=== PATIENT | male | born 1945 | race Caucasian/White ===

== ENCOUNTER → 2020-07-06 13:00 | Outpatient (CLI) | payer OTHER, SELFPAY ==
[2020-07-06 13:43] LABS: Add Manual Diff / Slide Review NO; Basophils Absolute Auto 100 /uL (0-100); Basophils Percent Auto 0.9 % (0-2); Eosinophils Absolute Auto 200 /uL (0-450); Eosinophils Percent Auto 2.4 % (2-4); Hematocrit 41.6 % (41-53); Hemoglobin 14.1 g/dL (13.5-17.5); Lymphocytes Absolute Auto 2000 /uL (1100-4500); Lymphocytes Percent Auto 21.5 % (25-40); Mean Corpuscular HGB Conc 33.9 % (30-36); Mean Corpuscular Hemoglobin 30.6 PG (26-34); Mean Corpuscular Volume 90.3 fL (80-100); Monocytes Absolute Auto 700 /uL (0-900); Monocytes Percent Auto 7.4 % (3-14); Neutrophils Absolute Auto 6300 /uL (1500-7000); Neutrophils Percent Auto 67.8 % (50-75); Platelet Count 344 X10^3/uL (150-400); White Blood Cell Count 9.3 X10^3/uL (4.5-11.0)
[2020-07-06 14:01] LABS: Alanine Aminotransferase 29 IU/L (<50); Albumin 4.9 g/dL (3.5-5.0); Albumin Globulin Ratio 1.5 (1.0-2.8); Alkaline Phosphatase 371 U/L (38-126); Aspartate Aminotransferase 43 IU/L (17-59); BUN Creatinine Ratio 19.8 (6-22); Bilirubin Total 0.5 mg/dL (0.2-1.3); Blood Urea Nitrogen 20 mg/dL (9-20); Calcium 10.4 mg/dL (8.4-10.2); Carbon Dioxide 29 mmol/L (22-32); Chloride 104 mmol/L (98-107); Cholesterol 212 mg/dL (140-199); Estimated Glomerular Filt Rate > 60.0 mL/min (>60); Globulin 3.3 g/dL (1.7-4.1); Glucose 112 mg/dL (80-110); HDL Cholesterol 51 mg/dL (40-60); HEMOLYSIS < 15 (0-50); LDL Cholesterol Calculated 130 mg/dL (<100); Potassium 4.3 mmol/L (3.4-5.1); Sodium 141 mmol/L (137-145); Total Protein 8.2 g/dL (6.3-8.2); Triglycerides 156 mg/dL (35-150)
[2020-07-06 14:17] LABS: Free T3, Triiodothyronine Free 4.03 pg/mL (2.77-5.27); Free T4, Direct Thyroxine 1.24 ng/dL (0.78-2.19)
[2020-07-06 14:30] LABS: Prostate Specific Antigen 59.2 ng/mL (0.10-4.00)
[2020-07-06 14:31] LABS: Thyroid Stimulating Hormone 2.14 uIU/mL (0.47-4.68)
--- NOTE | 2020-07-09 14:23 | ONC.MSW ---
Description: New Referral Navigation Reason for Referral: Hx Prostate Cancer, Rising PSA. Activity: Reviewed pt's referral for acuity,and immediate needs. Pt is being referred by Dr. Smith after it was discovered that pt's PSA has risen to 59. Pt had a prostatectomy in 2017, followed by Vern fenton. It's been one year since pt has had [place], or seen a Urologist. No immediate needs identified at this time. Forwarded to scheduling for next available new consult time.
== END ==
PROVIDERS: PCP Family Medicine; Referring Provider Family Medicine; Visit Provider Family Medicine
DX: C61 Malignant neoplasm of prostate (principal); E66.9 Obesity, unspecified; I10 Essential (primary) hypertension
CPT/HCPCS: 36415; 80053; 80061; 84153; 84439; 84443; 84481; 85025

== ENCOUNTER → 2020-07-23 17:04 | Outpatient (CLI) | payer OTHER, SELFPAY ==
[2020-07-23 17:58] LABS: Gamma Glutamyl Transpeptidase 27 U/L (15-73)
== END ==
PROVIDERS: PCP Family Medicine; Referring Provider Family Medicine; Visit Provider Family Medicine
DX: R74.8 Abnormal levels of other serum enzymes (principal)
CPT/HCPCS: 36415; 82977

== ENCOUNTER → 2020-08-18 08:54 | Outpatient (CLI) | payer OTHER, SELFPAY ==
--- NOTE | 2020-08-18 08:55 | DI.NM.S_ITS ---
PROCEDURE: NM BONE SCAN WHOLE BODY RADIOPHARMACEUTICAL: 19.8 mCi Tc-99m MDP IV. INDICATIONS: prostate cancder TECHNIQUE: Delayed whole-body scintigrams were obtained approximately 3-4 hours after intravenous injection of radiotracer. Anterior and posterior views were acquired from vertex to feet. COMPARISON: [facility], CT, CT CHEST ABD PEL W CON, 08/18/2020, 10:11. FINDINGS: The delayed planar imaging shows several calvarial lesions of focal dense isotope deposition, best seen in the left occipital area, and more superiorly at the posterior right and left paramedian parietal calvarium. More inferiorly degenerative changes are seen at the low thigh cervical spine and asymmetric prominent isotope deposition is seen at the humeral head/neck area and glenoid fossa on the left. Note is made of scattered foci of abnormal elevated isotope uptake at rib seen posteriorly bilaterally, including a linear band of uptake at the lower posterolateral left rib. As the lumbosacral level is approached increased isotope deposition can be seen and in this area on CT scanning from same day vague but generalized elevated radiodensity within the L1 vertebral body can be seen. This corresponds to an area of prominent elevated isotope deposition without height reduction in that same area on bone scanning. More inferiorly involving the right sacrum and right iliac bone on the bone scan of there is abnormal prominent elevated isotope deposition, and this same area shows a generalized increased bone radiodensity consistent with metastatic disease when the 2 findings are taken into account. If a small amount of focal abnormal isotope uptake can be seen at the femoral inter trochanteric region on the right and possibly also on the left. 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 Two small foci of isotope abnormality are noted at the inter trochanteric hips bilaterally. On corresponding imaging from CT scanning same day the bone abnormalities present are associated with a generalized marrow space increase in radiodensity but not the frequently anticipated high-level of osteoblastic change seen with most prostate carcinomas. This pattern is seen both at the L1 vertebral body and within the right iliac bone and the right sacrum laterally. Dictated by: Kade Rodriguez M.D. on 08/18/2020 at 16:46 Approved by: Kade Rodriguez M.D. on 08/18/2020 at 17:00
[2020-08-18 09:48] LABS: Add Manual Diff / Slide Review NO; Basophils Absolute Auto 100 /uL (0-100); Basophils Percent Auto 1.3 % (0-2); Eosinophils Absolute Auto 300 /uL (0-450); Eosinophils Percent Auto 3.2 % (2-4); Hematocrit 39.7 % (41-53); Hemoglobin 13.3 g/dL (13.5-17.5); Lymphocytes Absolute Auto 2100 /uL (1100-4500); Lymphocytes Percent Auto 24.7 % (25-40); Mean Corpuscular HGB Conc 33.5 % (30-36); Mean Corpuscular Hemoglobin 30.1 PG (26-34); Mean Corpuscular Volume 89.8 fL (80-100); Monocytes Absolute Auto 700 /uL (0-900); Monocytes Percent Auto 8.3 % (3-14); Neutrophils Absolute Auto 5400 /uL (1500-7000); Neutrophils Percent Auto 62.5 % (50-75); Platelet Count 325 X10^3/uL (150-400); Red Blood Cell Count 4.42 X10^6/uL (4.5-5.9); White Blood Cell Count 8.7 X10^3/uL (4.5-11.0)
[2020-08-18 10:03] LABS: Alanine Aminotransferase 29 IU/L (<50); Albumin 4.5 g/dL (3.5-5.0); Albumin Globulin Ratio 1.5 (1.0-2.8); Alkaline Phosphatase 570 U/L (38-126); Aspartate Aminotransferase 44 IU/L (17-59); BUN Creatinine Ratio 20.7 (6-22); Bilirubin Total 0.4 mg/dL (0.2-1.3); Blood Urea Nitrogen 23 mg/dL (9-20); Calcium 9.9 mg/dL (8.4-10.2); Carbon Dioxide 28 mmol/L (22-32); Chloride 103 mmol/L (98-107); Estimated Glomerular Filt Rate > 60.0 mL/min (>60); Glucose 103 mg/dL (80-110); HEMOLYSIS < 15 (0-50); Potassium 4.2 mmol/L (3.4-5.1); Sodium 140 mmol/L (137-145); Total Protein 7.5 g/dL (6.3-8.2)
--- NOTE | 2020-08-18 10:28 | DI.CT.S_ITS ---
PROCEDURE: CT CHEST ABD PEL W CON INDICATIONS: prostate cancder TECHNIQUE: After the administration of oral and intravenous contrast, 5 mm thick sections acquired from the lung apices to the symphysis. 5 mm coronal and sagittal reformats were performed, with additional 7 mm coronal MIP reformats through the lungs. For radiation dose reduction, the following was used: automated exposure control, adjustment of mA and/or kV according to patient size. COMPARISON: None. FINDINGS: Image quality: Excellent. CHEST: Lungs and pleura: No acute airspace opacities. No pleural effusions or pneumothorax. Central and peripheral airways appear patent and normal in caliber. Right upper lobe: 4 mm nodule seen on image 70, series 2. Right middle lobe: 4 mm nodule seen on image 191, series 2. Right lower lobe: 5 mm nodule seen on image 198, series 2. 3 mm nodule seen on image 160, series 2. Left upper lobe: No nodules noted. Left lower lobe: 3 mm nodule seen on image 219, series 2. Mediastinum: Heart size is normal. Scattered atherosclerotic calcifications of the coronary arteries are noted. No pericardial effusion. No mediastinal or hilar adenopathy by size criteria. Thoracic aorta and central pulmonary arteries are normal in size. Esophagus is normal in caliber. Small hiatal hernia. Chest wall: No axillary or supraclavicular adenopathy by size criteria. Thyroid gland is unremarkable. Bilateral gynecomastia. ABDOMEN: Solid organs: Liver is normal in size and enhancement. Numerous scattered variably sized hepatic hypodensities many of which are too small to accurately characterize. The largest appears more hypodense within the left hepatic lobe measuring approximately 7.0 x 7.0 cm in transverse dimension and measuring fluid attenuation. This is compatible with hepatic cyst. Other hypodensities may represent cysts versus hemangiomas versus possible metastatic disease. Gallbladder is unremarkable. Biliary system is non dilated. Pancreas enhances normally. Spleen is normal in size and enhancement. No adrenal nodules. Kidneys demonstrate normal size and enhancement, without hydronephrosis. Peritoneum and bowel: Bowel loops demonstrate normal wall thickness and caliber. No free fluid or air. Scattered colonic diverticula without acute inflammation. Nodes and vessels: No retroperitoneal or mesenteric adenopathy by size criteria. However, numerous prominent retroperitoneal lymph nodes are visualized at the level of the kidneys. Aorta and inferior vena cava are normal in size. Scattered atherosclerotic calcifications of the abdominal aorta and iliac vessels without aneurysmal dilatation. Miscellaneous: There is a fat-containing umbilical hernia without acute inflammation. PELVIS: Genitourinary: Bladder wall thickness is normal. There is a small right-sided urinary bladder wall diverticulum. There is also a fluid attenuation collection adjacent to the distal margin of the right external iliac artery measuring 2.6 x 3.8 cm. There are adjacent surgical clips adjacent to it and likely represents a postsurgical fluid collection. Miscellaneous: No inguinal hernias. A few prominent left pelvic sidewall lymph nodes are visualized. Status post prostatectomy. Bones: Status post ORIF of the right femoral neck. There are numerous scattered suspicious sclerotic foci throughout the visualized skeleton. These are noted in the superior aspect of the sternum, lateral left 2nd rib, lateral left 6th rib, posterior left 8th rib, left lamina of T2, posterior element of T4, vertebral body involving T6, T10, T11, T12 with associated anterior compression fracture (favored to be chronic), diffusely in L1, L2, and L4. Diffuse lytic and sclerotic foci noted in the pelvis and sacrum. IMPRESSION: 1. CT chest, abdomen, and pelvis without acute abnormalities. 2. Multiple scattered sclerotic foci noted throughout the imaged skeleton suspicious for osseous metastatic disease. There is possible pathologic compression fracture of T12 which appears chronic. Please see above for further details. 3. Multiple small hepatic hypodensities are too small to accurately characterize and may represent hepatic cysts versus hemangiomas as the largest lesion measures fluid attenuation. However, metastatic disease not excluded. 4. Although not meeting size criteria for pathology, there are numerous prominent retroperitoneal lymph nodes identified near the level of the kidneys as well as a few near the left pelvic sidewall, suspicious for possible metastatic disease. 5. Multiple sub 6 mm bilateral pulmonary nodules . Etiology includes inflammatory or infectious process with metastatic disease not excluded. Follow-up CT recommended in approximately 12 months. 6. Colonic diverticulosis without acute diverticulitis. 7. Status post prostatectomy. 8. Other findings as above. Dictated by: Cornell Lou M.D. on 08/18/2020 at 14:56 Approved by: Cornell Lou M.D. on 08/18/2020 at 15:35
[2020-08-18 11:51] LABS: Prostate Specific Antigen 123 ng/mL (0.10-4.00)
== END ==
PROVIDERS: PCP Family Medicine; Referring Provider Internal Medicine Hematology & Oncology; Visit Provider Internal Medicine Hematology & Oncology
DX: C61 Malignant neoplasm of prostate (principal); C79.51 Secondary malignant neoplasm of bone; R91.8 Other nonspecific abnormal finding of lung field; R59.0 Localized enlarged lymph nodes; K57.90 Diverticulosis of intestine, part unspecified, without perforation or abscess without bleeding; I25.10 Atherosclerotic heart disease of native coronary artery without angina pectoris
CPT/HCPCS: 36415; 71260; 74177; 78306; 80053; 84153; 85025; A9503; Q9967

== ENCOUNTER → 2021-01-02 12:57 | Outpatient (CLI) | payer OTHER, SELFPAY ==
[2021-01-02 13:19] LABS: Add Manual Diff / Slide Review NO; Basophils Absolute Auto 100 /uL (0-100); Basophils Percent Auto 1.2 % (0-2); Eosinophils Absolute Auto 200 /uL (0-450); Eosinophils Percent Auto 2.7 % (2-4); Hemoglobin 12.8 g/dL (13.5-17.5); Lymphocytes Absolute Auto 2000 /uL (1100-4500); Lymphocytes Percent Auto 22.8 % (25-40); Mean Corpuscular HGB Conc 33.7 % (30-36); Mean Corpuscular Hemoglobin 31.3 PG (26-34); Monocytes Absolute Auto 1000 /uL (0-900); Monocytes Percent Auto 11.9 % (3-14); Neutrophils Absolute Auto 5300 /uL (1500-7000); Neutrophils Percent Auto 61.4 % (50-75); Platelet Count 310 X10^3/uL (150-400); Red Blood Cell Count 4.09 X10^6/uL (4.5-5.9); Red Cell Distribution Width 13.6 % (11.6-14.8); White Blood Cell Count 8.6 X10^3/uL (4.5-11.0)
[2021-01-02 13:23] LABS: Alanine Aminotransferase 31 IU/L (<50); Albumin 4.3 g/dL (3.5-5.0); Albumin Globulin Ratio 1.5 (1.0-2.8); Alkaline Phosphatase 271 U/L (38-126); Aspartate Aminotransferase 37 IU/L (17-59); BUN Creatinine Ratio 24.3 (6-22); Bilirubin Total 0.3 mg/dL (0.2-1.3); Blood Urea Nitrogen 26 mg/dL (9-20); Calcium 9.5 mg/dL (8.4-10.2); Carbon Dioxide 36 mmol/L (22-32); Chloride 104 mmol/L (98-107); Estimated Glomerular Filt Rate > 60.0 mL/min (>60); Globulin 2.9 g/dL (1.7-4.1); Glucose 106 mg/dL (80-110); HEMOLYSIS < 15 (0-50); Potassium 3.5 mmol/L (3.4-5.1); Sodium 142 mmol/L (137-145); Total Protein 7.2 g/dL (6.3-8.2)
[2021-01-02 13:54] LABS: Prostate Specific Antigen 3.37 ng/mL (0.10-4.00)
== END ==
PROVIDERS: PCP Family Medicine; Referring Provider Internal Medicine Hematology & Oncology; Visit Provider Internal Medicine Hematology & Oncology
DX: C61 Malignant neoplasm of prostate (principal)
CPT/HCPCS: 36415; 80053; 84153; 85025

== ENCOUNTER → 2021-06-08 09:39 | Outpatient (CLI) | payer OTHER, SELFPAY | PROVIDERS: Family Provider Family Medicine; PCP Family Medicine; Referring Provider Internal Medicine Hematology & Oncology; Visit Provider Internal Medicine Hematology & Oncology | DX: C61 Malignant neoplasm of prostate (principal) ==

== ENCOUNTER 2021-07-01 14:30 | Outpatient (RCR) | payer OTHER, SELFPAY ==
--- NOTE | 2021-03-17 14:48 | PT.OIE ---
Current Diagnoses Malignant neoplasm of prostate (03/17/21) Low back pain (03/17/21) Other malaise (03/17/21) Past Medical History (Last Updated 02/26/21 @ 15:00 by Art Smith DO) Elevated alkaline phosphatase level Elevated PSA History of prostate cancer Hypertension Low back pain Obesity Physical deconditioning Vision disorder Past Surgical History (Last Reviewed 07/27/20 @ 11:00 by Parvin Baum MD) Anesthesia H/O right wrist surgery (~1996) H/O umbilical hernia repair History of hip surgery (~1985) History of prostatectomy Visit Care Team Role Provider Type Art Smith DO Attending Provider Physician Family Provider Primary Care Provider Referring Provider Specialty: [facility] Practice Address: [address] [place] [address] Email: Physical Therapy Initial Evaluation PT-OP-A Visit Information Start: 03/17/21 14:08 Freq: Status: Active Protocol: Document 03/17/21 14:11 (Rec: 03/17/21 14:47 [email or web address]) Out-Patient Physical Therapy Visit Information Visit Information Visit Type Initial Evaluation Visit Start Time 13:00 Visit Stop Time 13:50 Total Visit Minutes 50 Visit Number 11/27 Number of NUT TIGHTENER Visits 0 Evaluation Information Evaluation Date 03/17/21 Precautions Precautions prostate cancer osteoporosis PT-OP-B Current Condition Start: 03/17/21 14:08 Freq: Status: Active Protocol: Document 03/17/21 14:11 (Rec: 03/17/21 14:47 [email or web address]) Current Condition History of Current Condition Onset Date many years ago Current Complaints chronic LBP, deconditioning and difficulty in walking History of Current Condition Jassi is a 75yo male with hx of osteoporosis, bakc pain, prostate caner, s/p prostatectomy in 2017 and HTN here for her chronic LBP and deconditioning. He states his back pain has been there > 10 years located at the sacral region and it's tender to touch. He tends to feel compressed if he stands / walk for a long time but bending over tends to relieve his pain. He states he is very sedentary since 10 years ago and has been using hiking sticks to walk/ furniture cruise d/t weakness and poor balance. He also needs to use UE to lift LEs into his car/ bed. He stated he has been being lazy for years and want to get stronger again. Pt mentioned he had a R hip ORIF surgery 20 years after a fall from rollerblading. Current Functional Impairments (Reported) Functional Limitations- ADL's unable to stand > 30 mins for house work Functional Limitations- Mobility/Gait unable to tolerate >100ft of walking d/t fatigue and pain. pt uses hiking stickcs to walk / furniture cruise at home use UEs to lift LEs to get into his car/ bed. Personal Factors Other Personal Factors That May Effect pt is on Lupron (hormonal Therapy/Recovery therapy) for prostate cancer osteoporosis PT-OP-C Subjective Start: 03/17/21 14:08 Freq: Status: Active Protocol: Document 03/17/21 14:11 (Rec: 03/17/21 14:47 [email or web address]) Patient Questionnaires Oswestry Low Back Index Oswestry Score 26 Oswestry Impairment 20 to 39% Impaired (Score 20- 39) OP-PT Pain Assessment Location LBP Pain Location Details lumbar region Intensity 1 Scale Used Numeric (0 - 10) Description Aching Frequency Frequent Pain Aggravating Factors ADL's,Activity,Exercise, Standing,Walking Pain Alleviating Factors Inactivity,Lying Supine, Sitting PT-OP-D Balance Start: 03/17/21 14:08 Freq: Status: Active Protocol: Document 03/17/21 14:11 (Rec: 03/17/21 14:47 [email or web address]) Balance Tests Single Limb Standing Single Limb- Right unable d/t instability Single Limb- Left unable d/t instability PT-OP-G Mobility & Gait Start: 03/17/21 14:08 Freq: Status: Active Protocol: Document 03/17/21 14:11 (Rec: 03/17/21 14:47 [email or web address]) OP Mobility Evaluation Bed Mobility Supine to and from Sit use UEs to lift each LE individually over to table/ off the table Transfers Sit to Stand B UE push off from armrest OP Gait Assessment Comments Gait Comments pt walks with hiking sticks at all time and with a slight lateral gait. (R toe in and amb in a diagonal direction.) PT-OP-H Neuro Start: 03/17/21 14:08 Freq: Status: Active Protocol: Document 03/17/21 14:11 (Rec: 03/17/21 14:47 [email or web address]) Sensation Evaluation Gross Sensation Gross Sensation WNL Deep Tendon Reflex & Clonus Assessment Deep Tendon Reflex Bilateral Achilles Deep Tendon Reflex 2+ Normal Bilateral Patellar Deep Tendon Reflex 2+ Normal PT-OP-K Range of Motion Start: 03/17/21 14:08 Freq: Status: Active Protocol: Document 03/17/21 14:11 (Rec: 03/17/21 14:47 [email or web address]) Lumbar Spine Range of Motion Lumbar Spine Active Degrees Testing Position Sitting Comments unable to toe touch in standing d/t poor balance able to toe touch in seated position, slight discomfort with extension but not radiating pain noted. Hip Goniometric Range of Motion Hip Right Active Comments supine figure 4 position (R knee 4 inches off table; L knee 3 inches off table) PSLR =45 degrees , tightness HS Left Active Comments supine figure 4 position (R knee 4 inches off table; L knee 3 inches off table) PSLR =60 degrees , tightness HS Hip ROM Limitations Hip ROM Limitations Soft Tissue Tightness PT-OP-L Special Tests Start: 03/17/21 14:08 Freq: Status: Active Protocol: Document 03/17/21 14:11 (Rec: 03/17/21 14:47 [email or web address]) Special Tests Lumbar Spine Special Tests Straight Leg Raise Test Results -ve Comments significant HS tightness noted . no LBP A-P Shearing Test Results pain at L3-L5 with PA mob Hip Special Tests Scour Test Test Results -ve B Straight Leg Raise Test Results +ve B Comments significant HS tightness noted . no LBP Piriformis Test Results -ve B EDUARDO Test Results -ve B PT-OP-M Strength Start: 03/17/21 14:08 Freq: Status: Active Protocol: Document 03/17/21 14:11 (Rec: 03/17/21 14:47 [email or web address]) Hip Strength Hip Manual Muscle Testing Right Flexion (L2) 3- Fair- Extension (S1) 3 Fair Abduction 3 Fair Adduction 3 Fair External Rotation 3 Fair Internal Rotation 3 Fair Left Flexion (L2) 3+ Fair+ Extension (S1) 3+ Fair+ Abduction 3 Fair Adduction 3+ Fair+ External Rotation 3+ Fair+ Internal Rotation 3+ Fair+ Knee Strength Knee Manual Muscle Testing Right Flexion (S2) 4 Good Extension (L3) 4 Good Left Flexion (S2) 4 Good Extension (L3) 4 Good PT-OP-T Assessment and Plan Start: 03/17/21 14:08 Freq: Status: Active Protocol: Document 03/17/21 14:11 (Rec: 03/17/21 14:47 HH [email or web address]) Physical Therapy Assessment Rehab Potential Rehabilitation Potential Good Evaluation Complexity Number of Personal Factors/Comorbidities 3 or More Number of Body Systems Impaired 3 Clinical Presentation at Evaluation Stable Impairments Impairments Activity Tolerance,Balance, Edema,Functional Activities, Functional Mobility,Gait,Pain, Posture,ROM,Soft Tissue Mobility,Strength,Transfers Goals activity tolerance Impairment pt is very deconditioned. 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 STG Duration 6 weeks Penitentiary Goal (LTG) pt will be able to tolerate walking 300 ft without AD to improve his overall endurance and mobility in community LTG Duration 12 weeks. strength Impairment pt needs to use armrests to stand up Short Term Goal (STG) pt will improve his B LE strength to be able to complete STS for 5 times without using armrests to push off. STG Duration 6 weeks Penitentiary Goal (LTG) pt will improve his B LE strength to be able to complete STS for 10 times without using armrests to push off. LTG Duration 12 weeks gait Impairment pt is using hiking sticks for all mobility Short Term Goal (STG) pt will be able to use SPC/ 1 hiking stick to amb in community and at home safely and indepednently STG Duration 6 weeks Penitentiary Goal (LTG) pt will be able amb without any AD in community and at home safely and indepednently LTG Duration 12 weeks oswestry Impairment pt scores 26 Short Term Goal (STG) pt will score <20 on owestry to improve his quality of life . STG Duration 6 weeks Penitentiary Goal (LTG) pt will score <15 on owestry to improve his quality of life and activity tolerance LTG Duration 12weeks Assessment Summary Assessment Jassi is a 75yo fragile and obese male here for his chronic LBP and deconditioning . Pt has hx of osteoporosis, prostate caner, s/p prostatectomy in 2017 and HTN. (pt is on Lupron hormonal therapy). Upon assessment, pt shows signs of R hip OA and lumbar stenosis. He has slightly limited R hip mobility especially Hamstrings and pain with lumbar extension. He is extremely deconditioned with significant LE weakness possibly d/t lack of motivation, prolonged sedentary lifestyle and fear of falling. This is possibly going to be a long rehab d/t his other comorbidities and lifestyle issues but he will benefit from a course of skilled therapy to achieve better functional mobility and strength. Physical Therapy Plan Frequency and Duration Frequency of Treatment 2x/Week Duration of Treatment 12 weeks Plan of Care Start Date 03/17/21 Plan of Care End Date 06/15/21 Therapeutic Interventions Therapeutic Interventions Aquatic Therapy,Balance Training,Gait Training,Home Exercise Program,Joint Mobilizations,Manual Therapy, Neuromuscular Re-education, Orthotic/Prosthetic Management ,Patient/Caregiver Education, Self-Care/Home Management,Soft Tissue Mobilization,Taping, Therapeutic Activities, Therapeutic Exercises Modalities Cold Pack/Ice Massage,Hot Packs,Infrared Therapy, Traction- Mechanical Next Visit Focus/Plan Next Note Type Treatment Note Next Visit Plan hip stretches (figrue 4 , piriformis) HS stretch sLR leg press bike to start with( pt recnetly purchase a bike) gait training
--- NOTE | 2021-03-24 16:26 | PT.OTN ---
Current Diagnoses Malignant neoplasm of prostate (03/24/21) Low back pain (03/24/21) Other malaise (03/24/21) Physical Therapy Treatment Note PT-OP-A Visit Information Start: 03/17/21 14:08 Freq: Status: Active Protocol: Document 03/24/21 13:48 HH (Rec: 03/24/21 16:26 [id number]) Out-Patient Physical Therapy Visit Information Visit Information Visit Type Treatment Note Visit Start Time 13:48 Visit Stop Time 14:30 Total Visit Minutes 42 Visit Number 2/15 Number of SCHOOL LIBRARY MEDIA PROGRAM DIRECTOR Visits 0 PT-OP-B Current Condition Start: 03/17/21 14:08 Freq: Status: Active Protocol: Document 03/17/21 14:11 HH (Rec: 03/17/21 14:47 [email or web address]) Current Condition History of Current Condition Onset Date many years ago Current Complaints chronic LBP, deconditioning and difficulty in walking History of Current Condition Jassi is a 75yo male with hx of osteoporosis, bakc pain, prostate caner, s/p prostatectomy in 2017 and HTN here for her chronic LBP and deconditioning. He states his back pain has been there > 10 years located at the sacral region and it's tender to touch. He tends to feel compressed if he stands / walk for a long time but bending over tends to relieve his pain. He states he is very sedentary since 10 years ago and has been using hiking sticks to walk/ furniture cruise d/t weakness and poor balance. He also needs to use UE to lift LEs into his car/ bed. He stated he has been being lazy for years and want to get stronger again. Pt mentioned he had a R hip ORIF surgery 20 years after a fall from rollerblading. Current Functional Impairments (Reported) Functional Limitations- ADL's unable to stand > 30 mins for house work Functional Limitations- Mobility/Gait unable to tolerate >100ft of walking d/t fatigue and pain. pt uses hiking stickcs to walk / furniture cruise at home use UEs to lift LEs to get into his car/ bed. Personal Factors Other Personal Factors That May Effect pt is on Lupron (hormonal Therapy/Recovery therapy) for prostate cancer osteoporosis PT-OP-C Subjective Start: 03/17/21 14:08 Freq: Status: Active Protocol: Document 03/24/21 13:48 (Rec: 03/24/21 16:26 [id number]) OP-PT Subjective Patient Comments Patient Comments My back was killing me after i went to [place]. I just have very weak legs PT-OP-D Balance Start: 03/17/21 14:08 Freq: Status: Active Protocol: Document 03/17/21 14:11 (Rec: 03/17/21 14:47 [email or web address]) Balance Tests Single Limb Standing Single Limb- Right unable d/t instability Single Limb- Left unable d/t instability PT-OP-G Mobility & Gait Start: 03/17/21 14:08 Freq: Status: Active Protocol: Document 03/17/21 14:11 (Rec: 03/17/21 14:47 [email or web address]) OP Mobility Evaluation Bed Mobility Supine to and from Sit use UEs to lift each LE individually over to table/ off the table Transfers Sit to Stand B UE push off from armrest OP Gait Assessment Comments Gait Comments pt walks with hiking sticks at all time and with a slight lateral gait. (R toe in and amb in a diagonal direction.) PT-OP-H Neuro Start: 03/17/21 14:08 Freq: Status: Active Protocol: Document 03/17/21 14:11 (Rec: 03/17/21 14:47 [email or web address]) Sensation Evaluation Gross Sensation Gross Sensation WNL Deep Tendon Reflex & Clonus Assessment Deep Tendon Reflex Bilateral Achilles Deep Tendon Reflex 2+ Normal Bilateral Patellar Deep Tendon Reflex 2+ Normal PT-OP-K Range of Motion Start: 03/17/21 14:08 Freq: Status: Active Protocol: Document 03/17/21 14:11 (Rec: 03/17/21 14:47 [email or web address]) Lumbar Spine Range of Motion Lumbar Spine Active Degrees Testing Position Sitting Comments unable to toe touch in standing d/t poor balance able to toe touch in seated position, slight discomfort with extension but not radiating pain noted. Hip Goniometric Range of Motion Hip Right Active Comments supine figure 4 position (R knee 4 inches off table; L knee 3 inches off table) PSLR =45 degrees , tightness HS Left Active Comments supine figure 4 position (R knee 4 inches off table; L knee 3 inches off table) PSLR =60 degrees , tightness HS Hip ROM Limitations Hip ROM Limitations Soft Tissue Tightness PT-OP-L Special Tests Start: 03/17/21 14:08 Freq: Status: Active Protocol: Document 03/17/21 14:11 (Rec: 03/17/21 14:47 [email or web address]) Special Tests Lumbar Spine Special Tests Straight Leg Raise Test Results -ve Comments significant HS tightness noted . no LBP A-P Shearing Test Results pain at L3-L5 with PA mob Hip Special Tests Scour Test Test Results -ve B Straight Leg Raise Test Results +ve B Comments significant HS tightness noted . no LBP Piriformis Test Results -ve B EDUARDO Test Results -ve B PT-OP-M Strength Start: 03/17/21 14:08 Freq: Status: Active Protocol: Document 03/17/21 14:11 (Rec: 03/17/21 14:47 [email or web address]) Hip Strength Hip Manual Muscle Testing Right Flexion (L2) 3- Fair- Extension (S1) 3 Fair Abduction 3 Fair Adduction 3 Fair External Rotation 3 Fair Internal Rotation 3 Fair Left Flexion (L2) 3+ Fair+ Extension (S1) 3+ Fair+ Abduction 3 Fair Adduction 3+ Fair+ External Rotation 3+ Fair+ Internal Rotation 3+ Fair+ Knee Strength Knee Manual Muscle Testing Right Flexion (S2) 4 Good Extension (L3) 4 Good Left Flexion (S2) 4 Good Extension (L3) 4 Good PT-OP-Q Treatments Start: 03/17/21 14:08 Freq: Status: Active Protocol: Document 03/24/21 13:48 (Rec: 03/24/21 16:26 [id number]) Cardio Equipment Recumbent Bicycle Duration (Minutes) 6 Resistance 5 Seat Position 5 Other need to use UE to lift LE individually. Therapeutic Exercises Supine Exercises supine clamshell Side bilateral Equipment Used yellow band Reps/Minutes 8 x2 bridging Side bilateral Reps/Minutes 6 x2 Comments pt has excessive lateral sway d/t poor stability Manual Therapy Treatment Soft Tissue Mobilization hips Body Location hip abductors and extensors Mobilization Type Myofascial Release,Sustained Pressure,Trigger Point Release Intensity/Depth Moderate Body Position Supine paraspinals Mobilization Type Myofascial Release,Sustained Pressure,Trigger Point Release Intensity/Depth Moderate Body Position Sitting Comments significnat tenderness L>R PT-OP-T Assessment and Plan Start: 03/17/21 14:08 Freq: Status: Active Protocol: Document 03/24/21 13:48 HH (Rec: 03/24/21 16:26 HH [id number]) Physical Therapy Assessment Goals activity tolerance Impairment pt is very deconditioned. 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 STG Duration 6 weeks Live Ammunition Inspector Goal (LTG) pt will be able to tolerate walking 300 ft without AD to improve his overall endurance and mobility in community LTG Duration 12 weeks. strength Impairment pt needs to use armrests to stand up Short Term Goal (STG) pt will improve his B LE strength to be able to complete STS for 5 times without using armrests to push off. STG Duration 6 weeks Custodial Goal (LTG) pt will improve his B LE strength to be able to complete STS for 10 times without using armrests to push off. LTG Duration 12 weeks gait Impairment pt is using hiking sticks for all mobility Short Term Goal (STG) pt will be able to use SPC/ 1 hiking stick to amb in community and at home safely and indepednently STG Duration 6 weeks Live Ammunition Inspector Goal (LTG) pt will be able amb without any AD in community and at home safely and indepednently LTG Duration 12 weeks oswestry Impairment pt scores 26 Short Term Goal (STG) pt will score <20 on owestry to improve his quality of life . STG Duration 6 weeks Custodial Goal (LTG) pt will score <15 on owestry to improve his quality of life and activity tolerance LTG Duration 12weeks Assessment Summary Assessment Noticed pt has significant hypertonicity at lumbar paraspinals L>R, along with poor core and hip stability. Pt reports he has abdominal hernia surgery few years ago which possibly affect his trunk stability as well. Spent time cueing pt on trunk and hip control on bridging and supine clamshell this session. Physical Therapy Plan Frequency and Duration Frequency of Treatment 2x/Week Duration of Treatment 12 weeks Plan of Care Start Date 03/17/21 Plan of Care End Date 06/15/21 Next Visit Focus/Plan Next Note Type Treatment Note Next Visit Plan hip stretches (figrue 4 , piriformis) HS stretch sLR leg press bike to start with( pt recnetly purchase a bike) gait training
--- NOTE | 2021-03-26 15:33 | PT.OTN ---
Current Diagnoses Malignant neoplasm of prostate (03/26/21) Low back pain (03/26/21) Other malaise (03/26/21) Physical Therapy Treatment Note PT-OP-A Visit Information Start: 03/17/21 14:08 Freq: Status: Active Protocol: Document 03/26/21 14:33 SP (Rec: 03/26/21 16:09 SP [id number]) Out-Patient Physical Therapy Visit Information Visit Information Visit Type Treatment Note Visit Start Time 14:33 Visit Stop Time 15:33 Total Visit Minutes 60 Visit Number 3/15 Number of THERAPIST'S ASSISTANT Visits 1 Evaluation Information Evaluation Date 03/17/21 Precautions Precautions prostate cancer osteoporosis PT-OP-B Current Condition Start: 03/17/21 14:08 Freq: Status: Active Protocol: Document 03/17/21 14:11 HH (Rec: 03/17/21 14:47 HH [email or web address]) Current Condition History of Current Condition Onset Date many years ago Current Complaints chronic LBP, deconditioning and difficulty in walking History of Current Condition Jassi is a 75yo male with hx of osteoporosis, bakc pain, prostate caner, s/p prostatectomy in 2017 and HTN here for her chronic LBP and deconditioning. He states his back pain has been there > 10 years located at the sacral region and it's tender to touch. He tends to feel compressed if he stands / walk for a long time but bending over tends to relieve his pain. He states he is very sedentary since 10 years ago and has been using hiking sticks to walk/ furniture cruise d/t weakness and poor balance. He also needs to use UE to lift LEs into his car/ bed. He stated he has been being lazy for years and want to get stronger again. Pt mentioned he had a R hip ORIF surgery 20 years after a fall from rollerblading. Current Functional Impairments (Reported) Functional Limitations- ADL's unable to stand > 30 mins for house work Functional Limitations- Mobility/Gait unable to tolerate >100ft of walking d/t fatigue and pain. pt uses hiking stickcs to walk / furniture cruise at home use UEs to lift LEs to get into his car/ bed. Personal Factors Other Personal Factors That May Effect pt is on Lupron (hormonal Therapy/Recovery therapy) for prostate cancer osteoporosis PT-OP-C Subjective Start: 03/17/21 14:08 Freq: Status: Active Protocol: Document 03/26/21 14:33 SP (Rec: 03/26/21 16:09 SP [id number]) OP-PT Subjective Patient Comments Patient Comments Pt arrives using B walking sticks 4pt gait for locomotion . My back is feeling better now that took hydrocodone, was hurting alot earlier. I my back was hurting later in the day after last tx, the PT was reallly working on my back bone last time. PT-OP-D Balance Start: 03/17/21 14:08 Freq: Status: Active Protocol: Document 03/17/21 14:11 HH (Rec: 03/17/21 14:47 [email or web address]) Balance Tests Single Limb Standing Single Limb- Right unable d/t instability Single Limb- Left unable d/t instability PT-OP-G Mobility & Gait Start: 03/17/21 14:08 Freq: Status: Active Protocol: Document 03/17/21 14:11 HH (Rec: 03/17/21 14:47 [email or web address]) OP Mobility Evaluation Bed Mobility Supine to and from Sit use UEs to lift each LE individually over to table/ off the table Transfers Sit to Stand B UE push off from armrest OP Gait Assessment Comments Gait Comments pt walks with hiking sticks at all time and with a slight lateral gait. (R toe in and amb in a diagonal direction.) PT-OP-H Neuro Start: 03/17/21 14:08 Freq: Status: Active Protocol: Document 03/17/21 14:11 HH (Rec: 03/17/21 14:47 [email or web address]) Sensation Evaluation Gross Sensation Gross Sensation WNL Deep Tendon Reflex & Clonus Assessment Deep Tendon Reflex Bilateral Achilles Deep Tendon Reflex 2+ Normal Bilateral Patellar Deep Tendon Reflex 2+ Normal PT-OP-K Range of Motion Start: 03/17/21 14:08 Freq: Status: Active Protocol: Document 03/17/21 14:11 HH (Rec: 03/17/21 14:47 [email or web address]) Lumbar Spine Range of Motion Lumbar Spine Active Degrees Testing Position Sitting Comments unable to toe touch in standing d/t poor balance able to toe touch in seated position, slight discomfort with extension but not radiating pain noted. Hip Goniometric Range of Motion Hip Right Active Comments supine figure 4 position (R knee 4 inches off table; L knee 3 inches off table) PSLR =45 degrees , tightness HS Left Active Comments supine figure 4 position (R knee 4 inches off table; L knee 3 inches off table) PSLR =60 degrees , tightness HS Hip ROM Limitations Hip ROM Limitations Soft Tissue Tightness PT-OP-L Special Tests Start: 03/17/21 14:08 Freq: Status: Active Protocol: Document 03/17/21 14:11 HH (Rec: 03/17/21 14:47 HH [email or web address]) Special Tests Lumbar Spine Special Tests Straight Leg Raise Test Results -ve Comments significant HS tightness noted . no LBP A-P Shearing Test Results pain at L3-L5 with PA mob Hip Special Tests Scour Test Test Results -ve B Straight Leg Raise Test Results +ve B Comments significant HS tightness noted . no LBP Piriformis Test Results -ve B EDUARDO Test Results -ve B PT-OP-M Strength Start: 03/17/21 14:08 Freq: Status: Active Protocol: Document 03/17/21 14:11 HH (Rec: 03/17/21 14:47 [email or web address]) Hip Strength Hip Manual Muscle Testing Right Flexion (L2) 3- Fair- Extension (S1) 3 Fair Abduction 3 Fair Adduction 3 Fair External Rotation 3 Fair Internal Rotation 3 Fair Left Flexion (L2) 3+ Fair+ Extension (S1) 3+ Fair+ Abduction 3 Fair Adduction 3+ Fair+ External Rotation 3+ Fair+ Internal Rotation 3+ Fair+ Knee Strength Knee Manual Muscle Testing Right Flexion (S2) 4 Good Extension (L3) 4 Good Left Flexion (S2) 4 Good Extension (L3) 4 Good PT-OP-Q Treatments Start: 03/17/21 14:08 Freq: Status: Active Protocol: Document 03/26/21 14:33 SP (Rec: 03/26/21 16:09 SP [id number]) Cardio Equipment Recumbent Bicycle Duration (Minutes) 6 Resistance 13 (just right resistance) Seat Position 5 Other need to use UE to lift LE individually. (1.07 miles) Gym Equipment Shuttle Recovery Unilateral Squats Details adductor, quad facilitation Resistance 37# Shuttle Recovery Platform Stable Reps/Time x10 each LE- cued adduction L> R LE Bilateral Squats Details quad, adductor facilitation Resistance 75# Shuttle Recovery Platform Stable Reps/Time x20 Therapeutic Exercises Supine Exercises adduction isometric Supine Exercise Name hooklying- added to HEP Side bilateral Equipment Used small blue ball, pillow home Reps/Minutes 5 sec hold x5 Comments cued even lower body alignment LTR Side bilateral Reps/Minutes 5 sec hold x5 Comments Cued B knees //, core & adductor facilitation supine clamshell Side bilateral Equipment Used yellow band (added HEP AROM home) Reps/Minutes 8 x2 bridging Side bilateral Equipment Used pillow between BLE Reps/Minutes 6 x2 Comments pt has excessive lateral sway d/t poor stability Standing Exercises sit<> stands Standing Exercise Name hands on lap- added to HEP Equipment Used near counter for contact balance PRN Reps/Minutes x5 Comments cued feet underneath LE, hip hinge up/ down, quad & glut facil full stand Self-Care/Home Management Treatment Education Patient Education Body Mechanics,Home Exercise Program,Posture Other Education Extra time spent on trunk alignment and self application set up/ performance during ther ex for HEP. PT-OP-T Assessment and Plan Start: 03/17/21 14:08 Freq: Status: Active Protocol: Document 03/26/21 14:33 SP (Rec: 03/26/21 16:09 SP [id number]) Physical Therapy Assessment Goals activity tolerance Impairment pt is very deconditioned. 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 STG Duration 6 weeks Intermediate Goal (LTG) pt will be able to tolerate walking 300 ft without AD to improve his overall endurance and mobility in community LTG Duration 12 weeks. strength Impairment pt needs to use armrests to stand up Short Term Goal (STG) pt will improve his B LE strength to be able to complete STS for 5 times without using armrests to push off. STG Duration 6 weeks Intermediate Goal (LTG) pt will improve his B LE strength to be able to complete STS for 10 times without using armrests to push off. LTG Duration 12 weeks gait Impairment pt is using hiking sticks for all mobility Short Term Goal (STG) pt will be able to use SPC/ 1 hiking stick to amb in community and at home safely and indepednently STG Duration 6 weeks Door To Door Selling Agent Goal (LTG) pt will be able amb without any AD in community and at home safely and indepednently LTG Duration 12 weeks oswestry Impairment pt scores 26 Short Term Goal (STG) pt will score <20 on owestry to improve his quality of life . STG Duration 6 weeks Door To Door Selling Agent Goal (LTG) pt will score <15 on owestry to improve his quality of life and activity tolerance LTG Duration 12weeks Assessment Summary Assessment Pt worked hard throughout tx. Tolerated bike, initiated shuttle press DL/ SL, sit<> stands for self functional strengthening carryover at home and extra time on education on self awareness of lower body alignment during ther ex to allow increased stability between BLE and core support, decreased L rotational drift. Pt improved in forward trunk alignment and quad facilitation knee extension when leaving. Physical Therapy Plan Frequency and Duration Frequency of Treatment 2x/Week Duration of Treatment 12 weeks Plan of Care Start Date 03/17/21 Plan of Care End Date 06/15/21 Therapeutic Interventions Therapeutic Interventions Aquatic Therapy,Balance Training,Gait Training,Home Exercise Program,Joint Mobilizations,Manual Therapy, Neuromuscular Re-education, Orthotic/Prosthetic Management ,Patient/Caregiver Education, Self-Care/Home Management,Soft Tissue Mobilization,Taping, Therapeutic Activities, Therapeutic Exercises Modalities Cold Pack/Ice Massage,Hot Packs,Infrared Therapy, Traction- Mechanical Next Visit Focus/Plan Next Note Type Treatment Note Next Visit Plan Assess reponse to strengthening activities: recumb bike, shuttle press, sit<> stands, hooklying clamshell, bridge, initiated LTR and hip adduction isometric. Next tx: review adduction activities, instruct flexibility in POC POC PT recommendations: hip stretches (figrue 4 , piriformis) HS stretch sLR bike to start with (pt recnetly purchase a bike) gait training
--- NOTE | 2021-03-31 15:14 | PT.OTN ---
Current Diagnoses Malignant neoplasm of prostate (03/31/21) Low back pain (03/31/21) Other malaise (03/31/21) Physical Therapy Treatment Note PT-OP-A Visit Information Start: 03/17/21 14:08 Freq: Status: Active Protocol: Document 03/31/21 13:44 HH (Rec: 03/31/21 15:13 [id number]) Out-Patient Physical Therapy Visit Information Visit Information Visit Type Treatment Note Visit Start Time 13:45 Visit Stop Time 14:40 Total Visit Minutes 55 Visit Number 4/15 Number of SHADE CLOTH FINISHER Visits 0 PT-OP-B Current Condition Start: 03/17/21 14:08 Freq: Status: Active Protocol: Document 03/17/21 14:11 HH (Rec: 03/17/21 14:47 [email or web address]) Current Condition History of Current Condition Onset Date many years ago Current Complaints chronic LBP, deconditioning and difficulty in walking History of Current Condition Jassi is a 75yo male with hx of osteoporosis, bakc pain, prostate caner, s/p prostatectomy in 2017 and HTN here for her chronic LBP and deconditioning. He states his back pain has been there > 10 years located at the sacral region and it's tender to touch. He tends to feel compressed if he stands / walk for a long time but bending over tends to relieve his pain. He states he is very sedentary since 10 years ago and has been using hiking sticks to walk/ furniture cruise d/t weakness and poor balance. He also needs to use UE to lift LEs into his car/ bed. He stated he has been being lazy for years and want to get stronger again. Pt mentioned he had a R hip ORIF surgery 20 years after a fall from rollerblading. Current Functional Impairments (Reported) Functional Limitations- ADL's unable to stand > 30 mins for house work Functional Limitations- Mobility/Gait unable to tolerate >100ft of walking d/t fatigue and pain. pt uses hiking stickcs to walk / furniture cruise at home use UEs to lift LEs to get into his car/ bed. Personal Factors Other Personal Factors That May Effect pt is on Lupron (hormonal Therapy/Recovery therapy) for prostate cancer osteoporosis PT-OP-C Subjective Start: 03/17/21 14:08 Freq: Status: Active Protocol: Document 03/31/21 13:44 (Rec: 03/31/21 15:13 [id number]) OP-PT Subjective Patient Comments Patient Comments I felt slight improvements on confidence and walking ability. Patient Reported Progress Improving PT-OP-D Balance Start: 03/17/21 14:08 Freq: Status: Active Protocol: Document 03/17/21 14:11 HH (Rec: 03/17/21 14:47 [email or web address]) Balance Tests Single Limb Standing Single Limb- Right unable d/t instability Single Limb- Left unable d/t instability PT-OP-G Mobility & Gait Start: 03/17/21 14:08 Freq: Status: Active Protocol: Document 03/17/21 14:11 (Rec: 03/17/21 14:47 [email or web address]) OP Mobility Evaluation Bed Mobility Supine to and from Sit use UEs to lift each LE individually over to table/ off the table Transfers Sit to Stand B UE push off from armrest OP Gait Assessment Comments Gait Comments pt walks with hiking sticks at all time and with a slight lateral gait. (R toe in and amb in a diagonal direction.) PT-OP-H Neuro Start: 03/17/21 14:08 Freq: Status: Active Protocol: Document 03/17/21 14:11 HH (Rec: 03/17/21 14:47 [email or web address]) Sensation Evaluation Gross Sensation Gross Sensation WNL Deep Tendon Reflex & Clonus Assessment Deep Tendon Reflex Bilateral Achilles Deep Tendon Reflex 2+ Normal Bilateral Patellar Deep Tendon Reflex 2+ Normal PT-OP-K Range of Motion Start: 03/17/21 14:08 Freq: Status: Active Protocol: Document 03/17/21 14:11 (Rec: 03/17/21 14:47 [email or web address]) Lumbar Spine Range of Motion Lumbar Spine Active Degrees Testing Position Sitting Comments unable to toe touch in standing d/t poor balance able to toe touch in seated position, slight discomfort with extension but not radiating pain noted. Hip Goniometric Range of Motion Hip Right Active Comments supine figure 4 position (R knee 4 inches off table; L knee 3 inches off table) PSLR =45 degrees , tightness HS Left Active Comments supine figure 4 position (R knee 4 inches off table; L knee 3 inches off table) PSLR =60 degrees , tightness HS Hip ROM Limitations Hip ROM Limitations Soft Tissue Tightness PT-OP-L Special Tests Start: 03/17/21 14:08 Freq: Status: Active Protocol: Document 03/17/21 14:11 (Rec: 03/17/21 14:47 [email or web address]) Special Tests Lumbar Spine Special Tests Straight Leg Raise Test Results -ve Comments significant HS tightness noted . no LBP A-P Shearing Test Results pain at L3-L5 with PA mob Hip Special Tests Scour Test Test Results -ve B Straight Leg Raise Test Results +ve B Comments significant HS tightness noted . no LBP Piriformis Test Results -ve B EDUARDO Test Results -ve B PT-OP-M Strength Start: 03/17/21 14:08 Freq: Status: Active Protocol: Document 03/17/21 14:11 (Rec: 03/17/21 14:47 [email or web address]) Hip Strength Hip Manual Muscle Testing Right Flexion (L2) 3- Fair- Extension (S1) 3 Fair Abduction 3 Fair Adduction 3 Fair External Rotation 3 Fair Internal Rotation 3 Fair Left Flexion (L2) 3+ Fair+ Extension (S1) 3+ Fair+ Abduction 3 Fair Adduction 3+ Fair+ External Rotation 3+ Fair+ Internal Rotation 3+ Fair+ Knee Strength Knee Manual Muscle Testing Right Flexion (S2) 4 Good Extension (L3) 4 Good Left Flexion (S2) 4 Good Extension (L3) 4 Good PT-OP-Q Treatments Start: 03/17/21 14:08 Freq: Status: Active Protocol: Document 03/31/21 13:44 (Rec: 03/31/21 15:13 [id number]) Cardio Equipment Recumbent Bicycle Duration (Minutes) 6 Resistance 13 (just right resistance) Seat Position 5 Other need to use UE to lift LE individually. (1.07 miles) Therapeutic Exercises Supine Exercises adduction isometric Supine Exercise Name hooklying- added to HEP Side bilateral Equipment Used small blue ball, pillow home Reps/Minutes 5 sec hold x5 Comments cued even lower body alignment LTR Supine Exercise Name with ball between legs (iso add contraction) Side bilateral Reps/Minutes 5 sec hold x5 Comments Cued B knees //, core & adductor facilitation supine clamshell Side bilateral Equipment Used yellow band (added HEP AROM home) Reps/Minutes 8 x2 bridging Side bilateral Equipment Used yellow band at knees then pillow between BLE Reps/Minutes 6 x2 Comments pt has excessive lateral sway d/t poor stability Standing Exercises sit<> stands Standing Exercise Name hands on lap- added to HEP Equipment Used near counter for contact balance PRN Reps/Minutes x5 Comments cued feet underneath LE, hip hinge up/ down, quad & glut facil full stand Manual Therapy Treatment Soft Tissue Mobilization hips Body Location hip abductors and extensors Mobilization Type Myofascial Release,Sustained Pressure,Trigger Point Release Intensity/Depth Moderate Body Position Supine paraspinals Mobilization Type Myofascial Release,Sustained Pressure,Trigger Point Release Intensity/Depth Moderate Body Position Sitting Comments significnat tenderness L>R PT-OP-R Modalities Start: 03/17/21 14:08 Freq: Status: Active Protocol: Document 03/31/21 13:44 HH (Rec: 03/31/21 15:13 [id number]) Hot Pack/Cold Pack Treatment L/S Location L/S Patient Position Sitting Treatment Duration (minutes) 10 Patient Tolerance Good PT-OP-T Assessment and Plan Start: 03/17/21 14:08 Freq: Status: Active Protocol: Document 03/31/21 13:44 HH (Rec: 03/31/21 15:13 [id number]) Physical Therapy Assessment Goals activity tolerance Impairment pt is very deconditioned. 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 STG Duration 6 weeks Retirement Goal (LTG) pt will be able to tolerate walking 300 ft without AD to improve his overall endurance and mobility in community LTG Duration 12 weeks. strength Impairment pt needs to use armrests to stand up Short Term Goal (STG) pt will improve his B LE strength to be able to complete STS for 5 times without using armrests to push off. STG Duration 6 weeks Infrastructure Analyst Goal (LTG) pt will improve his B LE strength to be able to complete STS for 10 times without using armrests to push off. LTG Duration 12 weeks gait Impairment pt is using hiking sticks for all mobility Short Term Goal (STG) pt will be able to use SPC/ 1 hiking stick to amb in community and at home safely and indepednently STG Duration 6 weeks Retirement Goal (LTG) pt will be able amb without any AD in community and at home safely and indepednently LTG Duration 12 weeks oswestry Impairment pt scores 26 Short Term Goal (STG) pt will score <20 on owestry to improve his quality of life . STG Duration 6 weeks Infrastructure Analyst Goal (LTG) pt will score <15 on owestry to improve his quality of life and activity tolerance LTG Duration 12weeks Assessment Summary Assessment Pt Shows improved hip and trunk stability today. Educated pt to place pillow in between legs to facilitate core engagement with his HEP. Pt shows good understanding and he is pleased with his progress. Physical Therapy Plan Frequency and Duration Frequency of Treatment 2x/Week Duration of Treatment 12 weeks Plan of Care Start Date 03/17/21 Plan of Care End Date 06/15/21 Therapeutic Interventions Therapeutic Interventions Aquatic Therapy,Balance Training,Gait Training,Home Exercise Program,Joint Mobilizations,Manual Therapy, Neuromuscular Re-education, Orthotic/Prosthetic Management ,Patient/Caregiver Education, Self-Care/Home Management,Soft Tissue Mobilization,Taping, Therapeutic Activities, Therapeutic Exercises Modalities Cold Pack/Ice Massage,Hot Packs,Infrared Therapy, Traction- Mechanical Next Visit Focus/Plan Next Note Type Treatment Note Next Visit Plan Assess reponse to strengthening activities: recumb bike, shuttle press, sit<> stands, hooklying clamshell, bridge, initiated LTR and hip adduction isometric. Next tx: review adduction activities, instruct flexibility in POC POC PT recommendations: hip stretches (figrue 4 , piriformis) HS stretch sLR bike to start with (pt recnetly purchase a bike) gait training
--- NOTE | 2021-04-14 16:18 | PT.OTN ---
Current Diagnoses Malignant neoplasm of prostate (04/14/21) Low back pain (04/14/21) Other malaise (04/14/21) Physical Therapy Treatment Note PT-OP-A Visit Information Start: 03/17/21 14:08 Freq: Status: Active Protocol: Document 04/14/21 14:31 (Rec: 04/14/21 16:18 [id number]) Out-Patient Physical Therapy Visit Information Visit Information Visit Type Treatment Note Visit Note Pt came in with 2 hiking sticks but did walk from front desk person to clinic with 1 stick. Visit Start Time 14:31 Visit Stop Time 15:24 Total Visit Minutes 53 Visit Number / Number of COMMUNICATIONS SYSTEMS ENGINEER Visits 0 PT-OP-B Current Condition Start: 03/17/21 14:08 Freq: Status: Active Protocol: Document 03/17/21 14:11 (Rec: 03/17/21 14:47 [email or web address]) Current Condition History of Current Condition Onset Date many years ago Current Complaints chronic LBP, deconditioning and difficulty in walking History of Current Condition Jassi is a 75yo male with hx of osteoporosis, bakc pain, prostate caner, s/p prostatectomy in 2017 and HTN here for her chronic LBP and deconditioning. He states his back pain has been there > 10 years located at the sacral region and it's tender to touch. He tends to feel compressed if he stands / walk for a long time but bending over tends to relieve his pain. He states he is very sedentary since 10 years ago and has been using hiking sticks to walk/ furniture cruise d/t weakness and poor balance. He also needs to use UE to lift LEs into his car/ bed. He stated he has been being lazy for years and want to get stronger again. Pt mentioned he had a R hip ORIF surgery 20 years after a fall from rollerblading. Current Functional Impairments (Reported) Functional Limitations- ADL's unable to stand > 30 mins for house work Functional Limitations- Mobility/Gait unable to tolerate >100ft of walking d/t fatigue and pain. pt uses hiking stickcs to walk / furniture cruise at home use UEs to lift LEs to get into his car/ bed. Personal Factors Other Personal Factors That May Effect pt is on Lupron (hormonal Therapy/Recovery therapy) for prostate cancer osteoporosis PT-OP-C Subjective Start: 03/17/21 14:08 Freq: Status: Active Protocol: Document 04/14/21 14:31 HH (Rec: 04/14/21 16:18 [id number]) OP-PT Subjective Patient Comments Patient Comments Im doing a little better especially walking. I did take a hydrocodone earlier today since my back is painful and ready for therapy. Patient Reported Progress Improving PT-OP-D Balance Start: 03/17/21 14:08 Freq: Status: Active Protocol: Document 03/17/21 14:11 HH (Rec: 03/17/21 14:47 [email or web address]) Balance Tests Single Limb Standing Single Limb- Right unable d/t instability Single Limb- Left unable d/t instability PT-OP-G Mobility & Gait Start: 03/17/21 14:08 Freq: Status: Active Protocol: Document 03/17/21 14:11 HH (Rec: 03/17/21 14:47 [email or web address]) OP Mobility Evaluation Bed Mobility Supine to and from Sit use UEs to lift each LE individually over to table/ off the table Transfers Sit to Stand B UE push off from armrest OP Gait Assessment Comments Gait Comments pt walks with hiking sticks at all time and with a slight lateral gait. (R toe in and amb in a diagonal direction.) PT-OP-H Neuro Start: 03/17/21 14:08 Freq: Status: Active Protocol: Document 03/17/21 14:11 HH (Rec: 03/17/21 14:47 [email or web address]) Sensation Evaluation Gross Sensation Gross Sensation WNL Deep Tendon Reflex & Clonus Assessment Deep Tendon Reflex Bilateral Achilles Deep Tendon Reflex 2+ Normal Bilateral Patellar Deep Tendon Reflex 2+ Normal PT-OP-K Range of Motion Start: 03/17/21 14:08 Freq: Status: Active Protocol: Document 03/17/21 14:11 HH (Rec: 03/17/21 14:47 [email or web address]) Lumbar Spine Range of Motion Lumbar Spine Active Degrees Testing Position Sitting Comments unable to toe touch in standing d/t poor balance able to toe touch in seated position, slight discomfort with extension but not radiating pain noted. Hip Goniometric Range of Motion Hip Right Active Comments supine figure 4 position (R knee 4 inches off table; L knee 3 inches off table) PSLR =45 degrees , tightness HS Left Active Comments supine figure 4 position (R knee 4 inches off table; L knee 3 inches off table) PSLR =60 degrees , tightness HS Hip ROM Limitations Hip ROM Limitations Soft Tissue Tightness PT-OP-L Special Tests Start: 03/17/21 14:08 Freq: Status: Active Protocol: Document 03/17/21 14:11 (Rec: 03/17/21 14:47 [email or web address]) Special Tests Lumbar Spine Special Tests Straight Leg Raise Test Results -ve Comments significant HS tightness noted . no LBP A-P Shearing Test Results pain at L3-L5 with PA mob Hip Special Tests Scour Test Test Results -ve B Straight Leg Raise Test Results +ve B Comments significant HS tightness noted . no LBP Piriformis Test Results -ve B EDUARDO Test Results -ve B PT-OP-M Strength Start: 03/17/21 14:08 Freq: Status: Active Protocol: Document 03/17/21 14:11 (Rec: 03/17/21 14:47 [email or web address]) Hip Strength Hip Manual Muscle Testing Right Flexion (L2) 3- Fair- Extension (S1) 3 Fair Abduction 3 Fair Adduction 3 Fair External Rotation 3 Fair Internal Rotation 3 Fair Left Flexion (L2) 3+ Fair+ Extension (S1) 3+ Fair+ Abduction 3 Fair Adduction 3+ Fair+ External Rotation 3+ Fair+ Internal Rotation 3+ Fair+ Knee Strength Knee Manual Muscle Testing Right Flexion (S2) 4 Good Extension (L3) 4 Good Left Flexion (S2) 4 Good Extension (L3) 4 Good PT-OP-Q Treatments Start: 03/17/21 14:08 Freq: Status: Active Protocol: Document 04/14/21 14:31 (Rec: 04/14/21 16:18 [id number]) Cardio Equipment Recumbent Stepper (Sci-Fit) Duration (Minutes) 6 Resistance 3 Seat Position 13 Other pt was able to lift his LEs to pedals Gym Equipment Shuttle Recovery Unilateral Squats Details adductor, quad facilitation Resistance 37# Shuttle Recovery Platform Stable Reps/Time x10 each LE- cued adduction L> R LE Therapeutic Exercises Supine Exercises supine marches Side bilateral Reps/Minutes 5x2 Comments started from hooklying position to hip 90 degree flexion adduction isometric Supine Exercise Name hooklying- added to HEP Side bilateral Equipment Used small blue ball, pillow home Reps/Minutes 5 sec hold x5 Comments cued even lower body alignment LTR Supine Exercise Name with ball between legs (iso add contraction) Side bilateral Reps/Minutes 5 sec hold x5 Comments Cued B knees //, core & adductor facilitation supine clamshell Side bilateral Equipment Used yellow band (added HEP AROM home) Reps/Minutes 8 x2 bridging Side bilateral Equipment Used blue softball between knees Reps/Minutes 6 x2 Comments improved lateral stability Sitting Exercises seated trunk flexoin Sitting Exercise Name ankle reach Side bilateral Manual Therapy Treatment Soft Tissue Mobilization paraspinals Mobilization Type Myofascial Release,Sustained Pressure,Trigger Point Release Intensity/Depth Moderate Body Position Sitting Comments significnat tenderness L>R PT-OP-R Modalities Start: 03/17/21 14:08 Freq: Status: Active Protocol: Document 04/14/21 14:31 HH (Rec: 04/14/21 16:18 HH [id number]) Hot Pack/Cold Pack Treatment L/S Location L/S Patient Position Sitting Treatment Duration (minutes) 10 Patient Tolerance Good PT-OP-T Assessment and Plan Start: 03/17/21 14:08 Freq: Status: Active Protocol: Document 04/14/21 14:31 HH (Rec: 04/14/21 16:18 HH [id number]) Physical Therapy Assessment Goals activity tolerance Impairment pt is very deconditioned. 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 STG Duration 6 weeks Residential Goal (LTG) pt will be able to tolerate walking 300 ft without AD to improve his overall endurance and mobility in community LTG Duration 12 weeks. strength Impairment pt needs to use armrests to stand up Short Term Goal (STG) pt will improve his B LE strength to be able to complete STS for 5 times without using armrests to push off. STG Duration 6 weeks Epic Manager Goal (LTG) pt will improve his B LE strength to be able to complete STS for 10 times without using armrests to push off. LTG Duration 12 weeks gait Impairment pt is using hiking sticks for all mobility Short Term Goal (STG) pt will be able to use SPC/ 1 hiking stick to amb in community and at home safely and indepednently STG Duration 6 weeks Residential Goal (LTG) pt will be able amb without any AD in community and at home safely and indepednently LTG Duration 12 weeks oswestry Impairment pt scores 26 Short Term Goal (STG) pt will score <20 on owestry to improve his quality of life . STG Duration 6 weeks Residential Goal (LTG) pt will score <15 on owestry to improve his quality of life and activity tolerance LTG Duration 12weeks Assessment Summary Assessment Jassi walked in to clinic with faster speed and better gait stability. He was able to get in and out of chair easier than before as well. Continue to progress trunk and hip stabilization ex as alden. Physical Therapy Plan Frequency and Duration Frequency of Treatment 2x/Week Duration of Treatment 12 weeks Plan of Care Start Date 03/17/21 Plan of Care End Date 06/15/21 Therapeutic Interventions Therapeutic Interventions Aquatic Therapy,Balance Training,Gait Training,Home Exercise Program,Joint Mobilizations,Manual Therapy, Neuromuscular Re-education, Orthotic/Prosthetic Management ,Patient/Caregiver Education, Self-Care/Home Management,Soft Tissue Mobilization,Taping, Therapeutic Activities, Therapeutic Exercises Modalities Cold Pack/Ice Massage,Hot Packs,Infrared Therapy, Traction- Mechanical Next Visit Focus/Plan Next Note Type Treatment Note Next Visit Plan Assess reponse to strengthening activities: recumb bike, shuttle press, sit<> stands, hooklying clamshell, bridge, initiated LTR and hip adduction isometric. Next tx: review adduction activities, instruct flexibility in POC POC PT recommendations: hip stretches (figrue 4 , piriformis) HS stretch sLR bike to start with (pt recnetly purchase a bike) gait training
--- NOTE | 2021-04-16 16:11 | PT.OTN ---
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 Visit Start Time 14:31 Visit Stop Time 15:24 Total Visit Minutes 53 Visit Number / Number of BREAD JOCKEY Visits 0 PT-OP-B Current Condition Start: 03/17/21 14:08 Freq: Status: Active Protocol: Document 03/17/21 14:11 (Rec: 03/17/21 14:47 [email or web address]) Current Condition History of Current Condition Onset Date many years ago Current Complaints chronic LBP, deconditioning and difficulty in walking History of Current Condition Jassi is a 75yo male with hx of osteoporosis, bakc pain, prostate caner, s/p prostatectomy in 2017 and HTN here for her chronic LBP and deconditioning. He states his back pain has been there > 10 years located at the sacral region and it's tender to touch. He tends to feel compressed if he stands / walk for a long time but bending over tends to relieve his pain. He states he is very sedentary since 10 years ago and has been using hiking sticks to walk/ furniture cruise d/t weakness and poor balance. He also needs to use UE to lift LEs into his car/ bed. He stated he has been being lazy for years and want to get stronger again. Pt mentioned he had a R hip ORIF surgery 20 years after a fall from rollerblading. Current Functional Impairments (Reported) Functional Limitations- ADL's unable to stand > 30 mins for house work Functional Limitations- Mobility/Gait unable to tolerate >100ft of walking d/t fatigue and pain. pt uses hiking stickcs to walk / furniture cruise at home use UEs to lift LEs to get into his car/ bed. Personal Factors Other Personal Factors That May Effect pt is on Lupron (hormonal Therapy/Recovery therapy) for prostate cancer osteoporosis PT-OP-C Subjective Start: 03/17/21 14:08 Freq: Status: Active Protocol: Document 04/16/21 14:32 HH (Rec: 04/16/21 16:11 [id number]) OP-PT Subjective Patient Comments Patient Comments I was exhausted yesterday but i feel pretty good. I noticed my gait is better and able to berry picker my leg easier as well Patient Reported Progress Improving PT-OP-D Balance Start: 03/17/21 14:08 Freq: Status: Active Protocol: Document 03/17/21 14:11 HH (Rec: 03/17/21 14:47 [email or web address]) Balance Tests Single Limb Standing Single Limb- Right unable d/t instability Single Limb- Left unable d/t instability PT-OP-G Mobility & Gait Start: 03/17/21 14:08 Freq: Status: Active Protocol: Document 03/17/21 14:11 HH (Rec: 03/17/21 14:47 [email or web address]) OP Mobility Evaluation Bed Mobility Supine to and from Sit use UEs to lift each LE individually over to table/ off the table Transfers Sit to Stand B UE push off from armrest OP Gait Assessment Comments Gait Comments pt walks with hiking sticks at all time and with a slight lateral gait. (R toe in and amb in a diagonal direction.) PT-OP-H Neuro Start: 03/17/21 14:08 Freq: Status: Active Protocol: Document 03/17/21 14:11 HH (Rec: 03/17/21 14:47 [email or web address]) Sensation Evaluation Gross Sensation Gross Sensation WNL Deep Tendon Reflex & Clonus Assessment Deep Tendon Reflex Bilateral Achilles Deep Tendon Reflex 2+ Normal Bilateral Patellar Deep Tendon Reflex 2+ Normal PT-OP-K Range of Motion Start: 03/17/21 14:08 Freq: Status: Active Protocol: Document 03/17/21 14:11 HH (Rec: 03/17/21 14:47 [email or web address]) Lumbar Spine Range of Motion Lumbar Spine Active Degrees Testing Position Sitting Comments unable to toe touch in standing d/t poor balance able to toe touch in seated position, slight discomfort with extension but not radiating pain noted. Hip Goniometric Range of Motion Hip Right Active Comments supine figure 4 position (R knee 4 inches off table; L knee 3 inches off table) PSLR =45 degrees , tightness HS Left Active Comments supine figure 4 position (R knee 4 inches off table; L knee 3 inches off table) PSLR =60 degrees , tightness HS Hip ROM Limitations Hip ROM Limitations Soft Tissue Tightness PT-OP-L Special Tests Start: 03/17/21 14:08 Freq: Status: Active Protocol: Document 03/17/21 14:11 (Rec: 03/17/21 14:47 [email or web address]) Special Tests Lumbar Spine Special Tests Straight Leg Raise Test Results -ve Comments significant HS tightness noted . no LBP A-P Shearing Test Results pain at L3-L5 with PA mob Hip Special Tests Scour Test Test Results -ve B Straight Leg Raise Test Results +ve B Comments significant HS tightness noted . no LBP Piriformis Test Results -ve B EDUARDO Test Results -ve B PT-OP-M Strength Start: 03/17/21 14:08 Freq: Status: Active Protocol: Document 03/17/21 14:11 (Rec: 03/17/21 14:47 [email or web address]) Hip Strength Hip Manual Muscle Testing Right Flexion (L2) 3- Fair- Extension (S1) 3 Fair Abduction 3 Fair Adduction 3 Fair External Rotation 3 Fair Internal Rotation 3 Fair Left Flexion (L2) 3+ Fair+ Extension (S1) 3+ Fair+ Abduction 3 Fair Adduction 3+ Fair+ External Rotation 3+ Fair+ Internal Rotation 3+ Fair+ Knee Strength Knee Manual Muscle Testing Right Flexion (S2) 4 Good Extension (L3) 4 Good Left Flexion (S2) 4 Good Extension (L3) 4 Good PT-OP-Q Treatments Start: 03/17/21 14:08 Freq: Status: Active Protocol: Document 04/16/21 14:32 (Rec: 04/16/21 16:11 [id number]) Cardio Equipment Recumbent Stepper (Sci-Fit) Duration (Minutes) 6 Resistance 3 Seat Position 13 Other pt was able to lift his LEs to pedals Therapeutic Exercises Supine Exercises supine marches Side bilateral Reps/Minutes 5x2 Comments started from hooklying position to hip 90 degree flexion adduction isometric Supine Exercise Name hooklying- added to HEP Side bilateral Equipment Used small blue ball, pillow home Reps/Minutes 5 sec hold x5 Comments cued even lower body alignment LTR Supine Exercise Name with ball between legs (iso add contraction) Side bilateral Reps/Minutes 5 sec hold x5 Comments Cued B knees //, core & adductor facilitation supine clamshell Side bilateral Equipment Used yellow band (added HEP AROM home) Reps/Minutes 8 x2 bridging Side bilateral Equipment Used blue softball between knees Reps/Minutes 6 x2 Comments improved lateral stability Manual Therapy Treatment Soft Tissue Mobilization paraspinals Mobilization Type Myofascial Release,Sustained Pressure,Trigger Point Release Intensity/Depth Moderate Body Position Sitting Comments soreness noted L>R PT-OP-R Modalities Start: 03/17/21 14:08 Freq: Status: Active Protocol: Document 04/14/21 14:31 HH (Rec: 04/14/21 16:18 HH [id number]) Hot Pack/Cold Pack Treatment L/S Location L/S Patient Position Sitting Treatment Duration (minutes) 10 Patient Tolerance Good PT-OP-T Assessment and Plan Start: 03/17/21 14:08 Freq: Status: Active Protocol: Document 04/16/21 14:32 HH (Rec: 04/16/21 16:11 [id number]) Physical Therapy Assessment Goals activity tolerance Impairment pt is very deconditioned. 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 STG Duration 6 weeks Assisted Goal (LTG) pt will be able to tolerate walking 300 ft without AD to improve his overall endurance and mobility in community LTG Duration 12 weeks. strength Impairment pt needs to use armrests to stand up Short Term Goal (STG) pt will improve his B LE strength to be able to complete STS for 5 times without using armrests to push off. STG Duration 6 weeks Nursery Technician Goal (LTG) pt will improve his B LE strength to be able to complete STS for 10 times without using armrests to push off. LTG Duration 12 weeks gait Impairment pt is using hiking sticks for all mobility Short Term Goal (STG) pt will be able to use SPC/ 1 hiking stick to amb in community and at home safely and indepednently STG Duration 6 weeks Nursery Technician Goal (LTG) pt will be able amb without any AD in community and at home safely and indepednently LTG Duration 12 weeks oswestry Impairment pt scores 26 Short Term Goal (STG) pt will score <20 on owestry to improve his quality of life . STG Duration 6 weeks Nursery Technician Goal (LTG) pt will score <15 on owestry to improve his quality of life and activity tolerance LTG Duration 12weeks Assessment Summary Assessment Pt's gait consistently faster and more stable than IE. However, pt's hip flexor, abductor strength are significant weak who has difficulty doing hip flexion and abduction (even in gravity eliminated position). Continue to progress as alden Physical Therapy Plan Frequency and Duration Frequency of Treatment 2x/Week Duration of Treatment 12 weeks Plan of Care Start Date 03/17/21 Plan of Care End Date 06/15/21 Therapeutic Interventions Therapeutic Interventions Aquatic Therapy,Balance Training,Gait Training,Home Exercise Program,Joint Mobilizations,Manual Therapy, Neuromuscular Re-education, Orthotic/Prosthetic Management ,Patient/Caregiver Education, Self-Care/Home Management,Soft Tissue Mobilization,Taping, Therapeutic Activities, Therapeutic Exercises Modalities Cold Pack/Ice Massage,Hot Packs,Infrared Therapy, Traction- Mechanical Next Visit Focus/Plan Next Note Type Treatment Note Next Visit Plan Assess reponse to strengthening activities: recumb bike, shuttle press, sit<> stands, hooklying clamshell, bridge, initiated LTR and hip adduction isometric. Next tx: review adduction activities, instruct flexibility in POC POC PT recommendations: hip stretches (figrue 4 , piriformis) HS stretch sLR bike to start with (pt recnetly purchase a bike) gait training
--- NOTE | 2021-04-21 15:34 | PT.OTN ---
Current Diagnoses Malignant neoplasm of prostate (04/21/21) Low back pain (04/21/21) Other malaise (04/21/21) Physical Therapy Treatment Note PT-OP-A Visit Information Start: 03/17/21 14:08 Freq: Status: Active Protocol: Document 04/21/21 14:35 (Rec: 04/21/21 15:34 [id number]) Out-Patient Physical Therapy Visit Information Visit Information Visit Type Treatment Note Visit Note pt is 10 mins late Pt came in with 2 hiking sticks but did walk from front worker to clinic with 1 stick. Visit Start Time 14:40 Visit Stop Time 15:30 Total Visit Minutes 50 Visit Number / Number of MOLDED FRAMES ASSEMBLER Visits 0 PT-OP-B Current Condition Start: 03/17/21 14:08 Freq: Status: Active Protocol: Document 03/17/21 14:11 (Rec: 03/17/21 14:47 [email or web address]) Current Condition History of Current Condition Onset Date many years ago Current Complaints chronic LBP, deconditioning and difficulty in walking History of Current Condition Jassi is a 75yo male with hx of osteoporosis, bakc pain, prostate caner, s/p prostatectomy in 2017 and HTN here for her chronic LBP and deconditioning. He states his back pain has been there > 10 years located at the sacral region and it's tender to touch. He tends to feel compressed if he stands / walk for a long time but bending over tends to relieve his pain. He states he is very sedentary since 10 years ago and has been using hiking sticks to walk/ furniture cruise d/t weakness and poor balance. He also needs to use UE to lift LEs into his car/ bed. He stated he has been being lazy for years and want to get stronger again. Pt mentioned he had a R hip ORIF surgery 20 years after a fall from rollerblading. Current Functional Impairments (Reported) Functional Limitations- ADL's unable to stand > 30 mins for house work Functional Limitations- Mobility/Gait unable to tolerate >100ft of walking d/t fatigue and pain. pt uses hiking stickcs to walk / furniture cruise at home use UEs to lift LEs to get into his car/ bed. Personal Factors Other Personal Factors That May Effect pt is on Lupron (hormonal Therapy/Recovery therapy) for prostate cancer osteoporosis PT-OP-C Subjective Start: 03/17/21 14:08 Freq: Status: Active Protocol: Document 04/21/21 14:35 (Rec: 04/21/21 15:34 [id number]) OP-PT Subjective Patient Comments Patient Comments Im doing pretty good. My back doesnt feel as tight now Patient Reported Progress Improving PT-OP-D Balance Start: 03/17/21 14:08 Freq: Status: Active Protocol: Document 03/17/21 14:11 HH (Rec: 03/17/21 14:47 [email or web address]) Balance Tests Single Limb Standing Single Limb- Right unable d/t instability Single Limb- Left unable d/t instability PT-OP-G Mobility & Gait Start: 03/17/21 14:08 Freq: Status: Active Protocol: Document 03/17/21 14:11 HH (Rec: 03/17/21 14:47 [email or web address]) OP Mobility Evaluation Bed Mobility Supine to and from Sit use UEs to lift each LE individually over to table/ off the table Transfers Sit to Stand B UE push off from armrest OP Gait Assessment Comments Gait Comments pt walks with hiking sticks at all time and with a slight lateral gait. (R toe in and amb in a diagonal direction.) PT-OP-H Neuro Start: 03/17/21 14:08 Freq: Status: Active Protocol: Document 03/17/21 14:11 (Rec: 03/17/21 14:47 [email or web address]) Sensation Evaluation Gross Sensation Gross Sensation WNL Deep Tendon Reflex & Clonus Assessment Deep Tendon Reflex Bilateral Achilles Deep Tendon Reflex 2+ Normal Bilateral Patellar Deep Tendon Reflex 2+ Normal PT-OP-K Range of Motion Start: 03/17/21 14:08 Freq: Status: Active Protocol: Document 03/17/21 14:11 (Rec: 03/17/21 14:47 [email or web address]) Lumbar Spine Range of Motion Lumbar Spine Active Degrees Testing Position Sitting Comments unable to toe touch in standing d/t poor balance able to toe touch in seated position, slight discomfort with extension but not radiating pain noted. Hip Goniometric Range of Motion Hip Right Active Comments supine figure 4 position (R knee 4 inches off table; L knee 3 inches off table) PSLR =45 degrees , tightness HS Left Active Comments supine figure 4 position (R knee 4 inches off table; L knee 3 inches off table) PSLR =60 degrees , tightness HS Hip ROM Limitations Hip ROM Limitations Soft Tissue Tightness PT-OP-L Special Tests Start: 03/17/21 14:08 Freq: Status: Active Protocol: Document 03/17/21 14:11 (Rec: 03/17/21 14:47 [email or web address]) Special Tests Lumbar Spine Special Tests Straight Leg Raise Test Results -ve Comments significant HS tightness noted . no LBP A-P Shearing Test Results pain at L3-L5 with PA mob Hip Special Tests Scour Test Test Results -ve B Straight Leg Raise Test Results +ve B Comments significant HS tightness noted . no LBP Piriformis Test Results -ve B EDUARDO Test Results -ve B PT-OP-M Strength Start: 03/17/21 14:08 Freq: Status: Active Protocol: Document 03/17/21 14:11 (Rec: 03/17/21 14:47 [email or web address]) Hip Strength Hip Manual Muscle Testing Right Flexion (L2) 3- Fair- Extension (S1) 3 Fair Abduction 3 Fair Adduction 3 Fair External Rotation 3 Fair Internal Rotation 3 Fair Left Flexion (L2) 3+ Fair+ Extension (S1) 3+ Fair+ Abduction 3 Fair Adduction 3+ Fair+ External Rotation 3+ Fair+ Internal Rotation 3+ Fair+ Knee Strength Knee Manual Muscle Testing Right Flexion (S2) 4 Good Extension (L3) 4 Good Left Flexion (S2) 4 Good Extension (L3) 4 Good PT-OP-Q Treatments Start: 03/17/21 14:08 Freq: Status: Active Protocol: Document 04/21/21 14:35 (Rec: 04/21/21 15:34 [id number]) Therapeutic Exercises Supine Exercises AGUSTO Side bilateral Reps/Minutes 6 mins Comments extensive cues to engage deep abdominal muscles heel slides Side bilateral Reps/Minutes 7 x2 Comments pillow sheet to reduce fiction supine marches Side bilateral Reps/Minutes 5x2 Comments started from hooklying position to hip 90 degree flexion adduction isometric Supine Exercise Name hooklying- added to HEP Side bilateral Equipment Used small blue ball, pillow home Reps/Minutes 5 sec hold x5 Comments cued even lower body alignment LTR Supine Exercise Name with ball between legs (iso add contraction) Side bilateral Reps/Minutes 5 sec hold x5 Comments Cued B knees //, core & adductor facilitation bridging Side bilateral Equipment Used blue softball between knees Reps/Minutes 6 x2 Comments improved lateral stability Manual Therapy Treatment Soft Tissue Mobilization paraspinals Mobilization Type Myofascial Release,Sustained Pressure,Trigger Point Release Intensity/Depth Moderate Body Position Sitting Comments soreness noted L>R PT-OP-R Modalities Start: 03/17/21 14:08 Freq: Status: Active Protocol: Document 04/14/21 14:31 HH (Rec: 04/14/21 16:18 HH [id number]) Hot Pack/Cold Pack Treatment L/S Location L/S Patient Position Sitting Treatment Duration (minutes) 10 Patient Tolerance Good PT-OP-T Assessment and Plan Start: 03/17/21 14:08 Freq: Status: Active Protocol: Document 04/21/21 14:35 HH (Rec: 04/21/21 15:34 [id number]) Physical Therapy Assessment Goals activity tolerance Impairment pt is very deconditioned. 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 STG Duration 6 weeks Client Development Consultant Goal (LTG) pt will be able to tolerate walking 300 ft without AD to improve his overall endurance and mobility in community LTG Duration 12 weeks. strength Impairment pt needs to use armrests to stand up Short Term Goal (STG) pt will improve his B LE strength to be able to complete STS for 5 times without using armrests to push off. STG Duration 6 weeks Longterm Goal (LTG) pt will improve his B LE strength to be able to complete STS for 10 times without using armrests to push off. LTG Duration 12 weeks gait Impairment pt is using hiking sticks for all mobility Short Term Goal (STG) pt will be able to use SPC/ 1 hiking stick to amb in community and at home safely and indepednently STG Duration 6 weeks Client Development Consultant Goal (LTG) pt will be able amb without any AD in community and at home safely and indepednently LTG Duration 12 weeks oswestry Impairment pt scores 26 Short Term Goal (STG) pt will score <20 on owestry to improve his quality of life . STG Duration 6 weeks Client Development Consultant Goal (LTG) pt will score <15 on owestry to improve his quality of life and activity tolerance LTG Duration 12weeks Assessment Summary Assessment Focused on trunk stabilization and AGUSTO today and pt shows improved core activation but needed extensive cues. Physical Therapy Plan Frequency and Duration Frequency of Treatment 2x/Week Duration of Treatment 12 weeks Plan of Care Start Date 03/17/21 Plan of Care End Date 06/15/21 Therapeutic Interventions Therapeutic Interventions Aquatic Therapy,Balance Training,Gait Training,Home Exercise Program,Joint Mobilizations,Manual Therapy, Neuromuscular Re-education, Orthotic/Prosthetic Management ,Patient/Caregiver Education, Self-Care/Home Management,Soft Tissue Mobilization,Taping, Therapeutic Activities, Therapeutic Exercises Modalities Cold Pack/Ice Massage,Hot Packs,Infrared Therapy, Traction- Mechanical Next Visit Focus/Plan Next Note Type Treatment Note Next Visit Plan Assess reponse to strengthening activities: recumb bike, shuttle press, sit<> stands, hooklying clamshell, bridge, initiated LTR and hip adduction isometric. Next tx: review adduction activities, instruct flexibility in POC POC PT recommendations: hip stretches (figrue 4 , piriformis) HS stretch sLR bike to start with (pt recnetly purchase a bike) gait training
--- NOTE | 2021-04-23 15:19 | PT.OTN ---
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 Visit Start Time 14:35 Visit Stop Time 15:30 Total Visit Minutes 40 Visit Number 7/ Number of FOREST FIRE PREVENTION SPECIALIST Visits 0 PT-OP-B Current Condition Start: 03/17/21 14:08 Freq: Status: Active Protocol: Document 03/17/21 14:11 (Rec: 03/17/21 14:47 [email or web address]) Current Condition History of Current Condition Onset Date many years ago Current Complaints chronic LBP, deconditioning and difficulty in walking History of Current Condition Jassi is a 75yo male with hx of osteoporosis, bakc pain, prostate caner, s/p prostatectomy in 2017 and HTN here for her chronic LBP and deconditioning. He states his back pain has been there > 10 years located at the sacral region and it's tender to touch. He tends to feel compressed if he stands / walk for a long time but bending over tends to relieve his pain. He states he is very sedentary since 10 years ago and has been using hiking sticks to walk/ furniture cruise d/t weakness and poor balance. He also needs to use UE to lift LEs into his car/ bed. He stated he has been being lazy for years and want to get stronger again. Pt mentioned he had a R hip ORIF surgery 20 years after a fall from rollerblading. Current Functional Impairments (Reported) Functional Limitations- ADL's unable to stand > 30 mins for house work Functional Limitations- Mobility/Gait unable to tolerate >100ft of walking d/t fatigue and pain. pt uses hiking stickcs to walk / furniture cruise at home use UEs to lift LEs to get into his car/ bed. Personal Factors Other Personal Factors That May Effect pt is on Lupron (hormonal Therapy/Recovery therapy) for prostate cancer osteoporosis PT-OP-C Subjective Start: 03/17/21 14:08 Freq: Status: Active Protocol: Document 04/23/21 14:28 HH (Rec: 04/23/21 15:19 [id number]) OP-PT Subjective Patient Comments Patient Comments Im doing pretty good and didnt get too tired. Patient Reported Progress Same PT-OP-D Balance Start: 03/17/21 14:08 Freq: Status: Active Protocol: Document 03/17/21 14:11 HH (Rec: 03/17/21 14:47 [email or web address]) Balance Tests Single Limb Standing Single Limb- Right unable d/t instability Single Limb- Left unable d/t instability PT-OP-G Mobility & Gait Start: 03/17/21 14:08 Freq: Status: Active Protocol: Document 03/17/21 14:11 HH (Rec: 03/17/21 14:47 [email or web address]) OP Mobility Evaluation Bed Mobility Supine to and from Sit use UEs to lift each LE individually over to table/ off the table Transfers Sit to Stand B UE push off from armrest OP Gait Assessment Comments Gait Comments pt walks with hiking sticks at all time and with a slight lateral gait. (R toe in and amb in a diagonal direction.) PT-OP-H Neuro Start: 03/17/21 14:08 Freq: Status: Active Protocol: Document 03/17/21 14:11 HH (Rec: 03/17/21 14:47 [email or web address]) Sensation Evaluation Gross Sensation Gross Sensation WNL Deep Tendon Reflex & Clonus Assessment Deep Tendon Reflex Bilateral Achilles Deep Tendon Reflex 2+ Normal Bilateral Patellar Deep Tendon Reflex 2+ Normal PT-OP-K Range of Motion Start: 03/17/21 14:08 Freq: Status: Active Protocol: Document 03/17/21 14:11 HH (Rec: 03/17/21 14:47 [email or web address]) Lumbar Spine Range of Motion Lumbar Spine Active Degrees Testing Position Sitting Comments unable to toe touch in standing d/t poor balance able to toe touch in seated position, slight discomfort with extension but not radiating pain noted. Hip Goniometric Range of Motion Hip Right Active Comments supine figure 4 position (R knee 4 inches off table; L knee 3 inches off table) PSLR =45 degrees , tightness HS Left Active Comments supine figure 4 position (R knee 4 inches off table; L knee 3 inches off table) PSLR =60 degrees , tightness HS Hip ROM Limitations Hip ROM Limitations Soft Tissue Tightness PT-OP-L Special Tests Start: 03/17/21 14:08 Freq: Status: Active Protocol: Document 03/17/21 14:11 (Rec: 03/17/21 14:47 [email or web address]) Special Tests Lumbar Spine Special Tests Straight Leg Raise Test Results -ve Comments significant HS tightness noted . no LBP A-P Shearing Test Results pain at L3-L5 with PA mob Hip Special Tests Scour Test Test Results -ve B Straight Leg Raise Test Results +ve B Comments significant HS tightness noted . no LBP Piriformis Test Results -ve B EDUARDO Test Results -ve B PT-OP-M Strength Start: 03/17/21 14:08 Freq: Status: Active Protocol: Document 03/17/21 14:11 (Rec: 03/17/21 14:47 [email or web address]) Hip Strength Hip Manual Muscle Testing Right Flexion (L2) 3- Fair- Extension (S1) 3 Fair Abduction 3 Fair Adduction 3 Fair External Rotation 3 Fair Internal Rotation 3 Fair Left Flexion (L2) 3+ Fair+ Extension (S1) 3+ Fair+ Abduction 3 Fair Adduction 3+ Fair+ External Rotation 3+ Fair+ Internal Rotation 3+ Fair+ Knee Strength Knee Manual Muscle Testing Right Flexion (S2) 4 Good Extension (L3) 4 Good Left Flexion (S2) 4 Good Extension (L3) 4 Good PT-OP-Q Treatments Start: 03/17/21 14:08 Freq: Status: Active Protocol: Document 04/23/21 14:28 (Rec: 04/23/21 15:19 [id number]) Cardio Equipment Recumbent Stepper (Sci-Fit) Duration (Minutes) 6 Resistance 3 Seat Position 13 Other pt was able to lift his LEs to pedals Gym Equipment Shuttle Recovery Unilateral Squats Details adductor, quad facilitation Resistance 37# Shuttle Recovery Platform Stable Reps/Time x15 each LE- cued adduction L> R LE Therapeutic Exercises Supine Exercises pelvic tilt Reps/Minutes 10 x2 Comments improved pelviccontrol AGUSTO Side bilateral Reps/Minutes 6 mins Comments min cues on deep abdominal muscles heel slides Side bilateral Reps/Minutes 7 x2 Comments pillow sheet to reduce fiction supine marches Side bilateral Reps/Minutes 5x2 Comments started from hooklying position to hip 90 degree flexion adduction isometric Supine Exercise Name hooklying- added to HEP Side bilateral Equipment Used small blue ball, pillow home Reps/Minutes 5 sec hold x5 Comments cued even lower body alignment LTR Supine Exercise Name with ball between legs (iso add contraction) Side bilateral Reps/Minutes 5 sec hold x5 Comments Cued B knees //, core & adductor facilitation bridging Side bilateral Equipment Used blue softball between knees Reps/Minutes 6 x2 Comments improved lateral stability PT-OP-R Modalities Start: 03/17/21 14:08 Freq: Status: Active Protocol: Document 04/14/21 14:31 HH (Rec: 04/14/21 16:18 HH [id number]) Hot Pack/Cold Pack Treatment L/S Location L/S Patient Position Sitting Treatment Duration (minutes) 10 Patient Tolerance Good PT-OP-T Assessment and Plan Start: 03/17/21 14:08 Freq: Status: Active Protocol: Document 04/23/21 14:28 HH (Rec: 04/23/21 15:19 [id number]) Physical Therapy Assessment Goals activity tolerance Impairment pt is very deconditioned. 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 STG Duration 6 weeks Halfway Goal (LTG) pt will be able to tolerate walking 300 ft without AD to improve his overall endurance and mobility in community LTG Duration 12 weeks. strength Impairment pt needs to use armrests to stand up Short Term Goal (STG) pt will improve his B LE strength to be able to complete STS for 5 times without using armrests to push off. STG Duration 6 weeks Halfway Goal (LTG) pt will improve his B LE strength to be able to complete STS for 10 times without using armrests to push off. LTG Duration 12 weeks gait Impairment pt is using hiking sticks for all mobility Short Term Goal (STG) pt will be able to use SPC/ 1 hiking stick to amb in community and at home safely and indepednently STG Duration 6 weeks Automatic Edger Goal (LTG) pt will be able amb without any AD in community and at home safely and indepednently LTG Duration 12 weeks oswestry Impairment pt scores 26 Short Term Goal (STG) pt will score <20 on owestry to improve his quality of life . STG Duration 6 weeks Halfway Goal (LTG) pt will score <15 on owestry to improve his quality of life and activity tolerance LTG Duration 12weeks Assessment Summary Assessment pt shows improved trunk stability today with supine ex . Pt is pleased with his progress so far. Physical Therapy Plan Frequency and Duration Frequency of Treatment 2x/Week Duration of Treatment 12 weeks Plan of Care Start Date 03/17/21 Plan of Care End Date 06/15/21 Therapeutic Interventions Therapeutic Interventions Aquatic Therapy,Balance Training,Gait Training,Home Exercise Program,Joint Mobilizations,Manual Therapy, Neuromuscular Re-education, Orthotic/Prosthetic Management ,Patient/Caregiver Education, Self-Care/Home Management,Soft Tissue Mobilization,Taping, Therapeutic Activities, Therapeutic Exercises Modalities Cold Pack/Ice Massage,Hot Packs,Infrared Therapy, Traction- Mechanical Next Visit Focus/Plan Next Note Type Treatment Note Next Visit Plan Assess reponse to strengthening activities: recumb bike, shuttle press, sit<> stands, hooklying clamshell, bridge, initiated LTR and hip adduction isometric. Next tx: review adduction activities, instruct flexibility in POC POC PT recommendations: hip stretches (figrue 4 , piriformis) HS stretch sLR bike to start with (pt recnetly purchase a bike) gait training
--- NOTE | 2021-04-28 16:39 | PT.OPPN ---
Current Diagnoses Malignant neoplasm of prostate (04/28/21) Low back pain (04/28/21) Other malaise (04/28/21) Physical Therapy Progress Note PT-OP-A Visit Information Start: 03/17/21 14:08 Freq: Status: Active Protocol: Document 04/28/21 16:27 HH (Rec: 04/28/21 16:39 [email or web address]) Out-Patient Physical Therapy Visit Information Visit Information Visit Type Treatment Note Visit Note Pt came in with 2 hiking sticks Visit Start Time 14:30 Visit Stop Time 15:23 Total Visit Minutes 53 Visit Number 8/ Number of STARTING SHEET TANK OPERATOR Visits 0 PT-OP-B Current Condition Start: 03/17/21 14:08 Freq: Status: Active Protocol: Document 03/17/21 14:11 HH (Rec: 03/17/21 14:47 [email or web address]) Current Condition History of Current Condition Onset Date many years ago Current Complaints chronic LBP, deconditioning and difficulty in walking History of Current Condition Jassi is a 75yo male with hx of osteoporosis, bakc pain, prostate caner, s/p prostatectomy in 2017 and HTN here for her chronic LBP and deconditioning. He states his back pain has been there > 10 years located at the sacral region and it's tender to touch. He tends to feel compressed if he stands / walk for a long time but bending over tends to relieve his pain. He states he is very sedentary since 10 years ago and has been using hiking sticks to walk/ furniture cruise d/t weakness and poor balance. He also needs to use UE to lift LEs into his car/ bed. He stated he has been being lazy for years and want to get stronger again. Pt mentioned he had a R hip ORIF surgery 20 years after a fall from rollerblading. Current Functional Impairments (Reported) Functional Limitations- ADL's unable to stand > 30 mins for house work Functional Limitations- Mobility/Gait unable to tolerate >100ft of walking d/t fatigue and pain. pt uses hiking stickcs to walk / furniture cruise at home use UEs to lift LEs to get into his car/ bed. Personal Factors Other Personal Factors That May Effect pt is on Lupron (hormonal Therapy/Recovery therapy) for prostate cancer osteoporosis PT-OP-C Subjective Start: 03/17/21 14:08 Freq: Status: Active Protocol: Document 04/28/21 16:27 HH (Rec: 04/28/21 16:39 [email or web address]) OP-PT Subjective Patient Comments Patient Comments Im feeling very weak today that slows me down a lot. I get this quite often but it has been less since we started PT. Patient Reported Progress Worse PT-OP-D Balance Start: 03/17/21 14:08 Freq: Status: Active Protocol: Document 03/17/21 14:11 (Rec: 03/17/21 14:47 [email or web address]) Balance Tests Single Limb Standing Single Limb- Right unable d/t instability Single Limb- Left unable d/t instability PT-OP-G Mobility & Gait Start: 03/17/21 14:08 Freq: Status: Active Protocol: Document 03/17/21 14:11 (Rec: 03/17/21 14:47 [email or web address]) OP Mobility Evaluation Bed Mobility Supine to and from Sit use UEs to lift each LE individually over to table/ off the table Transfers Sit to Stand B UE push off from armrest OP Gait Assessment Comments Gait Comments pt walks with hiking sticks at all time and with a slight lateral gait. (R toe in and amb in a diagonal direction.) PT-OP-H Neuro Start: 03/17/21 14:08 Freq: Status: Active Protocol: Document 03/17/21 14:11 (Rec: 03/17/21 14:47 [email or web address]) Sensation Evaluation Gross Sensation Gross Sensation WNL Deep Tendon Reflex & Clonus Assessment Deep Tendon Reflex Bilateral Achilles Deep Tendon Reflex 2+ Normal Bilateral Patellar Deep Tendon Reflex 2+ Normal PT-OP-K Range of Motion Start: 03/17/21 14:08 Freq: Status: Active Protocol: Document 03/17/21 14:11 (Rec: 03/17/21 14:47 [email or web address]) Lumbar Spine Range of Motion Lumbar Spine Active Degrees Testing Position Sitting Comments unable to toe touch in standing d/t poor balance able to toe touch in seated position, slight discomfort with extension but not radiating pain noted. Hip Goniometric Range of Motion Hip Measured in Degrees Right Active Comments supine figure 4 position (R knee 4 inches off table; L knee 3 inches off table) PSLR =45 degrees , tightness HS Left Active Comments supine figure 4 position (R knee 4 inches off table; L knee 3 inches off table) PSLR =60 degrees , tightness HS Hip ROM Limitations Hip ROM Limitations Soft Tissue Tightness PT-OP-L Special Tests Start: 03/17/21 14:08 Freq: Status: Active Protocol: Document 03/17/21 14:11 (Rec: 03/17/21 14:47 [email or web address]) Special Tests Lumbar Spine Special Tests Straight Leg Raise Test Results -ve Comments significant HS tightness noted . no LBP A-P Shearing Test Results pain at L3-L5 with PA mob Hip Special Tests Scour Test Test Results -ve B Straight Leg Raise Test Results +ve B Comments significant HS tightness noted . no LBP Piriformis Test Results -ve B EDUARDO Test Results -ve B PT-OP-M Strength Start: 03/17/21 14:08 Freq: Status: Active Protocol: Document 03/17/21 14:11 (Rec: 03/17/21 14:47 [email or web address]) Hip Strength Hip Manual Muscle Testing Right Flexion (L2) 3- Fair- Extension (S1) 3 Fair Abduction 3 Fair Adduction 3 Fair External Rotation 3 Fair Internal Rotation 3 Fair Left Flexion (L2) 3+ Fair+ Extension (S1) 3+ Fair+ Abduction 3 Fair Adduction 3+ Fair+ External Rotation 3+ Fair+ Internal Rotation 3+ Fair+ Knee Strength Knee Manual Muscle Testing Right Flexion (S2) 4 Good Extension (L3) 4 Good Left Flexion (S2) 4 Good Extension (L3) 4 Good PT-OP-T Assessment and Plan Start: 03/17/21 14:08 Freq: Status: Active Protocol: Document 04/28/21 16:27 (Rec: 04/28/21 16:39 [email or web address]) Physical Therapy Assessment Goals activity tolerance Impairment pt is very deconditioned. 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 STG Duration 6 weeks Artists' Booking Representative Goal (LTG) pt will be able to tolerate walking 300 ft without AD to improve his overall endurance and mobility in community LTG Duration 12 weeks. strength Impairment pt needs to use armrests to stand up Short Term Goal (STG) pt will improve his B LE strength to be able to complete STS for 5 times without using armrests to push off. STG Duration 6 weeks Usp Goal (LTG) pt will improve his B LE strength to be able to complete STS for 10 times without using armrests to push off. LTG Duration 12 weeks gait Impairment pt is using hiking sticks for all mobility Short Term Goal (STG) pt will be able to use SPC/ 1 hiking stick to amb in community and at home safely and indepednently STG Duration 6 weeks Usp Goal (LTG) pt will be able amb without any AD in community and at home safely and indepednently LTG Duration 12 weeks oswestry Impairment pt scores 26 Short Term Goal (STG) pt will score <20 on owestry to improve his quality of life . STG Duration 6 weeks Artists' Booking Representative Goal (LTG) pt will score <15 on owestry to improve his quality of life and activity tolerance LTG Duration 12weeks Assessment Summary Assessment Pt came in with slower gait and significant weakness on LEs. Denies injury but he stated that it happens quite often before he started PT. He has difficulty stabilize and move his LEs with no discomfort except tenderness at paraspinals/ QL. Educated pt to address his ongoing LE weakness with his PCP Dr. Smith to rule out pathologies such as Cauda Equina Syndrome. Physical Therapy Plan Frequency and Duration Frequency of Treatment 2x/Week Duration of Treatment 12 weeks Plan of Care Start Date 03/17/21 Plan of Care End Date 06/15/21 Therapeutic Interventions Therapeutic Interventions Aquatic Therapy,Balance Training,Gait Training,Home Exercise Program,Joint Mobilizations,Manual Therapy, Neuromuscular Re-education, Orthotic/Prosthetic Management ,Patient/Caregiver Education, Self-Care/Home Management,Soft Tissue Mobilization,Taping, Therapeutic Activities, Therapeutic Exercises Modalities Cold Pack/Ice Massage,Hot Packs,Infrared Therapy, Traction- Mechanical Next Visit Focus/Plan Next Note Type Treatment Note Next Visit Plan Assess reponse to strengthening activities: recumb bike, shuttle press, sit<> stands, hooklying clamshell, bridge, initiated LTR and hip adduction isometric. Next tx: review adduction activities, instruct flexibility in POC POC PT recommendations: hip stretches (figrue 4 , piriformis) HS stretch sLR bike to start with (pt recnetly purchase a bike) gait training
--- NOTE | 2021-04-30 16:06 | PT.OTN ---
Current Diagnoses Malignant neoplasm of prostate (04/30/21) Low back pain (04/30/21) Other malaise (04/30/21) Physical Therapy Treatment Note PT-OP-A Visit Information Start: 03/17/21 14:08 Freq: Status: Active Protocol: Document 04/28/21 16:27 HH (Rec: 04/28/21 16:39 [email or web address]) Out-Patient Physical Therapy Visit Information Visit Information Visit Type Treatment Note Visit Note Pt came in with 2 hiking sticks Visit Start Time 14:30 Visit Stop Time 15:23 Total Visit Minutes 53 Visit Number 8/ Number of SPANISHER Visits 0 PT-OP-B Current Condition Start: 03/17/21 14:08 Freq: Status: Active Protocol: Document 03/17/21 14:11 HH (Rec: 03/17/21 14:47 [email or web address]) Current Condition History of Current Condition Onset Date many years ago Current Complaints chronic LBP, deconditioning and difficulty in walking History of Current Condition Jassi is a 75yo male with hx of osteoporosis, bakc pain, prostate caner, s/p prostatectomy in 2017 and HTN here for her chronic LBP and deconditioning. He states his back pain has been there > 10 years located at the sacral region and it's tender to touch. He tends to feel compressed if he stands / walk for a long time but bending over tends to relieve his pain. He states he is very sedentary since 10 years ago and has been using hiking sticks to walk/ furniture cruise d/t weakness and poor balance. He also needs to use UE to lift LEs into his car/ bed. He stated he has been being lazy for years and want to get stronger again. Pt mentioned he had a R hip ORIF surgery 20 years after a fall from rollerblading. Current Functional Impairments (Reported) Functional Limitations- ADL's unable to stand > 30 mins for house work Functional Limitations- Mobility/Gait unable to tolerate >100ft of walking d/t fatigue and pain. pt uses hiking stickcs to walk / furniture cruise at home use UEs to lift LEs to get into his car/ bed. Personal Factors Other Personal Factors That May Effect pt is on Lupron (hormonal Therapy/Recovery therapy) for prostate cancer osteoporosis PT-OP-C Subjective Start: 03/17/21 14:08 Freq: Status: Active Protocol: Document 04/28/21 16:27 HH (Rec: 04/28/21 16:39 [email or web address]) OP-PT Subjective Patient Comments Patient Comments Im feeling very weak today that slows me down a lot. I get this quite often but it has been less since we started PT. Patient Reported Progress Worse PT-OP-D Balance Start: 03/17/21 14:08 Freq: Status: Active Protocol: Document 03/17/21 14:11 HH (Rec: 03/17/21 14:47 [email or web address]) Balance Tests Single Limb Standing Single Limb- Right unable d/t instability Single Limb- Left unable d/t instability PT-OP-G Mobility & Gait Start: 03/17/21 14:08 Freq: Status: Active Protocol: Document 03/17/21 14:11 (Rec: 03/17/21 14:47 [email or web address]) OP Mobility Evaluation Bed Mobility Supine to and from Sit use UEs to lift each LE individually over to table/ off the table Transfers Sit to Stand B UE push off from armrest OP Gait Assessment Comments Gait Comments pt walks with hiking sticks at all time and with a slight lateral gait. (R toe in and amb in a diagonal direction.) PT-OP-H Neuro Start: 03/17/21 14:08 Freq: Status: Active Protocol: Document 03/17/21 14:11 (Rec: 03/17/21 14:47 [email or web address]) Sensation Evaluation Gross Sensation Gross Sensation WNL Deep Tendon Reflex & Clonus Assessment Deep Tendon Reflex Bilateral Achilles Deep Tendon Reflex 2+ Normal Bilateral Patellar Deep Tendon Reflex 2+ Normal PT-OP-K Range of Motion Start: 03/17/21 14:08 Freq: Status: Active Protocol: Document 03/17/21 14:11 (Rec: 03/17/21 14:47 [email or web address]) Lumbar Spine Range of Motion Lumbar Spine Active Degrees Testing Position Sitting Comments unable to toe touch in standing d/t poor balance able to toe touch in seated position, slight discomfort with extension but not radiating pain noted. Hip Goniometric Range of Motion Hip Right Active Comments supine figure 4 position (R knee 4 inches off table; L knee 3 inches off table) PSLR =45 degrees , tightness HS Left Active Comments supine figure 4 position (R knee 4 inches off table; L knee 3 inches off table) PSLR =60 degrees , tightness HS Hip ROM Limitations Hip ROM Limitations Soft Tissue Tightness PT-OP-L Special Tests Start: 03/17/21 14:08 Freq: Status: Active Protocol: Document 03/17/21 14:11 (Rec: 03/17/21 14:47 [email or web address]) Special Tests Lumbar Spine Special Tests Straight Leg Raise Test Results -ve Comments significant HS tightness noted . no LBP A-P Shearing Test Results pain at L3-L5 with PA mob Hip Special Tests Scour Test Test Results -ve B Straight Leg Raise Test Results +ve B Comments significant HS tightness noted . no LBP Piriformis Test Results -ve B EDUARDO Test Results -ve B PT-OP-M Strength Start: 03/17/21 14:08 Freq: Status: Active Protocol: Document 03/17/21 14:11 HH (Rec: 03/17/21 14:47 [email or web address]) Hip Strength Hip Manual Muscle Testing Right Flexion (L2) 3- Fair- Extension (S1) 3 Fair Abduction 3 Fair Adduction 3 Fair External Rotation 3 Fair Internal Rotation 3 Fair Left Flexion (L2) 3+ Fair+ Extension (S1) 3+ Fair+ Abduction 3 Fair Adduction 3+ Fair+ External Rotation 3+ Fair+ Internal Rotation 3+ Fair+ Knee Strength Knee Manual Muscle Testing Right Flexion (S2) 4 Good Extension (L3) 4 Good Left Flexion (S2) 4 Good Extension (L3) 4 Good PT-OP-Q Treatments Start: 03/17/21 14:08 Freq: Status: Active Protocol: Document 04/28/21 16:27 (Rec: 04/28/21 16:39 [email or web address]) Therapeutic Exercises Supine Exercises pelvic tilt Reps/Minutes 10 x2 Comments required extensive cues today. adduction isometric Supine Exercise Name hooklying- added to HEP Side bilateral Equipment Used small blue ball, pillow home Reps/Minutes 5 sec hold x5 Comments cued even lower body alignment supine clamshell Side bilateral Equipment Used yellow band (added HEP AROM home) Reps/Minutes 8 x2 bridging Side bilateral Equipment Used blue softball between knees Reps/Minutes 6 x2 Comments minimal clear off today. Manual Therapy Treatment Soft Tissue Mobilization paraspinals Mobilization Type Myofascial Release,Sustained Pressure,Trigger Point Release Intensity/Depth Moderate Body Position Sitting Comments significant pain noted at B QLs and paraspinals. Self-Care/Home Management Treatment Education Patient Education Body Mechanics,Home Exercise Program,Joint Protection, Posture,Safety Other Education Educated pt to consult with his PCP regarding his significant LE weakness PT-OP-R Modalities Start: 03/17/21 14:08 Freq: Status: Active Protocol: Document 04/28/21 16:27 HH (Rec: 04/28/21 16:39 HH [email or web address]) Hot Pack/Cold Pack Treatment L/S Location L/S Patient Position Hooklying Treatment Duration (minutes) 10 Patient Tolerance Good PT-OP-T Assessment and Plan Start: 03/17/21 14:08 Freq: Status: Active Protocol: Document 04/28/21 16:27 HH (Rec: 04/28/21 16:39 HH [email or web address]) Physical Therapy Assessment Goals activity tolerance Impairment pt is very deconditioned. 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 STG Duration 6 weeks Lens Mold Setter Goal (LTG) pt will be able to tolerate walking 300 ft without AD to improve his overall endurance and mobility in community LTG Duration 12 weeks. strength Impairment pt needs to use armrests to stand up Short Term Goal (STG) pt will improve his B LE strength to be able to complete STS for 5 times without using armrests to push off. STG Duration 6 weeks Intermediate Goal (LTG) pt will improve his B LE strength to be able to complete STS for 10 times without using armrests to push off. LTG Duration 12 weeks gait Impairment pt is using hiking sticks for all mobility Short Term Goal (STG) pt will be able to use SPC/ 1 hiking stick to amb in community and at home safely and indepednently STG Duration 6 weeks Intermediate Goal (LTG) pt will be able amb without any AD in community and at home safely and indepednently LTG Duration 12 weeks oswestry Impairment pt scores 26 Short Term Goal (STG) pt will score <20 on owestry to improve his quality of life . STG Duration 6 weeks Intermediate Goal (LTG) pt will score <15 on owestry to improve his quality of life and activity tolerance LTG Duration 12weeks Assessment Summary Assessment Pt came in with slower gait and significant weakness on LEs. Jonhies injury but he stated that it happens quite often before he started PT. He has difficulty stabilize and move his LEs with no discomfort except tenderness at paraspinals/ QL. Educated pt to address his ongoing LE weakness with his PCP Dr. Smith to rule out pathologies such as Cauda Equina Syndrome. Physical Therapy Plan Frequency and Duration Frequency of Treatment 2x/Week Duration of Treatment 12 weeks Plan of Care Start Date 03/17/21 Plan of Care End Date 06/15/21 Therapeutic Interventions Therapeutic Interventions Aquatic Therapy,Balance Training,Gait Training,Home Exercise Program,Joint Mobilizations,Manual Therapy, Neuromuscular Re-education, Orthotic/Prosthetic Management ,Patient/Caregiver Education, Self-Care/Home Management,Soft Tissue Mobilization,Taping, Therapeutic Activities, Therapeutic Exercises Modalities Cold Pack/Ice Massage,Hot Packs,Infrared Therapy, Traction- Mechanical Next Visit Focus/Plan Next Note Type Treatment Note Next Visit Plan Assess reponse to strengthening activities: recumb bike, shuttle press, sit<> stands, hooklying clamshell, bridge, initiated LTR and hip adduction isometric. Next tx: review adduction activities, instruct flexibility in POC POC PT recommendations: hip stretches (figrue 4 , piriformis) HS stretch sLR bike to start with (pt recnetly purchase a bike) gait training
--- NOTE | 2021-04-30 16:16 | PT.OTN ---
Current Diagnoses Malignant neoplasm of prostate (04/30/21) Low back pain (04/30/21) Other malaise (04/30/21) Physical Therapy Treatment Note PT-OP-A Visit Information Start: 03/17/21 14:08 Freq: Status: Active Protocol: Document 04/30/21 14:29 (Rec: 04/30/21 16:16 [id number]) Out-Patient Physical Therapy Visit Information Visit Information Visit Type Treatment Note Visit Note Pt came in with 2 hiking sticks Visit Start Time 14:30 Visit Stop Time 15:15 Total Visit Minutes 45 Visit Number 07/28 Number of CORPORATE TREASURY ANALYST Visits 0 PT-OP-B Current Condition Start: 03/17/21 14:08 Freq: Status: Active Protocol: Document 03/17/21 14:11 (Rec: 03/17/21 14:47 [email or web address]) Current Condition History of Current Condition Onset Date many years ago Current Complaints chronic LBP, deconditioning and difficulty in walking History of Current Condition Jassi is a 75yo male with hx of osteoporosis, bakc pain, prostate caner, s/p prostatectomy in 2017 and HTN here for her chronic LBP and deconditioning. He states his back pain has been there > 10 years located at the sacral region and it's tender to touch. He tends to feel compressed if he stands / walk for a long time but bending over tends to relieve his pain. He states he is very sedentary since 10 years ago and has been using hiking sticks to walk/ furniture cruise d/t weakness and poor balance. He also needs to use UE to lift LEs into his car/ bed. He stated he has been being lazy for years and want to get stronger again. Pt mentioned he had a R hip ORIF surgery 20 years after a fall from rollerblading. Current Functional Impairments (Reported) Functional Limitations- ADL's unable to stand > 30 mins for house work Functional Limitations- Mobility/Gait unable to tolerate >100ft of walking d/t fatigue and pain. pt uses hiking stickcs to walk / furniture cruise at home use UEs to lift LEs to get into his car/ bed. Personal Factors Other Personal Factors That May Effect pt is on Lupron (hormonal Therapy/Recovery therapy) for prostate cancer osteoporosis PT-OP-C Subjective Start: 03/17/21 14:08 Freq: Status: Active Protocol: Document 04/30/21 14:29 (Rec: 04/30/21 16:16 [id number]) OP-PT Subjective Patient Comments Patient Comments Im better today and i realized i took too much potassium on monday which made me so weak. I stop taking them but i feel better now. Patient Reported Progress Improving PT-OP-D Balance Start: 03/17/21 14:08 Freq: Status: Active Protocol: Document 03/17/21 14:11 (Rec: 03/17/21 14:47 [email or web address]) Balance Tests Single Limb Standing Single Limb- Right unable d/t instability Single Limb- Left unable d/t instability PT-OP-G Mobility & Gait Start: 03/17/21 14:08 Freq: Status: Active Protocol: Document 03/17/21 14:11 (Rec: 03/17/21 14:47 [email or web address]) OP Mobility Evaluation Bed Mobility Supine to and from Sit use UEs to lift each LE individually over to table/ off the table Transfers Sit to Stand B UE push off from armrest OP Gait Assessment Comments Gait Comments pt walks with hiking sticks at all time and with a slight lateral gait. (R toe in and amb in a diagonal direction.) PT-OP-H Neuro Start: 03/17/21 14:08 Freq: Status: Active Protocol: Document 03/17/21 14:11 (Rec: 03/17/21 14:47 [email or web address]) Sensation Evaluation Gross Sensation Gross Sensation WNL Deep Tendon Reflex & Clonus Assessment Deep Tendon Reflex Bilateral Achilles Deep Tendon Reflex 2+ Normal Bilateral Patellar Deep Tendon Reflex 2+ Normal PT-OP-K Range of Motion Start: 03/17/21 14:08 Freq: Status: Active Protocol: Document 03/17/21 14:11 (Rec: 03/17/21 14:47 [email or web address]) Lumbar Spine Range of Motion Lumbar Spine Active Degrees Testing Position Sitting Comments unable to toe touch in standing d/t poor balance able to toe touch in seated position, slight discomfort with extension but not radiating pain noted. Hip Goniometric Range of Motion Hip Right Active Comments supine figure 4 position (R knee 4 inches off table; L knee 3 inches off table) PSLR =45 degrees , tightness HS Left Active Comments supine figure 4 position (R knee 4 inches off table; L knee 3 inches off table) PSLR =60 degrees , tightness HS Hip ROM Limitations Hip ROM Limitations Soft Tissue Tightness PT-OP-L Special Tests Start: 03/17/21 14:08 Freq: Status: Active Protocol: Document 03/17/21 14:11 (Rec: 03/17/21 14:47 [email or web address]) Special Tests Lumbar Spine Special Tests Straight Leg Raise Test Results -ve Comments significant HS tightness noted . no LBP A-P Shearing Test Results pain at L3-L5 with PA mob Hip Special Tests Scour Test Test Results -ve B Straight Leg Raise Test Results +ve B Comments significant HS tightness noted . no LBP Piriformis Test Results -ve B EDUARDO Test Results -ve B PT-OP-M Strength Start: 03/17/21 14:08 Freq: Status: Active Protocol: Document 03/17/21 14:11 (Rec: 03/17/21 14:47 [email or web address]) Hip Strength Hip Manual Muscle Testing Right Flexion (L2) 3- Fair- Extension (S1) 3 Fair Abduction 3 Fair Adduction 3 Fair External Rotation 3 Fair Internal Rotation 3 Fair Left Flexion (L2) 3+ Fair+ Extension (S1) 3+ Fair+ Abduction 3 Fair Adduction 3+ Fair+ External Rotation 3+ Fair+ Internal Rotation 3+ Fair+ Knee Strength Knee Manual Muscle Testing Right Flexion (S2) 4 Good Extension (L3) 4 Good Left Flexion (S2) 4 Good Extension (L3) 4 Good PT-OP-Q Treatments Start: 03/17/21 14:08 Freq: Status: Active Protocol: Document 04/30/21 14:29 (Rec: 04/30/21 16:16 [id number]) Cardio Equipment Recumbent Stepper (Sci-Fit) Duration (Minutes) 6 Resistance 3 Seat Position 13 Other pt was able to lift his LEs to pedals Therapeutic Exercises Supine Exercises reverse crunch hold Supine Exercise Name single leg, assisted eccentric lowering Reps/Minutes 5 x 5 Comments cues on lower abdominal engaement. crunch hold Reps/Minutes 15 sec x 5 Comments cues on abdominal engagement pelvic tilt Reps/Minutes 10 x2 Comments mod cues today. AGUSTO Side bilateral Reps/Minutes 6 mins Comments min cues on deep abdominal muscles supine marches Side bilateral Reps/Minutes 5x2 Comments started from hooklying position to hip 90 degree flexion adduction isometric Supine Exercise Name hooklying- added to HEP Side bilateral Equipment Used small blue ball, pillow home Reps/Minutes 5 sec hold x5 Comments cued even lower body alignment PT-OP-R Modalities Start: 03/17/21 14:08 Freq: Status: Active Protocol: Document 04/28/21 16:27 HH (Rec: 04/28/21 16:39 HH [email or web address]) Hot Pack/Cold Pack Treatment L/S Location L/S Patient Position Hooklying Treatment Duration (minutes) 10 Patient Tolerance Good PT-OP-T Assessment and Plan Start: 03/17/21 14:08 Freq: Status: Active Protocol: Document 04/30/21 14:29 HH (Rec: 04/30/21 16:16 HH [id number]) Physical Therapy Assessment Goals activity tolerance Impairment pt is very deconditioned. 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 STG Duration 6 weeks Vp Platforms Goal (LTG) pt will be able to tolerate walking 300 ft without AD to improve his overall endurance and mobility in community LTG Duration 12 weeks. strength Impairment pt needs to use armrests to stand up Short Term Goal (STG) pt will improve his B LE strength to be able to complete STS for 5 times without using armrests to push off. STG Duration 6 weeks Vp Platforms Goal (LTG) pt will improve his B LE strength to be able to complete STS for 10 times without using armrests to push off. LTG Duration 12 weeks gait Impairment pt is using hiking sticks for all mobility Short Term Goal (STG) pt will be able to use SPC/ 1 hiking stick to amb in community and at home safely and indepednently STG Duration 6 weeks Intermediate Goal (LTG) pt will be able amb without any AD in community and at home safely and indepednently LTG Duration 12 weeks oswestry Impairment pt scores 26 Short Term Goal (STG) pt will score <20 on owestry to improve his quality of life . STG Duration 6 weeks Vp Platforms Goal (LTG) pt will score <15 on owestry to improve his quality of life and activity tolerance LTG Duration 12weeks Assessment Summary Assessment Reassessment today. Pt does not have neurological signs, WFL for knee and ankle strength and ROM except significant weakness at lower abdominals and hip flexion. Pt recalled his significant abdominal surgery approx 5-7 years ago which possibly contributed to his weak trunk and hip. Recommended pt to consult with Dr. Smith to have general assessment to rule out out possible red flags. Physical Therapy Plan Frequency and Duration Frequency of Treatment 2x/Week Duration of Treatment 12 weeks Plan of Care Start Date 03/17/21 Plan of Care End Date 06/15/21 Therapeutic Interventions Therapeutic Interventions Aquatic Therapy,Balance Training,Gait Training,Home Exercise Program,Joint Mobilizations,Manual Therapy, Neuromuscular Re-education, Orthotic/Prosthetic Management ,Patient/Caregiver Education, Self-Care/Home Management,Soft Tissue Mobilization,Taping, Therapeutic Activities, Therapeutic Exercises Modalities Cold Pack/Ice Massage,Hot Packs,Infrared Therapy, Traction- Mechanical Next Visit Focus/Plan Next Note Type Treatment Note Next Visit Plan Assess reponse to strengthening activities: recumb bike, shuttle press, sit<> stands, hooklying clamshell, bridge, initiated LTR and hip adduction isometric. Next tx: review adduction activities, instruct flexibility in POC POC PT recommendations: hip stretches (figrue 4 , piriformis) HS stretch sLR bike to start with (pt recnetly purchase a bike) gait training
--- NOTE | 2021-05-03 15:19 | PT.OTN ---
Current Diagnoses Malignant neoplasm of prostate (05/03/21) Low back pain (05/03/21) Other malaise (05/03/21) Physical Therapy Treatment Note PT-OP-A Visit Information Start: 03/17/21 14:08 Freq: Status: Active Protocol: Document 05/03/21 14:29 (Rec: 05/03/21 15:19 [id number]) Out-Patient Physical Therapy Visit Information Visit Information Visit Type Treatment Note Visit Note Pt came in with 2 hiking sticks Visit Start Time 14:31 Visit Stop Time 15:15 Total Visit Minutes 44 Visit Number 08/27 Number of CALL CENTER DISPATCHER Visits 0 PT-OP-B Current Condition Start: 03/17/21 14:08 Freq: Status: Active Protocol: Document 03/17/21 14:11 (Rec: 03/17/21 14:47 [email or web address]) Current Condition History of Current Condition Onset Date many years ago Current Complaints chronic LBP, deconditioning and difficulty in walking History of Current Condition Jassi is a 75yo male with hx of osteoporosis, bakc pain, prostate caner, s/p prostatectomy in 2017 and HTN here for her chronic LBP and deconditioning. He states his back pain has been there > 10 years located at the sacral region and it's tender to touch. He tends to feel compressed if he stands / walk for a long time but bending over tends to relieve his pain. He states he is very sedentary since 10 years ago and has been using hiking sticks to walk/ furniture cruise d/t weakness and poor balance. He also needs to use UE to lift LEs into his car/ bed. He stated he has been being lazy for years and want to get stronger again. Pt mentioned he had a R hip ORIF surgery 20 years after a fall from rollerblading. Current Functional Impairments (Reported) Functional Limitations- ADL's unable to stand > 30 mins for house work Functional Limitations- Mobility/Gait unable to tolerate >100ft of walking d/t fatigue and pain. pt uses hiking stickcs to walk / furniture cruise at home use UEs to lift LEs to get into his car/ bed. Personal Factors Other Personal Factors That May Effect pt is on Lupron (hormonal Therapy/Recovery therapy) for prostate cancer osteoporosis PT-OP-C Subjective Start: 03/17/21 14:08 Freq: Status: Active Protocol: Document 05/03/21 14:29 (Rec: 05/03/21 15:19 [id number]) OP-PT Subjective Patient Comments Patient Comments I didnt do much this weekend. I was walking luis slow when i hung out with my son yesterday. We went to the bar. PT-OP-D Balance Start: 03/17/21 14:08 Freq: Status: Active Protocol: Document 03/17/21 14:11 HH (Rec: 03/17/21 14:47 [email or web address]) Balance Tests Single Limb Standing Single Limb- Right unable d/t instability Single Limb- Left unable d/t instability PT-OP-G Mobility & Gait Start: 03/17/21 14:08 Freq: Status: Active Protocol: Document 03/17/21 14:11 HH (Rec: 03/17/21 14:47 [email or web address]) OP Mobility Evaluation Bed Mobility Supine to and from Sit use UEs to lift each LE individually over to table/ off the table Transfers Sit to Stand B UE push off from armrest OP Gait Assessment Comments Gait Comments pt walks with hiking sticks at all time and with a slight lateral gait. (R toe in and amb in a diagonal direction.) PT-OP-H Neuro Start: 03/17/21 14:08 Freq: Status: Active Protocol: Document 03/17/21 14:11 (Rec: 03/17/21 14:47 [email or web address]) Sensation Evaluation Gross Sensation Gross Sensation WNL Deep Tendon Reflex & Clonus Assessment Deep Tendon Reflex Bilateral Achilles Deep Tendon Reflex 2+ Normal Bilateral Patellar Deep Tendon Reflex 2+ Normal PT-OP-K Range of Motion Start: 03/17/21 14:08 Freq: Status: Active Protocol: Document 03/17/21 14:11 (Rec: 03/17/21 14:47 [email or web address]) Lumbar Spine Range of Motion Lumbar Spine Active Degrees Testing Position Sitting Comments unable to toe touch in standing d/t poor balance able to toe touch in seated position, slight discomfort with extension but not radiating pain noted. Hip Goniometric Range of Motion Hip Right Active Comments supine figure 4 position (R knee 4 inches off table; L knee 3 inches off table) PSLR =45 degrees , tightness HS Left Active Comments supine figure 4 position (R knee 4 inches off table; L knee 3 inches off table) PSLR =60 degrees , tightness HS Hip ROM Limitations Hip ROM Limitations Soft Tissue Tightness PT-OP-L Special Tests Start: 03/17/21 14:08 Freq: Status: Active Protocol: Document 03/17/21 14:11 (Rec: 03/17/21 14:47 [email or web address]) Special Tests Lumbar Spine Special Tests Straight Leg Raise Test Results -ve Comments significant HS tightness noted . no LBP A-P Shearing Test Results pain at L3-L5 with PA mob Hip Special Tests Scour Test Test Results -ve B Straight Leg Raise Test Results +ve B Comments significant HS tightness noted . no LBP Piriformis Test Results -ve B EDUARDO Test Results -ve B PT-OP-M Strength Start: 03/17/21 14:08 Freq: Status: Active Protocol: Document 03/17/21 14:11 HH (Rec: 03/17/21 14:47 [email or web address]) Hip Strength Hip Manual Muscle Testing Right Flexion (L2) 3- Fair- Extension (S1) 3 Fair Abduction 3 Fair Adduction 3 Fair External Rotation 3 Fair Internal Rotation 3 Fair Left Flexion (L2) 3+ Fair+ Extension (S1) 3+ Fair+ Abduction 3 Fair Adduction 3+ Fair+ External Rotation 3+ Fair+ Internal Rotation 3+ Fair+ Knee Strength Knee Manual Muscle Testing Right Flexion (S2) 4 Good Extension (L3) 4 Good Left Flexion (S2) 4 Good Extension (L3) 4 Good PT-OP-Q Treatments Start: 03/17/21 14:08 Freq: Status: Active Protocol: Document 05/03/21 14:29 (Rec: 05/03/21 15:19 [id number]) Cardio Equipment Recumbent Stepper (Sci-Fit) Duration (Minutes) 6 Resistance 3 Seat Position 13 Other pt was able to lift his LEs to pedals Therapeutic Exercises Supine Exercises ball curl Side bilateral Equipment Used red therapy ball Reps/Minutes 7 x 2 Comments PT assisted. reverse crunch hold Supine Exercise Name single leg, assisted eccentric lowering Reps/Minutes 5 x 5 Comments cues on lower abdominal engaement. crunch hold Reps/Minutes 15 sec x 5 Comments cues on abdominal engagement pelvic tilt Reps/Minutes 10 x2 Comments mod cues today. bridging Side bilateral Equipment Used blue softball between knees Reps/Minutes 6 x2 Comments minimal clear off Standing Exercises sit<> stands Standing Exercise Name min support on chair, STS from table Reps/Minutes 6 x2, 2 nd set without UE push off PT-OP-R Modalities Start: 03/17/21 14:08 Freq: Status: Active Protocol: Document 04/28/21 16:27 HH (Rec: 04/28/21 16:39 HH [email or web address]) Hot Pack/Cold Pack Treatment L/S Location L/S Patient Position Hooklying Treatment Duration (minutes) 10 Patient Tolerance Good PT-OP-T Assessment and Plan Start: 03/17/21 14:08 Freq: Status: Active Protocol: Document 05/03/21 14:29 HH (Rec: 05/03/21 15:19 HH [id number]) Physical Therapy Assessment Goals activity tolerance Impairment pt is very deconditioned. 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 STG Duration 6 weeks Jail Goal (LTG) pt will be able to tolerate walking 300 ft without AD to improve his overall endurance and mobility in community LTG Duration 12 weeks. strength Impairment pt needs to use armrests to stand up Short Term Goal (STG) pt will improve his B LE strength to be able to complete STS for 5 times without using armrests to push off. STG Duration 6 weeks Jail Goal (LTG) pt will improve his B LE strength to be able to complete STS for 10 times without using armrests to push off. LTG Duration 12 weeks gait Impairment pt is using hiking sticks for all mobility Short Term Goal (STG) pt will be able to use SPC/ 1 hiking stick to amb in community and at home safely and indepednently STG Duration 6 weeks Jail Goal (LTG) pt will be able amb without any AD in community and at home safely and indepednently LTG Duration 12 weeks oswestry Impairment pt scores 26 Short Term Goal (STG) pt will score <20 on owestry to improve his quality of life . STG Duration 6 weeks Radiation Officer Goal (LTG) pt will score <15 on owestry to improve his quality of life and activity tolerance LTG Duration 12weeks Assessment Summary Assessment Pt alden session well with focus on abdominal strengthening and STS. Pt has slight improvement on core activation with less cues needed. Physical Therapy Plan Frequency and Duration Frequency of Treatment 2x/Week Duration of Treatment 12 weeks Plan of Care Start Date 03/17/21 Plan of Care End Date 06/15/21 Therapeutic Interventions Therapeutic Interventions Aquatic Therapy,Balance Training,Gait Training,Home Exercise Program,Joint Mobilizations,Manual Therapy, Neuromuscular Re-education, Orthotic/Prosthetic Management ,Patient/Caregiver Education, Self-Care/Home Management,Soft Tissue Mobilization,Taping, Therapeutic Activities, Therapeutic Exercises Modalities Cold Pack/Ice Massage,Hot Packs,Infrared Therapy, Traction- Mechanical Next Visit Focus/Plan Next Note Type Treatment Note Next Visit Plan Assess reponse to strengthening activities: recumb bike, shuttle press, sit<> stands, hooklying clamshell, bridge, initiated LTR and hip adduction isometric. Next tx: review adduction activities, instruct flexibility in POC POC PT recommendations: hip stretches (figrue 4 , piriformis) HS stretch sLR bike to start with (pt recnetly purchase a bike) gait training
--- NOTE | 2021-05-05 15:13 | PT-OP ANOTE ---
pt arrived 20 mins late d/t traffic. Decided not to be seen d/t 45$ copay. Reminded him his next appt next week
--- NOTE | 2021-05-14 15:22 | PT.OTN ---
Current Diagnoses Malignant neoplasm of prostate (05/14/21) Low back pain (05/14/21) Other malaise (05/14/21) Physical Therapy Treatment Note PT-OP-A Visit Information Start: 03/17/21 14:08 Freq: Status: Active Protocol: Document 05/14/21 13:47 (Rec: 05/14/21 15:22 [id number]) Out-Patient Physical Therapy Visit Information Visit Information Visit Type Treatment Note Visit Note Pt came in 20 mins late Visit Start Time 14:50 Visit Stop Time 15:15 Total Visit Minutes 25 Visit Number 09/27 Number of EXCHANGE UNDERWRITING CONSULTANT Visits 0 PT-OP-B Current Condition Start: 03/17/21 14:08 Freq: Status: Active Protocol: Document 03/17/21 14:11 HH (Rec: 03/17/21 14:47 [email or web address]) Current Condition History of Current Condition Onset Date many years ago Current Complaints chronic LBP, deconditioning and difficulty in walking History of Current Condition Jassi is a 75yo male with hx of osteoporosis, bakc pain, prostate caner, s/p prostatectomy in 2017 and HTN here for her chronic LBP and deconditioning. He states his back pain has been there > 10 years located at the sacral region and it's tender to touch. He tends to feel compressed if he stands / walk for a long time but bending over tends to relieve his pain. He states he is very sedentary since 10 years ago and has been using hiking sticks to walk/ furniture cruise d/t weakness and poor balance. He also needs to use UE to lift LEs into his car/ bed. He stated he has been being lazy for years and want to get stronger again. Pt mentioned he had a R hip ORIF surgery 20 years after a fall from rollerblading. Current Functional Impairments (Reported) Functional Limitations- ADL's unable to stand > 30 mins for house work Functional Limitations- Mobility/Gait unable to tolerate >100ft of walking d/t fatigue and pain. pt uses hiking stickcs to walk / furniture cruise at home use UEs to lift LEs to get into his car/ bed. Personal Factors Other Personal Factors That May Effect pt is on Lupron (hormonal Therapy/Recovery therapy) for prostate cancer osteoporosis PT-OP-C Subjective Start: 03/17/21 14:08 Freq: Status: Active Protocol: Document 05/14/21 13:47 (Rec: 05/14/21 15:22 [id number]) OP-PT Subjective Patient Comments Patient Comments Monica been doing some core ex at home. Its very hard to engage them PT-OP-D Balance Start: 03/17/21 14:08 Freq: Status: Active Protocol: Document 03/17/21 14:11 (Rec: 03/17/21 14:47 [email or web address]) Balance Tests Single Limb Standing Single Limb- Right unable d/t instability Single Limb- Left unable d/t instability PT-OP-G Mobility & Gait Start: 03/17/21 14:08 Freq: Status: Active Protocol: Document 03/17/21 14:11 (Rec: 03/17/21 14:47 [email or web address]) OP Mobility Evaluation Bed Mobility Supine to and from Sit use UEs to lift each LE individually over to table/ off the table Transfers Sit to Stand B UE push off from armrest OP Gait Assessment Comments Gait Comments pt walks with hiking sticks at all time and with a slight lateral gait. (R toe in and amb in a diagonal direction.) PT-OP-H Neuro Start: 03/17/21 14:08 Freq: Status: Active Protocol: Document 03/17/21 14:11 (Rec: 03/17/21 14:47 [email or web address]) Sensation Evaluation Gross Sensation Gross Sensation WNL Deep Tendon Reflex & Clonus Assessment Deep Tendon Reflex Bilateral Achilles Deep Tendon Reflex 2+ Normal Bilateral Patellar Deep Tendon Reflex 2+ Normal PT-OP-K Range of Motion Start: 03/17/21 14:08 Freq: Status: Active Protocol: Document 03/17/21 14:11 (Rec: 03/17/21 14:47 [email or web address]) Lumbar Spine Range of Motion Lumbar Spine Active Degrees Testing Position Sitting Comments unable to toe touch in standing d/t poor balance able to toe touch in seated position, slight discomfort with extension but not radiating pain noted. Hip Goniometric Range of Motion Hip Right Active Comments supine figure 4 position (R knee 4 inches off table; L knee 3 inches off table) PSLR =45 degrees , tightness HS Left Active Comments supine figure 4 position (R knee 4 inches off table; L knee 3 inches off table) PSLR =60 degrees , tightness HS Hip ROM Limitations Hip ROM Limitations Soft Tissue Tightness PT-OP-L Special Tests Start: 03/17/21 14:08 Freq: Status: Active Protocol: Document 03/17/21 14:11 (Rec: 03/17/21 14:47 [email or web address]) Special Tests Lumbar Spine Special Tests Straight Leg Raise Test Results -ve Comments significant HS tightness noted . no LBP A-P Shearing Test Results pain at L3-L5 with PA mob Hip Special Tests Scour Test Test Results -ve B Straight Leg Raise Test Results +ve B Comments significant HS tightness noted . no LBP Piriformis Test Results -ve B EDUARDO Test Results -ve B PT-OP-M Strength Start: 03/17/21 14:08 Freq: Status: Active Protocol: Document 03/17/21 14:11 HH (Rec: 03/17/21 14:47 [email or web address]) Hip Strength Hip Manual Muscle Testing Right Flexion (L2) 3- Fair- Extension (S1) 3 Fair Abduction 3 Fair Adduction 3 Fair External Rotation 3 Fair Internal Rotation 3 Fair Left Flexion (L2) 3+ Fair+ Extension (S1) 3+ Fair+ Abduction 3 Fair Adduction 3+ Fair+ External Rotation 3+ Fair+ Internal Rotation 3+ Fair+ Knee Strength Knee Manual Muscle Testing Right Flexion (S2) 4 Good Extension (L3) 4 Good Left Flexion (S2) 4 Good Extension (L3) 4 Good PT-OP-Q Treatments Start: 03/17/21 14:08 Freq: Status: Active Protocol: Document 05/14/21 13:47 (Rec: 05/14/21 15:22 [id number]) Gym Equipment Shuttle Recovery Bilateral Squats Resistance #75 Shuttle Recovery Platform Stable Reps/Time 15 x2 Therapeutic Exercises Supine Exercises crunch hold Reps/Minutes 15 sec x 5 Comments cues on abdominal engagement AGUSTO Side bilateral Reps/Minutes 6 mins Comments min cues on deep abdominal muscles supine marches Side bilateral Reps/Minutes 5x2 Comments started from hooklying position to hip 90 degree flexion bridging Side bilateral Equipment Used blue softball between knees Reps/Minutes 6 x2 PT-OP-R Modalities Start: 03/17/21 14:08 Freq: Status: Active Protocol: Document 04/28/21 16:27 (Rec: 04/28/21 16:39 HH [email or web address]) Hot Pack/Cold Pack Treatment L/S Location L/S Patient Position Hooklying Treatment Duration (minutes) 10 Patient Tolerance Good PT-OP-T Assessment and Plan Start: 03/17/21 14:08 Freq: Status: Active Protocol: Document 05/14/21 13:47 HH (Rec: 05/14/21 15:22 HH [id number]) Physical Therapy Assessment Goals activity tolerance Impairment pt is very deconditioned. 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 STG Duration 6 weeks Life Insurance Agent Goal (LTG) pt will be able to tolerate walking 300 ft without AD to improve his overall endurance and mobility in community LTG Duration 12 weeks. strength Impairment pt needs to use armrests to stand up Short Term Goal (STG) pt will improve his B LE strength to be able to complete STS for 5 times without using armrests to push off. STG Duration 6 weeks Group Home Goal (LTG) pt will improve his B LE strength to be able to complete STS for 10 times without using armrests to push off. LTG Duration 12 weeks gait Impairment pt is using hiking sticks for all mobility Short Term Goal (STG) pt will be able to use SPC/ 1 hiking stick to amb in community and at home safely and indepednently STG Duration 6 weeks Life Insurance Agent Goal (LTG) pt will be able amb without any AD in community and at home safely and indepednently LTG Duration 12 weeks oswestry Impairment pt scores 26 Short Term Goal (STG) pt will score <20 on owestry to improve his quality of life . STG Duration 6 weeks Life Insurance Agent Goal (LTG) pt will score <15 on owestry to improve his quality of life and activity tolerance LTG Duration 12weeks Assessment Summary Assessment Pt came in 20 mins late. Pt has been the same with difficulty engaging core. Spent time educating to consult with his PCP Dr. Smith to address his difficulty activating trunk musculature. Physical Therapy Plan Frequency and Duration Frequency of Treatment 2x/Week Duration of Treatment 12 weeks Plan of Care Start Date 03/17/21 Plan of Care End Date 06/15/21 Therapeutic Interventions Therapeutic Interventions Aquatic Therapy,Balance Training,Gait Training,Home Exercise Program,Joint Mobilizations,Manual Therapy, Neuromuscular Re-education, Orthotic/Prosthetic Management ,Patient/Caregiver Education, Self-Care/Home Management,Soft Tissue Mobilization,Taping, Therapeutic Activities, Therapeutic Exercises Modalities Cold Pack/Ice Massage,Hot Packs,Infrared Therapy, Traction- Mechanical Next Visit Focus/Plan Next Note Type Treatment Note Next Visit Plan Assess reponse to strengthening activities: recumb bike, shuttle press, sit<> stands, hooklying clamshell, bridge, initiated LTR and hip adduction isometric. Next tx: review adduction activities, instruct flexibility in POC POC PT recommendations: hip stretches (figrue 4 , piriformis) HS stretch sLR bike to start with (pt recnetly purchase a bike) gait training
--- NOTE | 2021-05-20 11:17 | PT.OTN ---
Current Diagnoses Malignant neoplasm of prostate (05/20/21) Low back pain (05/20/21) Other malaise (05/20/21) Physical Therapy Treatment Note PT-OP-A Visit Information Start: 03/17/21 14:08 Freq: Status: Active Protocol: Document 05/20/21 09:50 HH (Rec: 05/20/21 11:16 [id number]) Out-Patient Physical Therapy Visit Information Visit Information Visit Type Treatment Note Visit Start Time 10:32 Visit Stop Time 11:15 Total Visit Minutes 42 Visit Number 10/27 Number of SCRAP HANDLER Visits 0 PT-OP-B Current Condition Start: 03/17/21 14:08 Freq: Status: Active Protocol: Document 03/17/21 14:11 HH (Rec: 03/17/21 14:47 [email or web address]) Current Condition History of Current Condition Onset Date many years ago Current Complaints chronic LBP, deconditioning and difficulty in walking History of Current Condition Jassi is a 75yo male with hx of osteoporosis, bakc pain, prostate caner, s/p prostatectomy in 2017 and HTN here for her chronic LBP and deconditioning. He states his back pain has been there > 10 years located at the sacral region and it's tender to touch. He tends to feel compressed if he stands / walk for a long time but bending over tends to relieve his pain. He states he is very sedentary since 10 years ago and has been using hiking sticks to walk/ furniture cruise d/t weakness and poor balance. He also needs to use UE to lift LEs into his car/ bed. He stated he has been being lazy for years and want to get stronger again. Pt mentioned he had a R hip ORIF surgery 20 years after a fall from rollerblading. Current Functional Impairments (Reported) Functional Limitations- ADL's unable to stand > 30 mins for house work Functional Limitations- Mobility/Gait unable to tolerate >100ft of walking d/t fatigue and pain. pt uses hiking stickcs to walk / furniture cruise at home use UEs to lift LEs to get into his car/ bed. Personal Factors Other Personal Factors That May Effect pt is on Lupron (hormonal Therapy/Recovery therapy) for prostate cancer osteoporosis PT-OP-C Subjective Start: 03/17/21 14:08 Freq: Status: Active Protocol: Document 05/20/21 09:50 HH (Rec: 05/20/21 11:16 [id number]) OP-PT Subjective Patient Comments Patient Comments Im doing pretty good.I think im having a good day today. PT-OP-D Balance Start: 03/17/21 14:08 Freq: Status: Active Protocol: Document 03/17/21 14:11 HH (Rec: 03/17/21 14:47 [email or web address]) Balance Tests Single Limb Standing Single Limb- Right unable d/t instability Single Limb- Left unable d/t instability PT-OP-G Mobility & Gait Start: 03/17/21 14:08 Freq: Status: Active Protocol: Document 03/17/21 14:11 HH (Rec: 03/17/21 14:47 [email or web address]) OP Mobility Evaluation Bed Mobility Supine to and from Sit use UEs to lift each LE individually over to table/ off the table Transfers Sit to Stand B UE push off from armrest OP Gait Assessment Comments Gait Comments pt walks with hiking sticks at all time and with a slight lateral gait. (R toe in and amb in a diagonal direction.) PT-OP-H Neuro Start: 03/17/21 14:08 Freq: Status: Active Protocol: Document 03/17/21 14:11 HH (Rec: 03/17/21 14:47 [email or web address]) Sensation Evaluation Gross Sensation Gross Sensation WNL Deep Tendon Reflex & Clonus Assessment Deep Tendon Reflex Bilateral Achilles Deep Tendon Reflex 2+ Normal Bilateral Patellar Deep Tendon Reflex 2+ Normal PT-OP-K Range of Motion Start: 03/17/21 14:08 Freq: Status: Active Protocol: Document 03/17/21 14:11 HH (Rec: 03/17/21 14:47 [email or web address]) Lumbar Spine Range of Motion Lumbar Spine Active Degrees Testing Position Sitting Comments unable to toe touch in standing d/t poor balance able to toe touch in seated position, slight discomfort with extension but not radiating pain noted. Hip Goniometric Range of Motion Hip Right Active Comments supine figure 4 position (R knee 4 inches off table; L knee 3 inches off table) PSLR =45 degrees , tightness HS Left Active Comments supine figure 4 position (R knee 4 inches off table; L knee 3 inches off table) PSLR =60 degrees , tightness HS Hip ROM Limitations Hip ROM Limitations Soft Tissue Tightness PT-OP-L Special Tests Start: 03/17/21 14:08 Freq: Status: Active Protocol: Document 03/17/21 14:11 (Rec: 03/17/21 14:47 [email or web address]) Special Tests Lumbar Spine Special Tests Straight Leg Raise Test Results -ve Comments significant HS tightness noted . no LBP A-P Shearing Test Results pain at L3-L5 with PA mob Hip Special Tests Scour Test Test Results -ve B Straight Leg Raise Test Results +ve B Comments significant HS tightness noted . no LBP Piriformis Test Results -ve B EDUARDO Test Results -ve B PT-OP-M Strength Start: 03/17/21 14:08 Freq: Status: Active Protocol: Document 03/17/21 14:11 (Rec: 03/17/21 14:47 [email or web address]) Hip Strength Hip Manual Muscle Testing Right Flexion (L2) 3- Fair- Extension (S1) 3 Fair Abduction 3 Fair Adduction 3 Fair External Rotation 3 Fair Internal Rotation 3 Fair Left Flexion (L2) 3+ Fair+ Extension (S1) 3+ Fair+ Abduction 3 Fair Adduction 3+ Fair+ External Rotation 3+ Fair+ Internal Rotation 3+ Fair+ Knee Strength Knee Manual Muscle Testing Right Flexion (S2) 4 Good Extension (L3) 4 Good Left Flexion (S2) 4 Good Extension (L3) 4 Good PT-OP-Q Treatments Start: 03/17/21 14:08 Freq: Status: Active Protocol: Document 05/20/21 09:50 HH (Rec: 05/20/21 11:16 [id number]) Therapeutic Exercises Supine Exercises ball curl Side bilateral Equipment Used red therapy ball Reps/Minutes 7 x 2 Comments PT assisted. pelvic tilt Reps/Minutes 10 x2 Comments mod cues today. bridging Side bilateral Equipment Used blue softball between knees Reps/Minutes 10 x2 Comments higher clearance today. Standing Exercises step tap Side bilateral Reps/Minutes 20 x 2 Comments pt often drag his R foot more than L sit<> stands Standing Exercise Name min support on chair, STS from table Equipment Used 23 table Reps/Minutes 8 x3, 2 nd set without UE push off PT-OP-R Modalities Start: 03/17/21 14:08 Freq: Status: Active Protocol: Document 04/28/21 16:27 HH (Rec: 04/28/21 16:39 [email or web address]) Hot Pack/Cold Pack Treatment L/S Location L/S Patient Position Hooklying Treatment Duration (minutes) 10 Patient Tolerance Good PT-OP-T Assessment and Plan Start: 03/17/21 14:08 Freq: Status: Active Protocol: Document 05/20/21 09:50 HH (Rec: 05/20/21 11:16 HH [id number]) Physical Therapy Assessment Goals activity tolerance Impairment pt is very deconditioned. 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 STG Duration 6 weeks Alf Goal (LTG) pt will be able to tolerate walking 300 ft without AD to improve his overall endurance and mobility in community LTG Duration 12 weeks. strength Impairment pt needs to use armrests to stand up Short Term Goal (STG) pt will improve his B LE strength to be able to complete STS for 5 times without using armrests to push off. STG Duration 6 weeks Alf Goal (LTG) pt will improve his B LE strength to be able to complete STS for 10 times without using armrests to push off. LTG Duration 12 weeks gait Impairment pt is using hiking sticks for all mobility Short Term Goal (STG) pt will be able to use SPC/ 1 hiking stick to amb in community and at home safely and indepednently STG Duration 6 weeks Ski Lift Operator Goal (LTG) pt will be able amb without any AD in community and at home safely and indepednently LTG Duration 12 weeks oswestry Impairment pt scores 26 Short Term Goal (STG) pt will score <20 on owestry to improve his quality of life . STG Duration 6 weeks Ski Lift Operator Goal (LTG) pt will score <15 on owestry to improve his quality of life and activity tolerance LTG Duration 12weeks Assessment Summary Assessment pt has a good day today and able to alden all trunk stabilization and LE strengthening therex. Pt does have difficulty with step tap d/t poor feet clearance Physical Therapy Plan Frequency and Duration Frequency of Treatment 2x/Week Duration of Treatment 12 weeks Plan of Care Start Date 03/17/21 Plan of Care End Date 06/15/21 Therapeutic Interventions Therapeutic Interventions Aquatic Therapy,Balance Training,Gait Training,Home Exercise Program,Joint Mobilizations,Manual Therapy, Neuromuscular Re-education, Orthotic/Prosthetic Management ,Patient/Caregiver Education, Self-Care/Home Management,Soft Tissue Mobilization,Taping, Therapeutic Activities, Therapeutic Exercises Modalities Cold Pack/Ice Massage,Hot Packs,Infrared Therapy, Traction- Mechanical Next Visit Focus/Plan Next Note Type Treatment Note Next Visit Plan Assess reponse to strengthening activities: recumb bike, shuttle press, sit<> stands, hooklying clamshell, bridge, initiated LTR and hip adduction isometric. Next tx: review adduction activities, instruct flexibility in POC POC PT recommendations: hip stretches (figrue 4 , piriformis) HS stretch sLR bike to start with (pt recnetly purchase a bike) gait training
--- NOTE | 2021-05-28 15:16 | PT.OTN ---
Current Diagnoses Malignant neoplasm of prostate (05/28/21) Low back pain (05/28/21) Other malaise (05/28/21) Physical Therapy Treatment Note PT-OP-A Visit Information Start: 03/17/21 14:08 Freq: Status: Active Protocol: Document 05/28/21 14:30 HH (Rec: 05/28/21 15:16 [email or web address]) Out-Patient Physical Therapy Visit Information Visit Information Visit Type Treatment Note Visit Start Time 14:32 Visit Stop Time 15:15 Total Visit Minutes 43 Visit Number 13/15 Number of SALESPERSON STEREO EQUIPMENT Visits 0 PT-OP-B Current Condition Start: 03/17/21 14:08 Freq: Status: Active Protocol: Document 03/17/21 14:11 HH (Rec: 03/17/21 14:47 [email or web address]) Current Condition History of Current Condition Onset Date many years ago Current Complaints chronic LBP, deconditioning and difficulty in walking History of Current Condition Jassi is a 75yo male with hx of osteoporosis, bakc pain, prostate caner, s/p prostatectomy in 2017 and HTN here for her chronic LBP and deconditioning. He states his back pain has been there > 10 years located at the sacral region and it's tender to touch. He tends to feel compressed if he stands / walk for a long time but bending over tends to relieve his pain. He states he is very sedentary since 10 years ago and has been using hiking sticks to walk/ furniture cruise d/t weakness and poor balance. He also needs to use UE to lift LEs into his car/ bed. He stated he has been being lazy for years and want to get stronger again. Pt mentioned he had a R hip ORIF surgery 20 years after a fall from rollerblading. Current Functional Impairments (Reported) Functional Limitations- ADL's unable to stand > 30 mins for house work Functional Limitations- Mobility/Gait unable to tolerate >100ft of walking d/t fatigue and pain. pt uses hiking stickcs to walk / furniture cruise at home use UEs to lift LEs to get into his car/ bed. Personal Factors Other Personal Factors That May Effect pt is on Lupron (hormonal Therapy/Recovery therapy) for prostate cancer osteoporosis PT-OP-C Subjective Start: 03/17/21 14:08 Freq: Status: Active Protocol: Document 05/28/21 14:30 (Rec: 05/28/21 15:16 [id number]) OP-PT Subjective Patient Comments Patient Comments IM doing really well. Monica been doing exercises to engage my core and leg Patient Reported Progress Improving PT-OP-D Balance Start: 03/17/21 14:08 Freq: Status: Active Protocol: Document 03/17/21 14:11 (Rec: 03/17/21 14:47 [email or web address]) Balance Tests Single Limb Standing Single Limb- Right unable d/t instability Single Limb- Left unable d/t instability PT-OP-G Mobility & Gait Start: 03/17/21 14:08 Freq: Status: Active Protocol: Document 03/17/21 14:11 (Rec: 03/17/21 14:47 [email or web address]) OP Mobility Evaluation Bed Mobility Supine to and from Sit use UEs to lift each LE individually over to table/ off the table Transfers Sit to Stand B UE push off from armrest OP Gait Assessment Comments Gait Comments pt walks with hiking sticks at all time and with a slight lateral gait. (R toe in and amb in a diagonal direction.) PT-OP-H Neuro Start: 03/17/21 14:08 Freq: Status: Active Protocol: Document 03/17/21 14:11 (Rec: 03/17/21 14:47 [email or web address]) Sensation Evaluation Gross Sensation Gross Sensation WNL Deep Tendon Reflex & Clonus Assessment Deep Tendon Reflex Bilateral Achilles Deep Tendon Reflex 2+ Normal Bilateral Patellar Deep Tendon Reflex 2+ Normal PT-OP-K Range of Motion Start: 03/17/21 14:08 Freq: Status: Active Protocol: Document 03/17/21 14:11 (Rec: 03/17/21 14:47 [email or web address]) Lumbar Spine Range of Motion Lumbar Spine Active Degrees Testing Position Sitting Comments unable to toe touch in standing d/t poor balance able to toe touch in seated position, slight discomfort with extension but not radiating pain noted. Hip Goniometric Range of Motion Hip Right Active Comments supine figure 4 position (R knee 4 inches off table; L knee 3 inches off table) PSLR =45 degrees , tightness HS Left Active Comments supine figure 4 position (R knee 4 inches off table; L knee 3 inches off table) PSLR =60 degrees , tightness HS Hip ROM Limitations Hip ROM Limitations Soft Tissue Tightness PT-OP-L Special Tests Start: 03/17/21 14:08 Freq: Status: Active Protocol: Document 03/17/21 14:11 (Rec: 03/17/21 14:47 [email or web address]) Special Tests Lumbar Spine Special Tests Straight Leg Raise Test Results -ve Comments significant HS tightness noted . no LBP A-P Shearing Test Results pain at L3-L5 with PA mob Hip Special Tests Scour Test Test Results -ve B Straight Leg Raise Test Results +ve B Comments significant HS tightness noted . no LBP Piriformis Test Results -ve B EDUARDO Test Results -ve B PT-OP-M Strength Start: 03/17/21 14:08 Freq: Status: Active Protocol: Document 03/17/21 14:11 (Rec: 03/17/21 14:47 [email or web address]) Hip Strength Hip Manual Muscle Testing Right Flexion (L2) 3- Fair- Extension (S1) 3 Fair Abduction 3 Fair Adduction 3 Fair External Rotation 3 Fair Internal Rotation 3 Fair Left Flexion (L2) 3+ Fair+ Extension (S1) 3+ Fair+ Abduction 3 Fair Adduction 3+ Fair+ External Rotation 3+ Fair+ Internal Rotation 3+ Fair+ Knee Strength Knee Manual Muscle Testing Right Flexion (S2) 4 Good Extension (L3) 4 Good Left Flexion (S2) 4 Good Extension (L3) 4 Good PT-OP-Q Treatments Start: 03/17/21 14:08 Freq: Status: Active Protocol: Document 05/28/21 14:30 (Rec: 05/28/21 15:16 [id number]) Cardio Equipment Recumbent Stepper (Sci-Fit) Duration (Minutes) 6 Resistance 3 Seat Position 13 Gym Equipment Shuttle Recovery Bilateral Squats Details ball between knees Resistance 50# Shuttle Recovery Platform Stable Reps/Time 12 x2 Therapeutic Exercises Supine Exercises ball curl Side bilateral Equipment Used red therapy ball Reps/Minutes 7 x 2 Comments PT assisted. supine marches Side bilateral Reps/Minutes 5x2 Comments started from hooklying position to hip 90 degree flexion bridging Side bilateral Equipment Used blue softball between knees Reps/Minutes 10 x2 Comments higher clearance today. Standing Exercises step tap Side bilateral Reps/Minutes 20 x 2 Comments pt often drag his R foot more than L PT-OP-R Modalities Start: 03/17/21 14:08 Freq: Status: Active Protocol: Document 04/28/21 16:27 HH (Rec: 04/28/21 16:39 HH [email or web address]) Hot Pack/Cold Pack Treatment L/S Location L/S Patient Position Hooklying Treatment Duration (minutes) 10 Patient Tolerance Good PT-OP-T Assessment and Plan Start: 03/17/21 14:08 Freq: Status: Active Protocol: Document 05/28/21 14:30 HH (Rec: 05/28/21 15:16 HH [id number]) Physical Therapy Assessment Goals activity tolerance Impairment pt is very deconditioned. 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 STG Duration 6 weeks Chcf Goal (LTG) pt will be able to tolerate walking 300 ft without AD to improve his overall endurance and mobility in community LTG Duration 12 weeks. strength Impairment pt needs to use armrests to stand up Short Term Goal (STG) pt will improve his B LE strength to be able to complete STS for 5 times without using armrests to push off. STG Duration 6 weeks Wire Spring Relay Adjuster Goal (LTG) pt will improve his B LE strength to be able to complete STS for 10 times without using armrests to push off. LTG Duration 12 weeks gait Impairment pt is using hiking sticks for all mobility Short Term Goal (STG) pt will be able to use SPC/ 1 hiking stick to amb in community and at home safely and indepednently STG Duration 6 weeks [facility]cf Goal (LTG) pt will be able amb without any AD in community and at home safely and indepednently LTG Duration 12 weeks oswestry Impairment pt scores 26 Short Term Goal (STG) pt will score <20 on owestry to improve his quality of life . STG Duration 6 weeks Wire Spring Relay Adjuster Goal (LTG) pt will score <15 on owestry to improve his quality of life and activity tolerance LTG Duration 12weeks Assessment Summary Assessment Pt shows good progress with core stabilization and LE strength today. He shows improved hip clearance while bridging today. Physical Therapy Plan Frequency and Duration Frequency of Treatment 2x/Week Duration of Treatment 12 weeks Plan of Care Start Date 03/17/21 Plan of Care End Date 06/15/21 Therapeutic Interventions Therapeutic Interventions Aquatic Therapy,Balance Training,Gait Training,Home Exercise Program,Joint Mobilizations,Manual Therapy, Neuromuscular Re-education, Orthotic/Prosthetic Management ,Patient/Caregiver Education, Self-Care/Home Management,Soft Tissue Mobilization,Taping, Therapeutic Activities, Therapeutic Exercises Modalities Cold Pack/Ice Massage,Hot Packs,Infrared Therapy, Traction- Mechanical Next Visit Focus/Plan Next Note Type Treatment Note Next Visit Plan Assess reponse to strengthening activities: recumb bike, shuttle press, sit<> stands, hooklying clamshell, bridge, initiated LTR and hip adduction isometric. Next tx: review adduction activities, instruct flexibility in POC POC PT recommendations: hip stretches (figrue 4 , piriformis) HS stretch sLR bike to start with (pt recnetly purchase a bike) gait training
--- NOTE | 2021-07-01 16:40 | PT.OPPOC ---
Physical, Occupational & Speech Therapy At [facility] Current Diagnoses Malignant neoplasm of prostate (07/01/21) Low back pain (07/01/21) Other malaise (07/01/21) Visit Care Team Role Provider Type Art Smith DO Attending Provider Physician Family Provider Primary Care Provider Referring Provider Specialty: Family Practice Address: [address] [place] [address], [facility] Email: Plan Of Care PT-OP-T Assessment and Plan Start: 03/17/21 14:08 Freq: Status: Active Protocol: Document 07/01/21 14:35 HH (Rec: 07/01/21 16:36 HH [id number]) Physical Therapy Assessment Goals activity tolerance Impairment pt is very deconditioned. 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 STG Duration 6 weeks Nursing Home Goal (LTG) pt will be able to tolerate walking 300 ft without AD to improve his overall endurance and mobility in community LTG Duration 12 weeks. strength Impairment pt needs to use armrests to stand up Short Term Goal (STG) pt will improve his B LE strength to be able to complete STS for 5 times without using armrests to push off. STG Duration 6 weeks Search Engine Marketing Strategist Goal (LTG) pt will improve his B LE strength to be able to complete STS for 10 times without using armrests to push off. LTG Duration 12 weeks gait Impairment pt is using hiking sticks for all mobility Short Term Goal (STG) pt will be able to use SPC/ 1 hiking stick to amb in community and at home safely and indepednently STG Duration 6 weeks Nursing Home Goal (LTG) pt will be able amb without any AD in community and at home safely and indepednently LTG Duration 12 weeks oswestry Impairment pt scores 26 Short Term Goal (STG) pt will score <20 on owestry to improve his quality of life . STG Duration 6 weeks Nursing Home Goal (LTG) pt will score <15 on owestry to improve his quality of life and activity tolerance LTG Duration 12weeks Progress Towards Goals Progress Towards Goals Slow Progress due to Activity Tolerance,Slow Progress - Other Assessment Summary Assessment pt was last seen 05/28 and his recent PSA went from 11 to 27 who will further consult with his oncologist and PCP. Besides, pt has shown some progress on core activation, stabilization and LE since IE but he still has significant difficulty with any leg lift type of movements. I recommended him to discuss with PCP to rule out other serious pathologies. Provided HEP for him to focus on core and LE strengthening and he agreed to be DC from PT at this point d/t his high copay. Physical Therapy Plan Frequency and Duration Plan of Care Start Date 07/01/21 Plan of Care End Date 07/01/21 Therapeutic Interventions Therapeutic Interventions Aquatic Therapy,Balance Training,Gait Training,Home Exercise Program,Joint Mobilizations,Manual Therapy, Neuromuscular Re-education, Orthotic/Prosthetic Management ,Patient/Caregiver Education, Self-Care/Home Management,Soft Tissue Mobilization,Taping, Therapeutic Activities, Therapeutic Exercises Modalities Cold Pack/Ice Massage,Hot Packs,Infrared Therapy, Traction- Mechanical Discharge Physical Therapy Discharge Reasons Plateau in Progress Discharge Comments see A&P Plan of Care Dates Plan of Care Start Date 07/01/21 Plan of Care End Date 07/01/21 Electronically Signed by: Shaan Abdalla, PT 07/01/21 1640 Please Sign and Return: I have reviewed this Plan of Care and certify that the skilled therapy services above are required to meet the patient?s needs. Physician Signature Date Printed Name and Credentials Clinical Instructor Signature Printed Name and Credentials
--- NOTE | 2021-07-01 16:40 | PT.OPDS ---
Current Diagnoses Malignant neoplasm of prostate (07/01/21) Low back pain (07/01/21) Other malaise (07/01/21) Visit Care Team Role Provider Type Art Smith DO Attending Provider Physician Family Provider Primary Care Provider Referring Provider Specialty: Family Practice Address: [address] [place] [address], [facility] Email: Visit Number Visit Number Discharge Summary PT-OP-B Current Condition Start: 03/17/21 14:08 Freq: Status: Active Protocol: Document 03/17/21 14:11 HH (Rec: 03/17/21 14:47 HH [email or web address]) Current Condition History of Current Condition Onset Date many years ago Current Complaints chronic LBP, deconditioning and difficulty in walking History of Current Condition Jassi is a 75yo male with hx of osteoporosis, bakc pain, prostate caner, s/p prostatectomy in 2017 and HTN here for her chronic LBP and deconditioning. He states his back pain has been there > 10 years located at the sacral region and it's tender to touch. He tends to feel compressed if he stands / walk for a long time but bending over tends to relieve his pain. He states he is very sedentary since 10 years ago and has been using hiking sticks to walk/ furniture cruise d/t weakness and poor balance. He also needs to use UE to lift LEs into his car/ bed. He stated he has been being lazy for years and want to get stronger again. Pt mentioned he had a R hip ORIF surgery 20 years after a fall from rollerblading. Current Functional Impairments (Reported) Functional Limitations- ADL's unable to stand > 30 mins for house work Functional Limitations- Mobility/Gait unable to tolerate >100ft of walking d/t fatigue and pain. pt uses hiking stickcs to walk / furniture cruise at home use UEs to lift LEs to get into his car/ bed. Personal Factors Other Personal Factors That May Effect pt is on Lupron (hormonal Therapy/Recovery therapy) for prostate cancer osteoporosis PT-OP-C Subjective Start: 03/17/21 14:08 Freq: Status: Active Protocol: Document 07/01/21 14:35 HH (Rec: 07/01/21 16:36 HH [id number]) OP-PT Subjective Patient Comments Patient Comments I just got my lab test and my PSA has been up to 27 from 11 . The doctor might switch my medication and I am also going to see my PCP to discuss my current health. Patient Reported Progress Same PT-OP-D Balance Start: 03/17/21 14:08 Freq: Status: Active Protocol: Document 03/17/21 14:11 (Rec: 03/17/21 14:47 [email or web address]) Balance Tests Single Limb Standing Single Limb- Right unable d/t instability Single Limb- Left unable d/t instability PT-OP-G Mobility & Gait Start: 03/17/21 14:08 Freq: Status: Active Protocol: Document 03/17/21 14:11 (Rec: 03/17/21 14:47 [email or web address]) OP Mobility Evaluation Bed Mobility Supine to and from Sit use UEs to lift each LE individually over to table/ off the table Transfers Sit to Stand B UE push off from armrest OP Gait Assessment Comments Gait Comments pt walks with hiking sticks at all time and with a slight lateral gait. (R toe in and amb in a diagonal direction.) PT-OP-H Neuro Start: 03/17/21 14:08 Freq: Status: Active Protocol: Document 03/17/21 14:11 (Rec: 03/17/21 14:47 [email or web address]) Sensation Evaluation Gross Sensation Gross Sensation WNL Deep Tendon Reflex & Clonus Assessment Deep Tendon Reflex Bilateral Achilles Deep Tendon Reflex 2+ Normal Bilateral Patellar Deep Tendon Reflex 2+ Normal PT-OP-K Range of Motion Start: 03/17/21 14:08 Freq: Status: Active Protocol: Document 03/17/21 14:11 (Rec: 03/17/21 14:47 [email or web address]) Lumbar Spine Range of Motion Lumbar Spine Active Degrees Testing Position Sitting Comments unable to toe touch in standing d/t poor balance able to toe touch in seated position, slight discomfort with extension but not radiating pain noted. Hip Goniometric Range of Motion Hip Right Active Comments supine figure 4 position (R knee 4 inches off table; L knee 3 inches off table) PSLR =45 degrees , tightness HS Left Active Comments supine figure 4 position (R knee 4 inches off table; L knee 3 inches off table) PSLR =60 degrees , tightness HS Hip ROM Limitations Hip ROM Limitations Soft Tissue Tightness PT-OP-L Special Tests Start: 03/17/21 14:08 Freq: Status: Active Protocol: Document 03/17/21 14:11 (Rec: 03/17/21 14:47 [email or web address]) Special Tests Lumbar Spine Special Tests Straight Leg Raise Test Results -ve Comments significant HS tightness noted . no LBP A-P Shearing Test Results pain at L3-L5 with PA mob Hip Special Tests Scour Test Test Results -ve B Straight Leg Raise Test Results +ve B Comments significant HS tightness noted . no LBP Piriformis Test Results -ve B EDUARDO Test Results -ve B PT-OP-M Strength Start: 03/17/21 14:08 Freq: Status: Active Protocol: Document 03/17/21 14:11 (Rec: 03/17/21 14:47 [email or web address]) Hip Strength Hip Manual Muscle Testing Right Flexion (L2) 3- Fair- Extension (S1) 3 Fair Abduction 3 Fair Adduction 3 Fair External Rotation 3 Fair Internal Rotation 3 Fair Left Flexion (L2) 3+ Fair+ Extension (S1) 3+ Fair+ Abduction 3 Fair Adduction 3+ Fair+ External Rotation 3+ Fair+ Internal Rotation 3+ Fair+ Knee Strength Knee Manual Muscle Testing Right Flexion (S2) 4 Good Extension (L3) 4 Good Left Flexion (S2) 4 Good Extension (L3) 4 Good PT-OP-T Assessment and Plan Start: 03/17/21 14:08 Freq: Status: Active Protocol: Document 07/01/21 14:35 (Rec: 07/01/21 16:36 [id number]) Physical Therapy Assessment Goals activity tolerance Impairment pt is very deconditioned. 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 STG Duration 6 weeks Wool Sorter Goal (LTG) pt will be able to tolerate walking 300 ft without AD to improve his overall endurance and mobility in community LTG Duration 12 weeks. strength Impairment pt needs to use armrests to stand up Short Term Goal (STG) pt will improve his B LE strength to be able to complete STS for 5 times without using armrests to push off. STG Duration 6 weeks Usp Goal (LTG) pt will improve his B LE strength to be able to complete STS for 10 times without using armrests to push off. LTG Duration 12 weeks gait Impairment pt is using hiking sticks for all mobility Short Term Goal (STG) pt will be able to use SPC/ 1 hiking stick to amb in community and at home safely and indepednently STG Duration 6 weeks Usp Goal (LTG) pt will be able amb without any AD in community and at home safely and indepednently LTG Duration 12 weeks oswestry Impairment pt scores 26 Short Term Goal (STG) pt will score <20 on owestry to improve his quality of life . STG Duration 6 weeks Wool Sorter Goal (LTG) pt will score <15 on owestry to improve his quality of life and activity tolerance LTG Duration 12weeks Progress Towards Goals Progress Towards Goals Slow Progress due to Activity Tolerance,Slow Progress - Other Assessment Summary Assessment pt was last seen 05/28 and his recent PSA went from 11 to 27 who will further consult with his oncologist and PCP. Besides, pt has shown some progress on core activation, stabilization and LE since IE but he still has significant difficulty with any leg lift type of movements. I recommended him to discuss with PCP to rule out other serious pathologies. Provided HEP for him to focus on core and LE strengthening and he agreed to be DC from PT at this point d/t his high copay. Physical Therapy Plan Frequency and Duration Plan of Care Start Date 07/01/21 Plan of Care End Date 07/01/21 Therapeutic Interventions Therapeutic Interventions Aquatic Therapy,Balance Training,Gait Training,Home Exercise Program,Joint Mobilizations,Manual Therapy, Neuromuscular Re-education, Orthotic/Prosthetic Management ,Patient/Caregiver Education, Self-Care/Home Management,Soft Tissue Mobilization,Taping, Therapeutic Activities, Therapeutic Exercises Modalities Cold Pack/Ice Massage,Hot Packs,Infrared Therapy, Traction- Mechanical Discharge Physical Therapy Discharge Reasons Plateau in Progress Discharge Comments see A&P
== END 2021-07-02 07:37 | disposition home or self-care (01) ==
LOC: PHYS 14:30
PROVIDERS: Family Provider Family Medicine; PCP Family Medicine; Referring Provider Family Medicine; Visit Provider Family Medicine
DX: M54.5 Low back pain (principal); R53.81 Other malaise; C61 Malignant neoplasm of prostate
CPT/HCPCS: 97110; 97140; 97163; 97535

== ENCOUNTER → 2022-01-19 14:54 | Outpatient (CLI) | payer OTHER, SELFPAY ==
--- NOTE | 2022-01-19 14:56 | DI.RAD.S_ITS ---
PROCEDURE: XR LUMBAR SPINE 2-3V INDICATIONS: pain TECHNIQUE: 3 views of the lumbar spine were acquired. COMPARISON: [facility], CT, CT CHEST ABD PEL W CON, 06/08/2021, 10:51. FINDINGS: Bones: There are 5 [id number] lumbar vertebral bodies. There is likely a severe compression deformity at L1 and a moderate compression deformity at L3. Bones are diffusely osteopenic. There is diffuse intervertebral disc space narrowing endplate sclerosis, osteophytosis and facet sclerosis. L5-S1 pars interarticularis defects cannot be excluded. Anterior wedging is also likely present at T12. Soft tissues: Overlying bowel gas pattern is normal. No suspicious soft tissue calcifications. IMPRESSION: 1. Diffuse osteopenia and multilevel compression deformities at T12, L1, and L3. Findings are likely similar to the study dated June 08, 2021; however there may be increased wedging at T12 when compared with the prior CT. Dictated by: Maria A Cooper M.D. on 01/19/2022 at 16:48 Approved by: Maria A Cooper M.D. on 01/19/2022 at 16:50
--- NOTE | 2022-01-19 14:56 | DI.RAD.S_ITS ---
PROCEDURE: XR SHOULDER LT MIN 2V INDICATIONS: pain TECHNIQUE: 3 views of the shoulder were acquired. COMPARISON: None. FINDINGS: Bones: At least moderate degenerative change of the acromioclavicular and glenohumeral joints with joint space loss, osteophytosis, and subchondral sclerosis. No fractures or dislocations. Visualized ribs appear intact. Soft tissues: No suspicious soft tissue calcifications. IMPRESSION: No acute osseous abnormality. Dictated by: Osmel Goodwin M.D. on 01/19/2022 at 16:15 Approved by: Osmel Goodwin M.D. on 01/19/2022 at 16:18
== END ==
PROVIDERS: Family Provider Family Medicine; PCP Family Medicine; Referring Provider Family Medicine; Visit Provider Family Medicine
DX: M85.88 Other specified disorders of bone density and structure, other site (principal); M43.9 Deforming dorsopathy, unspecified; M25.512 Pain in left shoulder; M54.50 Low back pain, unspecified; G89.29 Other chronic pain
CPT/HCPCS: 72100; 73030

== ENCOUNTER → 2022-02-18 10:43 | Outpatient (CLI) | payer OTHER, SELFPAY ==
--- NOTE | 2022-02-18 10:46 | DI.NM.S_ITS ---
PROCEDURE: [place] BONE SCAN WHOLE BODY RADIOPHARMACEUTICAL: 19.9 mCi Tc-99m MDP IV. INDICATIONS: metastatic prostate cancer TECHNIQUE: Delayed whole-body scintigrams were obtained approximately 3-4 hours after intravenous injection of radiotracer. Anterior and posterior views were acquired from vertex to feet. COMPARISON: [place], [place], [place] BONE SCAN WHOLE BODY, 06/08/2021, 14:17. FINDINGS: Multiple areas of increased uptake are identified as on current exam although many are much less prominent when compared to prior exam. No definitively new areas of uptake are identified. There is persistent uptake at the level of L2 as well as multiple levels in predominantly the left sacrum. Most prominent areas of rib uptake are noted in the left 3rd and 7th ribs. Areas of uptake are also noted within the calvarium. Photopenia is noted within the left knee most consistent with arthroplasty. IMPRESSION: Persistent extensive osseous metastatic disease although less intense compared to prior exam. No new lesions are identified. Dictated by: Jana Daniels M.D. on 02/18/2022 at 15:36 Approved by: Jana Daniels M.D. on 02/18/2022 at 15:39
--- NOTE | 2022-02-18 12:13 | DI.CT.S_ITS ---
PROCEDURE: CT CHEST ABD PEL W CON INDICATIONS: metastatic prostate cancer TECHNIQUE: After the administration of oral and intravenous contrast, axial sections acquired from the supraclavicular neck to the pubic symphysis. Coronal and sagittal reformats were performed. For radiation dose reduction, the following was used: automated exposure control, adjustment of mA and/or kV according to patient size. COMPARISON: [facility], CT, CT CHEST ABD PEL W CON, 08/18/2020, 10:11. [facility], CT, CT CHEST ABD PEL W CON, 06/08/2021, 10:51. [place], [place], [place] BONE SCAN WHOLE BODY, 06/08/2021, 14:17. [place], [place] BONE SCAN WHOLE BODY, 02/18/2022, 13:55. FINDINGS: Image quality: Excellent. CHEST: Lower Neck: No enlarged lymph nodes. Thyroid: Within normal limits. Axillae: No enlarged lymph nodes. Chest Wall: Incidental note is made of bilateral gynecomastia. Lungs and Airways: No consolidation can be seen. The previously described tiny pulmonary nodules are each similar or slightly smaller than on the prior examination. Pleura: No pneumothorax or pleural effusions. Heart: Heart size is normal. No pericardial effusion. Thoracic Vessels: The aorta and pulmonary arteries demonstrate normal size. Mediastinum and Mallroy: No enlarged lymph nodes. Esophagus: No wall thickening. No significant hiatal hernia. ABDOMEN: Liver: Numerous simple appearing liver cysts are seen. The liver is normal in size and demonstrates no suspicious lesions. Gallbladder: Unremarkable. Biliary ducts: Unremarkable. Pancreas: Unremarkable. Spleen: Unremarkable. Adrenal Glands: A 1.1 cm left adrenal nodule is again seen. No right adrenal nodules are seen. Kidneys and Ureters: Unremarkable. Stomach and Bowel: Stomach, small bowel loops, and colon are unremarkable. Peritoneum: No abnormal intraperitoneal fluid. No free air. Ventral Wall: No hernia. Abdominal Nodes: No retroperitoneal or mesenteric adenopathy by size criteria. Vessels: Aorta and inferior vena cava are normal in size. Incidental note is made of a circumaortic left renal vein. PELVIS: Pelvic Organs: Prostatectomy change with lymph node dissection clips can be seen. Bladder: Unremarkable. Pelvic Nodes: No enlarged lymph nodes. Miscellaneous: No inguinal hernias are seen. Within the right pelvis, there is again seen a benign-appearing cystic lesion that measures 3.5 cm, as on series 2, image 100, which is stable compared to the prior. Bones: Focal mild sclerosis is seen within the left lateral 4th rib, which is improved compared to the prior. There is a stable T9 mild anterior wedge deformity. There is mild sclerosis seen within the thoracolumbar junction, including T12, L1, and L2. Chronic compression deformities are seen involving L1 and L3, which are similar to the prior. The degree of sclerosis is clearly improved compared to the prior. Several of the previously seen sclerotic lesions are either not seen or now only faintly seen. Right proximal femoral fixation hardware can be seen. IMPRESSION: Prostatectomy with lymph node dissection clips. Multiple areas of bony metastatic disease are seen, which are clearly improved compared to the prior examination and are compatible with treated metastatic disease. Tiny pulmonary nodules are seen, which are not progressed compared to the prior. Stable left adrenal nodule. Incidental note is made of: Bilateral gynecomastia Numerous simple appearing liver cysts Stable spinal compression deformities. Benign-appearing right pelvis cyst. Right proximal femur hardware. Dictated by: Alonso Page M.D. on 02/18/2022 at 14:01 Approved by: Alonso Page M.D. on 02/18/2022 at 14:08
== END ==
PROVIDERS: Family Provider Family Medicine; PCP Family Medicine; Referring Provider Internal Medicine Hematology & Oncology; Visit Provider Internal Medicine Hematology & Oncology
DX: C61 Malignant neoplasm of prostate (principal); C79.51 Secondary malignant neoplasm of bone; R91.8 Other nonspecific abnormal finding of lung field; E27.9 Disorder of adrenal gland, unspecified; K76.89 Other specified diseases of liver
CPT/HCPCS: 71260; 74177; 78306; A9503; Q9967

== ENCOUNTER 2022-05-24 13:41 | Emergency (ER) | payer OTHER, SELFPAY ==
[2022-05-24] VITALS (11 sets, daily range): BP systolic 133–156; BP diastolic 67–90; PULSE 60–70; RESP 16–20; TEMP 36.8; O2SAT 94–100; BMI 31.1
--- NOTE | 2022-05-24 14:20 | DI.RAD.S_ITS ---
PROCEDURE: XR SACRUM COCCYX MIN 2V INDICATIONS: hip pain, hx rt hip surg TECHNIQUE: 3 views of the sacrum and coccyx acquired. COMPARISON: [facility], CR, XR HIP W PEL IF DONE RT 2V, 05/24/2022, 14:14. FINDINGS: Bones: No fractures or dislocations. No suspicious bony lesions. Partially visualized right femoral fixation. Soft tissues: Visualized bowel gas pattern is normal. No suspicious soft tissue densities. IMPRESSION: No visualized acute fracture or dislocation. However, if clinical concern and/or pain persist, short interval imaging followup in 7-10 days is recommended, as occult injury cannot be definitively excluded. Dictated by: Jana Daniels M.D. on 05/24/2022 at 15:54 Approved by: Jana Daniels M.D. on 05/24/2022 at 15:54
--- NOTE | 2022-05-24 14:20 | DI.RAD.S_ITS ---
PROCEDURE: XR HIP W PEL IF DONE RT 2V INDICATIONS: hip pain, hx rt hip surg TECHNIQUE: AP pelvis with lateral view(s) of the right hip(s). COMPARISON: [facility], CT, CT CHEST ABD PEL W CON, 02/18/2022, 13:07. FINDINGS: Bones: No fractures or dislocations. Pelvic ring appears intact. Scattered areas of sclerosis are noted within the visualized pelvic bones relatively unchanged. Right femoral fixation is present. Hardware appears intact. Soft tissues: The visualized bowel gas pattern is normal. No suspicious soft tissue calcifications. IMPRESSION: Right hip fixation. No visualized acute fracture or dislocation. However, if clinical concern and/or pain persist, short interval imaging followup in 7-10 days is recommended, as occult injury cannot be definitively excluded. Sclerotic foci within the pelvic bones consistent with known metastatic disease. Dictated by: Jana Daniels M.D. on 05/24/2022 at 15:54 Approved by: Jana Daniels M.D. on 05/24/2022 at 15:57
--- NOTE | 2022-05-24 14:23 | ED_ITS ---
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 Patient states that he has a history of chronic low back pain, he also has a history of right-sided sciatica, states that he had right hip surgery approximately 20 years ago, he takes hydrocodone 10 mg tabs 3 times a day and the maximum dose of gabapentin for his chronic pain. He states that over the last 2-3 days his pain has been so bad he is not getting up in time to go to the bathroom due to the pain, and he has become less mobile. He denies any new incontinence, denies any new or significant weakness, states that he has had reduced mobility due to his pain, denies the sensation of muscle spasms. He states that it is worse in the morning, he denies any constipation, nausea, recent fever, incontinence of stool, denies any abdominal pain neuropathy. Denies any history of diabetes. Patient's son is room watching for patient and saying that he has progressively worse weakness over the last week. He denies it being unilateral, patient's son states that he is lifting his legs and moving them for him and he can not get in his three story condo very easily. Patient endorses having significant pain and worsening ability to move around. Patient is wearing a brief and states that he is not having incontinence due to lack of tone he is only having incontinence because he is in pain. Related Data Home Medications Medication Instructions Recorded Confirmed Cbd Gummies 1 gummy PO DAILY PRN pain 01/24/22 05/26/22 amlodipine 5 mg tablet (Norvasc) 5 mg PO DAILY 05/26/22 05/26/22 bupropion HCl 150 mg 24 hr tablet, 150 mg PO DAILY 05/26/22 05/26/22 extended release (Wellbutrin XL) bupropion HCl 150 mg 24 hr tablet, 150 mg PO DAILY 05/26/22 05/26/22 extended release (Wellbutrin XL) diclofenac sodium 1 % topical gel 4 g topical QID PRN pain 05/26/22 05/26/22 (Voltaren Arthritis Pain) hydrocodone 10 mg-acetaminophen 1 tab PO CONT PRN pain 05/26/22 05/26/22 325 mg tablet lidocaine 5 % topical patch 1 patch topical DAILY PRN Pain 05/26/22 05/26/22 (Lidoderm) (Scale Score 1-3) losartan 100 mg tablet 100 mg PO DAILY 05/26/22 05/26/22 metoprolol succinate 50 mg 50 mg PO DAILY 05/26/22 05/26/22 tablet,extended release 24 hr spironolactone 25 1 tab PO DAILY 05/26/22 05/26/22 mg-hydrochlorothiazide 25 mg tablet Previous Rx's Medication Instructions Recorded enzalutamide 40 mg capsule (Xtandi) 160 mg PO Q24H prostate cancer 07/22/21 #120 caps Rollator Walker #1 ea 09/22/21 gabapentin 300 mg capsule 900 mg PO TID #180 caps 02/09/22 methocarbamol 500 mg tablet 500 mg PO BEDTIME PRN muscle spasm 05/24/22 #14 tabs oxycodone-acetaminophen 7.5 mg-325 1 tab PO Q8H PRN pain #10 tabs 05/24/22 mg tablet (Percocet) Allergies Allergy/AdvReac Type Severity Reaction Status Date / Time Penicillins Allergy Severe Hives, Verified 05/26/22 18:03 breathing issues Review of Systems <BRISEIDA Blum - Last Filed: 05/24/22 18:53> Review of Systems Narrative: General: denies fever, chills Head/Neck: denies headache, neck pain Eyes: denies visual changes, eye pain Cardio: denies chest pain, palpitations Respiratory: denies shortness of breath, cough GI: denies abdominal pain, nausea, vomiting, or diarrhea : denies dysuria, hematuria or flank pain, denies incontinence MSK: Endorses right hip pain which has been worsening over the last few days, endorses worsening weakness, Skin: denies rash, itching or wound Neuro: denies numbness, tingling, dizziness Patient History <BRISEIDA Blum - Last Filed: 05/24/22 18:53> Medical History Chronic left shoulder pain Elevated alkaline phosphatase level Elevated PSA History of prostate cancer Hypertension Low back pain Obesity Pelvic somatic dysfunction Physical deconditioning Prostate cancer metastatic to bone Sacral region somatic dysfunction Shortness of breath Vision disorder Surgical History Anesthesia H/O right wrist surgery (~1996) H/O umbilical hernia repair History of hip surgery (~1985) History of prostatectomy Family History Mother Parkinson's disease Other No history of cancer Social History household members: family Smoking Status: Former smoker alcohol intake: current substance use type: does not use Smoking Status: Former smoker alcohol intake frequency: holidays/special occasions only Substance Use Type: does not use Exam <Renetta Gray [facility] - Last Filed: 05/24/22 18:53> Narrative Exam Narrative: Independently reviewed vitals signs and nursing notes. General: cooperative, comfortable, in no acute distress, lying in bed, does not take any initiative and moving self, pleasant, endorses shooting pain and neuropathic pain down his right leg and along his spine. Head: atraumatic, symmetrical facial expressions Neck: supple Eyes: equal round and reactive, EOMI, conjunctiva normal Nose: nares patent, no rhinorrhea Mouth/Throat: moist mucus membranes Cardiovascular: regular rate and rhythm, no peripheral edema, warm extremities Respiratory: normal effort, able to speak in complete sentences, no audible wheezing, stridor, or rales. No retractions or tachypnea. GI: abdomen soft, obese, nontender to palpation, nondistended, no masses, no exquisite tenderness with exam, without guarding or rebound. MSK: moves all extremities, neurovascularly intact, no weakness, normal tone Skin: brisk capillary refill, no rash, no erythema Neuro: normal speech and cognition, A&O x3 Psych: mental status is grossly normal, congruent mood, normal affect, pleasant and cooperative Initial Vital Signs Initial Vital Signs: Vital Signs Pulse Rate 68 05/24/22 13:48 Respiratory Rate 20 05/24/22 13:48 Blood Pressure 156/77 H 05/24/22 13:48 Pulse Oximetry 97 05/24/22 13:48 <Ruth Shelley DO - Last Filed: 05/30/22 08:55> Initial Vital Signs Initial Vital Signs: Vital Signs Pulse Rate 68 05/24/22 13:48 Respiratory Rate 20 05/24/22 13:48 Blood Pressure 156/77 H 05/24/22 13:48 Pulse Oximetry 97 05/24/22 13:48 Course <BRISEIDA Blum - Last Filed: 05/24/22 18:53> Orders Ordered: Discontinued Medications Hydrocodone Bitart/Acetaminophen (Hydrocodone/Acet 5/325 Tablet) 1 tab PO NOW ONE Stop: 05/24/22 15:57 Last Admin: 05/24/22 16:15 Dose: 1 tab Documented By: JACOB Gabapentin (Gabapentin 300 Mg Capsule) 900 mg PO NOW ONE Stop: 05/24/22 15:57 Last Admin: 05/24/22 16:14 Dose: 900 mg Documented By: JACOB Ketorolac Tromethamine (Ketorolac 30 Mg/Ml Vial) 15 mg IM NOW ONE Stop: 05/24/22 14:21 Last Admin: 05/24/22 14:37 Dose: 15 mg Documented By: JACOB Lidocaine (Lidocaine Patch 1 Each Adh..Patch) 1 each TOP DAILY ABDULAZIZ Last Admin: 05/24/22 14:38 Dose: 1 each Documented By: JACOB Methocarbamol (Methocarbamol 500 Mg Tablet) 500 mg PO NOW ONE Stop: 05/24/22 14:21 Last Admin: 05/24/22 14:38 Dose: 500 mg Documented By: JACOB Oxycodone/Acetaminophen (Oxycodone/Acetaminophen 5/325 Tablet) 1 tab PO NOW ONE Stop: 05/24/22 14:21 Last Admin: 05/24/22 14:38 Dose: 1 tab Documented By: JACOB Reevaluation(s) Reevaluation #1: 1300: Patient reports that his pain is not any different although he appears comfortable and is not wincing or showing signs of extreme pain. He reports that he now feels twinges neuropathic pain Reevaluation #2: 1400 patient reports that his pain might be slightly better, reports that he still feels his pain, a 2nd pain pill was given. Reevaluation #3: 1715 ambulation trial with walker, one standby assist, patient was able to ambulate towards the end of the bed before needing to sit to rest. He does not have unilateral weakness he has generalized weakness but exacerbation of pain is what caused him to want to sit down. I suspect that he has become more weak over the last few weeks of being less mobile. Vital Signs Vital signs: Vital Signs - 8 hr 05/24/22 13:48 05/24/22 13:48 05/24/22 13:58 Temperature 98.2 F Pulse Rate 68 70 Respiratory Rate 20 16 Blood Pressure 156/77 H 156/77 H Pulse Oximetry 97 99 Oxygen Delivery Method Room Air 05/24/22 14:00 05/24/22 14:01 05/24/22 14:01 Temperature Pulse Rate 70 70 Respiratory Rate Blood Pressure 146/74 H Pulse Oximetry 98 99 Oxygen Delivery Method 05/24/22 14:30 05/24/22 14:30 05/24/22 15:27 Temperature Pulse Rate 66 61 Respiratory Rate Blood Pressure 147/76 H Pulse Oximetry 99 100 Oxygen Delivery Method 05/24/22 15:48 05/24/22 15:49 05/24/22 15:49 Temperature Pulse Rate 60 63 Respiratory Rate Blood Pressure 154/74 H Pulse Oximetry 94 99 Oxygen Delivery Method 05/24/22 16:00 05/24/22 16:00 05/24/22 16:30 Temperature Pulse Rate 61 Respiratory Rate Blood Pressure 139/80 133/67 Pulse Oximetry 98 Oxygen Delivery Method 05/24/22 16:30 05/24/22 17:00 05/24/22 17:00 Temperature Pulse Rate 63 62 Respiratory Rate Blood Pressure 145/90 H Pulse Oximetry 97 98 Oxygen Delivery Method <Ruth Shelley, DO - Last Filed: 05/30/22 08:55> Orders Ordered: Discontinued Medications Hydrocodone Bitart/Acetaminophen (Hydrocodone/Acet 5/325 Tablet) 1 tab PO NOW ONE Stop: 05/24/22 15:57 Last Admin: 05/24/22 16:15 Dose: 1 tab Documented By: JACOB Gabapentin (Gabapentin 300 Mg Capsule) 900 mg PO NOW ONE Stop: 05/24/22 15:57 Last Admin: 05/24/22 16:14 Dose: 900 mg Documented By: JACOB Ketorolac Tromethamine (Ketorolac 30 Mg/Ml Vial) 15 mg IM NOW ONE Stop: 05/24/22 14:21 Last Admin: 05/24/22 14:37 Dose: 15 mg Documented By: JACOB Lidocaine (Lidocaine Patch 1 Each Adh..Patch) 1 each TOP DAILY ABDULAZIZ Last Admin: 05/24/22 14:38 Dose: 1 each Documented By: JACOB Methocarbamol (Methocarbamol 500 Mg Tablet) 500 mg PO NOW ONE Stop: 05/24/22 14:21 Last Admin: 05/24/22 14:38 Dose: 500 mg Documented By: JACOB Oxycodone/Acetaminophen (Oxycodone/Acetaminophen 5/325 Tablet) 1 tab PO NOW ONE Stop: 05/24/22 14:21 Last Admin: 05/24/22 14:38 Dose: 1 tab Documented By: JACOB Vital Signs Vital signs: Vital Signs - 8 hr 05/24/22 13:48 05/24/22 13:48 05/24/22 13:58 Temperature 98.2 F Pulse Rate 68 70 Respiratory Rate 20 16 Blood Pressure 156/77 H 156/77 H Pulse Oximetry 97 99 Oxygen Delivery Method Room Air 05/24/22 14:00 05/24/22 14:01 05/24/22 14:01 Temperature Pulse Rate 70 70 Respiratory Rate Blood Pressure 146/74 H Pulse Oximetry 98 99 Oxygen Delivery Method 05/24/22 14:30 05/24/22 14:30 05/24/22 15:27 Temperature Pulse Rate 66 61 Respiratory Rate Blood Pressure 147/76 H Pulse Oximetry 99 100 Oxygen Delivery Method 05/24/22 15:48 05/24/22 15:49 05/24/22 15:49 Temperature Pulse Rate 60 63 Respiratory Rate Blood Pressure 154/74 H Pulse Oximetry 94 99 Oxygen Delivery Method 05/24/22 16:00 05/24/22 16:00 05/24/22 16:30 Temperature Pulse Rate 61 Respiratory Rate Blood Pressure 139/80 133/67 Pulse Oximetry 98 Oxygen Delivery Method 05/24/22 16:30 05/24/22 17:00 05/24/22 17:00 Temperature Pulse Rate 63 62 Respiratory Rate Blood Pressure 145/90 H Pulse Oximetry 97 98 Oxygen Delivery Method MDM - Back Pain/Injury <BRISEIDA Blum - Last Filed: 05/24/22 18:53> Lab Data Labs: Lab Results 05/24/22 Range/Units 16:00 Urine Color Yellow Urine Appearance Cloudy Urine pH 7.0 (4.5-8.0) Ur Specific [place] 1.010 (1.000-1.035) Urine Protein Negative (Negative) Urine Glucose (UA) Negative (Negative) g/dL Urine Ketones Negative (NEGATIVE) Urine Occult Blood Negative (Negative) Urine Nitrate Negative (Negative) Urine Bilirubin Negative (NEGATIVE) Urine Urobilinogen 0.2 (0.2) E.U./dL Ur Leukocyte Esterase Negative (NEGATIVE) Urine RBC None seen (0-5/HPF) Urine WBC None seen (0-5/HPF) Other Crystals 2+ amorphous Urine Bacteria None seen (None) Ur Culture Indicated? Cult not indicated Imaging Data Extremity x-ray #1: Radiologist's Impression: PROCEDURE:? XR SACRUM COCCYX MIN 2V ? INDICATIONS:? hip pain, hx rt hip surg ? TECHNIQUE:? 3 views of the sacrum and coccyx acquired.? ? COMPARISON:? [facility], CR, XR HIP W PEL IF DONE RT 2V, 05/24/2022, 14:14. ? FINDINGS:? ? Bones:? No fractures or dislocations.? No suspicious bony lesions.? Partially visualized right femoral fixation. ? Soft tissues:? Visualized bowel gas pattern is normal.? No suspicious soft tissue densities.? ? IMPRESSION:? No visualized acute fracture or dislocation. However, if clinical concern and/or pain persist, short interval imaging followup in 7-10 days is recommended, as occult injury cannot be definitively excluded. ? ? Dictated by: Jana Daniels M.D. on 05/24/2022 at 15:54 ? ? Approved by: Jana Daniels M.D. on 05/24/2022 at 15:54 ? Extremity x-ray #2: Radiologist's Impression: PROCEDURE:? XR HIP W PEL IF DONE RT 2V ? INDICATIONS:? hip pain, hx rt hip surg ? TECHNIQUE:? AP pelvis with lateral view(s) of the right hip(s).? ? COMPARISON:? [facility], CT, CT CHEST ABD PEL W CON, 02/18/2022, 13:07. ? FINDINGS:? ? Bones:? No fractures or dislocations.? Pelvic ring appears intact.? Scattered ar eas of sclerosis are noted within the visualized pelvic bones relatively unchanged.? Right femoral fixation is present.? Hardware appears intact. ? Soft tissues:? The visualized bowel gas pattern is normal.? No suspicious soft tissue calcifications.? ? ? IMPRESSION: ? Right hip fixation. No visualized acute fracture or dislocation. However, if clinical concern and/or pain persist, short interval imaging followup in 7-10 days is recommended, as occult injury cannot be definitively excluded. ? Sclerotic foci within the pelvic bones consistent with known metastatic disease. ? ? Dictated by: Jana Daniels M.D. on 05/24/2022 at 15:54 ? ? Approved by: Jana Daniels M.D. on 05/24/2022 at 15:57 ? MDM Narrative Medical decision making narrative: This is a 76-year-old male who presents to the emergency department with his son via EMS for worsening low back pain and right hip pain and reporting worsening weakness on chronic pain and chronic weakness. Patient has a history of prostate cancer currently is on Xtandi and Lupron, he takes 2600 mg of gabapentin daily, and 30 mg of hydrocodone daily and states that his pain is worse than usual and his medications are not helping. Patient's son is at the bedside complaining that he has new weakness and mobility challenges and he can not help him with this at home. Patient was given two Patient endorses neuropathic pain along his spine, he also endorses pain in his low back radiating down his right leg. He has a history of right hip fixation, x-ray of his right hip today does not show any visualized acute fracture or dislocation, it shows a previously fixed right hip and it also shows sclerotic foci the pelvic bones consistent known metastatic disease. He endorses tailbone pain without any trauma, his sacrum and coccyx x-ray shows no visualized acute fracture or dislocation. Patient smelled urine and endorses that he has been voiding in his brief due to worsening pain and not wanting to ambulate or get to the bathroom. He was given Percocet, Robaxin, lidocaine patch, and Toradol and reports no improvement in his pain. He was then given hydrocodone and his normally scheduled gabapentin for his complaint of neuropathic pain. Patient presents with 3-5 days of worsening lower back pain, he is atraumatic, and afebrile. Given history and exam, suspect likely musculoskeletal etiology, he is nontoxic appearing with no overt risk factors for epidural hematoma or abscess. No overt evidence or acute critical cord compression with nonfocal neuro exam. Neurovascularly intact distally, no evidence infection, no peritoneal signs or abdominal pain on exam low suspicion for AAA. He does not have any weakness, incontinence, neurovascular or sensation changes or concerning findings for cauda equina syndrome, lumbar fracture, neuropathic pain, epidural abscess, or meningitis, this could also be a herniated disk, paraspinal/other muscle strain, osteoarthritis, nephrolithiasis, pyelonephritis, chronic neuropathic pain, and other considered. Patient's urine was malodorous, his brief was changed, patient is continent and states he has been choosing to avoid in his brief due to his pain. UA shows Patient does not show any signs of systemic illness, he is afebrile, without tachycardia, tachypnea, he is alert and oriented, mobile can move all of his extremities, flex his hip, bend his knees, and did an ambulatory trial with a walker and he did okay without unsteady gait or falling however he can not walk very long distances and had to take a break after about 10 steps. Patient has a walker at home where all the wheels move, he was given a walker with rubber on the rear pegs and tolerated this okay. Patient is appropriate and amenable to discharge home. Vital signs are stable on repeat examination is unremarkable. Patient has been informed of results. Patient has been given strict return to ER precautions for any new or worsening symptoms. Patient understands to follow up closely with outpatient providers as instructed. Patient understands plan and agrees to discharge home. All questions and concerns answered at this time. <Ruth Shelley, DO - Last Filed: 05/30/22 08:55> Lab Data Labs: Lab Results 05/24/22 Range/Units 16:00 Urine Color Yellow Urine Appearance Cloudy Urine pH 7.0 (4.5-8.0) Ur Specific [place] 1.010 (1.000-1.035) Urine Protein Negative (Negative) Urine Glucose (UA) Negative (Negative) g/dL Urine Ketones Negative (NEGATIVE) Urine Occult Blood Negative (Negative) Urine Nitrate Negative (Negative) Urine Bilirubin Negative (NEGATIVE) Urine Urobilinogen 0.2 (0.2) E.U./dL Ur Leukocyte Esterase Negative (NEGATIVE) Urine RBC None seen (0-5/HPF) Urine WBC None seen (0-5/HPF) Other Crystals 2+ amorphous Urine Bacteria None seen (None) Ur Culture Indicated? Cult not indicated Discharge Plan Departure Patient Disposition: Home Clinical Impression: Acute exacerbation of chronic low back pain, Neuropathic pain Acute hip pain Qualifiers: Laterality: right Qualified Code(s): M25.551 - Pain in right hip Instructions: DI for Low Back Pain, DI for Muscle Strain, DI for Peripheral Neuropathy Activity Restrictions/Additional Instructions: *You have been diagnosed with worsening neuropathic pain, acute on chronic low back pain and associated weakness. Your hip x-ray and sacrum and coccyx x-ray do not show any acute abnormalities, fracture, dislocation, or bony erosion concerning for infection or malignancy. Please follow-up with Dr. Smith about your chronic pain and if you need a change in your pain regimen for your mobility. Please continue using your pain medication as it is prescribed, you can try heat, ice and rest but I encourage you to stay active as much as possible to prevent muscle atrophy and worsening weakness. For any areas with osteoarthritis, those will be more painful if you are still, I encourage mobility of your joints, your back, and your body, and you may benefit from physical therapy. Please follow-up with Dr. Smith for a referral to physical therapy, a recheck about your pain regimen, and for any advanced outpatient imaging if he thinks you need it. Your urine does not show any infection although it was cloudy and it does have quite an odor. Please make sure you are changing your brief frequently if you are voiding in it. Please use the muscle relaxers as needed for pain and spasms, they will make you tired so I encourage this before bed. I have given you some Percocet to use for pain which is not controlled with her hydrocodone, continue taking your gabapentin because this is important for your neuropathic pain. I have sent your chart to Dr. Smith, please schedule a follow-up appointment this week. *What to do: *Please continue to take your regular medications as directed. [ x] New medication prescriptions sent to your pharmacy: [[facility] ] [ ] New medication written as a paper prescription [ ] No new medications given *Please follow up with your primary care provider in 2-3 days, call for an appointment. Let them know you were seen in the Emergency Department and that we asked that you be seen for follow-up. We will electronically transmit a record of today's note if your PCP is in our system *If you do not have a primary care provider please contact [phone] to establish care with one of the [facility] primary care providers. *Return to Emergency Department if you should have any new, worsening or concerning symptoms, such as [fever greater than 101F, chills, worsening pain, persistent vomiting or other bothersome symptoms] Prescriptions: New methocarbamol 500 mg tablet 500 mg PO BEDTIME PRN (Reason: muscle spasm) Qty: 14 0RF oxycodone-acetaminophen [Percocet] 7.5-325 mg tablet 1 tab PO Q8H PRN (Reason: pain) Qty: 10 0RF No Action (DME) Rollator Walker See Rx Instructions .Route .MEDSUPPLY Qty: 1 0RF Rx Instructions: As directed gabapentin 300 mg capsule 900 mg PO TID Qty: 180 11RF Xtandi 40 mg Capsule 160 mg PO Q24H Qty: 120 11RF Cbd Gummies 1 gummy PO DAILY PRN (Reason: pain) amlodipine [Norvasc] 5 mg tablet 5 mg PO DAILY Rx Instructions: TAKE ONE TABLET BY MOUTH ONE TIME DAILY bupropion HCl [Wellbutrin XL] 150 mg tablet extended release 24 hr 150 mg PO DAILY Rx Instructions: TAKE ONE TABLET BY MOUTH EVERY MORNING diclofenac sodium [Voltaren Arthritis Pain] 1 % gel 4 g topical QID PRN (Reason: pain) Rx Instructions: apply to single knee, ankle, foot; for foot includes sole/toes/top of foot hydrocodone-acetaminophen 10-325 mg tablet 1 tab PO CONT PRN (Reason: pain) Rx Instructions: Take 1 tablet by mouth every 8 hours as needed for pain lidocaine [Lidoderm] 5 % adhesive patch,medicated 1 patch topical DAILY PRN (Reason: Pain (Scale Score 1-3)) Rx Instructions: leave on most painful area for up to 12 hrs losartan 100 mg tablet 100 mg PO DAILY Rx Instructions: TAKE ONE TABLET BY MOUTH ONE TIME DAILY metoprolol succinate 50 mg tablet extended release 24 hr 50 mg PO DAILY Rx Instructions: TAKE ONE TABLET BY MOUTH ONE TIME DAILY spironolacton-hydrochlorothiaz 25-25 mg tablet 1 tab PO DAILY Rx Instructions: TAKE ONE TABLET BY MOUTH ONE TIME DAILY bupropion HCl [Wellbutrin XL] 150 mg tablet extended release 24 hr 150 mg PO DAILY Label Comments: TAKE ONE TABLET BY MOUTH EVERY MORNING Referrals: Art Smith DO [Primary Care Provider] - Visit Report Forms: Patient Portal/API <Ruth Shelley DO - Last Filed: 05/30/22 08:55> Cosign ED Attending Cosjustinature Attestation: I was immediately available in the department for consultation. Documentation has been reviewed. I agree with assessment and plan.
[2022-05-24] MEDS: KETOROLAC 30 MG/ML VIAL 15 MG IM (14:37)
[2022-05-24] MEDS: methocarbamoL 500 MG TABLET PO (14:38)
[2022-05-24] MEDS: LIDOCAINE PATCH 1 EACH ADH..PATCH TOP (14:38)
[2022-05-24] MEDS: OXYCODONE/ACETAMINOPHEN 5/325 TABLET 1 TAB PO (14:38)
[2022-05-24] MEDS: GABAPENTIN 300 MG CAPSULE 900 MG PO (16:14)
[2022-05-24] MEDS: HYDROCODONE/ACET 5/325 TABLET 1 TAB PO (16:15)
[2022-05-24 16:24] LABS: Appearance Urine UA CLOUDY; Bilirubin Urine UA NEGATIVE (NEGATIVE); Color Urine UA YELLOW; Glucose Urine UA NEGATIVE (Negative); Ketones Urine UA NEGATIVE (NEGATIVE); Leukocyte Esterase Urine UA NEGATIVE (NEGATIVE); Nitrite Urine UA NEGATIVE (Negative); Occult Blood Urine UA NEGATIVE (Negative); Protein Urine UA NEGATIVE (Negative); Urobilinogen Urine UA 0.2 E.U./dL (0.2)
[2022-05-24 16:41] LABS: RBC Urine None Seen (0-5/HPF); WBC Urine None Seen (0-5/HPF)
[2022-05-24 16:42] LABS: Bacteria Urine None Seen; Culture Indicated Urine Cult Not Indicated
== END 2022-05-24 19:15 | disposition home or self-care (01) ==
PROVIDERS: Emergency Provider Nurse Practitioner Critical Care Medicine; Family Provider Family Medicine; PCP Family Medicine
DX: M54.50 Low back pain, unspecified (principal); M25.551 Pain in right hip; Z85.46 Personal history of malignant neoplasm of prostate
CPT/HCPCS: 72220; 73502; 81001; 96372; 99283; 99284; J1885

== ENCOUNTER 2022-05-26 17:55 | Inpatient (IN) | payer OTHER, SELFPAY ==
[2022-05-26] VITALS (9 sets, daily range): BP systolic 140–153; BP diastolic 64–81; PULSE 81–93; RESP 16–20; TEMP 36.6–37.6; O2SAT 97–99; BMI 30.5
--- NOTE | 2022-05-26 18:04 | ED_ITS ---
HPI - Back Pain/Injury General Chief Complaint: Weakness Stated Complaint: chronic back pain Time Seen by Provider: 05/26/22 18:04 Source: patient, EMS and old records reviewed Mode of arrival: EMS Limitations: no limitations History of Present Illness HPI Narrative: This is a 76-year-old male metastatic prostate adenocarcinoma GS 9 T2a, hypertension, chronic pain with acute on chronic back. Patient has had incr easing weakness and chronic back and coccygeal pain for the past month he states around the April was last time he drove his vehicle. He is had increasing weakness and debility and unable to really ambulated he denies fevers or chills. No chest pain or shortness of breath. No nausea or vomiting. He is able to ambulate or get places he needs to so he is often wearing a brief or unable to get to the bathroom for bowel movements but denies incontinence that is urinary or fecal. He describes a burning pain in his right leg and particularly but sometimes both legs this is not new but has become more intense, he has bilateral lower extremity weakness that sounds has been slowly progressive. Patient denies any skin breakdown or ulcers. His son states he was here on Monday they got him back home he ended up on the floor and they were unable to get him back up off the floor for the past 2 days and ultimately called 911 to transport the patient. Patient had his pain medications increased on Monday from hydrocodone to oxycodone but they have not filled these or started them. He follows with Dr. Baum from oncology and has PET scans and imaging scheduled for this coming Monday, Dr. Smith is his primary care physician. Based on his increasing pain, debility and weakness they feel he is unsafe at home his son has been the primary and sole caregiver and is feeling very overwhelmed. They are interested at home health, hospice or rehab. Patient is a former smoker, occasional alcohol, uses THC intermittently. Related Data Home Medications Medication Instructions Recorded Confirmed Cbd Gummies 1 gummy PO DAILY PRN pain 01/24/22 05/26/22 amlodipine 5 mg tablet (Norvasc) 5 mg PO DAILY 05/26/22 05/26/22 bupropion HCl 150 mg 24 hr tablet, 150 mg PO DAILY 05/26/22 05/26/22 extended release (Wellbutrin XL) bupropion HCl 150 mg 24 hr tablet, 150 mg PO DAILY 05/26/22 05/26/22 extended release (Wellbutrin XL) diclofenac sodium 1 % topical gel 4 g topical QID PRN pain 05/26/22 05/26/22 (Voltaren Arthritis Pain) hydrocodone 10 mg-acetaminophen 1 tab PO CONT PRN pain 05/26/22 05/26/22 325 mg tablet lidocaine 5 % topical patch 1 patch topical DAILY PRN Pain 05/26/22 05/26/22 (Lidoderm) (Scale Score 1-3) losartan 100 mg tablet 100 mg PO DAILY 05/26/22 05/26/22 metoprolol succinate 50 mg 50 mg PO DAILY 05/26/22 05/26/22 tablet,extended release 24 hr spironolactone 25 1 tab PO DAILY 05/26/22 05/26/22 mg-hydrochlorothiazide 25 mg tablet Previous Rx's Medication Instructions Recorded enzalutamide 40 mg capsule (Xtandi) 160 mg PO Q24H prostate cancer 07/22/21 #120 caps Rollator Walker #1 ea 09/22/21 gabapentin 300 mg capsule 900 mg PO TID #180 caps 02/09/22 methocarbamol 500 mg tablet 500 mg PO BEDTIME PRN muscle spasm 05/24/22 #14 tabs oxycodone-acetaminophen 7.5 mg-325 1 tab PO Q8H PRN pain #10 tabs 05/24/22 mg tablet (Percocet) Allergies Allergy/AdvReac Type Severity Reaction Status Date / Time Penicillins Allergy Severe Hives, Verified 05/26/22 18:03 breathing issues Review of Systems Review of Systems ROS Unobtainable: All systems reviewed & are unremarkable except as noted in HPI and below Patient History Medical History Chronic left shoulder pain Elevated alkaline phosphatase level Elevated PSA History of prostate cancer Hypertension Low back pain Obesity Pelvic somatic dysfunction Physical deconditioning Prostate cancer metastatic to bone Sacral region somatic dysfunction Shortness of breath Vision disorder Surgical History Anesthesia H/O right wrist surgery (~1996) H/O umbilical hernia repair History of hip surgery (~1985) History of prostatectomy Family History Mother Parkinson's disease Other No history of cancer Social History household members: family Smoking Status: Former smoker alcohol intake: current substance use type: does not use Smoking Status: Former smoker alcohol intake frequency: holidays/special occasions only Substance Use Type: marijuana Exam Narrative Exam Narrative: GENERAL: Alert and oriented x three, elderly male in mild distress. HEENT: Head normocephalic, atraumatic, EOMI, pupils reactive, face symmetric, moist mucous membranes NECK: Supple, full range of motion CARDIOVASCULAR: Regular rate and rhythm without murmurs, rubs or gallops. RESPIRATORY: Breath sounds equal bilaterally, no wheezes rales or rhonchi. ABDOMEN: Soft, nontender. Normoactive bowel sounds all 4 quadrants. No guarding or rebound, rigidity, no mass : No CVA tenderness BACK: No cervical, thoracic or lumbar vertebral point tenderness. Patient has decreased range of motion bilateral lower extremities. Patient's gait is untested. Muscle strength is 2/5 in lower extremities patient can lift legs about inch off the bed but with difficulty bilaterally, appears to be more weak than in pain when doing this, DTRs are 2/4 and lower extremities. + pulses bilateral lower extremities. Sensation is intact in the lower extremities. EXTREMITIES: Normal range of motion, no clubbing or edema. Neurovascularly intact NEUROLOGICAL: Cranial nerves II through XII grossly intact. Moving all extr emities SKIN: Warm, dry, no petechiae, no rashes or lesions. Initial Vital Signs Initial Vital Signs: Vital Signs Temperature 97.9 F 05/26/22 18:00 Pulse Rate 87 05/26/22 18:00 Respiratory Rate 18 05/26/22 18:00 Blood Pressure 150/72 H 05/26/22 18:00 Pulse Oximetry 98 05/26/22 18:00 Oxygen Delivery Method 05/26/22 18:00 Course Orders Ordered: Acetaminophen (Acetaminophen 325 Mg Tablet) 650 mg PO Q6HR PRN PRN Reason: Pain, Mild (1-3) Last Admin: 06/01/22 14:39 Dose: 650 mg Documented By: HCW Hydrocodone Bitart/Acetaminophen (Hydrocodone/Acet 10/325 Tablet) 1 tab PO CONT PRN PRN Reason: pain Last Admin: 05/31/22 06:37 Dose: 1 tab Documented By: Admin: 05/30/22 22:03 Dose: 1 tab Documented By: ETHAN Al Hydrox/Mg Hydrox/Simethicone (Mag Hydrox/Alum/Simeth 30 Ml Udc) 30 ml PO QID PRN PRN Reason: Dyspepsia Last Admin: 06/02/22 04:48 Dose: 30 ml Documented By: VANESA Amlodipine Besylate (Amlodipine 5 Mg Tablet) 5 mg PO DAILY [facility] Last Admin: 06/01/22 08:50 Dose: 5 mg Documented By: Admin: 05/31/22 09:43 Dose: 5 mg Documented By: DON Bisacodyl (Bisacodyl 10 Mg Supp) 10 mg PA PRN PRN PRN Reason: Constipation Bupropion HCl (Bupropion Xl 150 Mg Tab) 150 mg PO DAILY [facility] Last Admin: 06/01/22 08:50 Dose: 150 mg Documented By: Admin: 05/31/22 09:46 Dose: 150 mg Documented By: DON Dexamethasone (Dexamethasone 4 Mg Tablet) 2 mg PO BIDWM [facility] Last Admin: 06/01/22 17:39 Dose: 2 mg Documented By: TIFFANIE Diclofenac Sodium (Diclofenac 1% Gel 100 Gm) 1 applic TOP QID PRN PRN Reason: pain Docusate Sodium (Docusate 100 Mg Capsule) 100 mg PO BID [facility] Last Admin: 06/01/22 21:17 Dose: 100 mg Documented By: Admin: 06/01/22 08:50 Dose: 100 mg Documented By: Admin: 05/31/22 20:39 Dose: 100 mg Documented By: MARY ANN Admin: 05/31/22 09:42 Dose: 100 mg Documented By: Admin: 05/30/22 20:23 Dose: 100 mg Documented By: ETHAN Enoxaparin Sodium (Enoxaparin 40 Mg/0.4 Ml Syringe) 40 mg SUBCUT DAILY [facility] Last Admin: 06/01/22 08:49 Dose: 40 mg Documented By: TIFFANIE Hydrochlorothiazide (Hydrochlorothiazide 25 Mg Tablet) 25 mg PO DAILY [facility] Last Admin: 06/01/22 08:50 Dose: 25 mg Documented By: Admin: 05/31/22 09:42 Dose: 25 mg Documented By: DON Hydromorphone HCl (Hydromorphone 0.5 Mg Inj) 0.5 mg IV Q2H PRN PRN Reason: Pain, Severe (7-10) Last Admin: 06/02/22 06:59 Dose: 0.5 mg Documented By: Admin: 06/01/22 16:41 Dose: 0.5 mg Documented By: Admin: 06/01/22 09:10 Dose: 0.5 mg Documented By: HCJohny Admin: 06/01/22 06:59 Dose: 0.5 mg Documented By: MARY ANN Admin: 06/01/22 00:42 Dose: 0.5 mg Documented By: MARY ANN Admin: 05/31/22 20:39 Dose: 0.5 mg Documented By: MARY ANN Admin: 05/31/22 17:17 Dose: 0.5 mg Documented By: Admin: 05/31/22 13:40 Dose: 0.5 mg Documented By: Admin: 05/31/22 09:49 Dose: 0.5 mg Documented By: Admin: 05/30/22 19:42 Dose: 0.5 mg Documented By: ETHAN Hydroxyzine Pamoate (Hydroxyzine Pamoate 25 Mg Capsule) 25 mg PO Q4HR PRN PRN Reason: Nausea And Vomiting Losartan Potassium (Losartan 50 Mg Tablet) 100 mg PO DAILY [facility] Last Admin: 06/01/22 08:50 Dose: 100 mg Documented By: Admin: 05/31/22 09:43 Dose: 100 mg Documented By: DON Magnesium Hydroxide (Magnesium Hydroxide 30 Ml Udc) 30 ml PO DAILY PRN PRN Reason: Constipation Methadone HCl (Methadone 5 Mg Tablet) 2.5 mg PO TID [facility] Last Admin: 06/01/22 21:16 Dose: 2.5 mg Documented By: Admin: 06/01/22 15:44 Dose: 2.5 mg Documented By: Admin: 06/01/22 08:54 Dose: 2.5 mg Documented By: Admin: 05/31/22 20:40 Dose: 2.5 mg Documented By: MARY ANN Admin: 05/31/22 17:18 Dose: 2.5 mg Documented By: Admin: 05/31/22 11:31 Dose: 2.5 mg Documented By: KOKO Methocarbamol (Methocarbamol 500 Mg Tablet) 750 mg PO QID PRN PRN Reason: Muscle Spasm Last Admin: 06/01/22 18:38 Dose: 750 mg Documented By: Admin: 05/31/22 11:32 Dose: 750 mg Documented By: KOKO Metoprolol Succinate (Metoprolol Er 50 Mg Tablet) 50 mg PO DAILY [facility] Last Admin: 06/01/22 08:50 Dose: 50 mg Documented By: Admin: 05/31/22 09:46 Dose: 50 mg Documented By: DON Naloxone HCl (Naloxone 0.4 Mg/Ml Vial) 0.2 mg IV Q2MIN PRN PRN Reason: Opiate Reversal Nf - Xtandi 160 Mg 160 mg PO DAILY [facility] Last Admin: 06/01/22 08:51 Dose: 160 mg Documented By: Admin: 05/31/22 10:46 Dose: 160 mg Documented By: DON Ondansetron HCl (Ondansetron 4 Mg/2 Ml Inj) 4 mg IV Q6HR PRN PRN Reason: Nausea And Vomiting Last Admin: 06/02/22 04:48 Dose: 4 mg Documented By: Admin: 06/01/22 15:46 Dose: 4 mg Documented By: Admin: 06/01/22 07:07 Dose: 4 mg Documented By: MARY ANN Oxycodone HCl (Oxycodone Ir 5 Mg Tablet) 10 mg PO Q4HR PRN PRN Reason: Pain, Severe (7-10) Last Admin: 06/02/22 04:02 Dose: 10 mg Documented By: Admin: 06/01/22 14:37 Dose: 10 mg Documented By: Admin: 05/31/22 11:30 Dose: 10 mg Documented By: KOKO Polyethylene Glycol (Polyethylene Glycol 3350 17 Gm Powd.Pack) 17 gm PO DAILY [facility] Last Admin: 06/01/22 08:49 Dose: 17 gm Documented By: Admin: 05/31/22 11:31 Dose: 17 gm Documented By: KOKO Sennosides (Sennosides 8.6 Mg Tablet) 17.2 mg PO BID [facility] Last Admin: 06/01/22 21:17 Dose: 17.2 mg Documented By: Admin: 06/01/22 08:50 Dose: 17.2 mg Documented By: Admin: 05/31/22 20:40 Dose: 17.2 mg Documented By: MARY ANN Sodium Biphosphate/Sodium Phosphate (Fleets Enema) 1 each PA PRN PRN PRN Reason: Constipation Spironolactone (Spironolactone 25 Mg Tablet) 25 mg PO DAILY [facility] Last Admin: 06/01/22 08:50 Dose: 25 mg Documented By: Admin: 05/31/22 09:42 Dose: 25 mg Documented By: DON Trazodone HCl (Trazodone 50 Mg Tablet) 50 mg PO BEDTIME [facility] Last Admin: 06/01/22 22:21 Dose: 50 mg Documented By: CN Discontinued Medications Acetaminophen (Acetaminophen 325 Mg Tablet) 975 mg PO Q8H PRN PRN Reason: Pain, Mild (1-3) Acetaminophen (Acetaminophen 325 Mg Tablet) 325 mg PO PACUNOW PRN PRN Reason: Pain, Mild (1-3) Amlodipine Besylate (Amlodipine 5 Mg Tablet) 5 mg PO DAILY [facility] Last Admin: 05/30/22 11:28 Dose: 5 mg Documented By: Admin: 05/29/22 08:36 Dose: 5 mg Documented By: Admin: 05/28/22 08:31 Dose: 5 mg Documented By: Admin: 05/27/22 08:06 Dose: 5 mg Documented By: ALANA Bisacodyl (Bisacodyl 5 Mg Tablet) 10 mg PO BID PRN PRN Reason: Constipation Last Admin: 05/27/22 12:52 Dose: 10 mg Documented By: ALANA Bupropion HCl (Bupropion Xl 150 Mg Tab) 150 mg PO DAILY [facility] Last Admin: 05/30/22 11:28 Dose: Not Given Documented By: Admin: 05/29/22 08:37 Dose: 150 mg Documented By: Admin: 05/28/22 08:30 Dose: 150 mg Documented By: Admin: 05/27/22 08:06 Dose: 150 mg Documented By: ALANA Bupropion HCl (Bupropion Xl 150 Mg Tab) 150 mg PO DAILY [facility] Cefazolin Sodium/Dextrose (Cefazolin 2 Gm/20 Ml Syringe) 2 gm IV NOW ONE Stop: 05/30/22 16:52 Last Admin: 05/30/22 16:51 Dose: 2 gm Documented By: JOSE Bupivacaine HCl 30 ml/ (Epinephrine HCl 0.15 mg) 0 ml INJ NOW ONE Stop: 05/30/22 16:51 Last Admin: 05/30/22 16:50 Dose: 30 ml Documented By: DL Dexamethasone (Dexamethasone 4 Mg Tablet) 4 mg PO BIDWM [facility] Last Admin: 05/30/22 16:10 Dose: Not Given Documented By: Admin: 05/30/22 11:28 Dose: Not Given Documented By: Admin: 05/29/22 18:46 Dose: 4 mg Documented By: Admin: 05/29/22 08:36 Dose: 4 mg Documented By: Admin: 05/28/22 16:48 Dose: 4 mg Documented By: Admin: 05/28/22 12:01 Dose: 4 mg Documented By: BV Dexamethasone (Dexamethasone 4 Mg Tablet) 4 mg PO BIDWM [facility] Last Admin: 06/01/22 08:50 Dose: 4 mg Documented By: Admin: 05/31/22 17:18 Dose: 4 mg Documented By: DON Fentanyl (Fentanyl 100 Mcg/2 Ml Inj) 0 mcg IV Q5M PRN PRN Reason: Pain, Moderate (4-6) Last Admin: 05/30/22 17:52 Dose: 50 mcg Documented By: CG Gabapentin (Gabapentin 300 Mg Capsule) 900 mg PO TID [facility] Last Admin: 05/30/22 14:58 Dose: Not Given Documented By: Admin: 05/30/22 09:22 Dose: 900 mg Documented By: Admin: 05/29/22 20:43 Dose: 900 mg Documented By: Admin: 05/29/22 15:55 Dose: 900 mg Documented By: Admin: 05/29/22 08:36 Dose: 900 mg Documented By: Admin: 05/28/22 21:31 Dose: 900 mg Documented By: Admin: 05/28/22 15:04 Dose: 900 mg Documented By: Admin: 05/28/22 08:30 Dose: 900 mg Documented By: Admin: 05/27/22 21:22 Dose: 900 mg Documented By: Admin: 05/27/22 14:04 Dose: 900 mg Documented By: Admin: 05/27/22 08:06 Dose: 900 mg Documented By: Admin: 05/27/22 00:17 Dose: 900 mg Documented By: MP Hydromorphone HCl (Hydromorphone 0.5 Mg Inj) 0.5 mg IV NOW ONE Stop: 05/26/22 18:35 Last Admin: 05/26/22 19:16 Dose: 0.5 mg Documented By: AT Hydromorphone HCl (Hydromorphone 0.5 Mg Inj) 0.5 mg IV Q4H PRN PRN Reason: Breakthrough pain only (8-10) Last Admin: 05/30/22 04:21 Dose: 0.5 mg Documented By: Admin: 05/29/22 19:54 Dose: 0.5 mg Documented By: Admin: 05/29/22 13:32 Dose: 0.5 mg Documented By: Admin: 05/29/22 03:16 Dose: 0.5 mg Documented By: Admin: 05/28/22 21:48 Dose: 0.5 mg Documented By: Admin: 05/28/22 16:48 Dose: 0.5 mg Documented By: Admin: 05/28/22 08:28 Dose: 0.5 mg Documented By: Admin: 05/27/22 15:42 Dose: 0.5 mg Documented By: ALANA Hydromorphone HCl (Hydromorphone 2 Mg Inj) 0 mg IV Q5M PRN PRN Reason: Pain, Moderate (4-6) Last Admin: 05/30/22 17:52 Dose: 0.5 mg Documented By: WILL Sodium Chloride (Normal Saline 0.9%) 1,000 mls @ 1,000 mls/hr IV BOLUS ONE Stop: 05/26/22 19:33 Last Infusion: 05/26/22 20:46 Dose: 0 mls/hr Documented By: Admin: 05/26/22 19:16 Dose: 1,000 mls/hr Documented By: AT Ciprofloxacin (Cipro) 400 mg in 200 mls @ 200 mls/hr IV NOW ONE Stop: 05/26/22 22:24 Last Infusion: 05/26/22 23:20 Dose: 0 mls/hr Documented By: Infusion: 05/26/22 22:40 Dose: 200 mls/hr Documented By: Admin: 05/26/22 21:50 Dose: 200 mls/hr Documented By: AT Ceftriaxone Sodium 2,000 mg/ (Sodium Chloride) 100 mls @ 200 mls/hr IV NOW ONE Stop: 05/26/22 22:18 Last Infusion: 05/27/22 00:12 Dose: 0 mls/hr Documented By: Admin: 05/26/22 23:27 Dose: 200 mls/hr Documented By: MP Ceftriaxone Sodium 1,000 mg/ (Sodium Chloride) 100 mls @ 200 mls/hr IV Q24H ABDULAZIZ Sodium Chloride (Normal Saline 0.9%) 250 mls @ 21 mls/hr IV Q24H PRN PRN Reason: Flush Lactated Ringer's (Lactated Ringers) 1,000 mls @ 60 mls/hr IV CONT ABDULAZIZ Last Admin: 05/27/22 01:46 Dose: 60 mls/hr Documented By: LB Ceftriaxone Sodium 1,000 mg/ (Sodium Chloride) 100 mls @ 200 mls/hr IV Q24H ABDULAZIZ Last Infusion: 05/29/22 21:25 Dose: 0 mls/hr Documented By: Admin: 05/29/22 20:42 Dose: 200 mls/hr Documented By: Infusion: 05/28/22 22:03 Dose: 0 mls/hr Documented By: Admin: 05/28/22 21:33 Dose: 200 mls/hr Documented By: Infusion: 05/27/22 21:51 Dose: 200 mls/hr Documented By: Admin: 05/27/22 21:21 Dose: 200 mls/hr Documented By: GEORGINA Lactated Ringer's (Lactated Ringers) 1,000 mls @ 42 mls/hr IV CONT ABDULAZIZ Last Infusion: 05/30/22 18:33 Dose: 42 mls/hr Documented By: Admin: 05/30/22 18:10 Dose: 42 mls/hr Documented By: Infusion: 05/30/22 18:10 Dose: 42 mls/hr Documented By: Admin: 05/30/22 14:19 Dose: 42 mls/hr Documented By: IF Lactated Ringer's (Lactated Ringers) 1,000 mls @ 120 mls/hr IV CONT ABDULAZIZ Last Admin: 05/30/22 19:27 Dose: Not Given Documented By: AMH Sodium Chloride (Normal Saline 0.9%) 1,000 mls @ 100 mls/hr IV CONT ABDULAZIZ Last Infusion: 05/31/22 12:00 Dose: 0 mls/hr Documented By: Admin: 05/31/22 05:08 Dose: 100 mls/hr Documented By: Infusion: 05/31/22 05:08 Dose: 100 mls/hr Documented By: Admin: 05/30/22 19:22 Dose: 100 mls/hr Documented By: ETHAN Ketorolac Tromethamine (Ketorolac 30 Mg/Ml Vial) 30 mg IV NOW PRN PRN Reason: Pain, Mild (1-3) Lidocaine (Lidocaine Patch 1 Each Adh..Patch) 1 each TOP DAILY PRN PRN Reason: Pain, Mild (1-3) Lidocaine (Remove Lidocaine Patch) 1 each TOP BEDTIME PRN PRN Reason: IF PRN PATCH PLACED Lidocaine HCl (Lidocaine 2% (Glydo) 6 Ml Gel) 6 ml TOP NOW ONE Stop: 05/26/22 20:25 Last Admin: 05/26/22 20:46 Dose: 6 ml Documented By: AT Losartan Potassium (Losartan 50 Mg Tablet) 100 mg PO DAILY [facility] Last Admin: 05/30/22 11:29 Dose: Not Given Documented By: Admin: 05/29/22 08:37 Dose: 100 mg Documented By: Admin: 05/28/22 08:31 Dose: 100 mg Documented By: Admin: 05/27/22 08:06 Dose: 100 mg Documented By: ALANA Magnesium Hydroxide (Magnesium Hydroxide 30 Ml Udc) 30 ml PO DAILY PRN PRN Reason: Constipation Melatonin (Melatonin 3 Mg Tablet) 6 mg PO BEDTIME [facility] Last Admin: 05/29/22 20:43 Dose: 6 mg Documented By: Admin: 05/28/22 21:31 Dose: 6 mg Documented By: Admin: 05/27/22 21:57 Dose: 6 mg Documented By: GEORGINA Methadone HCl (Methadone 5 Mg Tablet) 2.5 mg PO TID [facility] Last Admin: 05/30/22 14:58 Dose: Not Given Documented By: Admin: 05/30/22 09:21 Dose: 2.5 mg Documented By: Admin: 05/29/22 20:44 Dose: 2.5 mg Documented By: Admin: 05/29/22 15:55 Dose: 2.5 mg Documented By: Admin: 05/29/22 08:36 Dose: 2.5 mg Documented By: Admin: 05/28/22 21:32 Dose: 2.5 mg Documented By: Admin: 05/28/22 15:05 Dose: 2.5 mg Documented By: Admin: 05/28/22 12:08 Dose: 2.5 mg Documented By: BV Methocarbamol (Methocarbamol 500 Mg Tablet) 500 mg PO BEDTIME PRN PRN Reason: muscle spasm Last Admin: 05/28/22 21:48 Dose: 500 mg Documented By: Admin: 05/27/22 08:06 Dose: 500 mg Documented By: ALANA Methocarbamol (Methocarbamol 500 Mg Tablet) 750 mg PO QID PRN PRN Reason: Muscle Spasm Last Admin: 05/30/22 02:07 Dose: 750 mg Documented By: Admin: 05/28/22 12:02 Dose: 750 mg Documented By: BV Metoprolol Succinate (Metoprolol Er 50 Mg Tablet) 50 mg PO DAILY [facility] Last Admin: 05/30/22 09:23 Dose: 50 mg Documented By: Admin: 05/29/22 08:40 Dose: 50 mg Documented By: Admin: 05/28/22 08:30 Dose: 50 mg Documented By: Admin: 05/27/22 08:06 Dose: 50 mg Documented By: ALANA Naloxone HCl (Naloxone 0.4 Mg/Ml Vial) 0.1 mg IV Q2MIN PRN PRN Reason: Opiate Reversal Enzalutamide [Xtandi (] 40 Mg Capsule) 160 mg PO DAILY [facility] Last Admin: 05/30/22 11:29 Dose: Not Given Documented By: Admin: 05/29/22 08:38 Dose: 160 mg Documented By: Admin: 05/28/22 08:27 Dose: 160 mg Documented By: GERMAIN Non-Formulary Medication (Nirmatrelvir-Ritonavir [Paxlovid (Eua)]) 300 tab PO DAILY [facility] Non-Formulary Medication (Cbd Gummies) 1 gummy PO DAILY PRN PRN Reason: pain Ondansetron HCl (Ondansetron 4 Mg/2 Ml Inj) 4 mg IV NOW PRN PRN Reason: Nausea And Vomiting Last Admin: 05/30/22 17:52 Dose: 4 mg Documented By: WILL Oxycodone HCl (Oxycodone Ir 10 Mg Tablet) 10 mg PO Q4HR PRN PRN Reason: Pain, Severe (7-10) Last Admin: 05/30/22 10:28 Dose: 10 mg Documented By: Admin: 05/30/22 02:03 Dose: 10 mg Documented By: Admin: 05/29/22 18:45 Dose: 10 mg Documented By: Admin: 05/29/22 12:34 Dose: 10 mg Documented By: Admin: 05/29/22 08:39 Dose: 10 mg Documented By: Admin: 05/28/22 12:02 Dose: 10 mg Documented By: Admin: 05/28/22 06:33 Dose: 10 mg Documented By: Admin: 05/28/22 02:11 Dose: 10 mg Documented By: Admin: 05/27/22 21:22 Dose: 10 mg Documented By: Admin: 05/27/22 16:43 Dose: 10 mg Documented By: Admin: 05/27/22 11:51 Dose: 10 mg Documented By: Admin: 05/27/22 08:07 Dose: 10 mg Documented By: ALANA Oxycodone/Acetaminophen (Oxycodone/Acetaminophen 5/325 Tablet) 2 tab PO NOW ONE Stop: 05/26/22 22:12 Last Admin: 05/26/22 22:20 Dose: 2 tab Documented By: AT Oxycodone/Acetaminophen (Oxycodone/Acetaminophen 5/325 Tablet) 1 tab PO PACUNOW PRN PRN Reason: Mild or Moderate Pain Last Admin: 05/30/22 17:53 Dose: 1 tab Documented By: WILL Oxycodone/Acetaminophen (Oxycodone/Acetaminophen 7.5/325 Tablet) 1 tab PO Q8H PRN PRN Reason: pain Last Admin: 05/31/22 02:57 Dose: 1 tab Documented By: ETHAN Polyethylene Glycol (Polyethylene Glycol 3350 17 Gm Powd.Pack) 17 gm PO BID ABDULAZIZ Last Admin: 05/30/22 11:29 Dose: Not Given Documented By: Admin: 05/29/22 20:43 Dose: 17 gm Documented By: Admin: 05/29/22 08:36 Dose: 17 gm Documented By: Admin: 05/28/22 21:32 Dose: 17 gm Documented By: Admin: 05/28/22 08:32 Dose: 17 gm Documented By: Admin: 05/27/22 21:23 Dose: Not Given Documented By: GEORGINA Potassium Chloride (Potassium Chloride 20 Meq Tab) 40 meq PO NOW ONE Stop: 05/26/22 21:25 Last Admin: 05/26/22 21:49 Dose: 40 meq Documented By: AT Potassium Chloride (Potassium Chloride 20 Meq Tab) 40 meq PO Q6H ABDULAZIZ Stop: 05/27/22 17:31 Last Admin: 05/27/22 17:16 Dose: 40 meq Documented By: Admin: 05/27/22 11:49 Dose: 40 meq Documented By: ALANA Potassium Chloride (Potassium Chloride 20 Meq Tab) 40 meq PO NOW ONE Stop: 05/30/22 09:00 Last Admin: 05/30/22 11:28 Dose: Not Given Documented By: GERMAIN Potassium Chloride (Potassium Chloride 20 Meq Tab) 40 meq PO NOW ONE Stop: 05/31/22 08:59 Last Admin: 05/31/22 09:42 Dose: 40 meq Documented By: DON Potassium Chloride (Potassium Chloride 20 Meq Tab) 40 meq PO NOW ONE Stop: 06/01/22 10:42 Last Admin: 06/01/22 11:01 Dose: 40 meq Documented By: TIFFANIE Sennosides (Sennosides 8.6 Mg Tablet) 17.2 mg PO BID [facility] Last Admin: 05/30/22 11:36 Dose: Not Given Documented By: Admin: 05/29/22 20:43 Dose: 17.2 mg Documented By: Admin: 05/29/22 08:36 Dose: 17.2 mg Documented By: Admin: 05/28/22 21:31 Dose: 17.2 mg Documented By: Admin: 05/28/22 08:31 Dose: 17.2 mg Documented By: Admin: 05/27/22 21:22 Dose: 17.2 mg Documented By: GEORGINA Sennosides (Sennosides 8.6 Mg Tablet) 17.2 mg PO BEDTIME [facility] Last Admin: 05/30/22 20:23 Dose: 17.2 mg Documented By: ETHAN Sodium Chloride (Sodium Chloride 0.9% Flush) 10 ml IV BID [facility] Last Admin: 05/30/22 11:36 Dose: 10 ml Documented By: Admin: 05/29/22 20:43 Dose: 10 ml Documented By: Admin: 05/29/22 08:43 Dose: 10 ml Documented By: Admin: 05/28/22 23:37 Dose: 10 ml Documented By: Admin: 05/28/22 08:32 Dose: 10 ml Documented By: Admin: 05/27/22 21:23 Dose: 10 ml Documented By: Admin: 05/27/22 09:46 Dose: Not Given Documented By: ALANA Sodium Chloride (Sodium Chloride 0.9% Flush) 10 ml IV PRN PRN PRN Reason: Flush Last Admin: 05/30/22 04:22 Dose: 10 ml Documented By: Admin: 05/29/22 19:56 Dose: 10 ml Documented By: Admin: 05/27/22 01:48 Dose: 10 ml Documented By: Admin: 05/27/22 00:17 Dose: 10 ml Documented By: MP Consultations Consultation #1: Dr Gómez, orthopedic surgery. Reviewed patient's images. Asked for MRI in the a.m. of the L-spine for further evaluation and will follow along with patient. Consultation #2: Hospitalist service, Jose GOINS accepts for admission for weakness, UTI, hypokalemia. Vital Signs Vital signs: Vital Signs - 8 hr 05/26/22 18:00 05/26/22 20:03 Temperature 97.9 F Pulse Rate 87 81 Respiratory Rate 18 20 Blood Pressure 150/72 H 150/81 H Pulse Oximetry 98 99 Oxygen Delivery Method Room Air Room Air MDM - Back Pain/Injury Lab Data Result diagrams: 05/31/22 05:50 06/01/22 05:45 Labs: Lab Results 05/26/22 05/26/22 05/26/22 Range/Units 19:20 19:20 19:20 WBC 11.0 (4.5-11.0) X10^3/uL RBC 3.87 L (4.5-5.9) X10^6/uL Hgb 12.2 L (13.5-17.5) g/dL Hct 34.8 L (41-53) % MCV 90.0 (80-100) fL MCH 31.4 (26-34) PG MCHC 34.9 (30-36) % RDW 13.1 (11.6-14.8) % Plt Count 318 (150-400) X10^3/uL Neut % (Auto) 73.6 (50-75) % Lymph % (Auto) 14.7 L (25-40) % [place] % (Auto) 8.7 (3-14) % Eos % (Auto) 2.2 (2-4) % Baso % (Auto) 0.8 (0-2) % Neut # (Auto) 8100 H (2993-5801) /uL Lymph # (Auto) 1600 (6465-2467) /uL [place] # (Auto) 1000 H (0-900) /uL Eos # (Auto) 200 (0-450) /uL Baso # (Auto) 100 (0-100) /uL Sodium 139 (137-145) mmol/L Potassium 2.8 L (3.4-5.1) mmol/L Chloride 103 (98-107) mmol/L Carbon Dioxide 29 (22-32) mmol/L BUN 21 H (9-20) mg/dL Creatinine 0.70 (0.66-1.25) mg/dL Estimated GFR > 60 (>60) mL/min BUN/Creatinine Ratio 30.0 H (6-22) Glucose 98 (80-110) mg/dL Lactate 1.2 (0.7-2.1) mmol/L Calcium 9.2 (8.4-10.2) mg/dL Magnesium 2.1 (1.6-2.3) mg/dL Total Bilirubin 0.4 (0.2-1.3) mg/dL AST 39 (17-59) IU/L ALT 11 (<50) IU/L Alkaline Phosphatase 824 H (38-126) U/L Total Creatine Kinase (55-170) U/L Total Protein 7.1 (6.3-8.2) g/dL Albumin 4.1 (3.5-5.0) g/dL Globulin 3.0 (1.7-4.1) g/dL Albumin/Globulin Ratio 1.4 (1.0-2.8) Lipase 56 (23-300) U/L Urine Color Urine Appearance Urine pH (4.5-8.0) Ur Specific [place] (1.000-1.035) Urine Protein (Negative) Urine Glucose (UA) (Negative) g/dL Urine Ketones (NEGATIVE) Urine Occult Blood (Negative) Urine Nitrate (Negative) Urine Bilirubin (NEGATIVE) Urine Urobilinogen (0.2) E.U./dL Ur Leukocyte Esterase (NEGATIVE) Urine RBC (0-5/HPF) Urine WBC (0-5/HPF) Amorphous Sediment Urine Bacteria (None) Ur Culture Indicated? A. baumannii (PCR) (Not Detect) Janet albicans (PCR) (Not Detect) C. glabrata (PCR) (Not Detect) C. krusei (PCR) (Not Detect) C. parapsilosis (PCR) (Not Detect) C. tropicalis (PCR) (Not Detect) SARS-CoV-2 (PCR) (Negative) Enterobacteriac sp PCR (Not Detect) E. cloacae complex PCR (Not Detect) Enterococcus sp PCR (Not Detect) E. coli (PCR) (Not Detect) H. influenzae (PCR) (Not Detect) Klebsiella oxytoca PCR (Not Detect) Klebsiella pneumoniae (Not Detect) List. monocytogenes PCR (Not Detect) N. meningitidis (PCR) (Not Detect) Proteus species (PCR) (Not Detect) Serratia marcescens PCR (Not Detect) Staphylococcus sp PCR (Not Detect) Staph aureus (PCR) (Not Detect) mecA-Methicil Res Gene Streptococcus sp PCR (Not Detect) Group A Strep (PCR) (Not Detect) Strep agalactiae (PCR) (Not Detect) Strep pneumoniae (PCR) (Not Detect) P. aeruginosa (PCR) (Not Detect) Akil/B-Vanco Res Genes KPC-Carbap Res Gene PCR 05/26/22 05/26/22 05/26/22 Range/Units 19:20 19:20 19:36 WBC (4.5-11.0) X10^3/uL RBC (4.5-5.9) X10^6/uL Hgb (13.5-17.5) g/dL Hct (41-53) % MCV (80-100) fL MCH (26-34) PG MCHC (30-36) % RDW (11.6-14.8) % Plt Count (150-400) X10^3/uL Neut % (Auto) (50-75) % Lymph % (Auto) (25-40) % [place] % (Auto) (3-14) % Eos % (Auto) (2-4) % Baso % (Auto) (0-2) % Neut # (Auto) (2080-9769) /uL Lymph # (Auto) (8412-7256) /uL [place] # (Auto) (0-900) /uL Eos # (Auto) (0-450) /uL Baso # (Auto) (0-100) /uL Sodium (137-145) mmol/L Potassium (3.4-5.1) mmol/L Chloride (98-107) mmol/L Carbon Dioxide (22-32) mmol/L BUN (9-20) mg/dL Creatinine (0.66-1.25) mg/dL Estimated GFR (>60) mL/min BUN/Creatinine Ratio (6-22) Glucose (80-110) mg/dL Lactate (0.7-2.1) mmol/L Calcium (8.4-10.2) mg/dL Magnesium (1.6-2.3) mg/dL Total Bilirubin (0.2-1.3) mg/dL AST (17-59) IU/L ALT (<50) IU/L Alkaline Phosphatase (38-126) U/L Total Creatine Kinase 513 H (55-170) U/L Total Protein (6.3-8.2) g/dL Albumin (3.5-5.0) g/dL Globulin (1.7-4.1) g/dL Albumin/Globulin Ratio (1.0-2.8) Lipase (23-300) U/L Urine Color Urine Appearance Urine pH (4.5-8.0) Ur Specific [place] (1.000-1.035) Urine Protein (Negative) Urine Glucose (UA) (Negative) g/dL Urine Ketones (NEGATIVE) Urine Occult Blood (Negative) Urine Nitrate (Negative) Urine Bilirubin (NEGATIVE) Urine Urobilinogen (0.2) E.U./dL Ur Leukocyte Esterase (NEGATIVE) Urine RBC (0-5/HPF) Urine WBC (0-5/HPF) Amorphous Sediment Urine Bacteria (None) Ur Culture Indicated? A. baumannii (PCR) Not detected (Not Detect) Janet albicans (PCR) Not detected (Not Detect) C. glabrata (PCR) Not detected (Not Detect) C. krusei (PCR) Not detected (Not Detect) C. parapsilosis (PCR) Not detected (Not Detect) C. tropicalis (PCR) Not detected (Not Detect) SARS-CoV-2 (PCR) Negative (Negative) Enterobacteriac sp PCR Not detected (Not Detect) E. cloacae complex PCR Not detected (Not Detect) Enterococcus sp PCR Not detected (Not Detect) E. coli (PCR) Not detected (Not Detect) H. influenzae (PCR) Not detected (Not Detect) Klebsiella oxytoca PCR Not detected (Not Detect) Klebsiella pneumoniae Not detected (Not Detect) List. monocytogenes PCR Not detected (Not Detect) N. meningitidis (PCR) Not detected (Not Detect) Proteus species (PCR) Not detected (Not Detect) Serratia marcescens PCR Not detected (Not Detect) Staphylococcus sp PCR Not detected (Not Detect) Staph aureus (PCR) Not detected (Not Detect) mecA-Methicil Res Gene Not Reportable Streptococcus sp PCR Not detected (Not Detect) Group A Strep (PCR) Not detected (Not Detect) Strep agalactiae (PCR) Not detected (Not Detect) Strep pneumoniae (PCR) Not detected (Not Detect) P. aeruginosa (PCR) Not detected (Not Detect) Akil/B-Vanco Res Genes Not Reportable KPC-Carbap Res Gene PCR Not Reportable 05/26/22 Range/Units 20:41 WBC (4.5-11.0) X10^3/uL RBC (4.5-5.9) X10^6/uL Hgb (13.5-17.5) g/dL Hct (41-53) % MCV (80-100) fL MCH (26-34) PG MCHC (30-36) % RDW (11.6-14.8) % Plt Count (150-400) X10^3/uL Neut % (Auto) (50-75) % Lymph % (Auto) (25-40) % [place] % (Auto) (3-14) % Eos % (Auto) (2-4) % Baso % (Auto) (0-2) % Neut # (Auto) (3554-0754) /uL Lymph # (Auto) (3624-3821) /uL [place] # (Auto) (0-900) /uL Eos # (Auto) (0-450) /uL Baso # (Auto) (0-100) /uL Sodium (137-145) mmol/L Potassium (3.4-5.1) mmol/L Chloride (98-107) mmol/L Carbon Dioxide (22-32) mmol/L BUN (9-20) mg/dL Creatinine (0.66-1.25) mg/dL Estimated GFR (>60) mL/min BUN/Creatinine Ratio (6-22) Glucose (80-110) mg/dL Lactate (0.7-2.1) mmol/L Calcium (8.4-10.2) mg/dL Magnesium (1.6-2.3) mg/dL Total Bilirubin (0.2-1.3) mg/dL AST (17-59) IU/L ALT (<50) IU/L Alkaline Phosphatase (38-126) U/L Total Creatine Kinase (55-170) U/L Total Protein (6.3-8.2) g/dL Albumin (3.5-5.0) g/dL Globulin (1.7-4.1) g/dL Albumin/Globulin Ratio (1.0-2.8) Lipase (23-300) U/L Urine Color Yellow Urine Appearance Cloudy Urine pH 6.0 (4.5-8.0) Ur Specific [place] 1.015 (1.000-1.035) Urine Protein 1+ H (Negative) Urine Glucose (UA) Negative (Negative) g/dL Urine Ketones Negative (NEGATIVE) Urine Occult Blood 2+ H (Negative) Urine Nitrate Positive H (Negative) Urine Bilirubin Negative (NEGATIVE) Urine Urobilinogen 0.2 (0.2) E.U./dL Ur Leukocyte Esterase Negative (NEGATIVE) Urine RBC 5-10/hpf H (0-5/HPF) Urine WBC 5-10/hpf H (0-5/HPF) Amorphous Sediment 2+ Urine Bacteria Occasional (0-1) (None) Ur Culture Indicated? Specimen cultured A. baumannii (PCR) (Not Detect) Janet albicans (PCR) (Not Detect) C. glabrata (PCR) (Not Detect) C. krusei (PCR) (Not Detect) C. parapsilosis (PCR) (Not Detect) C. tropicalis (PCR) (Not Detect) SARS-CoV-2 (PCR) (Negative) Enterobacteriac sp PCR (Not Detect) E. cloacae complex PCR (Not Detect) Enterococcus sp PCR (Not Detect) E. coli (PCR) (Not Detect) H. influenzae (PCR) (Not Detect) Klebsiella oxytoca PCR (Not Detect) Klebsiella pneumoniae (Not Detect) List. monocytogenes PCR (Not Detect) N. meningitidis (PCR) (Not Detect) Proteus species (PCR) (Not Detect) Serratia marcescens PCR (Not Detect) Staphylococcus sp PCR (Not Detect) Staph aureus (PCR) (Not Detect) mecA-Methicil Res Gene Streptococcus sp PCR (Not Detect) Group A Strep (PCR) (Not Detect) Strep agalactiae (PCR) (Not Detect) Strep pneumoniae (PCR) (Not Detect) P. aeruginosa (PCR) (Not Detect) Akil/B-Vanco Res Genes KPC-Carbap Res Gene PCR Imaging Data Lumbar CT: Radiologist's Impression: Close Pelvis CT (Signed) Bebeto Butler - 05/26/[address] (Signed) Bebeto Butler - 05/26/22 Sacrum and Coccyx X-Ray (Signed) Jana Daniels - 05/24/22 Hip X-Ray (Signed) Jana Daniels - 05/24/22 Chest/Abdomen/Pelvis CT (Signed) Alonso Page - 02/18/22 Bone Scan Nuclear Medicine (Signed) Jana Daniels - 02/18/22 Shoulder X-Ray (Signed) Osmel Goodwin - 01/19/22 Lumbar Spine X-Ray (Signed) Maria A Cooper - 01/19/22 Chest/Abdomen/Pelvis CT (Signed) Arely Willis - 06/08/21 Bone Scan Nuclear Medicine (Signed) Arely Willis - 06/08/21 Chest/Abdomen/Pelvis CT (Signed) Cornell Lou - 08/18/20 Bone Scan Nuclear Medicine (Signed) Kade Rodriguez - 08/18/20 Outside DI 11/19/18 Launch?[place] [address] CT Scan Report Signed Patient: Jassi Toribio MR#: [id number] : 1945 Acct:[id number] Age/Sex: 76 / M Date of Service: 05/26/22 Loc: ED Accession Number: [id number] ?? Procedure: CT lumbar spine wo con Ordering Provider: Niharika Kaplan D.O. PROCEDURE:? CT LUMBAR SPINE WO CON ? INDICATIONS:? pelvic/back pain, metastatic disease ? TECHNIQUE:? Noncontrast 3 mm thick sections acquired from the T12 level to the sacrum.? Sagittal and coronal reformats were constructed.? For radiation dose reduction, the following was used:? automated exposure control.? ? COMPARISON:? None. ? FINDINGS:? Image quality:? Excellent.? ? Bones:? The bones are normally aligned.? There is 50% anterior height loss of L1 and 20% anterior height loss of L3.? Lytic lesions are seen in each vertebral body as well as in the sacrum and visualized pelvis.? Within the L2 vertebral body there is an expa nsile lesion which projects posteriorly into the canal approximately 7 mm causing moderate central canal stenosis.? Multilevel disc disease is seen with diffuse disc bulges and multilevel foraminal and central canal stenosis which is worst at L2-3 where there is severe foraminal stenosis and moderate central canal stenosis but is not well evaluated with CT. ? Soft tissues:? No retroperitoneal masses or hematomas.? Visualized aorta is normal in caliber.? ? IMPRESSION:? 1. 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 2. Compression fracture of L1 with 50% anterior height loss of indeterminate age. 3. Expansile metastatic lesion to L2 which causes at least moderate central canal stenosis. 4. Multilevel disc disease, worst at L2-3 causing foraminal and central canal stenosis.? ? ? Dictated by: Bebeto Butler M.D. on 05/26/2022 at 19:20 ? ? Approved by: Bebeto Butler M.D. on 05/26/2022 at 19:25? pelvic CT: Radiologist's Impression: Close Pelvis CT (Signed) Bebeto Butler - 05/26/[address] (Signed) Bebeto Butler - 05/26/22 Sacrum and Coccyx X-Ray (Signed) Jana Daniels - 05/24/22 Hip X-Ray (Signed) Jana Daniels - 05/24/22 Chest/Abdomen/Pelvis CT (Signed) Alonso Page - 02/18/22 Bone Scan Nuclear Medicine (Signed) Jana Daniels - 02/18/22 Shoulder X-Ray (Signed) Osmel Goodwin - 01/19/22 Lumbar Spine X-Ray (Signed) Maria A Cooper - 01/19/22 Chest/Abdomen/Pelvis CT (Signed) Arely Willis - 06/08/21 Bone Scan Nuclear Medicine (Signed) Arely Willis - 06/08/21 Chest/Abdomen/Pelvis CT (Signed) Cornell Lou - 08/18/20 Bone Scan Nuclear Medicine (Signed) Kade Rodriguez - 08/18/20 Outside DI 11/19/18 Launch?[address] [address] [address] Scan Report Signed Patient: Jassi Toribio MR#: [id number] : 1945 Acct:[id number] Age/Sex: 76 / M Date of Service: 05/26/22 Loc: ED Accession Number: [id number] ?? Procedure: CT lumbar spine wo con Ordering Provider: Niharika Kaplan D.O. PROCEDURE:? CT LUMBAR SPINE WO CON ? INDICATIONS:? pelvic/back pain, metastatic disease ? TECHNIQUE:? Noncontrast 3 mm thick sections acquired from the T12 level to the sacrum.? Sagittal and coronal reformats were constructed.? For radiation dose reduction, the following was used:? automated exposure control.? ? COMPARISON:? None. ? FINDINGS:? Image quality:? Excellent.? ? Bones:? The bones are normally aligned.? There is 50% anterior height loss of L1 and 20% anterior height loss of L3.? Lytic lesions are seen in each vertebral body as well as in the sacrum and visualized pelvis.? Within the L2 vertebral body there is an expansile lesion which projects posteriorly into the canal approximately 7 mm causing moderate central canal stenosis.? Multilevel disc disease is seen with diffuse disc bulges and multilevel foraminal and central canal stenosis which is worst at L2-3 where there is severe foraminal stenosis and moderate central canal stenosis but is not well evaluated with CT. ? Soft tissues:? No retroperitoneal masses or hematomas.? Visualized aorta is normal in caliber.? ? IMPRESSION:? 1. 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 2. Compression fracture of L1 with 50% anterior height loss of indeterminate age. 3. Expansile metastatic lesion to L2 which causes at least moderate central canal stenosis. 4. Multilevel disc disease, worst at L2-3 causing foraminal and central canal stenosis.? ? ? Dictated by: Bebeto Butler M.D. on 05/26/2022 at 19:20 ? ? Approved by: Bebeto Butler M.D. on 05/26/2022 at 19:25? ECG Data Attestation: I personally reviewed and interpreted this ECG as follows: Interpretation: Sinus rhythm rate 81 PA 160 QRS of 90 QTC of 480. No acute ST changes noted Q- wave in 3 and AVF. No priors available for comparison. MDM Narrative Medical decision making narrative: This is 76-year-old male with known metastatic prostate cancer who is had increasing progressive pain and weakness and incontinence with urinary retention. Patient had imaging of CT which shows spinal stenosis unable to obtain MRI based on the time of day patient has movement of his legs but weakness allowing ambulation safely. Spoke with Orthopedic surgery who asked for MRI of his L-spine tomorrow and they will follow with the patient. Plan for admission to medicine. Had several long discussions with patient and family they did ask about hospice care although patient is currently full code. Patient has been having some hypokalemia. He is also noted to have a UTI likely related to his urinary retention and started on IV antibiotic. Patient admitted to hospitalist service. Discharge Plan Departure Patient Disposition: Admitted as Observation Clinical Impression: Weakness, Prostate cancer metastatic to bone, Hypokalemia, Acute UTI, Urinary retention Admit Date/Time: 05/26/22 21:47 Admit Provider: Paige Garcia
--- NOTE | 2022-05-26 18:34 | DI.CT.S_ITS ---
PROCEDURE: CT LUMBAR SPINE WO CON INDICATIONS: pelvic/back pain, metastatic disease TECHNIQUE: Noncontrast 3 mm thick sections acquired from the T12 level to the sacrum. Sagittal and coronal reformats were constructed. For radiation dose reduction, the following was used: automated exposure control. COMPARISON: None. FINDINGS: Image quality: Excellent. Bones: The bones are normally aligned. There is 50% anterior height loss of L1 and 20% anterior height loss of L3. Lytic lesions are seen in each vertebral body as well as in the sacrum and visualized pelvis. Within the L2 vertebral body there is an expansile lesion which projects posteriorly into the canal approximately 7 mm causing moderate central canal stenosis. Multilevel disc disease is seen with diffuse disc bulges and multilevel foraminal and central canal stenosis which is worst at L2-3 where there is severe foraminal stenosis and moderate central canal stenosis but is not well evaluated with CT. Soft tissues: No retroperitoneal masses or hematomas. Visualized aorta is normal in caliber. IMPRESSION: 1. 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 2. Compression fracture of L1 with 50% anterior height loss of indeterminate age. 3. Expansile metastatic lesion to L2 which causes at least moderate central canal stenosis. 4. Multilevel disc disease, worst at L2-3 causing foraminal and central canal stenosis. Dictated by: Bebeto Butler M.D. on 05/26/2022 at 19:20 Approved by: Bebeto Butler M.D. on 05/26/2022 at 19:25
--- NOTE | 2022-05-26 18:34 | DI.CT.S_ITS ---
PROCEDURE: CT PEL WO CON INDICATIONS: pelvic/back pain, metastatic disease TECHNIQUE: Noncontrast 3 mm axial sections acquired through the bony pelvis, with coronal and sagittal reformatting. COMPARISON: None. FINDINGS: Image quality: Excellent. Bones: Lytic osseous metastatic disease is seen in the sacrum and pelvis. The right hip is status post fixation without complication. No fracture of the pelvis is identified. In the right iliac wing medially adjacent to the sacroiliac joint there is an expansile lesion with cortical destruction measuring approximately 3 cm an area of sclerosis in the right sacrum is seen also consistent with expansile soft tissue mass with cortical destruction. Soft tissues: No soft tissue mass or adenopathy identified. IMPRESSION: Osseous metastatic disease as above. No acute abnormality. Dictated by: Bebeto Butler M.D. on 05/26/2022 at 19:26 Approved by: Bebeto Butler M.D. on 05/26/2022 at 19:29
[2022-05-26] MEDS: SODIUM CHLORIDE 0.9% 1,000 ML 1000 ML IV (19:16)
[2022-05-26] MEDS: HYDROMORPHONE 0.5 MG INJ IV (19:16)
[2022-05-26 20:01] LABS: Add Manual Diff / Slide Review NO; Basophils Absolute Auto 100 /uL (0-100); Basophils Percent Auto 0.8 % (0-2); Eosinophils Absolute Auto 200 /uL (0-450); Eosinophils Percent Auto 2.2 % (2-4); Hematocrit 34.8 % (41-53); Hemoglobin 12.2 g/dL (13.5-17.5); Lymphocytes Absolute Auto 1600 /uL (1100-4500); Lymphocytes Percent Auto 14.7 % (25-40); Mean Corpuscular HGB Conc 34.9 % (30-36); Mean Corpuscular Hemoglobin 31.4 PG (26-34); Monocytes Absolute Auto 1000 /uL (0-900); Monocytes Percent Auto 8.7 % (3-14); Neutrophils Absolute Auto 8100 /uL (1500-7000); Neutrophils Percent Auto 73.6 % (50-75); Platelet Count 318 X10^3/uL (150-400); Red Blood Cell Count 3.87 X10^6/uL (4.5-5.9); Red Cell Distribution Width 13.1 % (11.6-14.8)
[2022-05-26 20:25] LABS: COVID19 -Nasal RAPID Negative (Negative)
[2022-05-26 20:26] LABS: Creatine Kinase 513 U/L (55-170)
[2022-05-26 20:28] LABS: Alanine Aminotransferase 11 IU/L (<50); Albumin 4.1 g/dL (3.5-5.0); Albumin Globulin Ratio 1.4 (1.0-2.8); Alkaline Phosphatase 824 U/L (38-126); Aspartate Aminotransferase 39 IU/L (17-59); Bilirubin Total 0.4 mg/dL (0.2-1.3); Blood Urea Nitrogen 21 mg/dL (9-20); Calcium 9.2 mg/dL (8.4-10.2); Carbon Dioxide 29 mmol/L (22-32); Chloride 103 mmol/L (98-107); Estimated Glomerular Filt Rate > 60 mL/min (>60); Glucose 98 mg/dL (80-110); HEMOLYSIS < 15 (0-50); Lipase 56 U/L (23-300); Magnesium 2.1 mg/dL (1.6-2.3); Potassium 2.8 mmol/L (3.4-5.1); Sodium 139 mmol/L (137-145); Total Protein 7.1 g/dL (6.3-8.2)
--- NOTE | 2022-05-26 20:31 | CM.IDA ---
Initial Discharge Assessment Patient is 76 y/o male who presents to ED today via EMS due to concern for increased pain, weakness, and concern for safety at home. Patient presents with son. Patient has hx of Metastatic Prostate Adenocarcinoma, hypertension, chronic pain and back pain. Patient's PCP is Dr. Smith, patient has [facility]. HAM MARKER is not able to enter room to meet with patient due to attending to other patient in the ED, HAM MARKER was present for patient's previous ED encounter on 05/24/22. Patient and son endorse concern for patient's safety at home in his 3 level condo and son endorses concern for caring for patient. It is reported that patient and son were encouraged to seek ED medical care by PCP Dr. Smith and clinic RN. It is the preference of patient and son that patient seek SNF rehab placement. Per EMS, patient was laying on floor for a few days unable to get up, and there is reported concern for patient's ability to complete ADLs. Patient and son were provided senior resource guide on 05/24/22 and encouraged f/u with PCP. Per ED provider Dr. Kaplan, patient is likely to be admitted due to concern for weakness, and possible need for surgery related to metastatic disease. ED provider is currently awaiting labs for further medical decision making. Plan: ED provider to further assess patient, possible admit to acute care for further medical evaluation and treatment, DCP to f/u with POC. Patient seeking SNF rehab ANDREINA Brady Discharge Planning/Care Management CM Discharge Assessment Start: 05/26/22 20:27 Freq: Status: Active Protocol: Document 05/26/22 20:27 LN (Rec: 05/26/22 20:31 LN [id number]) Discharge Planning Assessment Assigned Manager Medical Affairs ANDREINA Muñoz Advance Directives? No History Provided By Family Member,Medical Record Has Patient been admitted in last 30 No days? Comment Patient presented to ED on 11/03 for similar concerns Prior Living Arrangements Apartment/Condo Household Members family Comment Patient resides with son, son endorses concern for not being able to care for patient Type of transporation used prior to Relies on Others admit Comment Patient reports he stopped driving his vehicle a few weeks ago. Independent with ADL's No Is patient alert and oriented? Yes Needs Assistance With Bathing,Toileting,Home Chores / Shopping Caregiver for Another No Patient/Family Preference Senior Living Facility Review Status In Process Please Provide Date Initial DC 05/26/22 Assessment Was Performed
[2022-05-26] MEDS: LIDOCAINE 2% (GLYDO) 6 ML GEL TOP (20:46)
[2022-05-26 20:55] LABS: Appearance Urine UA CLOUDY; Bilirubin Urine UA NEGATIVE (NEGATIVE); Color Urine UA YELLOW; Glucose Urine UA NEGATIVE (Negative); Ketones Urine UA NEGATIVE (NEGATIVE); Leukocyte Esterase Urine UA NEGATIVE (NEGATIVE); Nitrite Urine UA POSITIVE (Negative); Occult Blood Urine UA 2+ (Negative); Protein Urine UA 1+ (Negative); Specific Gravity Urine UA 1.015 (1.000-1.035); Urobilinogen Urine UA 0.2 E.U./dL (0.2)
[2022-05-26 21:10] LABS: RBC Urine 5-10/HPF (0-5/HPF); WBC Urine 5-10/HPF (0-5/HPF)
[2022-05-26 21:11] LABS: Amorphous Sediment Urine 2+; Bacteria Urine Occasional (0-1); Culture Indicated Urine Specimen Cultured
[2022-05-26 21:38] LABS: Lactate (Lactic Acid) 1.2 mmol/L (0.7-2.1)
[2022-05-26] MEDS: POTASSIUM CHLORIDE 20 MEQ TAB 40 MEQ PO (21:49)
[2022-05-26] MEDS: CIPROFLOXACIN 400 MG/200 ML PIGGYBACK 200 MG IV (21:50)
[2022-05-26] MEDS: OXYCODONE/ACETAMINOPHEN 5/325 TABLET 2 TAB PO (22:20)
--- NOTE | 2022-05-26 22:31 | DI.MRI.S_ITS ---
PROCEDURE: MR LUMBAR SPINE WO/W CON INDICATIONS: L2/L3 stenosis, L1 compression fx, Metastasis TECHNIQUE: Noncontrast sagittal T1 spin echo and T2 fast spin echo, sagittal STIR, axial T1 and T2 fast spin echo through the lumbar spine. In cases with scoliosis, additional coronal T2 fast spin echo may be performed. After the administration of contrast, sagittal and axial T1 spin echo with fat saturation through the lumbar spine. COMPARISON: [facility], CT, CT LUMBAR SPINE WO CON, 05/26/2022, 18:42. FINDINGS: Image quality: Excellent. Alignment and curvature: There is normal bony alignment. Marrow: Diffuse mottled metastatic marrow replacement noted particularly at T12, L1 and L2 with retropulsed fracture fragment and probable epidural involvement at L1 and L2 resulting in severe central stenosis centered at L2. Vertebral body height loss noted at L1 and L3. There is expansion of the right L2 pedicle, transverse process with extension into the adjacent soft tissue. Metastatic marrow involvement is noted involving the right sacrum. There is transcortical involvement of the right iliac bone with extending into the adjacent soft tissues. Incidental note is made of a transitional element resulting in partial lumbarization of the S1 vertebral body Spinal cord: Conus terminates at the L1-2 level Paraspinous soft tissues: As above T12-L1: Retropulsed fracture fragments and or epidural metastatic involvement result in mild to moderate central stenosis and mild bilateral foraminal stenosis L1-L2: Moderate central stenosis results from epidural soft tissue and retropulsed fracture fragment. Severe bilateral foraminal stenosis present L2-L3: Posterior disc bulge and epidural neoplastic involvement results in in moderate to severe central stenosis. Severe bilateral foraminal stenosis present. L3-L4: Disc height is maintained. Hypertrophic facet joints result in mild central and moderate bilateral foraminal stenosis L4-L5: Disc height is maintained. Mild central stenosis present. Moderate bilateral foraminal stenosis L5-S1: Disc space narrowing and disc bulge results in mild central and moderate left foraminal stenosis. IMPRESSION: 1. Diffuse mottled metastatic marrow replacement noted particularly involving T12, L1 and L2 as well as the right sacrum and iliac bone with paraspinal soft tissue and epidural involvement as above. 2. Retropulsed fracture fragments and epidural neoplastic involvement results in severe central stenosis centered at L2 3. L1 and L3 compression fractures 4. Transitional anatomy Approved by: Gerardo Kitchen M.D. on 05/27/2022 at 16:14
--- NOTE | 2022-05-26 22:37 | P.HP_ITS ---
History of Present Illness History of Present Illness Date Patient Seen: 05/26/22 Time Patient Seen: 22:37 Chief complaint: chronic back pain Narrative: Jassi Toribio is a 76-year-old male with a history of hypertension, obesity & prostate adenocarcinoma, GS 9, and underwent radical prostatectomy, in May of this year a nuclear scan demonstrated extensive osseous metastasis to bone.? Patient presented to the ED this evening complaining of increasing lower back p ain, increasing lower extremity weakness. Patient reports that he is unable to ambulate or get to the restroom when he needs too,and so he is often wearing a brief for bowel movements but denies incontinence of urine or fecal.? He describes a burning pain in his right leg, sometimes both legs this is not new but has become more intense, he has bilateral lower extremity weakness that sounds has been slowly progressive.? Patient denies any skin breakdown or ulcers.? The patient reports that his pain has become so debilitating that he has been sleeping on the floor down stairs for the last 2 nights, unable to get up, or go up stairs to his bedroom. Patient reports that even with the slightest movement of his extremities he is in excruciating pain. This incapacitation on the kitchen floor after 48 hours led to calling the EMS for transport. Patient had his pain medications increased on Monday from hydrocodone to oxycodone, has yet to fill.? He is followed by Dr. Baum oncology and has PET scans and imaging scheduled for this coming Monday, Dr. Smith is his primary care physician.? Based on his escalating pain, disabling incapacity and weakness he is unsafe to return home. Upon admit patient is requesting that he remain hospitalized until his Monday imaging can be completed. In the ED he and his son requested home health, hospice or rehab consult.? Patient is a former smoker, occasional alcohol, uses THC intermittently.? Patient was found to be hypokalemic with a UTI in the ED with acute urinary retention. Dr. rOtega orthopedics was consulted regarding L1 compression fracture and mild central canal stenosis L2-L3. Dr. Ortega requested that the patient have an MRI of the lumbar with and without contrast tomorrow, he will consult regarding possibility of surgery. Upon admit patient denies chest pain, shortness of breath, abdominal pain, nausea, vomiting, diarrhea, chills, fever, headache, changes in vision, dizziness, recent illness or trauma outside of prostate cancer. In the emergency department the patient's son and POA and the patient discussed with Dr. Kaplan requesting a hospice consult. Upon admit to the floor patient is alert and orientated, and after an in-depth discussion the patient verbalized that he did not want cardiac resuscitation or intubation. But he does want facilitation of all other medical interventions up and too that point. The patient revealed to me that he has had hospice discussions with both his primary and Oncology prior to his admit this evening. And that it is his son who was requesting that the patient be a full code. As the patient is fully alert and orientated, I have changed his code status to DNR per his request. The patient further verbalized that pain control is his primary goal of his care. Patient to have palliative care/hospice consult tomorrow and requests that his son be involved in the discussion. Upon admit patient's vitals are stable temp 97.9?, BP 150/81 RR 20 O2 saturation 99% on room air. Patient's WBCs are normal but does have a left shift neutrophils 8100 mono 1000. HGB 12.2, HCT 34.8, patient has a potassium of 2.8, T CK 513, alk-phos 824. Patient's urinalysis was positive for nitrates blood, protein, bacteria, WBC, RBC culture is pending. Blood cultures x2 were also drawn in the ED patient's pelvic CT demonstrated of the bones lytic osseous metastatic disease is seen in the sacrum and pelvis.? The right hip is status post fixation without complication.? No fracture of the pelvis is identified.? In the right iliac wing medially adjacent to the sacroiliac joint there is an expansile lesion with cortical destruction measuring approximately 3 cm an area of sclerosis in the right sacrum is seen also consistent with expansile soft tissue mass with cortical destruction. Patient's lumbar CT demonstrated osseous metastatic disease to the lumbar spine, with compression fracture of L1 with 50% anterior height loss of indeterminate age, expansile metastatic lesion to L2 which causes at least moderate central canal stenosis, and multilevel disc disease, worst at L2-3 causing foraminal and central canal stenosis.? Patient is admitted for Observation for hypokalemia, UTI, low back pain exacerbation with increasing weakness likely secondary to metastatic disease. Dr. Ortega orthopedics requesting imaging and consult. Per Dr. Baum Oncology 05/09/22: The bone scan on 08/18/2020 showed multifocal osseous metastatic disease involving the calvarium, the left shoulder, multiple ribs, the thoracic and lumbosacral spine, the right sacrum, and the right iliac bone.? Two small foci of isotope abnormality are noted the intertrochanteric hips bilaterally.? The same day CT chest abdomen pelvis showed no acute abnormalities, but multiple scattered sclerotic foci throughout the imaged skeleton suspicious for osseous metastatic disease.? It also showed multiple small hepatic hypodensities too small to accurately characterize.? Although not meeting size criteria for pathology, there were numerous prominent retroperitoneal lymph nodes suspicious for possible metastatic disease.? Finally multiple sub 6 mm bilateral pulmonary nodules were noted. Patient started Lupron 22.5 mg every 3 months on 08/24/2020. On 09/16/2020, patient started Yonsa 500 mg once a day together with prednisone 5 mg bid On 06/08/2021, patient underwent CT of the chest abdomen and pelvis.? The scan showed stable lung nodules bilaterally, it showed worsening of osseous metastasis, multiple chronic compression fractures noted in thoracic and lumbar spine; it showed stable cystic mass in the right pelvis probably a postoperative seroma or lymphocele.? Same day bone scan showed extensive osseous metastasis.? There was mild worsening of disease since the last visit. Due to disease progression as described above, we stopped his Yonsa about in mid Jul 2021, and started him on Xtandi 160 mg once a day. Nuclear medicine bone scan, 06/08/2021: FINDINGS:? There are multiple foci of abnormal uptake involving the skull, sternum, scapulae, multiple ribs bilaterally, cervical, thoracic and lumbar spine, sa chad, bony pelvis bilaterally, consistent with osseous metastases.? Compared with the last exam, some lesions are less intense.? There are however, several new lesions identified involving the skull, cervical spine and lumbar spine, as well as ribs bilaterally, consistent with worsening of osseous metastatic disease. IMPRESSION:? Extensive osseous metastasis.? There is mild worsening of disease since the last exam. Patient History Medical History Chronic left shoulder pain Elevated alkaline phosphatase level Elevated PSA History of prostate cancer Hypertension Low back pain Obesity Pelvic somatic dysfunction Physical deconditioning Prostate cancer metastatic to bone Sacral region somatic dysfunction Shortness of breath Vision disorder Surgical History Anesthesia H/O right wrist surgery (~1996) H/O umbilical hernia repair History of hip surgery (~1985) History of prostatectomy Family & Social History Family History Mother Parkinson's disease Other No history of cancer Social History: household members family Prior Living Arrangements Apartment/Condo Safety & Behavioral: Feels Safe in Current No Environment Been Physically Hurt or No Threatened By a Person Tobacco & Substance use: Smoking Status Former smoker alcohol intake never alcohol intake frequency holiday/special occasion Substance Use Type marijuana Meds Home Medications and Allergies Home Medications Medication Instructions Recorded Confirmed Type enzalutamide 40 mg capsule (Xtandi) 160 mg PO Q24H prostate cancer 07/22/21 05/26/22 Rx #120 caps Rollator Walker #1 ea 09/22/21 05/26/22 Rx Cbd Gummies 1 gummy PO DAILY PRN pain 01/24/22 05/26/22 History gabapentin 300 mg capsule 900 mg PO TID #180 caps 02/09/22 05/26/22 Rx methocarbamol 500 mg tablet 500 mg PO BEDTIME PRN muscle spasm 05/24/22 05/26/22 Rx #14 tabs oxycodone-acetaminophen 7.5 mg-325 1 tab PO Q8H PRN pain #10 tabs 05/24/22 05/26/22 Rx mg tablet (Percocet) amlodipine 5 mg tablet (Norvasc) 5 mg PO DAILY 05/26/22 05/26/22 History bupropion HCl 150 mg 24 hr tablet, 150 mg PO DAILY 05/26/22 05/26/22 History extended release (Wellbutrin XL) bupropion HCl 150 mg 24 hr tablet, 150 mg PO DAILY 05/26/22 05/26/22 History extended release (Wellbutrin XL) diclofenac sodium 1 % topical gel 4 g topical QID PRN pain 05/26/22 05/26/22 History (Voltaren Arthritis Pain) hydrocodone 10 mg-acetaminophen 1 tab PO CONT PRN pain 05/26/22 05/26/22 History 325 mg tablet lidocaine 5 % topical patch 1 patch topical DAILY PRN Pain 05/26/22 05/26/22 History (Lidoderm) (Scale Score 1-3) losartan 100 mg tablet 100 mg PO DAILY 05/26/22 05/26/22 History metoprolol succinate 50 mg 50 mg PO DAILY 05/26/22 05/26/22 History tablet,extended release 24 hr spironolactone 25 1 tab PO DAILY 05/26/22 05/26/22 History mg-hydrochlorothiazide 25 mg tablet Allergies Allergy/AdvReac Type Severity Reaction Status Date / Time Penicillins Allergy Severe Hives, Verified 05/26/22 18:03 breathing issues Review of Systems Review of Systems Narrative: All 12 point systems reviewed with the patient and are negative except otherwise documented. Exam Vital Signs (past 8 hours): - 05/26/22 18:00 05/26/22 20:03 Temperature 97.9 F Pulse Rate 87 81 Respiratory Rate 18 20 Blood Pressure 150/72 H 150/81 H Pulse Oximetry 98 99 Oxygen Delivery Method Room Air Room Air Oxygen Delivery Method Room Air Narrative Exam Narrative: General: Patient is a pale frail looking elderly male, in no acute distress at this time. HEENT: Normocephalic, atraumatic, extraocular muscles intact, oral pharynx is clear and mucous membranes are dry. Neck is supple and symmetric, trachea is midline, no adenopathy, no thyroid enlargement, nontender, no masses palpated. Negative for JVD Chest: Normal AP diameter and contour without kyphoscoliosis, no nasal flaring, retractions, or tachypneic labored Lungs: Auscultation of all lung calle are clear without adventitious sounds, wheezes, rhonchi, or rales. Cardio: regular rate and rhythm without murmur, rubs, or gallops, no carotid bruit, no cardiac pulsations present. Abdomen: Soft nontender, negative for organomegaly, or masses. Bowel sounds are present in all 4 quadrants without guarding or rebound, no CVA tenderness. Musculoskeletal: BACK: No cervical, thoracic or lumbar vertebral point tenderness. Patient has decreased range of motion bilateral lower extremities. Patient's gait is untested. Muscle strength is 2/5 in lower extremities patient can lift legs about inch off the bed but with difficulty bilaterally, appears to be more weak than in pain when doing this, DTRs are 2/4 and lower extremities. + pulses bilateral lower extremities. Sensation is intact in the lower e xtremities. Skin: Warm dry and intact without rashes, ulcerations or petechiae. Neuro: Alert and orientated x3, no gross deficits of cranial nerves observed. Psych: Patient has a well-kept appearance, appropriate affect, mental status attitude thought context and judgment are appropriate for age. Objective Labs Result Diagrams: 05/26/22 19:20 05/26/22 19:20 Labs: Laboratory Results - last 24 hr 05/26/22 05/26/22 05/26/22 19:20 19:20 19:20 WBC 11.0 RBC 3.87 L Hgb 12.2 L Hct 34.8 L MCV 90.0 MCH 31.4 MCHC 34.9 RDW 13.1 Plt Count 318 Neut % (Auto) 73.6 Lymph % (Auto) 14.7 L [place] % (Auto) 8.7 Eos % (Auto) 2.2 Baso % (Auto) 0.8 Neut # (Auto) 8100 H Lymph # (Auto) 1600 [place] # (Auto) 1000 H Eos # (Auto) 200 Baso # (Auto) 100 Sodium 139 Potassium 2.8 L Chloride 103 Carbon Dioxide 29 BUN 21 H Creatinine 0.70 Estimated GFR > 60 BUN/Creatinine Ratio 30.0 H Glucose 98 Lactate 1.2 Calcium 9.2 Magnesium 2.1 Total Bilirubin 0.4 AST 39 ALT 11 Alkaline Phosphatase 824 H Total Creatine Kinase Total Protein 7.1 Albumin 4.1 Globulin 3.0 Albumin/Globulin Ratio 1.4 Lipase 56 Urine Color Urine Appearance Urine pH Ur Specific Raymond Urine Protein Urine Glucose (UA) Urine Ketones Urine Occult Blood Urine Nitrate Urine Bilirubin Urine Urobilinogen Ur Leukocyte Esterase Urine RBC Urine WBC Amorphous Sediment Urine Bacteria Ur Culture Indicated? SARS-CoV-2 (PCR) 05/26/22 05/26/22 05/26/22 19:20 19:20 20:41 WBC RBC Hgb Hct MCV MCH MCHC RDW Plt Count Neut % (Auto) Lymph % (Auto) [place] % (Auto) Eos % (Auto) Baso % (Auto) Neut # (Auto) Lymph # (Auto) [place] # (Auto) Eos # (Auto) Baso # (Auto) Sodium Potassium Chloride Carbon Dioxide BUN Creatinine Estimated GFR BUN/Creatinine Ratio Glucose Lactate Calcium Magnesium Total Bilirubin AST ALT Alkaline Phosphatase Total Creatine Kinase 513 H Total Protein Albumin Globulin Albumin/Globulin Ratio Lipase Urine Color Yellow Urine Appearance Cloudy Urine pH 6.0 Ur Specific Raymond 1.015 Urine Protein 1+ H Urine Glucose (UA) Negative Urine Ketones Negative Urine Occult Blood 2+ H Urine Nitrate Positive H Urine Bilirubin Negative Urine Urobilinogen 0.2 Ur Leukocyte Esterase Negative Urine RBC 5-10/hpf H Urine WBC 5-10/hpf H Amorphous Sediment 2+ Urine Bacteria Occasional (0-1) Ur Culture Indicated? Specimen cultured SARS-CoV-2 (PCR) Negative Assessment & Plan Assessment & Plan narrative: Jassi Toribio is a 76-year-old male with a history of hypertension, obesity & p rostate adenocarcinoma, GS 9, and underwent radical prostatectomy, in May of this year a nuclear scan demonstrated extensive osseous metastasis to bone.? Patient presented to the ED this evening complaining of increasing lower back pain, increasing lower extremity weakness, found to be hypokalemic, with urinary retention and resulting UTI on exam. Patient has failed outpatient care, and escalating incapacitating immobility likely the result of advancing metastatic disease. Will correct hypokalemia, treat UTI with IV antibiotics, gentle rehydration, manage pain control, and facilitate consult with palliative care/hospice. To consider goals of care versus End of life care, in-home hospice care versus placement in long-term care facility. It should be noted that when RN Ella took the POLST form in for the patient to sign, while he did not verbalize changing his DNR status, he wanted to wait until his son was present to sign the POLST form tomorrow. Patient will also complete lumbar CT with and without contrast and Dr. Ortega orthopedics will consult. 1. Acute UTI, secondary to urinary retention, acute, present on admission -gentle rehydration LR at 60 cc/HR -urine and blood cultures pending -urine positive for nitrates, blood, protein, bacteria, WBC, RBCs, WBC-WNL, but left shift noted neutrophils 8100, mono 1000. -patient received ciprofloxacin in ED, 2 g Rocephin ordered with 1 g Rocephin Q 24 hours to start tomorrow -Pruitt was placed in ED- due to urinary retention and immobility-likely secondary to central canal stenosis from advancing metastatic disease in the spine. 2. Low back pain exacerbation, acute on chronic with progressive weakness of the lower extremities, acute on chronic, secondary to prostate cancer metastasized to bone, present on admission -compression fracture of L1 -expansile metastatic lesion to L2 with moderate central canal stenosis -multilevel disc disease - L2-3 causing foraminal and central canal stenosis -I have reviewed medical records from Dr. Gray [facility], [facility] orthopedics Dr. Chandler, and Dr. Dover oncology to include all diagnostics and laboratory findings. -Today: Pelvic CT demonstrated of the bones lytic osseous metastatic disease is seen in the sacrum and pelvis.? The right hip is status post fixation without complication.? No fracture of the pelvis is identified.? In the right iliac wing medially adjacent to the sacroiliac joint there is an expansile lesion with cortical destruction measuring approximately 3 cm an area of sclerosis in the right sacrum is seen also consistent with expansile soft tissue mass with cortical destruction. -Lumbar CT demonstrated osseous metastatic disease to the lumbar spine, with compression fracture of L1 with 50% anterior height loss of indeterminate age, expansile metastatic lesion to L2 which causes at least moderate central canal stenosis, and multilevel disc disease, worst at L2-3 causing foraminal and central canal stenosis. -Bone scan on 08/18/2020 showed multifocal osseous metastatic disease involving the calvarium, the left shoulder, multiple ribs, the thoracic and lumbosacral sp ine, the right sacrum, and the right iliac bone.? Two small foci of isotope abnormality are noted the intertrochanteric hips bilaterally.? -08/18/2020 CT chest abdomen pelvis showed no acute abnormalities, but multiple scattered sclerotic foci throughout the imaged skeleton suspicious for osseous metastatic disease.? It also showed multiple small hepatic hypodensities too small to accurately characterize.? Although not meeting size criteria for pathology, there were numerous prominent retroperitoneal lymph nodes suspicious for possible metastatic disease.? Finally multiple sub 6 mm bilateral pulmonary nodules were noted. -06/08/2021 CT of the chest abdomen and pelvis: stable lung nodules bilaterally, it showed worsening of osseous metastasis, multiple chronic compression fractures noted in thoracic and lumbar spine; it showed stable cystic mass in the right pelvis probably a postoperative seroma or lymphocele.? -Nuclear medicine bone scan, 06/08/2021: There are multiple foci of abnormal uptake involving the skull, sternum, scapulae, multiple ribs bilaterally, cervical, thoracic and lumbar spine, sacrum, bony pelvis bilaterally, consistent with osseous metastases.? Compared with the last exam, some lesions are less intense.? There are however, several new lesions identified involving the skull, cervical spine and lumbar spine, as well as ribs bilaterally, consistent with worsening of osseous metastatic disease. -pain management: Oxycodone 10 mg p.o. q.4 hours, IV hydromorphone for breakthrough pain 0.5 mg q.4 hours. -MR of the lumbar with and without contrast per Dr. Ortega request -Dr. Ortega orthopedic consult-Lovenox being held for possible surgery. -I am concerned that the patient is not an appropriate candidate for surgical intervention in light of his metastatic disease and medical frailty. The patient also refused surgery due to his cancer and sciatica from Dr. Chandler orthopedics regarding shoulder injury in January 2022. -Indepth discussion with patient regarding Code status, goals of care, SNF placement, palliative care and hospice education. -MANAGEMENT TRAINER/Hospice consult -continue gabapentin, Robaxin, lidocaine patch, Xtandi 3. Hypokalemia, acute, present on admission -initial potassium 2.8 -patient received 40 mEq p.o. in ED-will monitor and recheck potassium levels. 4. Essential hypertension, acute on chronic, present on admission -BP on admit 150/81 -continue amlodipine, losartan, metoprolol, spirolactone/HCTZ 5. Depression, chronic, present on admission -continue Wellbutrin Code status: Per patient discussion on admit -DNR Surrogate decision maker: Aki SANTIAGO PCR:Negative DVT/VTE prophylaxis:SCD's medication held due to possible pending surgery Disposition: Patient admitted for observation expected length of stay to less than 2 midnights. I have utilized all available immediate resources to obtain, update, or review the patient's current medications. I confirmed that the patient's advanced care plan is present, Code status is documented and/or surrogate decision maker is listed in the patient's medical record. Time Spent With Patient Critical Care time: I spent a total of [] minutes of critical care time on this patient's care today; this time is exclusive of procedural time.
[2022-05-26] MEDS: cefTRIAXone 2,000 MG in SODIUM CHLORIDE 0.9% 100 ML 200 MG IV (23:27)
[2022-05-26 23:46] LABS: Acinetobacter baumannii Not Detected (Not Detect); Enterococcus species Not Detected (Not Detect); Listeria monocytogenes Not Detected (Not Detect); Staphylococcus species Not Detected (Not Detect); Streptococcus agalactiae (Gr B Not Detected (Not Detect); Streptococcus pneumonia Not Detected (Not Detect); Streptococcus pyogenes (Gr A) Not Detected (Not Detect); Streptococcus species Not Detected (Not Detect)
[2022-05-26 23:47] LABS: Candida albicans Not Detected (Not Detect); Candida glabrata Not Detected (Not Detect); Candida krusei Not Detected (Not Detect); Candida parapsilosis Not Detected (Not Detect); Candida tropicalis Not Detected (Not Detect); E. coli Not Detected (Not Detect); Enterobacter cloacae complex Not Detected (Not Detect); Enterobacteriaceae species Not Detected (Not Detect); Haemophilus influenzae Not Detected (Not Detect); Neisseria meningitidis Not Detected (Not Detect); Proteus species Not Detected (Not Detect); Pseudomonas aeruginosa Not Detected (Not Detect); Serratia marcescens Not Detected (Not Detect)
[2022-05-27] VITALS (13 sets, daily range): BP systolic 99–138; BP diastolic 53–76; PULSE 73–88; RESP 14–20; TEMP 36.1–36.7; O2SAT 95–99
[2022-05-27] MEDS: SODIUM CHLORIDE 0.9% FLUSH 10 ML IV ×3 (00:17→21:23)
[2022-05-27] MEDS: GABAPENTIN 300 MG CAPSULE 900 MG PO ×4 (00:17→21:22)
--- NOTE | 2022-05-27 00:21 | PC.NURSE ---
2230 Pt. admitted to room 219, accompanied by his son Lavell. Oriented to his room, showed his call light, bed & Tv controls. Reported increasing weakness, on high fall risks implemented. Also reported a fall @ home, bed alarm activated. Instructed to call nurses if he needed to get up OOB. Call light with in reached, Pruitt Catheter patent draining dark yellow urine, antibiotics infused. Severe pain when moving him in bed, rated pain level up to 20/10. But once he settled in bed he reported pain down to 2-3, will continue POC & monitor.
--- NOTE | 2022-05-27 01:38 | PC.NURSE ---
Pt. declined to sign POLST stated I'll wait in the morning, when my son is here. BRISEIDA Garcia aware, will cont. POC & monitor.
[2022-05-27] MEDS: LACTATED RINGERS 1,000 ML 60 ML IV (01:46)
[2022-05-27 06:18] LABS: Add Manual Diff / Slide Review NO; Basophils Absolute Auto 100 /uL (0-100); Basophils Percent Auto 0.8 % (0-2); Eosinophils Absolute Auto 200 /uL (0-450); Eosinophils Percent Auto 2.2 % (2-4); Hematocrit 30.4 % (41-53); Hemoglobin 10.4 g/dL (13.5-17.5); Lymphocytes Absolute Auto 1600 /uL (1100-4500); Lymphocytes Percent Auto 19.2 % (25-40); Mean Corpuscular HGB Conc 34.4 % (30-36); Mean Corpuscular Hemoglobin 30.9 PG (26-34); Mean Corpuscular Volume 89.8 fL (80-100); Monocytes Absolute Auto 900 /uL (0-900); Monocytes Percent Auto 10.2 % (3-14); Neutrophils Absolute Auto 5800 /uL (1500-7000); Neutrophils Percent Auto 67.6 % (50-75); Platelet Count 273 X10^3/uL (150-400); Red Blood Cell Count 3.38 X10^6/uL (4.5-5.9); Red Cell Distribution Width 12.8 % (11.6-14.8); White Blood Cell Count 8.5 X10^3/uL (4.5-11.0)
[2022-05-27 06:24] LABS: INR 1.1 (0.9-1.3)
[2022-05-27 06:55] LABS: Alanine Aminotransferase 10 IU/L (<50); Albumin 3.2 g/dL (3.5-5.0); Albumin Globulin Ratio 1.3 (1.0-2.8); Alkaline Phosphatase 575 U/L (38-126); Aspartate Aminotransferase 34 IU/L (17-59); BUN Creatinine Ratio 27.7 (6-22); Bilirubin Total 0.5 mg/dL (0.2-1.3); Blood Urea Nitrogen 18 mg/dL (9-20); Calcium 8.6 mg/dL (8.4-10.2); Carbon Dioxide 27 mmol/L (22-32); Chloride 105 mmol/L (98-107); Estimated Glomerular Filt Rate > 60 mL/min (>60); Globulin 2.5 g/dL (1.7-4.1); Glucose 96 mg/dL (80-110); HEMOLYSIS < 15 (0-50); Potassium 3.1 mmol/L (3.4-5.1); Sodium 139 mmol/L (137-145); Total Protein 5.7 g/dL (6.3-8.2)
--- NOTE | 2022-05-27 07:02 | PC.NURSE ---
Checked patient through the night, to reassessed his pain level. But he's been sound asleep since he settled in his bed to sleep. Will monitor.
[2022-05-27] MEDS: buPROPion XL 150 MG TAB PO (08:06)
[2022-05-27] MEDS: LOSARTAN 50 MG TABLET 100 MG PO (08:06)
[2022-05-27] MEDS: methocarbamoL 500 MG TABLET PO (08:06)
[2022-05-27] MEDS: AMLODIPINE 5 MG TABLET PO (08:06)
[2022-05-27] MEDS: METOPROLOL ER 50 MG TABLET PO (08:06)
[2022-05-27] MEDS: OXYCODONE IR 10 MG TABLET PO ×4 (08:07→21:22)
[2022-05-27] MEDS: POTASSIUM CHLORIDE 20 MEQ TAB 40 MEQ PO ×2 (11:49→17:16)
[2022-05-27] MEDS: BISACODYL 5 MG TABLET 10 MG PO (12:52)
[2022-05-27] MEDS: HYDROMORPHONE 0.5 MG INJ IV (15:42)
--- NOTE | 2022-05-27 15:43 | CM.DPC ---
DCP Cont: DCP met with son and pt this afternoon to discuss concerns. Dr. Ramirez was present to address the current situation and address any questions or concerns. Lavell, pt son, has expressed that he is not comfortable with taking his father home due to the inability to care for his due to his chronic pain. Per pt, following his discharge from the ED on monday, when he got home, he was unable to climb the stairs to his bedroom and has been sleeping on the floor until he came to the hospital on . Dr. Ramirez expressed that the MRI is ordered for today and that will tell Dr. Gómez if the pt is a surgical candidate. If surgery is not an option, hospitalist to reach out to Dr. Baum in oncology for recommendations on Monday and to see if palliative radiation would be an option for this pt. Hospice was also discussed with the pt and son and they have expressed that they would like to be able to cross off other options first before hospice is discussed. Pt son tearful at the end of the conversation and DCP provided support. Pt son stated that he is going to work on switching his bedroom downstairs to pt room if needed when coming home. DCP provided son with caregiver resources and hospice brochure with their contact information. Pt and son thankful for the discussion and DCP provided him with her direct phone line. Whiteboard was updated. P: Pt to have MRI today to determine if pt is surgical candidate. If that is not an option, oncology will be consulted with to determine if pt could be a radiation patient. If all options are a no, hospice/comfort care would be the last decision from the family as of today. [facility] to continue to follow. Charmaine Rodriguez RN/[facility]
--- NOTE | 2022-05-27 15:47 | PC.NURSE ---
Day shift: Pt off unit for MRI at approx 1545. Medicated per MAR for pain. Pain present 06/22 with movement onto MRI stretcher.
--- NOTE | 2022-05-27 17:46 | PM.PN.1 ---
Subjective Subjective Date Patient Seen: 05/27/22 Interval history: Patient admitted to the hospital with severe intractable back pain due to metastatic prostate cancer. He was also found to have a UTI. He continues to have back pain but it appears significantly improved. Exam Vital Signs (past 8 hours): - 05/27/22 09:47 05/27/22 14:00 05/27/22 13:00 Temperature 97.8 F Pulse Rate 77 Respiratory Rate 17 Blood Pressure 99/53 L Pulse Oximetry 95 95 99 Oxygen Delivery Method Room Air Room Air Oxygen Flow Rate 0 05/27/22 17:00 Temperature 97.0 F L Pulse Rate 74 Respiratory Rate 17 Blood Pressure 117/68 Pulse Oximetry 98 Oxygen Delivery Method Oxygen Flow Rate 0 Oxygen Delivery Method Room Air Oxygen Flow Rate 0 Narrative Exam Narrative: Ill appearing male lying in bed Resp Other: Lungs: clear to auscultation Cardio Other: CV: RRR nl Sl S2 GI Other: Abd: soft/ non tender/ non distended Extrem Other: 1+ edema Objective Labs Result Diagrams: 05/27/22 05:20 05/27/22 05:20 Labs: Laboratory Results - last 24 hr 05/26/22 05/26/22 05/26/22 19:20 19:20 19:20 WBC 11.0 RBC 3.87 L Hgb 12.2 L Hct 34.8 L MCV 90.0 MCH 31.4 MCHC 34.9 RDW 13.1 Plt Count 318 Neut % (Auto) 73.6 Lymph % (Auto) 14.7 L [place] % (Auto) 8.7 Eos % (Auto) 2.2 Baso % (Auto) 0.8 Neut # (Auto) 8100 H Lymph # (Auto) 1600 [place] # (Auto) 1000 H Eos # (Auto) 200 Baso # (Auto) 100 PT INR Sodium 139 Potassium 2.8 L Chloride 103 Carbon Dioxide 29 BUN 21 H Creatinine 0.70 Estimated GFR > 60 BUN/Creatinine Ratio 30.0 H Glucose 98 Lactate 1.2 Calcium 9.2 Magnesium 2.1 Total Bilirubin 0.4 AST 39 ALT 11 Alkaline Phosphatase 824 H Total Creatine Kinase Total Protein 7.1 Albumin 4.1 Globulin 3.0 Albumin/Globulin Ratio 1.4 Lipase 56 Urine Color Urine Appearance Urine pH Ur Specific [place] Urine Protein Urine Glucose (UA) Urine Ketones Urine Occult Blood Urine Nitrate Urine Bilirubin Urine Urobilinogen Ur Leukocyte Esterase Urine RBC Urine WBC Amorphous Sediment Urine Bacteria Ur Culture Indicated? A. baumannii (PCR) Janet albicans (PCR) C. glabrata (PCR) C. krusei (PCR) C. parapsilosis (PCR) C. tropicalis (PCR) SARS-CoV-2 (PCR) Enterobacteriac sp PCR E. cloacae complex PCR Enterococcus sp PCR E. coli (PCR) H. influenzae (PCR) Klebsiella oxytoca PCR Klebsiella pneumoniae List. monocytogenes PCR N. meningitidis (PCR) Proteus species (PCR) Serratia marcescens PCR Staphylococcus sp PCR Staph aureus (PCR) mecA-Methicil Res Gene Streptococcus sp PCR Group A Strep (PCR) Strep agalactiae (PCR) Strep pneumoniae (PCR) P. aeruginosa (PCR) Akil/B-Vanco Res Genes KPC-Carbap Res Gene PCR 05/26/22 05/26/22 05/26/22 19:20 19:20 19:36 WBC RBC Hgb Hct MCV MCH MCHC RDW Plt Count Neut % (Auto) Lymph % (Auto) [place] % (Auto) Eos % (Auto) Baso % (Auto) Neut # (Auto) Lymph # (Auto) [place] # (Auto) Eos # (Auto) Baso # (Auto) PT INR Sodium Potassium Chloride Carbon Dioxide BUN Creatinine Estimated GFR BUN/Creatinine Ratio Glucose Lactate Calcium Magnesium Total Bilirubin AST ALT Alkaline Phosphatase Total Creatine Kinase 513 H Total Protein Albumin Globulin Albumin/Globulin Ratio Lipase Urine Color Urine Appearance Urine pH Ur Specific [place] Urine Protein Urine Glucose (UA) Urine Ketones Urine Occult Blood Urine Nitrate Urine Bilirubin Urine Urobilinogen Ur Leukocyte Esterase Urine RBC Urine WBC Amorphous Sediment Urine Bacteria Ur Culture Indicated? A. baumannii (PCR) Not detected Janet albicans (PCR) Not detected C. glabrata (PCR) Not detected C. krusei (PCR) Not detected C. parapsilosis (PCR) Not detected C. tropicalis (PCR) Not detected SARS-CoV-2 (PCR) Negative Enterobacteriac sp PCR Not detected E. cloacae complex PCR Not detected Enterococcus sp PCR Not detected E. coli (PCR) Not detected H. influenzae (PCR) Not detected Klebsiella oxytoca PCR Not detected Klebsiella pneumoniae Not detected List. monocytogenes PCR Not detected N. meningitidis (PCR) Not detected Proteus species (PCR) Not detected Serratia marcescens PCR Not detected Staphylococcus sp PCR Not detected Staph aureus (PCR) Not detected mecA-Methicil Res Gene Not Reportable Streptococcus sp PCR Not detected Group A Strep (PCR) Not detected Strep agalactiae (PCR) Not detected Strep pneumoniae (PCR) Not detected P. aeruginosa (PCR) Not detected Akil/B-Vanco Res Genes Not Reportable KPC-Carbap Res Gene PCR Not Reportable 05/26/22 05/27/22 05/27/22 20:41 05:20 05:20 WBC 8.5 RBC 3.38 L Hgb 10.4 L Hct 30.4 L MCV 89.8 MCH 30.9 MCHC 34.4 RDW 12.8 Plt Count 273 Neut % (Auto) 67.6 Lymph % (Auto) 19.2 L [place] % (Auto) 10.2 Eos % (Auto) 2.2 Baso % (Auto) 0.8 Neut # (Auto) 5800 Lymph # (Auto) 1600 [place] # (Auto) 900 Eos # (Auto) 200 Baso # (Auto) 100 PT 12.0 INR 1.1 Sodium Potassium Chloride Carbon Dioxide BUN Creatinine Estimated GFR BUN/Creatinine Ratio Glucose Lactate Calcium Magnesium Total Bilirubin AST ALT Alkaline Phosphatase Total Creatine Kinase Total Protein Albumin Globulin Albumin/Globulin Ratio Lipase Urine Color Yellow Urine Appearance Cloudy Urine pH 6.0 Ur Specific [place] 1.015 Urine Protein 1+ H Urine Glucose (UA) Negative Urine Ketones Negative Urine Occult Blood 2+ H Urine Nitrate Positive H Urine Bilirubin Negative Urine Urobilinogen 0.2 Ur Leukocyte Esterase Negative Urine RBC 5-10/hpf H Urine WBC 5-10/hpf H Amorphous Sediment 2+ Urine Bacteria Occasional (0-1) Ur Culture Indicated? Specimen cultured A. baumannii (PCR) Janet albicans (PCR) C. glabrata (PCR) C. krusei (PCR) C. parapsilosis (PCR) C. tropicalis (PCR) SARS-CoV-2 (PCR) Enterobacteriac sp PCR E. cloacae complex PCR Enterococcus sp PCR E. coli (PCR) H. influenzae (PCR) Klebsiella oxytoca PCR Klebsiella pneumoniae List. monocytogenes PCR N. meningitidis (PCR) Proteus species (PCR) Serratia marcescens PCR Staphylococcus sp PCR Staph aureus (PCR) mecA-Methicil Res Gene Streptococcus sp PCR Group A Strep (PCR) Strep agalactiae (PCR) Strep pneumoniae (PCR) P. aeruginosa (PCR) Akil/B-Vanco Res Genes KPC-Carbap Res Gene PCR 05/27/22 05:20 WBC RBC Hgb Hct MCV MCH MCHC RDW Plt Count Neut % (Auto) Lymph % (Auto) [place] % (Auto) Eos % (Auto) Baso % (Auto) Neut # (Auto) Lymph # (Auto) [place] # (Auto) Eos # (Auto) Baso # (Auto) PT INR Sodium 139 Potassium 3.1 L Chloride 105 Carbon Dioxide 27 BUN 18 Creatinine 0.65 L Estimated GFR > 60 BUN/Creatinine Ratio 27.7 H Glucose 96 Lactate Calcium 8.6 Magnesium Total Bilirubin 0.5 AST 34 ALT 10 Alkaline Phosphatase 575 H Total Creatine Kinase Total Protein 5.7 L Albumin 3.2 L Globulin 2.5 Albumin/Globulin Ratio 1.3 Lipase Urine Color Urine Appearance Urine pH Ur Specific [place] Urine Protein Urine Glucose (UA) Urine Ketones Urine Occult Blood Urine Nitrate Urine Bilirubin Urine Urobilinogen Ur Leukocyte Esterase Urine RBC Urine WBC Amorphous Sediment Urine Bacteria Ur Culture Indicated? A. baumannii (PCR) Janet albicans (PCR) C. glabrata (PCR) C. krusei (PCR) C. parapsilosis (PCR) C. tropicalis (PCR) SARS-CoV-2 (PCR) Enterobacteriac sp PCR E. cloacae complex PCR Enterococcus sp PCR E. coli (PCR) H. influenzae (PCR) Klebsiella oxytoca PCR Klebsiella pneumoniae List. monocytogenes PCR N. meningitidis (PCR) Proteus species (PCR) Serratia marcescens PCR Staphylococcus sp PCR Staph aureus (PCR) mecA-Methicil Res Gene Streptococcus sp PCR Group A Strep (PCR) Strep agalactiae (PCR) Strep pneumoniae (PCR) P. aeruginosa (PCR) Akil/B-Vanco Res Genes KPC-Carbap Res Gene PCR [facility] Medical History Chronic left shoulder pain Elevated alkaline phosphatase level Elevated PSA History of prostate cancer Hypertension Low back pain Obesity Pelvic somatic dysfunction Physical deconditioning Prostate cancer metastatic to bone Sacral region somatic dysfunction Shortness of breath Vision disorder Surgical History Anesthesia H/O right wrist surgery (~1996) H/O umbilical hernia repair History of hip surgery (~1985) History of prostatectomy Family History Mother Parkinson's disease Other No history of cancer Social History household members: family Smoking Status: Former smoker alcohol intake: current substance use type: does not use Assessment & Plan Assessment & Plan narrative: 1. Back Pain- Acute on chronic Patient with known metastatic prostate cancer to the back/spine also with spinal stenosis MRI findings :diffuse mottled metastatic marrow replacement noted particularly involving T12, L1 and L2 as well as the right sacrum and iliac bone with paraspinal soft tissue and epidural involvement as above. 2. Retropulsed fracture fragments and epidural neoplastic involvement results in severe central stenosis centered at L2? 3. L1 and L3 compression fractures? 4. Transitional anatomy Dr. Ortega to consult to discuss surgical treatment option Will continue pain medications Will discuss with on Monday, next steps Patient open to treatment and possible hospice He is very debilitated, he will need SNF at discharge/ Hospice discussion started, but patient would like to get surgical opinion first. 2. Acute UTI -await cultures -continue Ceftriaxone 3. Hypokalemia -replace 4. Hypertension -contniue amlodipine, metroprolol, losartan 5. Depression -continue wellbutrin patient changed code status to full code. Time Spent With Patient Critical Care time: I spent a total of [] minutes of critical care time on this patient's care today; this time is exclusive of procedural time. Quality VTE Deep Vein Thrombosis/Pulmonary Embolism Present on Admission: No
--- NOTE | 2022-05-27 18:05 | P.CONS_ITS ---
History of Present Illness Consult details Date Patient Seen: 05/27/22 Time Patient Seen: 09:45 Chief complaint: chronic back pain Reason for consult: lumbar pain, L1 compression fracture with diffuse prostate mets Narrative: The patient is complaining of back pain off and on for years. In the last few days, his pain has become excruciating, and he has been unable to walk due to the pain. He also is having a flare of his sciatica pain. He is complaining of bilateral leg weakness. He describes urge incontinence with his bowel and bladde r, but this does not appear to be the inability to control his bowel/bladder, just difficulty making it to the restroom in time. He denies saddle anesthesia, but does note some nerve type pain near his anus off and on. He denies fevers, chills, night sweats. He has recent weight loss, which he attributes to his Covid infection in the past 3 months. He had a prostatectomy over 5 years ago for his aggressive prostate cancer, and is being followed by Dr. Reynsoo, oncology, on a regular basis. Meds Home Medications and Allergies Home Medications Medication Instructions Recorded Confirmed Type enzalutamide 40 mg capsule (Xtandi) 160 mg PO Q24H prostate cancer 07/22/21 05/26/22 Rx #120 caps Rollator Walker #1 ea 09/22/21 05/26/22 Rx Cbd Gummies 1 gummy PO DAILY PRN pain 01/24/22 05/26/22 History gabapentin 300 mg capsule 900 mg PO TID #180 caps 02/09/22 05/26/22 Rx methocarbamol 500 mg tablet 500 mg PO BEDTIME PRN muscle spasm 05/24/22 05/26/22 Rx #14 tabs oxycodone-acetaminophen 7.5 mg-325 1 tab PO Q8H PRN pain #10 tabs 05/24/22 05/26/22 Rx mg tablet (Percocet) amlodipine 5 mg tablet (Norvasc) 5 mg PO DAILY 05/26/22 05/26/22 History bupropion HCl 150 mg 24 hr tablet, 150 mg PO DAILY 05/26/22 05/26/22 History extended release (Wellbutrin XL) bupropion HCl 150 mg 24 hr tablet, 150 mg PO DAILY 05/26/22 05/26/22 History extended release (Wellbutrin XL) diclofenac sodium 1 % topical gel 4 g topical QID PRN pain 05/26/22 05/26/22 History (Voltaren Arthritis Pain) hydrocodone 10 mg-acetaminophen 1 tab PO CONT PRN pain 05/26/22 05/26/22 History 325 mg tablet lidocaine 5 % topical patch 1 patch topical DAILY PRN Pain 05/26/22 05/26/22 History (Lidoderm) (Scale Score 1-3) losartan 100 mg tablet 100 mg PO DAILY 05/26/22 05/26/22 History metoprolol succinate 50 mg 50 mg PO DAILY 05/26/22 05/26/22 History tablet,extended release 24 hr spironolactone 25 1 tab PO DAILY 05/26/22 05/26/22 History mg-hydrochlorothiazide 25 mg tablet Allergies Allergy/AdvReac Type Severity Reaction Status Date / Time Penicillins Allergy Severe Hives, Verified 05/26/22 18:03 breathing issues Exam Vital Signs (past 8 hours): - 05/27/22 14:00 05/27/22 13:00 05/27/22 17:00 Temperature 97.8 F 97.0 F L Pulse Rate 77 74 Respiratory Rate 17 17 Blood Pressure 99/53 L 117/68 Pulse Oximetry 95 99 98 Oxygen Delivery Method Room Air Oxygen Flow Rate 0 0 05/27/22 17:48 Temperature Pulse Rate Respiratory Rate Blood Pressure Pulse Oximetry 96 Oxygen Delivery Method Room Air Oxygen Flow Rate Oxygen Delivery Method Room Air Oxygen Flow Rate 0 Narrative Exam Narrative: Pleasant, frail appearing, 76 yo male, resting comfortably in bed, no acute distress. Bilateral lower extremity sensation is intact to light touch throughout. His hip flexion strength is 3/5 on the left, 4/5 on the right. Otherwise strength is 5/5 with DF, PF, EHL. Bilateral calves are soft and nonT TP. Objective Labs Result Diagrams: 05/27/22 05:20 05/27/22 05:20 Labs: Laboratory Results - last 24 hr 05/26/22 05/26/22 05/26/22 19:20 19:20 19:20 WBC 11.0 RBC 3.87 L Hgb 12.2 L Hct 34.8 L MCV 90.0 MCH 31.4 MCHC 34.9 RDW 13.1 Plt Count 318 Neut % (Auto) 73.6 Lymph % (Auto) 14.7 L [place] % (Auto) 8.7 Eos % (Auto) 2.2 Baso % (Auto) 0.8 Neut # (Auto) 8100 H Lymph # (Auto) 1600 [place] # (Auto) 1000 H Eos # (Auto) 200 Baso # (Auto) 100 PT INR Sodium 139 Potassium 2.8 L Chloride 103 Carbon Dioxide 29 BUN 21 H Creatinine 0.70 Estimated GFR > 60 BUN/Creatinine Ratio 30.0 H Glucose 98 Lactate 1.2 Calcium 9.2 Magnesium 2.1 Total Bilirubin 0.4 AST 39 ALT 11 Alkaline Phosphatase 824 H Total Creatine Kinase Total Protein 7.1 Albumin 4.1 Globulin 3.0 Albumin/Globulin Ratio 1.4 Lipase 56 Urine Color Urine Appearance Urine pH Ur Specific [place] Urine Protein Urine Glucose (UA) Urine Ketones Urine Occult Blood Urine Nitrate Urine Bilirubin Urine Urobilinogen Ur Leukocyte Esterase Urine RBC Urine WBC Amorphous Sediment Urine Bacteria Ur Culture Indicated? A. baumannii (PCR) Janet albicans (PCR) C. glabrata (PCR) C. krusei (PCR) C. parapsilosis (PCR) C. tropicalis (PCR) SARS-CoV-2 (PCR) Enterobacteriac sp PCR E. cloacae complex PCR Enterococcus sp PCR E. coli (PCR) H. influenzae (PCR) Klebsiella oxytoca PCR Klebsiella pneumoniae List. monocytogenes PCR N. meningitidis (PCR) Proteus species (PCR) Serratia marcescens PCR Staphylococcus sp PCR Staph aureus (PCR) mecA-Methicil Res Gene Streptococcus sp PCR Group A Strep (PCR) Strep agalactiae (PCR) Strep pneumoniae (PCR) P. aeruginosa (PCR) Akil/B-Vanco Res Genes KPC-Carbap Res Gene PCR 05/26/22 05/26/22 05/26/22 19:20 19:20 19:36 WBC RBC Hgb Hct MCV MCH MCHC RDW Plt Count Neut % (Auto) Lymph % (Auto) [place] % (Auto) Eos % (Auto) Baso % (Auto) Neut # (Auto) Lymph # (Auto) [place] # (Auto) Eos # (Auto) Baso # (Auto) PT INR Sodium Potassium Chloride Carbon Dioxide BUN Creatinine Estimated GFR BUN/Creatinine Ratio Glucose Lactate Calcium Magnesium Total Bilirubin AST ALT Alkaline Phosphatase Total Creatine Kinase 513 H Total Protein Albumin Globulin Albumin/Globulin Ratio Lipase Urine Color Urine Appearance Urine pH Ur Specific [place] Urine Protein Urine Glucose (UA) Urine Ketones Urine Occult Blood Urine Nitrate Urine Bilirubin Urine Urobilinogen Ur Leukocyte Esterase Urine RBC Urine WBC Amorphous Sediment Urine Bacteria Ur Culture Indicated? A. baumannii (PCR) Not detected Janet albicans (PCR) Not detected C. glabrata (PCR) Not detected C. krusei (PCR) Not detected C. parapsilosis (PCR) Not detected C. tropicalis (PCR) Not detected SARS-CoV-2 (PCR) Negative Enterobacteriac sp PCR Not detected E. cloacae complex PCR Not detected Enterococcus sp PCR Not detected E. coli (PCR) Not detected H. influenzae (PCR) Not detected Klebsiella oxytoca PCR Not detected Klebsiella pneumoniae Not detected List. monocytogenes PCR Not detected N. meningitidis (PCR) Not detected Proteus species (PCR) Not detected Serratia marcescens PCR Not detected Staphylococcus sp PCR Not detected Staph aureus (PCR) Not detected mecA-Methicil Res Gene Not Reportable Streptococcus sp PCR Not detected Group A Strep (PCR) Not detected Strep agalactiae (PCR) Not detected Strep pneumoniae (PCR) Not detected P. aeruginosa (PCR) Not detected Akil/B-Vanco Res Genes Not Reportable KPC-Carbap Res Gene PCR Not Reportable 05/26/22 05/27/22 05/27/22 20:41 05:20 05:20 WBC 8.5 RBC 3.38 L Hgb 10.4 L Hct 30.4 L MCV 89.8 MCH 30.9 MCHC 34.4 RDW 12.8 Plt Count 273 Neut % (Auto) 67.6 Lymph % (Auto) 19.2 L [place] % (Auto) 10.2 Eos % (Auto) 2.2 Baso % (Auto) 0.8 Neut # (Auto) 5800 Lymph # (Auto) 1600 [place] # (Auto) 900 Eos # (Auto) 200 Baso # (Auto) 100 PT 12.0 INR 1.1 Sodium Potassium Chloride Carbon Dioxide BUN Creatinine Estimated GFR BUN/Creatinine Ratio Glucose Lactate Calcium Magnesium Total Bilirubin AST ALT Alkaline Phosphatase Total Creatine Kinase Total Protein Albumin Globulin Albumin/Globulin Ratio Lipase Urine Color Yellow Urine Appearance Cloudy Urine pH 6.0 Ur Specific [place] 1.015 Urine Protein 1+ H Urine Glucose (UA) Negative Urine Ketones Negative Urine Occult Blood 2+ H Urine Nitrate Positive H Urine Bilirubin Negative Urine Urobilinogen 0.2 Ur Leukocyte Esterase Negative Urine RBC 5-10/hpf H Urine WBC 5-10/hpf H Amorphous Sediment 2+ Urine Bacteria Occasional (0-1) Ur Culture Indicated? Specimen cultured A. baumannii (PCR) Janet albicans (PCR) C. glabrata (PCR) C. krusei (PCR) C. parapsilosis (PCR) C. tropicalis (PCR) SARS-CoV-2 (PCR) Enterobacteriac sp PCR E. cloacae complex PCR Enterococcus sp PCR E. coli (PCR) H. influenzae (PCR) Klebsiella oxytoca PCR Klebsiella pneumoniae List. monocytogenes PCR N. meningitidis (PCR) Proteus species (PCR) Serratia marcescens PCR Staphylococcus sp PCR Staph aureus (PCR) mecA-Methicil Res Gene Streptococcus sp PCR Group A Strep (PCR) Strep agalactiae (PCR) Strep pneumoniae (PCR) P. aeruginosa (PCR) Akil/B-Vanco Res Genes KPC-Carbap Res Gene PCR 05/27/22 05:20 WBC RBC Hgb Hct MCV MCH MCHC RDW Plt Count Neut % (Auto) Lymph % (Auto) [place] % (Auto) Eos % (Auto) Baso % (Auto) Neut # (Auto) Lymph # (Auto) [place] # (Auto) Eos # (Auto) Baso # (Auto) PT INR Sodium 139 Potassium 3.1 L Chloride 105 Carbon Dioxide 27 BUN 18 Creatinine 0.65 L Estimated GFR > 60 BUN/Creatinine Ratio 27.7 H Glucose 96 Lactate Calcium 8.6 Magnesium Total Bilirubin 0.5 AST 34 ALT 10 Alkaline Phosphatase 575 H Total Creatine Kinase Total Protein 5.7 L Albumin 3.2 L Globulin 2.5 Albumin/Globulin Ratio 1.3 Lipase Urine Color Urine Appearance Urine pH Ur Specific [place] Urine Protein Urine Glucose (UA) Urine Ketones Urine Occult Blood Urine Nitrate Urine Bilirubin Urine Urobilinogen Ur Leukocyte Esterase Urine RBC Urine WBC Amorphous Sediment Urine Bacteria Ur Culture Indicated? A. baumannii (PCR) Janet albicans (PCR) C. glabrata (PCR) C. krusei (PCR) C. parapsilosis (PCR) C. tropicalis (PCR) SARS-CoV-2 (PCR) Enterobacteriac sp PCR E. cloacae complex PCR Enterococcus sp PCR E. coli (PCR) H. influenzae (PCR) Klebsiella oxytoca PCR Klebsiella pneumoniae List. monocytogenes PCR N. meningitidis (PCR) Proteus species (PCR) Serratia marcescens PCR Staphylococcus sp PCR Staph aureus (PCR) mecA-Methicil Res Gene Streptococcus sp PCR Group A Strep (PCR) Strep agalactiae (PCR) Strep pneumoniae (PCR) P. aeruginosa (PCR) Akil/B-Vanco Res Genes KPC-Carbap Res Gene PCR PFSH Medical History Chronic left shoulder pain Elevated alkaline phosphatase level Elevated PSA History of prostate cancer Hypertension Low back pain Obesity Pelvic somatic dysfunction Physical deconditioning Prostate cancer metastatic to bone Sacral region somatic dysfunction Shortness of breath Vision disorder Surgical History Anesthesia H/O right wrist surgery (~1996) H/O umbilical hernia repair History of hip surgery (~1985) History of prostatectomy Family History Mother Parkinson's disease Other No history of cancer Social History household members: family Tobacco & Substance Use Smoking Status: Former smoker alcohol intake: current substance use type: does not use Assessment & Plan Assessment & Plan narrative: Assessment & Plan narrative: Acute on chronic back pain with known metastatic prostate cancer with mets to spine. H/o spinal stenosis. L1 and L3 compression fractures. MRI findings: 1. diffuse mottled metastatic marrow replacement noted particularly involving T12, L1 and L2 as well as the right sacrum and iliac bone with paraspinal soft tissue and epidural involvement as above. 2. Retropulsed fracture fragments and epidural neoplastic involvement results in severe central stenosis centered at L2? 3. L1 and L3 compression fractures? 4. Transitional anatomy Dr. Gómez is requesting a MRI Lumbar spine with and without contrast for possible surgical planning vs cancer extent. There is concern about the extent of mets and if surgical intervention would be beneficial. The patient and I had a long discussion today. His pain is manageable with the current pain meds. He is potentially interested in surgical intervention if the benefits significantly outweigh the risks. He also understands the difficulties with his metastatic prostate cancer. -continue with current pain medications -Dr. Gómez to review MRI and discuss options with patient once exam is completed Time Spent With Patient Critical Care time: I spent a total of [] minutes of critical care time on this patient's care today; this time is exclusive of procedural time.
[2022-05-27] MEDS: cefTRIAXone 1,000 MG in SODIUM CHLORIDE 0.9% 100 ML 200 MG IV (21:21)
[2022-05-27] MEDS: SENNOSIDES 8.6 MG TABLET 17.2 MG PO (21:22)
[2022-05-27] MEDS: MELATONIN 3 MG TABLET 6 MG PO (21:57)
[2022-05-28] VITALS (11 sets, daily range): BP systolic 110–136; BP diastolic 60–76; PULSE 66–72; RESP 16–17; TEMP 36–36.3; O2SAT 95–97
[2022-05-28] MEDS: OXYCODONE IR 10 MG TABLET PO ×3 (02:11→12:02)
[2022-05-28 06:35] LABS: Add Manual Diff / Slide Review NO; Basophils Absolute Auto 100 /uL (0-100); Basophils Percent Auto 0.9 % (0-2); Eosinophils Absolute Auto 200 /uL (0-450); Eosinophils Percent Auto 2.5 % (2-4); Hemoglobin 11.1 g/dL (13.5-17.5); Lymphocytes Absolute Auto 1600 /uL (1100-4500); Lymphocytes Percent Auto 20.4 % (25-40); Mean Corpuscular HGB Conc 34.7 % (30-36); Mean Corpuscular Hemoglobin 31.1 PG (26-34); Mean Corpuscular Volume 89.6 fL (80-100); Monocytes Absolute Auto 800 /uL (0-900); Monocytes Percent Auto 10.1 % (3-14); Neutrophils Absolute Auto 5200 /uL (1500-7000); Neutrophils Percent Auto 66.1 % (50-75); Platelet Count 303 X10^3/uL (150-400); Red Blood Cell Count 3.57 X10^6/uL (4.5-5.9); Red Cell Distribution Width 12.8 % (11.6-14.8); White Blood Cell Count 7.9 X10^3/uL (4.5-11.0)
[2022-05-28 06:47] LABS: Alanine Aminotransferase 11 IU/L (<50); Albumin 3.2 g/dL (3.5-5.0); Albumin Globulin Ratio 1.2 (1.0-2.8); Alkaline Phosphatase 578 U/L (38-126); Aspartate Aminotransferase 31 IU/L (17-59); BUN Creatinine Ratio 20.6 (6-22); Bilirubin Total 0.3 mg/dL (0.2-1.3); Blood Urea Nitrogen 14 mg/dL (9-20); Calcium 9.1 mg/dL (8.4-10.2); Carbon Dioxide 25 mmol/L (22-32); Chloride 109 mmol/L (98-107); Estimated Glomerular Filt Rate > 60 mL/min (>60); Globulin 2.6 g/dL (1.7-4.1); Glucose 108 mg/dL (80-110); HEMOLYSIS < 15 (0-50); Potassium 3.6 mmol/L (3.4-5.1); Sodium 139 mmol/L (137-145); Total Protein 5.8 g/dL (6.3-8.2)
[2022-05-28] MEDS: HYDROMORPHONE 0.5 MG INJ IV ×3 (08:28→21:48)
[2022-05-28] MEDS: METOPROLOL ER 50 MG TABLET PO (08:30)
[2022-05-28] MEDS: buPROPion XL 150 MG TAB PO (08:30)
[2022-05-28] MEDS: GABAPENTIN 300 MG CAPSULE 900 MG PO ×3 (08:30→21:31)
[2022-05-28] MEDS: LOSARTAN 50 MG TABLET 100 MG PO (08:31)
[2022-05-28] MEDS: SENNOSIDES 8.6 MG TABLET 17.2 MG PO ×2 (08:31→21:31)
[2022-05-28] MEDS: AMLODIPINE 5 MG TABLET PO (08:31)
[2022-05-28] MEDS: SODIUM CHLORIDE 0.9% FLUSH 10 ML IV ×2 (08:32→23:37)
[2022-05-28] MEDS: polyethylene glycoL 3350 17 GM POWD.PACK PO ×2 (08:32→21:32)
--- NOTE | 2022-05-28 11:38 | P.CONS_ITS ---
History of Present Illness Consult details Date Patient Seen: 05/28/22 Time Patient Seen: 10:30 Chief complaint: chronic back pain Reason for consult: Leg weakness, severe back pain Narrative: Mr. Toribio is a 76 yo M with history of prostate cancer admitted to recent worsening back pain and difficulty walking due to leg weakness. Patient presented to ED and was admitted to medicine service for management. Orthopedic/spine service was consulted. Meds Home Medications and Allergies Home Medications Medication Instructions Recorded Confirmed Type enzalutamide 40 mg capsule (Xtandi) 160 mg PO Q24H prostate cancer 07/22/21 05/26/22 Rx #120 caps Rollator Walker #1 ea 09/22/21 05/26/22 Rx Cbd Gummies 1 gummy PO DAILY PRN pain 01/24/22 05/26/22 History gabapentin 300 mg capsule 900 mg PO TID #180 caps 02/09/22 05/26/22 Rx methocarbamol 500 mg tablet 500 mg PO BEDTIME PRN muscle spasm 05/24/22 05/26/22 Rx #14 tabs oxycodone-acetaminophen 7.5 mg-325 1 tab PO Q8H PRN pain #10 tabs 05/24/22 05/26/22 Rx mg tablet (Percocet) amlodipine 5 mg tablet (Norvasc) 5 mg PO DAILY 05/26/22 05/26/22 History bupropion HCl 150 mg 24 hr tablet, 150 mg PO DAILY 05/26/22 05/26/22 History extended release (Wellbutrin XL) bupropion HCl 150 mg 24 hr tablet, 150 mg PO DAILY 05/26/22 05/26/22 History extended release (Wellbutrin XL) diclofenac sodium 1 % topical gel 4 g topical QID PRN pain 05/26/22 05/26/22 History (Voltaren Arthritis Pain) hydrocodone 10 mg-acetaminophen 1 tab PO CONT PRN pain 05/26/22 05/26/22 History 325 mg tablet lidocaine 5 % topical patch 1 patch topical DAILY PRN Pain 05/26/22 05/26/22 History (Lidoderm) (Scale Score 1-3) losartan 100 mg tablet 100 mg PO DAILY 05/26/22 05/26/22 History metoprolol succinate 50 mg 50 mg PO DAILY 05/26/22 05/26/22 History tablet,extended release 24 hr spironolactone 25 1 tab PO DAILY 05/26/22 05/26/22 History mg-hydrochlorothiazide 25 mg tablet Allergies Allergy/AdvReac Type Severity Reaction Status Date / Time Penicillins Allergy Severe Hives, Verified 05/26/22 18:03 breathing issues Review of Systems Review of Systems ROS: Yes All systems reviewed with the patient and are negative except as otherwise documented Exam Vital Signs (past 8 hours): - 05/28/22 06:06 05/28/22 08:00 05/28/22 06:00 Temperature 96.8 F L 96.9 F L Pulse Rate 71 66 Respiratory Rate 16 17 Blood Pressure 136/76 130/68 Pulse Oximetry 96 95 95 Oxygen Delivery Method Room Air Oxygen Flow Rate 0 Oxygen Delivery Method Room Air Oxygen Flow Rate 0 Back/Spine/Pelvis Other: Bedridden with difficulty sitting, rolling in bed due to severe back pain. Neuro Other: Bilateral LE with 4/5 hip flexion weakness, quadriceps weakness at 4/5, sensibility decreased to bilateral L2, L3, L4 dermatome Objective Labs Result Diagrams: 05/28/22 06:18 05/28/22 06:18 Labs: Laboratory Results - last 24 hr 05/28/22 05/28/22 06:18 06:18 WBC 7.9 RBC 3.57 L Hgb 11.1 L Hct 32.0 L MCV 89.6 MCH 31.1 MCHC 34.7 RDW 12.8 Plt Count 303 Neut % (Auto) 66.1 Lymph % (Auto) 20.4 L [place] % (Auto) 10.1 Eos % (Auto) 2.5 Baso % (Auto) 0.9 Neut # (Auto) 5200 Lymph # (Auto) 1600 [place] # (Auto) 800 Eos # (Auto) 200 Baso # (Auto) 100 Sodium 139 Potassium 3.6 Chloride 109 H Carbon Dioxide 25 BUN 14 Creatinine 0.68 Estimated GFR > 60 BUN/Creatinine Ratio 20.6 Glucose 108 Calcium 9.1 Total Bilirubin 0.3 AST 31 ALT 11 Alkaline Phosphatase 578 H Total Protein 5.8 L Albumin 3.2 L Globulin 2.6 Albumin/Globulin Ratio 1.2 [facility] Medical History Chronic left shoulder pain Elevated alkaline phosphatase level Elevated PSA History of prostate cancer Hypertension Low back pain Obesity Pelvic somatic dysfunction Physical deconditioning Prostate cancer metastatic to bone Sacral region somatic dysfunction Shortness of breath Vision disorder Surgical History Anesthesia H/O right wrist surgery (~1996) H/O umbilical hernia repair History of hip surgery (~1985) History of prostatectomy Family History Mother Parkinson's disease Other No history of cancer Social History household members: family Tobacco & Substance Use Smoking Status: Former smoker alcohol intake: current substance use type: does not use Assessment & Plan Assessment & Plan narrative: 76 yo M with metastatic prostate cancer involving multiple lumbar levels. There is severe spinal stenosis at L2 level with tumor involvement in the epidural space. 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 I discussed at length about my findings and assessment. He is having difficulty working with PT/OT due to severe back pain. I would like to have him try to work with PT/OT to better assess his ability to ambulate. If he continue to have difficulty ambulating due to either severe back pain/inability to assess his walking ability or difficulty walking due to weakness once he's able to work with PT, I will plan for a L2 laminectomy on Monday. In the meanwhile, I will have medicine team work on better pain control and PT/OT for their input on patient's ability to walk from their assessment. Time Spent With Patient Time with patient: 30 to 49 minutes with 50% spent counseling/coordinating care Critical Care time: I spent a total of 45 minutes of critical care time on this patient's care today; this time is exclusive of procedural time.
[2022-05-28] MEDS: dexAMETHasone 4 MG TABLET PO ×2 (12:01→16:48)
[2022-05-28] MEDS: methocarbamoL 500 MG TABLET 750 MG PO (12:02)
[2022-05-28] MEDS: METHADONE 5 MG TABLET 2.5 MG PO ×3 (12:08→21:32)
--- NOTE | 2022-05-28 12:09 | OT.IPNOTE ---
Went to check on pt and Dr. Gómez in the room and states okay to get the pt up as WBAT, assess his mobility and have pt follow log rolling for precautions. Dr. Gómez also wanting therapist to write down in the notes whether his BLE weakness limits his mobility as may possibly consider surgical interventions if needed. Hospitalist also in the room and talking about working on better pain control for the pt. Attempted to get pt up with PT and pt insistent on not trying to get up at this time. Pt wanting to have better pain control before attempting to get up and therefore refusing to be seen today. Pt agreed to try PT eval tomorrow.
--- NOTE | 2022-05-28 12:10 | CM.DPC ---
DCP Cont: Patient has been laying in bed. Discussed patient during team rounds with hospital, that patient decided that he wants to be a full code. He has refused to get up today to work with O.T, due to his pain. According to notes, patient's son, Lavell, does not feel comfortable having patient go home due to his pain levels. Hospice is on the back burner for now, until all other options are met. Patient has prostate cancer with mets, as evidenced by MRI on 05-27. [facility] is an option as well, but he is [place], and will need to work with P.T. P: DCP to continue to follow. Dr. Ortega is reviewing to see if he is a surgical candidate. There is also the possibility of palliative radiation. Patient is to be having a consult with Dr. Baum in oncology, as well. Will also explore senior living facilities as well, but the barrier will be treatments as well. Sabrina Hernandez RN/[employer]
--- NOTE | 2022-05-28 13:01 | PT-IP ANOTE ---
checked on pt x 2. checked on pt this morning and pt refusing PT. stated that he has a lot of pain and just wants to be comfortable. educated regarding benefits of PT and pt continues to refuse. informed pt that PT will check again and agreed. OT informed PT that per Dr. Gómez, wants pt to get up to see if there is weakness on LE to consider surgery needs. Checked back on pt and pt continues to refuse. pt stated that the doctor will start with pain control and wants to see how that will work first before he will move. agreed for PT to check back tomorrow.
--- NOTE | 2022-05-28 16:52 | PM.PN.1 ---
Subjective Subjective Date Patient Seen: 05/28/22 Interval history: 76-year-old gentleman with metastatic prostate cancer, hypertension, obesity who was admitted with worsening back pain and leg weakness. Patient has undergone prior radical prostatectomy and has known diffuse osseous metastases. With treatment, he was showing some improvement in his extensive osseous metastases. He had been able to mobilize up until last week when he became too weak and painful to make it to the bathroom. Imaging has revealed evidence of a L1 compression fracture, expansile metastatic lesion to L2 causing at least moderate central canal stenosis. An MRI was done which revealed diffuse mottled metastatic marrow replacement at T12, L1, and L2 with retropulsed fracture fragment and probable epidural involvement at L1 and L2 resulting in severe central stenosis centered at L2. Metastatic marrow involvement is noted in the right sacrum. There is also expansion of the right L2 pedicle transverse process with extension into the adjacent soft tissue. Orthopedic surgery has evaluated the patient and at this point is trying to ascertain whether his primary mobility limitation is pain or weakness. If he does have significant weakness concerning for worsening spinal stenosis, plan will be for a minimally invasive laminectomy to preserve his neurologic function. However, at this point there is not a recommendation for a larger surgery to stabilize his spine. Dr. Ortega feels he may benefit from evaluation at [facility] or evaluation at the [facility]. However, at this time it is very difficult to coordinate transfers due to hospitals being capacity. Patient report as he has not been getting much benefit from his pain medications. On an outpatient basis he was taking his hydrocodone up to 6-8 per day. Exam Vital Signs (past 8 hours): - 05/28/22 12:00 05/28/22 09:00 05/28/22 14:17 Temperature 96.8 F L Pulse Rate 67 Respiratory Rate 16 Blood Pressure 112/65 112/65 Pulse Oximetry 96 Oxygen Delivery Method Room Air Oxygen Flow Rate 0 05/28/22 10:00 05/28/22 16:00 Temperature 97.3 F L Pulse Rate 67 Respiratory Rate 17 Blood Pressure 110/60 Pulse Oximetry 96 95 Oxygen Delivery Method Room Air Oxygen Flow Rate 0 Oxygen Delivery Method Room Air Oxygen Flow Rate 0 Narrative Exam Narrative: GEN: Middle-aged male, Alert and oriented x 3, NAD HEENT:NC, Face symmetric CHEST: Respiratory excursions symmetric, CTAB CV: RRR, no M/R/G ABD: Soft, NT/ND, BT present in all 4 quadrants, no organomegaly or masses EXTR: warm, well perfused, no C/C/E SKIN: warm and dry, no rash NEURO: Alert and oriented x 3, sensation to the bilateral lower extremities is intact and symmetric Objective Labs Result Diagrams: 05/28/22 06:18 05/28/22 06:18 Labs: Laboratory Results - last 24 hr 05/28/22 05/28/22 06:18 06:18 WBC 7.9 RBC 3.57 L Hgb 11.1 L Hct 32.0 L MCV 89.6 MCH 31.1 MCHC 34.7 RDW 12.8 Plt Count 303 Neut % (Auto) 66.1 Lymph % (Auto) 20.4 L [place] % (Auto) 10.1 Eos % (Auto) 2.5 Baso % (Auto) 0.9 Neut # (Auto) 5200 Lymph # (Auto) 1600 [place] # (Auto) 800 Eos # (Auto) 200 Baso # (Auto) 100 Sodium 139 Potassium 3.6 Chloride 109 H Carbon Dioxide 25 BUN 14 Creatinine 0.68 Estimated GFR > 60 BUN/Creatinine Ratio 20.6 Glucose 108 Calcium 9.1 Total Bilirubin 0.3 AST 31 ALT 11 Alkaline Phosphatase 578 H Total Protein 5.8 L Albumin 3.2 L Globulin 2.6 Albumin/Globulin Ratio 1.2 PFSH Medical History Chronic left shoulder pain Elevated alkaline phosphatase level Elevated PSA History of prostate cancer Hypertension Low back pain Obesity Pelvic somatic dysfunction Physical deconditioning Prostate cancer metastatic to bone Sacral region somatic dysfunction Shortness of breath Vision disorder Surgical History Anesthesia H/O right wrist surgery (~1996) H/O umbilical hernia repair History of hip surgery (~1985) History of prostatectomy Family History Mother Parkinson's disease Other No history of cancer Social History household members: family Smoking Status: Former smoker alcohol intake: current substance use type: does not use Assessment & Plan Assessment & Plan narrative: 1. Prostate cancer with diffuse osseous metastases involving L2 expansile lesion causing fracture and stenosis of the central canal At this time, patient is painful with even being log-rolled in bed. Pain has been poorly controlled. Will add dexamethasone 4 mg b.i.d. or anti-inflammatory purposes and bone pain. Patient is receptive to a trial of methadone and will be initiated on 2.5 mg 3 times daily. Continue gabapentin. His oncologist has not yet been notified of his admission. Will attempt to contact him (or telecommunications specialist partners) for further recommendations as well. 2. UTI Coag-negative staph growing from urine culture thus far. Await final cultures. Continue Rocephin. 3. Hypokalemia Improved after repletion. 4. Hypertension Currently normotensive. Continue amlodipine and metoprolol 5. Depression Continue bupropion Code status Full Prophylaxis Will hold Lovenox in the setting of planned surgical intervention but start as soon and cleared by Orthopedic surgery Disposition Presently pending Time Spent With Patient Critical Care time: I spent a total of [] minutes of critical care time on this patient's care today; this time is exclusive of procedural time. Quality VTE Deep Vein Thrombosis/Pulmonary Embolism Present on Admission: No
--- NOTE | 2022-05-28 17:34 | PC.NURSE ---
a/o, voices needs. 2pa bed mobility. tolerating bedrest thru this shift. Dr Gómez and Dr Phillips consulted earlier in shift. per Dr. Gómez: he will determine if patient is a candidate for laminectomy. patient declined PT/OT today it's too painful right now. requested muscle relaxer from MD as patient still gripping sheets, facial grimace w/ any attempted bed movement. new orders for : decadron. methadone. robaxin. pain control thru shift w/ oxycodone + dilauded IVP. appears to be much more comfortable. tolerating HOB up 35 degrees. appetite is good. hardin patent.
[2022-05-28] MEDS: MELATONIN 3 MG TABLET 6 MG PO (21:31)
[2022-05-28] MEDS: cefTRIAXone 1,000 MG in SODIUM CHLORIDE 0.9% 100 ML 200 MG IV (21:33)
[2022-05-28] MEDS: methocarbamoL 500 MG TABLET PO (21:48)
[2022-05-29] VITALS (9 sets, daily range): BP systolic 114–134; BP diastolic 56–73; PULSE 63–79; RESP 16–20; TEMP 36.1–36.9; O2SAT 97–100
[2022-05-29] MEDS: HYDROMORPHONE 0.5 MG INJ IV ×3 (03:16→19:54)
--- NOTE | 2022-05-29 05:51 | PM.PN.1 ---
Subjective Subjective Date Patient Seen: 05/29/22 Interval history: 76-year-old gentleman with metastatic prostate cancer, hypertension, obesity who was admitted with worsening back pain and leg weakness. Patient has undergone prior radical prostatectomy and has known diffuse osseous metastases. With treatment, he was showing some improvement in his extensive osseous metastases. He had been able to mobilize up until last week when he became too weak and painful to make it to the bathroom. Imaging has revealed evidence of a L1 compression fracture, expansile metastatic lesion to L2 causing at least moderate central canal stenosis. An MRI was done which revealed diffuse mottled metastatic marrow replacement at T12, L1, and L2 with retropulsed fracture fragment and probable epidural involvement at L1 and L2 resulting in severe central stenosis centered at L2. Metastatic marrow involvement is noted in the right sacrum. There is also expansion of the right L2 pedicle transverse process with extension into the adjacent soft tissue. Orthopedic surgery has evaluated the patient and at this point is trying to ascertain whether his primary mobility limitation is pain or weakness. If he does have significant weakness concerning for worsening spinal stenosis, plan will be for a minimally invasive laminectomy to preserve his neurologic function. However, at this point there is not a recommendation for a larger surgery to stabilize his spine. Dr. Ortega feels he may benefit from evaluation at [facility] or evaluation at the [facility]. However, at this time it is very difficult to coordinate transfers due to hospitals being capacity. Patient reports he is getting some benefit from the addition of methadone and dex yesterday. He has not yet had a BM. Rates his pain as 8/10 when nursing attempts to roll him. Says his son wants to talk to doctor regarding his current plan of care. Exam Vital Signs (past 8 hours): - 05/29/22 03:36 Temperature 96.9 F L Pulse Rate 63 Respiratory Rate 16 Blood Pressure 120/69 Pulse Oximetry 98 Oxygen Delivery Method Room Air Oxygen Flow Rate 0 Narrative Exam Narrative: GEN:? Middle-aged male, Alert and oriented x 3, appears more comfortable but continues to grimace w/movement HEENT:NC, Face symmetric CHEST: Respiratory excursions symmetric, CTAB CV: RRR, no M/R/G ABD: Soft, NT/ND, BT present in all 4 quadrants, no organomegaly or masses EXTR: warm, well perfused, no C/C/E SKIN: warm and dry, no rash NEURO: Alert and oriented x 3 Objective Labs Result Diagrams: 05/28/22 06:18 05/28/22 06:18 Labs: Laboratory Results - last 24 hr 05/28/22 05/28/22 06:18 06:18 WBC 7.9 RBC 3.57 L Hgb 11.1 L Hct 32.0 L MCV 89.6 MCH 31.1 MCHC 34.7 RDW 12.8 Plt Count 303 Neut % (Auto) 66.1 Lymph % (Auto) 20.4 L [place] % (Auto) 10.1 Eos % (Auto) 2.5 Baso % (Auto) 0.9 Neut # (Auto) 5200 Lymph # (Auto) 1600 [place] # (Auto) 800 Eos # (Auto) 200 Baso # (Auto) 100 Sodium 139 Potassium 3.6 Chloride 109 H Carbon Dioxide 25 BUN 14 Creatinine 0.68 Estimated GFR > 60 BUN/Creatinine Ratio 20.6 Glucose 108 Calcium 9.1 Total Bilirubin 0.3 AST 31 ALT 11 Alkaline Phosphatase 578 H Total Protein 5.8 L Albumin 3.2 L Globulin 2.6 Albumin/Globulin Ratio 1.2 PFSH Medical History Chronic left shoulder pain Elevated alkaline phosphatase level Elevated PSA History of prostate cancer Hypertension Low back pain Obesity Pelvic somatic dysfunction Physical deconditioning Prostate cancer metastatic to bone Sacral region somatic dysfunction Shortness of breath Vision disorder Surgical History Anesthesia H/O right wrist surgery (~1996) H/O umbilical hernia repair History of hip surgery (~1985) History of prostatectomy Family History Mother Parkinson's disease Other No history of cancer Social History household members: family Smoking Status: Former smoker alcohol intake: current substance use type: does not use Assessment & Plan Assessment & Plan narrative: 1. Prostate cancer with diffuse osseous metastases involving L2 expansile lesion causing fracture and stenosis of the central canal At this time, patient is painful with even being log-rolled in bed.? Pain somewhat improved w/addition of methadone 2.5 TID and dex 4 BID. Continue gabapentin. Encouraged him to ask for oxycodone more frequently if needed. Goal is pain level of 3-4/10 at rest. I spoke to manager of selection and assessment Oncology yesterday who recommends proceeding w/surgery to relieve central cord pressure and then f/u in outpt setting to address next steps (chemo/XRT/more surgery). 2. UTI Coag-negative staph growing from urine culture thus far.? Await final cultures.? Continue Rocephin. 3. Hypokalemia Improved after repletion. Will recheck tomorrow. 4. Hypertension Currently normotensive.? Continue amlodipine and metoprolol 5. Depression Continue bupropion Code status Full Prophylaxis Will hold Lovenox in the setting of planned surgical intervention but start as soon and cleared by Orthopedic surgery Disposition Presently pending Time Spent With Patient Critical Care time: I spent a total of [] minutes of critical care time on this patient's care today; this time is exclusive of procedural time. Quality VTE Deep Vein Thrombosis/Pulmonary Embolism Present on Admission: No
--- NOTE | 2022-05-29 07:39 | PC.NURSE ---
Pt refusing to turn throughout the night due to pain. Pt state he will try to work with PT today, Pt receiving ivp dilauid along with methocarbamol. Pt did felt asleep around 0300.
[2022-05-29] MEDS: METHADONE 5 MG TABLET 2.5 MG PO ×3 (08:36→20:44)
[2022-05-29] MEDS: polyethylene glycoL 3350 17 GM POWD.PACK PO ×2 (08:36→20:43)
[2022-05-29] MEDS: dexAMETHasone 4 MG TABLET PO ×2 (08:36→18:46)
[2022-05-29] MEDS: GABAPENTIN 300 MG CAPSULE 900 MG PO ×3 (08:36→20:43)
[2022-05-29] MEDS: SENNOSIDES 8.6 MG TABLET 17.2 MG PO ×2 (08:36→20:43)
[2022-05-29] MEDS: AMLODIPINE 5 MG TABLET PO (08:36)
[2022-05-29] MEDS: LOSARTAN 50 MG TABLET 100 MG PO (08:37)
[2022-05-29] MEDS: buPROPion XL 150 MG TAB PO (08:37)
[2022-05-29] MEDS: OXYCODONE IR 10 MG TABLET PO ×3 (08:39→18:45)
[2022-05-29] MEDS: METOPROLOL ER 50 MG TABLET PO (08:40)
[2022-05-29] MEDS: SODIUM CHLORIDE 0.9% FLUSH 10 ML IV ×3 (08:43→20:43)
--- NOTE | 2022-05-29 11:11 | P.PN_ITS ---
Exam Vital Signs (past 8 hours): - 05/29/22 03:36 05/29/22 07:41 05/29/22 08:37 Temperature 96.9 F L 97.1 F L Pulse Rate 63 69 69 Respiratory Rate 16 20 Blood Pressure 120/69 123/71 123/71 Pulse Oximetry 98 97 Oxygen Flow Rate 0 05/29/22 08:40 05/29/22 09:15 Temperature Pulse Rate 69 65 Respiratory Rate Blood Pressure 123/71 118/62 Pulse Oximetry Oxygen Flow Rate Oxygen Delivery Method Room Air Oxygen Flow Rate 0 Objective Labs Result Diagrams: 05/28/22 06:18 05/28/22 06:18 [facility] Medical History Chronic left shoulder pain Elevated alkaline phosphatase level Elevated PSA History of prostate cancer Hypertension Low back pain Obesity Pelvic somatic dysfunction Physical deconditioning Prostate cancer metastatic to bone Sacral region somatic dysfunction Shortness of breath Vision disorder Surgical History Anesthesia H/O right wrist surgery (~1996) H/O umbilical hernia repair History of hip surgery (~1985) History of prostatectomy Family History Mother Parkinson's disease Other No history of cancer Social History household members: family Smoking Status: Former smoker alcohol intake: current substance use type: does not use Assessment & Plan Assessment & Plan narrative: Patient was seen and examined again today. Patient refused PT/OT due to pain since we spoke yesterday. I had another lengthy discussion with patient. I also called and had a in depth conversation with patient's son. I wanted to make it clear to the patient that he has weakness in his legs and possible developing bowel/bladder incontinence due to pathologic fracture/epidural metastasis causing severe spinal stenosis at L2 level. I emphasized surgical treatment may help with his neurologic function such as weakness but not his back pain to the patient and his son. Patient's oncologist discussed with our hospitalist and agreed that surgical treatment to preserve neurologic function is feasible. She also recommended f/u as outpatient to discuss further cancer treatment once patient's acute hospitali zation/treatment is concluded. I discussed with patient, his son, about risks of surgery, which includes but not limited to bleeding, infection, additional fracture, worsening pain, dura injury/CSF leakage, need for additional procedure, needing blood transfusion, worsening function and mobility, even . Patient and his son are both open to surgical treatment in order to preserve his quality of life, function and mobility. I told patient and his son there will be an anesthesiologist discussing additional anesthesia risks. Patient has 3+/5 bilateral hip flexion on exam, which is similar to yesterday. I will have PT/OT work with patient and give additional input regarding his mobility. I will tentatively put patient on the surgical schedule for tomorrow for a L2 laminectomy surgery. Time Spent With Patient Critical Care time: I spent a total of [] minutes of critical care time on this patient's care today; this time is exclusive of procedural time. Quality VTE Deep Vein Thrombosis/Pulmonary Embolism Present on Admission: No
--- NOTE | 2022-05-29 12:29 | PT.IIE ---
Current Diagnoses Other malaise (05/26/22) Surgical History (Last Reviewed 05/27/22 @ 18:10 by Joelle Coronado PA-C) Anesthesia H/O right wrist surgery (~1996) H/O umbilical hernia repair History of hip surgery (~1985) History of prostatectomy Medical History (Last Reviewed 05/28/22 @ 11:41 by Laura Gómez MD) Chronic left shoulder pain Elevated alkaline phosphatase level Elevated PSA History of prostate cancer Hypertension Low back pain Obesity Pelvic somatic dysfunction Physical deconditioning Prostate cancer metastatic to bone Sacral region somatic dysfunction Shortness of breath Vision disorder Physical Therapy Inpatient Evaluation/Re-Eval M1 PT/OT-IP Prior Functional Status Start: 05/29/22 09:21 Freq: NEEDED Status: Active Protocol: Document 05/29/22 12:29 AW (Rec: 05/29/22 14:27 AW [id number]) Medical Review Prior Functional Status Medical History Reviewed Yes Communication Pt is able to make his needs known. Mobility and Gait Pt tends to cruise furniture at home. He uses a rollator when he is up. He is typically able to climb stairs to his bedroom. Pt states his pain has increased to the point that he is fearful to stand. Activities of Daily Living and IADL's Pt states he is independent with dressing and toileting. He can still shower on his own but is fearful so tends to do sponge baths instead. Social History Household Members family Living Arrangements Apartment/Condo Number of Floors (Floors) 3 or More Floors Number of Stairs To Enter/Railing? No stairs to enter. Pt's bedroom is one level up from the entry level electrician. Pt thinks home can be rearranged to make a bedroom for him on the entry level electrician. Home Environment Standard Height Toilet,Tub/ Shower Home Equipment Four Wheel Walker,Straight Cane,Crutches,Shower Seat with Backrest,Hand Held Shower Employment Status Retired Additional Social History Comment Pt lives in [place] with his son, Lavell, who works multimedia author from home. M2 PT-IP Current Condition Start: 05/29/22 09:21 Freq: NEEDED Status: Active Protocol: Document 05/29/22 12:29 AW (Rec: 05/29/22 14:27 AW [id number]) Physical Therapy Current Condition Current Condition Evaluation Date 05/29/22 Treatment Diagnosis weakness, prostate CA with bone mets; impaired mobility and gait Onset Date 05/24/22 M3 PT-IP Subjective Start: 05/29/22 09:21 Freq: NEEDED Status: Active Protocol: Document 05/29/22 12:29 AW (Rec: 05/29/22 14:27 AW [id number]) Subjective Physical Therapy Visit Type Type Initial Evaluation Visit Start Time 10:00 Visit Stop Time 12:29 Total Visit Minutes 50 Notes Split visits [id number] and [id number]. Physical Therapy Visit Comments Patient Comments Pt requires much encouragement but is ultimately willing to participate with PT Therapy Pain Assessment Pain When Pain Assessed During Mobility Pain Present Pain Present Pain Reported Location Back Intensity 10 Scale Used Numeric (0 - 10) Pain Behaviors Calling Out,Facial Grimacing, Guarding,Wincing Pain Management Techniques Modification of Treatment,Re- positioning,Timing of Activity with Medications M4 PT-IP Mobility and Gait Start: 05/29/22 09:21 Freq: NEEDED Status: Active Protocol: Document 05/29/22 12:29 AW (Rec: 05/29/22 14:27 AW [id number]) PT-Bed Mobility Assessment Rolling Type of Rolling Log Rolling,Roll to Right Level of Assist Maximal Assistance Supine to Sit Supine to Sit Maximum Assistance,1 Person Assistance,Bedrails Sit to Supine Sit to Supine Maximum Assistance,2 Person Assistance Scooting Scooting to Edge of Bed Maximum Assistance,Dependent Scooting Up and Down in Bed Dependent PT-Transfer Assessment Sit to and From Stand Sit to and from Stand Maximum Assistance,2 Person Assistance,Use of Upper Extremities Comments Mobility Comments Pt was lying in bed as PT arrived mid-morning. Pt refused mobility, stating he was waiting for pain med to work and that he was likely to have surgery tomorrow. Explained to pt that PT evaluation was important information to factor into decision for appropriateness of surgical intervention. Pt asked to wait but was open to PT returning later. Returned 1 .5 hours later and pt was willing to attempt to get up. With HOB flat, pt attempted to roll to his right side but was unable due to pain. He directed his own care and asked PT to move his legs toward right EOB. Keeping LE's in alignment with trunk, pt needed max A to rotate toward EOB and max A to total A to scoot toward EOB for feet flat on floor. Pt sat with CGA/min A for trunk control due to increased pain. PT called nursing for assist and pt attempted to stand x 3 with max A x 2 and max cues for push off with UE's. Pt was able to clear his hips from the bed but could nut extend knees or hips to stand with FWW. He depended significantly on UE support on FWW but could not sustain standing >5 seconds, needing to sit back down each attempt. He was able to scoot laterally in sitting toward HOB with assist and approximation at the feet to keep them stable on the floor. Total A x 2 to return to supine after failed attempt to reverse log roll. Pt cried out in pain during transition to supine and needed total A x 2 to scoot up in bed. Pt was left with nursing attending. Gait Assessment Comments Gait Comments Unable at this time. Stair Climbing Assessment Comments Stair Climbing Comments Not assessed. Pt not able to progress to gait this date. PT-Balance Assessment Sitting Balance and Reactions Static Sitting Balance Ability Fair Dynamic Sitting Balance Ability Fair Standing Balance and Reactions Static Standing Balance Ability Poor Dynamic Standing Balance Ability Poor Device Used FWW M5 PT-IP Objective Assessments Start: 05/29/22 09:21 Freq: NEEDED Status: Active Protocol: Document 05/29/22 12:29 AW (Rec: 05/29/22 14:27 AW [id number]) Orientation Orientation/Cognition Level of Alertness Alert Orientation Name,Month,Place,Situation Safety Awareness Decreased Safety Awareness Gross Range of Motion Lower Extremity ROM Assessment Within Functional Limits Strength Lower Extremity Strength Assessment Bilaterally Impaired Hip 3-/5 Knee 4/5 extension; 3-/5 flexion Comments Strength Comments Pt unable to meaningfully participate with MMT due to cognitive state. Functionally, pt was able to flex and extend knees in supine although flexion was weak, requiring assist. Pt was barely able to clear either LE from the mattress without assist. Sensation Assessment Sensation Gross Sensation WNL Comments Sensation Comments Pt denies sensation disturbance on exam. Muscle Tone Muscle Tone WNL Yes M6 PT-IP Treatment Start: 05/29/22 09:21 Freq: NEEDED Status: Active Protocol: Document 05/29/22 12:29 AW (Rec: 05/29/22 14:27 AW [id number]) Physical Therapy Treatment Education Education Provided Safety M7 PT-IP Assessment and Plan Start: 05/29/22 09:21 Freq: NEEDED Status: Active Protocol: Document 05/29/22 12:29 AW (Rec: 05/29/22 14:27 AW [id number]) PT Summary Assessment and Plan Potential Rehabilitation Potential Fair Status of Condition at Evaluation Evolving Summary Impairments Pain,Strength,Balance, Cognition,Bed Mobility, Transfers,Gait Assessment Summary Jassi is a 76 yo man with metastatic prostate cancer including mets to bone. He is modified independent with use of 4WW at baseline. Bony lesions in his spine are possibly contributing to increased stenosis at L2. He presents with 10/10 pain and global LE weakness most significant proximally. He is requiring max to total assist x 2 for bed mobility and attempts to stand. He is unable to maintain standing at this assessment and can not safely progress to gait. Depending on plan of care, pt may benefit from SNF rehab to improve strength and mobility. If pt returns home, he will need 24/7 assist, home health, and equipment such as wheelchair and hospital bed. Will continue to assess as plan of care develops. Pt lives with his son who works multimedia author from home and is not able to provide 24/7 assist. Goals Bed Mobility Goal Standby Assistance Transfer Goal Standby Assistance,Front Wheeled Walker Gait Goal Standby Assistance,Front Wheel Walker Gait Distance 75 Other Goals -improve gait and transfers to SBA with 4WW Days to Meet Goals 10 Frequency of Treatment Frequency Of Treatment Once a Day Treatment Plan Physical Therapy Treatment Plan Bed Mobility Training,Transfer Training,Gait Training, Therapeutic Exercise,Balance Retraining,Post Op Education, Discharge Planning,Hot or Cold Pack,Neuromuscular Re-ed Other Recommendations and Next Treatment bed mobility, reinforce spinal Focus precautions, sitting tolerance, standing tolerance as able Recommendations To Nursing Amount of Assist Needed PT/OT Assist Only,Mechanical Lift Discharge Recommendations PT Discharge Recommendations Home with 24/7 Assist Available,Home Health,SNF Rehab,Home vs SNF Transportation Needs at Discharge Stretcher/Ambulance
[2022-05-29] MEDS: cefTRIAXone 1,000 MG in SODIUM CHLORIDE 0.9% 100 ML 200 MG IV (20:42)
[2022-05-29] MEDS: MELATONIN 3 MG TABLET 6 MG PO (20:43)
--- NOTE | 2022-05-29 22:20 | PC.NURSE ---
Patient is alert and oriented. Breath sounds diminished at bases but CTA with RA sat of 97%. HRR. Denies nausea. BT hypoactive and has not had a BM since 05/24; medicated with Miralax + Senna. Indwelling catheter is patent; urine is clear, yellow. Is not able to move himself in bed due to pain and weakness so is being repositioned q2h. Has blistered areas on left buttock/mid back and reddened perineum/coccyx. Complained of 8/10 back/leg pain not relieved by po oxycodone so was medicated with Dilaudid with pain decreasing to tolerable level although he has exacerbation of pain with any movement. Is wearing bilateral calf SCD's. Fall risk score is high and bed alarm is activated.
[2022-05-30] VITALS (16 sets, daily range): BP systolic 107–151; BP diastolic 64–81; PULSE 63–83; RESP 11–18; TEMP 36.1–37.6; O2SAT 95–99; BMI 30.5
--- NOTE | 2022-05-30 | DI.RAD.S_ITS ---
PROCEDURE: XR LUMBAR SPINE 2-3V INDICATIONS: L2 LAMINECTOMY TECHNIQUE: 2 views of the lumbar spine were acquired. COMPARISON: [facility], MR, MR LUMBAR SPINE WO/W CON, 05/27/2022, 15:35. [facility], CR, XR LUMBAR SPINE 2-3V, 01/19/2022, 14:52. FINDINGS: Intraoperative images demonstrating instrumentation overlying what appears to be L2. However, spine is not seen in its entirety. Wedge deformities are present which appear to correspond to previous fractures at L1 and L3 IMPRESSION: Intraoperative localization. Dictated by: Jana Daniels M.D. on 05/31/2022 at 11:35 Approved by: Jana Daniels M.D. on 05/31/2022 at 11:37
[2022-05-30] MEDS: OXYCODONE IR 10 MG TABLET PO ×2 (02:03→10:28)
[2022-05-30] MEDS: methocarbamoL 500 MG TABLET 750 MG PO (02:07)
[2022-05-30] MEDS: HYDROMORPHONE 0.5 MG INJ IV ×2 (04:21→19:42)
[2022-05-30] MEDS: SODIUM CHLORIDE 0.9% FLUSH 10 ML IV ×2 (04:22→11:36)
--- NOTE | 2022-05-30 05:23 | PM.PN.1 ---
Subjective Subjective Date Patient Seen: 05/30/22 Interval history: 76-year-old gentleman with metastatic prostate cancer, hypertension, obesity who was admitted with worsening back pain and leg weakness.? Patient has undergone prior radical prostatectomy and has known diffuse osseous metastases.? With treatment, he was showing some improvement in his extensive osseous metastases.? He had been able to mobilize up until last week when he became too weak and painful to make it to the bathroom.? Imaging has revealed evidence of a L1 compression fracture, expansile metastatic lesion to L2 causing at least moderate central canal stenosis.? An MRI was done which revealed diffuse mottled metastatic marrow replacement at T12, L1, and L2 with retropulsed fracture fragment and probable epidural involvement at L1 and L2 resulting in severe central stenosis centered at L2.? Metastatic marrow involvement is noted in the right sacrum.? There is also expansion of the right L2 pedicle transverse process with extension into the adjacent soft tissue. Orthopedic surgery has evaluated the patient and plans to proceed with minimally invasive laminectomy to preserve his neurologic function.? However, at this point there is not a recommendation for a larger surgery to stabilize his spine.? Dr. Ortega feels he may benefit from evaluation at [facility] or evaluation at the [facility].? However, at this time it is very difficult to coordinate transfers due to hospitals being capacity. Patient expresses frustration with feeling as though he is not receiving adequate communication. He states that Dr. Francisco has never told him if he was having surgery or not. I have reminded him that Dr. Ortega was in with him yesterday and the patient complained that Dr. Ortega was being ?redundant ?. Patient states that he had a somewhat confrontational interaction with Dr. Ortega as he felt Dr. Ortega was being unreasonable over telling him to do physical therapy. Patient states he expected Dr. Ortega to return yesterday afternoon and confirm plans for surgery. He states he has at rest chief pain levels of around 3 to 4/10. However a couple of minutes later he discussed that he was in ?excruciating pain all day ?. He has not yet had a bowel movement. ? Exam Vital Signs (past 8 hours): - 05/30/22 00:08 05/30/22 00:08 05/30/22 04:00 Temperature 96.9 F L 97.2 F L Pulse Rate 69 67 Respiratory Rate 14 16 Blood Pressure 114/68 146/81 H Pulse Oximetry 97 97 96 Oxygen Delivery Method Room Air Oxygen Flow Rate 0 0 0 05/30/22 04:00 Temperature Pulse Rate Respiratory Rate Blood Pressure Pulse Oximetry 96 Oxygen Delivery Method Room Air Oxygen Flow Rate 0 Oxygen Delivery Method Room Air Oxygen Flow Rate 0 Narrative Exam Narrative: GEN:? Middle-aged male, Alert and oriented x 2-3, somewhat forgetful, NAD HEENT:NC, Face symmetric CHEST: Respiratory excursions symmetric, CTAB CV: RRR, no M/R/G ABD: Soft, NT/ND, BT present in all 4 quadrants, no organomegaly or masses EXTR: warm, well perfused, no C/C/E SKIN: warm and dry, no rash NEURO: Alert and oriented x 2-3 Objective Labs Result Diagrams: 05/30/22 05:38 05/30/22 05:38 [facility] Medical History Chronic left shoulder pain Elevated alkaline phosphatase level Elevated PSA History of prostate cancer Hypertension Low back pain Obesity Pelvic somatic dysfunction Physical deconditioning Prostate cancer metastatic to bone Sacral region somatic dysfunction Shortness of breath Vision disorder Surgical History Anesthesia H/O right wrist surgery (~1996) H/O umbilical hernia repair History of hip surgery (~1985) History of prostatectomy Family History Mother Parkinson's disease Other No history of cancer Social History household members: family Smoking Status: Former smoker alcohol intake: current substance use type: does not use Assessment & Plan Assessment & Plan narrative: 1. Prostate cancer with diffuse osseous metastases involving L2 expansile lesion causing fracture and stenosis of the central canal Pain is being better controlled with methadone 2.5 mg t.i.d. and dexamethasone 4 mg b.i.d. patient received 50 mg of oxycodone and 2 mg of IV Dilaudid yesterday. I spoke to supplier relationship director Oncology on May 28 who recommended proceeding w/surgery to relieve central cord pressure and then f/u in outpt setting to address next steps (chemo/XRT/more surgery). ? 2. UTI, pansensitive Staph Simulans Final cultures revealed pansensitive Staph Simulans. He has received 3 doses of IV Rocephin. Will discontinue Rocephin at this time. 3. Hypokalemia Resolved. Potassium is 3.5 today. 4. Hypertension Currently normotensive.? Continue amlodipine and metoprolol 5. Depression Continue bupropion Code status Full Prophylaxis Lovenox on hold for planned surgery. We will start Lovenox once cleared by Ortho. Disposition Presently pending Time Spent With Patient Critical Care time: I spent a total of [] minutes of critical care time on this patient's care today; this time is exclusive of procedural time. Quality VTE Deep Vein Thrombosis/Pulmonary Embolism Present on Admission: No
[2022-05-30 06:01] LABS: Add Manual Diff / Slide Review NO; Basophils Absolute Auto 0 /uL (0-100); Basophils Percent Auto 0.3 % (0-2); Eosinophils Absolute Auto 0 /uL (0-450); Eosinophils Percent Auto 0.4 % (2-4); Hematocrit 32.7 % (41-53); Lymphocytes Absolute Auto 1300 /uL (1100-4500); Lymphocytes Percent Auto 11.4 % (25-40); Mean Corpuscular HGB Conc 33.6 % (30-36); Mean Corpuscular Hemoglobin 30.3 PG (26-34); Mean Corpuscular Volume 90.2 fL (80-100); Monocytes Absolute Auto 900 /uL (0-900); Monocytes Percent Auto 8.1 % (3-14); Neutrophils Absolute Auto 9000 /uL (1500-7000); Neutrophils Percent Auto 79.8 % (50-75); Platelet Count 350 X10^3/uL (150-400); Red Blood Cell Count 3.63 X10^6/uL (4.5-5.9); Red Cell Distribution Width 12.7 % (11.6-14.8); White Blood Cell Count 11.3 X10^3/uL (4.5-11.0)
[2022-05-30 06:04] LABS: BUN Creatinine Ratio 25.9 (6-22); Blood Urea Nitrogen 14 mg/dL (9-20); Calcium 8.5 mg/dL (8.4-10.2); Carbon Dioxide 24 mmol/L (22-32); Chloride 107 mmol/L (98-107); Estimated Glomerular Filt Rate > 60 mL/min (>60); Glucose 107 mg/dL (80-110); HEMOLYSIS < 15 (0-50); Potassium 3.5 mmol/L (3.4-5.1); Sodium 136 mmol/L (137-145)
--- NOTE | 2022-05-30 08:18 | PC.RNWOUND ---
Patient resting in bed, says, I'm not up to it right now. I'll let you know when I'm ready, when asked if wound nurse can see and dress skin tear to left flank area.
--- NOTE | 2022-05-30 08:44 | OT.IPNOTE ---
Pt scheduled to have sx today , therefore discharge OT eval at this time.
[2022-05-30] MEDS: METHADONE 5 MG TABLET 2.5 MG PO (09:21)
[2022-05-30] MEDS: GABAPENTIN 300 MG CAPSULE 900 MG PO (09:22)
[2022-05-30] MEDS: METOPROLOL ER 50 MG TABLET PO (09:23)
--- NOTE | 2022-05-30 10:20 | PT-IP ANOTE ---
Discussed pt at AM interdisciplinary rounds. Pt is scheduled to go to OR for minimally invasive laminectomy later today. Will discharge PT orders at this time and await new orders after surgery if pt is appropriate for therapy.
[2022-05-30] MEDS: AMLODIPINE 5 MG TABLET PO (11:28)
--- NOTE | 2022-05-30 11:35 | CM.DPC ---
DCP Cont: Discussed patient during team rounds. Plan is for patient to have surgery today. Post surgery, patient will need to work with P.T. If he refuses, plan will most likely be home, as Bailey will need to see that patient is working with P.T. and progressing for fpc to be covered. P: DCP to continue to follow and will monitor closely after surgery, and discuss skilled versus home. Sabrina Hernandez RN/[employer] Operator
[2022-05-30 13:21] LABS: COVID19 -Nasal RAPID Negative (Negative)
[2022-05-30] MEDS: LACTATED RINGERS 1,000 ML 42 ML IV ×2 (14:19→18:10)
--- NOTE | 2022-05-30 15:01 | PM.PN.1 ---
Exam Vital Signs (past 8 hours): - 05/30/22 08:00 05/30/22 10:00 05/30/22 08:00 Temperature 98.3 F Pulse Rate 75 75 Respiratory Rate 18 Blood Pressure 132/76 132/76 Pulse Oximetry 97 95 Oxygen Delivery Method Room Air Oxygen Flow Rate 0 05/30/22 11:51 05/30/22 12:00 05/30/22 14:27 Temperature 97.5 F L 98.5 F Pulse Rate 63 64 Respiratory Rate 18 16 Blood Pressure 107/68 151/76 H Pulse Oximetry 95 97 98 Oxygen Delivery Method Room Air Room Air Oxygen Flow Rate 0 Oxygen Delivery Method Room Air Oxygen Flow Rate 0 Objective Labs Result Diagrams: 05/30/22 05:38 05/30/22 05:38 Labs: Laboratory Results - last 24 hr 05/30/22 05/30/22 05/30/22 05:38 05:38 09:06 WBC 11.3 H RBC 3.63 L Hgb 11.0 L Hct 32.7 L MCV 90.2 MCH 30.3 MCHC 33.6 RDW 12.7 Plt Count 350 Neut % (Auto) 79.8 H Lymph % (Auto) 11.4 L [place] % (Auto) 8.1 Eos % (Auto) 0.4 L Baso % (Auto) 0.3 Neut # (Auto) 9000 H Lymph # (Auto) 1300 [place] # (Auto) 900 Eos # (Auto) 0 Baso # (Auto) 0 Sodium 136 L Potassium 3.5 Chloride 107 Carbon Dioxide 24 BUN 14 Creatinine 0.54 L Estimated GFR > 60 BUN/Creatinine Ratio 25.9 H Glucose 107 Calcium 8.5 SARS-CoV-2 (PCR) Negative [facility] Medical History Chronic left shoulder pain Elevated alkaline phosphatase level Elevated PSA History of prostate cancer Hypertension Low back pain Obesity Pelvic somatic dysfunction Physical deconditioning Prostate cancer metastatic to bone Sacral region somatic dysfunction Shortness of breath Vision disorder Surgical History Anesthesia H/O right wrist surgery (~1996) H/O umbilical hernia repair History of hip surgery (~1985) History of prostatectomy Family History Mother Parkinson's disease Other No history of cancer Social History household members: family Smoking Status: Former smoker alcohol intake: current substance use type: does not use Assessment & Plan Assessment & Plan narrative: Mr. Toribio was unable to ambulate with PT due to severe weakness to both legs. He is unable to support his own weight to stand even with double assists. He is also having other symptoms of cauda equina syndrome including incontinence. His symptoms have been worsening over the last 2 weeks. I discussed my findings with him and discussed the association of his metatasis at L2 level contributing to severe spinal stenosis and correlation with his progressive weakness. I discussed surgical treatment options along with non-surgical treatment, and associated risks and benefits. He may re-gain some leg strength if a L2 decompression surgery is performed. Risks for surgery include but not limited to bleeding, infection, nerve/dura injury, pathologic fracture, need for blood transfusion, worsening pain, worsening weakness, development of cauda equina syndrome or worsening symptoms of cauda equina syndrome, persisting or worsening leg weakness, need for additional procedure, even . Patient undertands and would like to proceed with surgery. I scheduled him for L2 laminectomy on an urgent basis. Time Spent With Patient Critical Care time: I spent a total of [] minutes of critical care time on this patient's care today; this time is exclusive of procedural time. Quality VTE Deep Vein Thrombosis/Pulmonary Embolism Present on Admission: No
--- NOTE | 2022-05-30 15:31 | PM.HP.1 ---
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 He has MRI of his lumbar showing metastatic bone erosion lesion at multiple lumbar levels with epidural lesion causing severe spinal stenosis. He has been unable to walk due to progressive severe leg weakness. He has developed incontinence as well over the last 2 weeks along with the leg weakness. Patient History Medical History Chronic left shoulder pain Elevated alkaline phosphatase level Elevated PSA History of prostate cancer Hypertension Low back pain Obesity Pelvic somatic dysfunction Physical deconditioning Prostate cancer metastatic to bone Sacral region somatic dysfunction Shortness of breath Vision disorder Surgical History Anesthesia H/O right wrist surgery (~1996) H/O umbilical hernia repair History of hip surgery (~1985) History of prostatectomy Family & Social History Family History Mother Parkinson's disease Other No history of cancer Social History: household members family Prior Living Arrangements Apartment/Condo Safety & Behavioral: Feels Safe in Current No Environment Been Physically Hurt or No Threatened By a Person Tobacco & Substance use: Smoking Status Former smoker alcohol intake current alcohol intake frequency a few times a month Substance Use Type marijuana Meds Home Medications and Allergies Home Medications Medication Instructions Recorded Confirmed Type enzalutamide 40 mg capsule (Xtandi) 160 mg PO Q24H prostate cancer 07/22/21 05/26/22 Rx #120 caps Rollator Walker #1 ea 09/22/21 05/26/22 Rx Cbd Gummies 1 gummy PO DAILY PRN pain 01/24/22 05/26/22 History gabapentin 300 mg capsule 900 mg PO TID #180 caps 02/09/22 05/26/22 Rx methocarbamol 500 mg tablet 500 mg PO BEDTIME PRN muscle spasm 05/24/22 05/26/22 Rx #14 tabs oxycodone-acetaminophen 7.5 mg-325 1 tab PO Q8H PRN pain #10 tabs 05/24/22 05/26/22 Rx mg tablet (Percocet) amlodipine 5 mg tablet (Norvasc) 5 mg PO DAILY 05/26/22 05/26/22 History bupropion HCl 150 mg 24 hr tablet, 150 mg PO DAILY 05/26/22 05/26/22 History extended release (Wellbutrin XL) bupropion HCl 150 mg 24 hr tablet, 150 mg PO DAILY 05/26/22 05/26/22 History extended release (Wellbutrin XL) diclofenac sodium 1 % topical gel 4 g topical QID PRN pain 05/26/22 05/26/22 History (Voltaren Arthritis Pain) hydrocodone 10 mg-acetaminophen 1 tab PO CONT PRN pain 05/26/22 05/26/22 History 325 mg tablet lidocaine 5 % topical patch 1 patch topical DAILY PRN Pain 05/26/22 05/26/22 History (Lidoderm) (Scale Score 1-3) losartan 100 mg tablet 100 mg PO DAILY 05/26/22 05/26/22 History metoprolol succinate 50 mg 50 mg PO DAILY 05/26/22 05/26/22 History tablet,extended release 24 hr spironolactone 25 1 tab PO DAILY 05/26/22 05/26/22 History mg-hydrochlorothiazide 25 mg tablet Allergies Allergy/AdvReac Type Severity Reaction Status Date / Time Penicillins Allergy Severe Hives, Verified 05/26/22 18:03 breathing issues Review of Systems Review of Systems ROS: Yes All systems reviewed with the patient and are negative except as otherwise documented Constitutional Constitutional: Reports body ache(s) Musculoskeletal Musculoskeletal: Reports as per HPI Neurologic Neurologic: Reports as per HPI Exam Vital Signs (past 8 hours): - 05/30/22 08:00 05/30/22 10:00 05/30/22 08:00 Temperature 98.3 F Pulse Rate 75 75 Respiratory Rate 18 Blood Pressure 132/76 132/76 Pulse Oximetry 97 95 Oxygen Delivery Method Room Air Oxygen Flow Rate 0 05/30/22 11:51 05/30/22 12:00 05/30/22 14:27 Temperature 97.5 F L 98.5 F Pulse Rate 63 64 Respiratory Rate 18 16 Blood Pressure 107/68 151/76 H Pulse Oximetry 95 97 98 Oxygen Delivery Method Room Air Room Air Oxygen Flow Rate 0 Oxygen Delivery Method Room Air Oxygen Flow Rate 0 Back/Spine/Pelvis Other: painful lumbar, unable to turn to be examined due to severe pain. Neuro Other: bilateral leg weakenss 3/5 in hip flexion, 4/5 in TA/EHL/gastroc. Objective Labs Result Diagrams: 05/30/22 05:38 05/30/22 05:38 Labs: Laboratory Results - last 24 hr 05/30/22 05/30/22 05/30/22 05:38 05:38 09:06 WBC 11.3 H RBC 3.63 L Hgb 11.0 L Hct 32.7 L MCV 90.2 MCH 30.3 MCHC 33.6 RDW 12.7 Plt Count 350 Neut % (Auto) 79.8 H Lymph % (Auto) 11.4 L [place] % (Auto) 8.1 Eos % (Auto) 0.4 L Baso % (Auto) 0.3 Neut # (Auto) 9000 H Lymph # (Auto) 1300 [place] # (Auto) 900 Eos # (Auto) 0 Baso # (Auto) 0 Sodium 136 L Potassium 3.5 Chloride 107 Carbon Dioxide 24 BUN 14 Creatinine 0.54 L Estimated GFR > 60 BUN/Creatinine Ratio 25.9 H Glucose 107 Calcium 8.5 SARS-CoV-2 (PCR) Negative Assessment & Plan Assessment & Plan narrative: He has progressive leg weakness due to severe spinal stenosis at L2 level with epidural cancer lesion. He has incontinence and leg weakness that has developed over the last two weeks. I discussed with him in depth pros and cons of surgery versus non-surgical treatment. I also discussed with his son about the surgery treatment versus non-surgical treatment. His oncologist gave input stating surgical treatment attempting to recover neurologic function, slow down deterioation is a reasonable recommendation and he does not have objection for it. Risks for surgery include but not limited to bleeding, infection, nerve/dura injury, pathologic fracture, need for blood transfusion, worsening pain, worsening weakness, development of cauda equina syndrome or worsening symptoms of cauda equina syndrome, persisting or worsening leg weakness, need for additional procedure, even . Patient undertands and would like to proceed with surgery. I scheduled him for L2 laminectomy on an urgent basis. Time Spent With Patient Critical Care time: I spent a total of [] minutes of critical care time on this patient's care today; this time is exclusive of procedural time. Quality VTE Deep Vein Thrombosis/Pulmonary Embolism Present on Admission: No
--- NOTE | 2022-05-30 15:47 | P.OP_ITS ---
Operative Date/Time/Diagnoses Date of procedure: 05/30/22 Time of procedure: 15:47 Pre-op diagnosis: 1. Lumbar spinal stenosis at L2 level 2. Cauda equina syndrome Post-op diagnosis: same Procedure & Clinicians Procedure: 1. L2 laminectomy 2. Utilization of microsurgical technique and operating microscope Same procedure as scheduled: Yes Indications: Mr. Toribio is here for urgent surgical treatment of 2 weeks history of worsening leg weakness, development of incontinence. He has been unable to walk due to weakness and severe back pain which was the reason for his admission to the hospital. He has metastatic prostate cancer with multiple mets to his bony skeleton including L2 vertebrae with epidural lesion causing severe spinal stenosis. After discussing risks and benefit and patient's inability to support his own body weight with attempted PT and symptoms of cauda equina syndrome, patient elected to proceed with L2 laminectomy surgery for decompression and attempt to slow down his neurologic deterioration due to his metatatic cancer. Surgeon: Laura Gómez Granite Polisher: Willis Damon Click Yes if Unassisted: No Anesthesia Type: General Operative Notes Closure Type: primary Estimated Blood Loss (mL): 5 Blood products transfused: none Procedure in detail: Patient was seen in the preoperative area. Risks and benefits of the surgery was discussed with the patient. Informed consent was obtained from the patient and placed in the chart. Surgical site was marked. Patient was taken to the operative room. General anesthesia was administered. Prophylactic antibiotic was given to the patient less than 30 min before the incision was made. Patient was placed into a prone position on the Mike table. Patient's back was then prepped and draped in the sterile fashion. Time-out was performed at this time. Using AP and lateral C-arm imaging the interval at L2 was identified and marked on patient's back. A 1 inch incision 1 in from midline was made on the left side. The fascia was incised in line with skin incision. Globus MARS retractors was placed inside the incision and docked onto the L2 lamina. Using microsurgical technique and operating microscope, a L2 laminectomy was performed using a Kerrison rongeur. Liagamentum flavum was resected at the site of the laminotomy. Either side of the dura was exposed. Bilateral partial facetcomies was performed to further decompress the lateral recess. After the laminectomy was completed, the area medial lateral superior and inferior to the area of the laminectomy was inspected and explored using a micro curette. No other impinging structure was identified. The wound was then irrigated with sterile normal saline. 40 mg Depo-Medrol was placed into the epidural space. The deep fascia was closed with 1-0 Vicryl. The subcutaneous tissue was closed with 2-0 Vicryl. The skin was closed with 4-0 Monocryl and derma-rand. Patient tolerated the procedure well. There were no complications. Patient was transferred recovery room in stable condition. Complications: none Post-operative Condition: stable Disposition: Acute Care Plan for aftercare: Admit to inpatient hospital
--- NOTE | 2022-05-30 16:32 | PC.NURSE ---
0800: patient NPO since midnight. had sip of water w/ pain med and metoprolol this AM. allowed turning onto R side, 2pa and supported w/ pillows. appears to be comfortable. 1300: off floor via JANA Waldron. report given, patient left floor in his bed.
--- NOTE | 2022-05-30 16:39 | SUR.OPER ---
pt presents with skin tear on left posterior upper buttock, redness on the left buttock into buttock crease
--- NOTE | 2022-05-30 16:42 | SUR.OPER ---
Prone on spine table, head in foam head support, padded chest and pelvic supports, gel pad at knees, lower legs supported by pillows; nipples, genitalia and toes free of pressure, arms secured on foam padded arm boards at <90 degrees abduction. Tape over blanket at thigh secured to table.
[2022-05-30] MEDS: BUPIVACAINE 0.5% (PF) 30 ML, EPINEPHrine 0.15 MG INJ (16:50)
[2022-05-30] MEDS: CEFAZOLIN 2 GM/20 ML SYRINGE IV (16:51)
--- NOTE | 2022-05-30 17:35 | SUR.HOLD ---
Addendum entered by Vanita Pandey R.N. 05/30/22 17:39: Allyvn dressings placed in OR by OR staff. Original Note: Pt stated he was too painful for skin assessment or changed therefore patient bathed and jourdan-care done after sedation given by anesthesia. Tegaderm to skin tear to left back intact with scant amt sero sang drainage. 2 smaller red areas to lower back as documented in skin assessment.
[2022-05-30] MEDS: fentaNYL 100 MCG/2 ML INJ IV (17:52)
[2022-05-30] MEDS: ONDANSETRON 4 MG/2 ML INJ IV (17:52)
[2022-05-30] MEDS: HYDROMORPHONE 2 MG INJ IV (17:52)
[2022-05-30] MEDS: OXYCODONE/ACETAMINOPHEN 5/325 TABLET 1 TAB PO (17:53)
--- NOTE | 2022-05-30 18:11 | SUR.PHASEI ---
8043 Patient to recovery room with anesthesia and OR nursing staff in stable condition; awake but drowsy; responding appropriately, following all commands, Neuro wnl; turned patient over to right lateral side to assess surgical incision; incision clean, dry and intact with no drainage noted. Patient denies any numbness or tingling. Pruitt catheter draining kyle urine to bedside bad.
--- NOTE | 2022-05-30 18:23 | SUR.PHASEI ---
Patient resting quietly with eyes closed; rr even and unlabored. VSS; Normal sinus rhythm noted with no ectopy. Patient denies pain at this time. Tolerating sips of water without difficulty. Pruitt catheter draining kyle urine to bedside bag.
[2022-05-30] MEDS: SODIUM CHLORIDE 0.9% 1,000 ML 100 ML IV (19:22)
--- NOTE | 2022-05-30 19:23 | PC.NURSE ---
returned to floor after laminectomy at 1900: report given to JANA ORELLANA. shift report given to Nesha, by REYNA. patient is alert w/ verbal stimuli, falls asleep easily. new PIV to LAC. c/o pain at time of return to room. NOC RN will f/u w/ preventive medicine officer. \ LE's are still heavy from general anesthesia. per CJ and OR nurse, patient has 2 dressings on low back. one is large alevyn and other is a small one covering small blisters on Left flank. general diet, obtaining food and drink for him, as oral mucosa is dry, and patient c/o hunger. report to JANA Jeffries.
[2022-05-30] MEDS: SENNOSIDES 8.6 MG TABLET 17.2 MG PO (20:23)
[2022-05-30] MEDS: DOCUSATE 100 MG CAPSULE PO (20:23)
[2022-05-30] MEDS: HYDROCODONE/ACET 10/325 TABLET 1 TAB PO (22:03)
--- NOTE | 2022-05-30 22:39 | PC.NURSE ---
Patient is alert and oriented although having some difficulty with short term memory. Breath sounds diminished throughout; RA sat is 98%. Instructed in CDB and use of I.S. and was able to do 10 repetitions to 1999. HRR. Denies nausea. BT present and is passing flatus but has not had a BM since 05/24. Indwelling catheter is patent; urine is clear, yellow. Staff is repositioning q2h as patient not able to move himself due to back pain and weakness. Dressing to surgical site is CDI. Noted blisters on left buttock/lower back. CMS intact bilateral LE but is still unable to lift legs more than 1/4 off bed. Wearing bilateral calf SCD's. Still with pain ranging in severity from 6-8/10 and has been medicated with Dilaudid earlier and more recently with Vicodin. Fall risk score is high and bed alarm is activated. Noted multiple medications were discontinued by Dr. Gómez following surgery. Informed Dr. Navarrete and provided him with list of medications that were discontinued.
[2022-05-31] VITALS (7 sets, daily range): BP systolic 128–144; BP diastolic 68–78; PULSE 68–77; RESP 14–16; TEMP 35.8–37.1; O2SAT 96–99
[2022-05-31] MEDS: OXYCODONE/ACETAMINOPHEN 7.5/325 TABLET 1 TAB PO (02:57)
[2022-05-31] MEDS: SODIUM CHLORIDE 0.9% 1,000 ML 100 ML IV (05:08)
[2022-05-31 06:23] LABS: BUN Creatinine Ratio 23.3 (6-22); Blood Urea Nitrogen 14 mg/dL (9-20); Calcium 8.3 mg/dL (8.4-10.2); Carbon Dioxide 25 mmol/L (22-32); Chloride 109 mmol/L (98-107); Estimated Glomerular Filt Rate > 60 mL/min (>60); Glucose 101 mg/dL (80-110); HEMOLYSIS < 15 (0-50); Potassium 3.4 mmol/L (3.4-5.1); Sodium 136 mmol/L (137-145)
[2022-05-31 06:26] LABS: Hematocrit 31.9 % (41-53); Hemoglobin 10.7 g/dL (13.5-17.5)
[2022-05-31] MEDS: HYDROCODONE/ACET 10/325 TABLET 1 TAB PO (06:37)
--- NOTE | 2022-05-31 09:15 | PC.RNWOUND ---
Patient attends changed, primary RN removes hardin catheter after it is noted that patient urinates around catheter. Patient complains of pain to penis and upon inspection a 0.2 x 0.2 x approx. 0.1 cm catheter-associated meatal pressure injury is noted where the catheter tubing exited the penis. The periwound is reddened and no drianage is noted. Patient is verbally encouraged to use call button whenever he has to urinate so skin exposure to urine may be minimized, patient verbalizes understanding. No skin breakdown noted to sacrogluteal area.
[2022-05-31] MEDS: hydroCHLOROthiazide 25 MG TABLET PO (09:42)
[2022-05-31] MEDS: POTASSIUM CHLORIDE 20 MEQ TAB 40 MEQ PO (09:42)
[2022-05-31] MEDS: DOCUSATE 100 MG CAPSULE PO ×2 (09:42→20:39)
[2022-05-31] MEDS: SPIRONOLACTONE 25 MG TABLET PO (09:42)
[2022-05-31] MEDS: LOSARTAN 50 MG TABLET 100 MG PO (09:43)
[2022-05-31] MEDS: AMLODIPINE 5 MG TABLET PO (09:43)
[2022-05-31] MEDS: METOPROLOL ER 50 MG TABLET PO (09:46)
[2022-05-31] MEDS: buPROPion XL 150 MG TAB PO (09:46)
[2022-05-31] MEDS: HYDROMORPHONE 0.5 MG INJ IV ×4 (09:49→20:39)
--- NOTE | 2022-05-31 10:46 | PM.PNPO.1 ---
Subjective Subjective Date Patient Seen: 05/31/22 Time Patient Seen: 07:55 Interval history: Patient is complaining of moderate to severe low back pain this morning. He notes the mobility in his bilateral lower extremities has increased since his surgery yesterday. He denies any current bowel incontinence, he has a urinary catheter in place. He notes he still has his baseline thigh tightness. Exam Vital Signs (past 8 hours): - 05/31/22 05:47 05/31/22 09:43 05/31/22 09:46 Temperature 97.1 F L Pulse Rate 77 74 72 Respiratory Rate 16 Blood Pressure 128/72 144/70 H 144/70 H Pulse Oximetry 97 Oxygen Flow Rate 0 Oxygen Delivery Method Room Air Oxygen Flow Rate 0 Narrative Exam Narrative: Pleasant but frail 76-year-old male, resting comfortably in bed, no acute distress. Patient is unable to roll currently due to pain and generalized fatigue. Bilateral lower extremity: Dorsiflexion plantar flexion is grossly intact, sensation is grossly intact to light touch, calves are soft and nontender to palpation. Objective Labs Result Diagrams: 05/31/22 05:50 05/31/22 05:50 Labs: Laboratory Results - last 24 hr 05/30/22 05/31/22 05/31/22 09:06 05:50 05:50 Hgb 10.7 L Hct 31.9 L Sodium 136 L Potassium 3.4 Chloride 109 H Carbon Dioxide 25 BUN 14 Creatinine 0.60 L Estimated GFR > 60 BUN/Creatinine Ratio 23.3 H Glucose 101 Calcium 8.3 L SARS-CoV-2 (PCR) Negative PFSH Medical History Chronic left shoulder pain Elevated alkaline phosphatase level Elevated PSA History of prostate cancer Hypertension Low back pain Obesity Pelvic somatic dysfunction Physical deconditioning Prostate cancer metastatic to bone Sacral region somatic dysfunction Shortness of breath Vision disorder Surgical History Anesthesia H/O right wrist surgery (~1996) H/O umbilical hernia repair History of hip surgery (~1985) History of prostatectomy Family History Mother Parkinson's disease Other No history of cancer Social History household members: family Smoking Status: Former smoker alcohol intake: current substance use type: does not use Assessment & Plan Post-op Postoperative Procedures: Procedures Operation Date: 05/30/22 15:45 Actual Procedure Side Surgeon p L2 Laminectomy Laura Gómez MD Postoperative day: 1 Postoperative status narrative: -stable status post L2 laminectomy Postoperative plan narrative: -mobilize with PT/OT. Limit bending, lifting, twisting x6 weeks -weight bearing as tolerated with front wheel walker -continue with multimodal pain management, we will DC [place] and Percocet and change to scheduled Tylenol and oxycodone. Disposition based on primary team/hospitalist/oncologist Quality VTE Deep Vein Thrombosis/Pulmonary Embolism Present on Admission: No
--- NOTE | 2022-05-31 10:59 | PM.PN.1 ---
Subjective Subjective Date Patient Seen: 05/31/22 Interval history: 76-year-old gentleman with metastatic prostate cancer, hypertension, obesity who was admitted with worsening back pain and leg weakness.? Patient has undergone prior radical prostatectomy and has known diffuse osseous metastases.? With treatment, he was showing some improvement in his extensive osseous metastases.? He had been able to mobilize up until last week when he became too weak and painful to make it to the bathroom.? Imaging has revealed evidence of a L1 compression fracture, expansile metastatic lesion to L2 causing at least moderate central canal stenosis.? An MRI was done which revealed diffuse mottled metastatic marrow replacement at T12, L1, and L2 with retropulsed fracture fragment and probable epidural involvement at L1 and L2 resulting in severe central stenosis centered at L2.? Metastatic marrow involvement is noted in the right sacrum.? There is also expansion of the right L2 pedicle transverse process with extension into the adjacent soft tissue. Pt underwent minimally invasive L2 laminectomy yesterday. He reports he has a bit more strength in his legs today. He is able to independently raise them off the bed about 30 degrees today. He notes his pain seems more localized around his pelvis rather than his back. Denies CP/SOB. No BM yet. He is passing flatus. He will consider using a suppository. Agrees to work w/therapies this afternoon. Exam Vital Signs (past 8 hours): - 05/31/22 05:47 05/31/22 09:43 05/31/22 09:46 Temperature 97.1 F L Pulse Rate 77 74 72 Respiratory Rate 16 Blood Pressure 128/72 144/70 H 144/70 H Pulse Oximetry 97 Oxygen Flow Rate 0 05/31/22 10:55 Temperature Pulse Rate 68 Respiratory Rate Blood Pressure 131/68 Pulse Oximetry Oxygen Flow Rate Oxygen Delivery Method Room Air Oxygen Flow Rate 0 Narrative Exam Narrative: GEN:? Middle-aged male, Alert and oriented x 3, somewhat forgetful, NAD HEENT:NC, Face symmetric CHEST: Respiratory excursions symmetric, CTAB CV: RRR, no M/R/G ABD: Soft, NT/ND, BT present in all 4 quadrants, no organomegaly or masses EXTR: warm, well perfused, no C/C/E SKIN: warm and dry, no rash NEURO: Alert and oriented x 3 Objective Labs Result Diagrams: 05/31/22 05:50 05/31/22 05:50 Labs: Laboratory Results - last 24 hr 05/30/22 05/31/22 05/31/22 09:06 05:50 05:50 Hgb 10.7 L Hct 31.9 L Sodium 136 L Potassium 3.4 Chloride 109 H Carbon Dioxide 25 BUN 14 Creatinine 0.60 L Estimated GFR > 60 BUN/Creatinine Ratio 23.3 H Glucose 101 Calcium 8.3 L SARS-CoV-2 (PCR) Negative PFSH Medical History Chronic left shoulder pain Elevated alkaline phosphatase level Elevated PSA History of prostate cancer Hypertension Low back pain Obesity Pelvic somatic dysfunction Physical deconditioning Prostate cancer metastatic to bone Sacral region somatic dysfunction Shortness of breath Vision disorder Surgical History Anesthesia H/O right wrist surgery (~1996) H/O umbilical hernia repair History of hip surgery (~1985) History of prostatectomy Family History Mother Parkinson's disease Other No history of cancer Social History household members: family Smoking Status: Former smoker alcohol intake: current substance use type: does not use Assessment & Plan Assessment & Plan narrative: 1. Prostate cancer with diffuse osseous metastases involving L2 expansile lesion causing fracture and stenosis of the central canal Upon transfer from OR, methadone and dex were d/c'd and his home dose of percocet was resumed. Will resume methadone 2.5 mg TID for pain mgmt. Will initiate a taper of dex. Resume robaxin. Change oxy back to 10 mg q4 for now. I spoke to director special education Oncology on May 28 who recommended proceeding w/surgery to relieve central cord pressure and then f/u in outpt setting to address next steps (chemo/XRT/more surgery). ? 2. UTI, pansensitive Staph Simulans Final cultures revealed pansensitive Staph Simulans.? He was asymptomatic and received 3 days of IV Rocephin. 3. Hypokalemia Resolved.? Potassium is 3.4 today. 4. Hypertension Remains normotensive.? Continue amlodipine and metoprolol 5. Depression Continue bupropion Code status Full Prophylaxis Lovenox on hold for planned surgery.? We will start Lovenox once cleared by Ortho. Disposition Presently pending. With some mild improvement in functional status w/surgery, it is possible he will be able to go home rather than TCU. Pending eval by therapies. Time Spent With Patient Critical Care time: I spent a total of [] minutes of critical care time on this patient's care today; this time is exclusive of procedural time. Quality VTE Deep Vein Thrombosis/Pulmonary Embolism Present on Admission: No
[2022-05-31] MEDS: OXYCODONE IR 5 MG TABLET 10 MG PO (11:30)
[2022-05-31] MEDS: METHADONE 5 MG TABLET 2.5 MG PO ×3 (11:31→20:40)
[2022-05-31] MEDS: polyethylene glycoL 3350 17 GM POWD.PACK PO (11:31)
[2022-05-31] MEDS: methocarbamoL 500 MG TABLET 750 MG PO (11:32)
--- NOTE | 2022-05-31 14:09 | CM.DPC ---
DCP Cont: Son, Lavell, called. 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 He thought that his dad was already on Medicaid, do not see this on his profile. He indicated, his dad's income is about $1200.00 a month. Discussed skilled rehab, as well, and let him know that this is usually covered by his insurance, for short term rehab before going home. Let him know that for patient to qualify, he would need to work with P.T, so notes can be sent to [facility] Son is concerned that it may be too soon for his dad to work with P.T. Reminded him that this would be a barrier for [facility] if he can't work with P[facility]. Let son know that this DC Therapist Phys can leave a Medicaid application in his room, and Medicaid Choice List, so son can initiate this process with his dad. 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 Left the Medicaid application and Medicare Choice List for rehab in patient's room. P: DCP to continue to follow. Patient most likely will need [facility], but will need to work with P.T. prior, so this can be sent to [facility]. Sabrina Hernandez RN/Screener Perfumer
--- NOTE | 2022-05-31 15:47 | PT-IP ANOTE ---
Met with Pt in AM after discussing with nsng a good treatment time. Informed Pt that therapy would arrive around 2:30 in the afternoon based on medication timing. At 2:30 PT/OT arrived to Pt's room. At this time he is not going to participate with therapy citing pain and uncertainty of his plan of care. Pt verbalizes that he feels like he needs 2-3 days just to rest. We discussed how prolonged bed rest will reduce his strength and tolerance to out of bed mobility and transfers. Pt also verbalized the desire to consider hospice care. When asked if he would like to stop the OT/PT at this time he states yes. I informed him that we would notify CM of this decision and that if he wanted to attempt PT/OT again he can simply ask his nurse/physician/CM. PT/OT discussed Pt's desire to consider hospice.
--- NOTE | 2022-05-31 16:01 | OT.IPNOTE ---
Pt requesting to stop therapy at this time when checking on pt for therapy in PM after setting up a time to see pt after being medicated. Pt states wanting to pursue hospice at this time. Able to speak to case management of pt's wishes. To hold today and probably discharge pt from caseload tomorrow after confirmation of pt and son's decision for hospice. To check on pt tomorrow. NO charge.
[2022-05-31] MEDS: dexAMETHasone 4 MG TABLET PO (17:18)
--- NOTE | 2022-05-31 20:25 | PC.NURSE ---
AM Shift pt states, soreness around penis. Assessed penis and noted penis meatus pressure injury. Wound care nurse Elisha assessed penis meatus. Spoke to Dr. Phillips in person and notified of pressure injury. Dr. Phillips ordered to remove hardin catheter. Hardin catheter removed at 09:26, pt tolerated well, hardin catheter intact with removal.
[2022-05-31] MEDS: SENNOSIDES 8.6 MG TABLET 17.2 MG PO (20:40)
[2022-06-01] MEDS: HYDROMORPHONE 0.5 MG INJ IV ×4 (00:42→16:41)
[2022-06-01 02:00] VITALS: BP 166/92; PULSE 71; RESP 16; TEMP 36.3; O2SAT 97
[2022-06-01 06:33] LABS: BUN Creatinine Ratio 24.5 (6-22); Blood Urea Nitrogen 13 mg/dL (9-20); Calcium 9.1 mg/dL (8.4-10.2); Carbon Dioxide 25 mmol/L (22-32); Chloride 102 mmol/L (98-107); Estimated Glomerular Filt Rate > 60 mL/min (>60); Glucose 116 mg/dL (80-110); HEMOLYSIS < 15 (0-50); Potassium 3.5 mmol/L (3.4-5.1); Sodium 135 mmol/L (137-145)
[2022-06-01] MEDS: ONDANSETRON 4 MG/2 ML INJ IV ×2 (07:07→15:46)
--- NOTE | 2022-06-01 08:28 | P.PN_ITS ---
Subjective Subjective Date Patient Seen: 06/01/22 Time Patient Seen: 08:28 Interval history: The patient is complaining moderate to severe low back pain. He is somewhat sleepy and drowsy this morning. He apparently refused to work with physical therapy yesterday and states again this morning that he just needs a few days to rest. He is considering hospice care. He notes his son is on the way from [place] this morning. Exam Vital Signs (past 8 hours): - 06/01/22 02:00 Temperature 97.4 F L Pulse Rate 71 Respiratory Rate 16 Blood Pressure 166/92 H Pulse Oximetry 97 Oxygen Flow Rate 0 Oxygen Delivery Method Room Air Oxygen Flow Rate 0 Narrative Exam Narrative: Pleasant but frail 76-year-old male, resting comfortably in bed, no acute distress. Bilateral lower extremity: Patient is able to wiggle his toes, sensation is grossly intact to light touch, calves are soft and nontender to palpation. The patient refuses to roll to let me look at his incision this mo rning. Objective Labs Result Diagrams: 05/31/22 05:50 06/01/22 05:45 Labs: Laboratory Results - last 24 hr 06/01/22 05:45 Sodium 135 L Potassium 3.5 Chloride 102 Carbon Dioxide 25 BUN 13 Creatinine 0.53 L Estimated GFR > 60 BUN/Creatinine Ratio 24.5 H Glucose 116 H Calcium 9.1 PFSH Medical History Chronic left shoulder pain Elevated alkaline phosphatase level Elevated PSA History of prostate cancer Hypertension Low back pain Obesity Pelvic somatic dysfunction Physical deconditioning Prostate cancer metastatic to bone Sacral region somatic dysfunction Shortness of breath Vision disorder Surgical History Anesthesia H/O right wrist surgery (~1996) H/O umbilical hernia repair History of hip surgery (~1985) History of prostatectomy Family History Mother Parkinson's disease Other No history of cancer Social History household members: family Smoking Status: Former smoker alcohol intake: current substance use type: does not use Assessment & Plan Assessment & Plan narrative: -stable status post minimally L2 laminectomy Postoperative plan narrative: -Patient is considering stopping PT/OT and going to Hospice. Limit bending, lifting, twisting x6 weeks? -weight bearing as tolerated with front wheel walker? -continue with multimodal pain management Disposition based on primary team/hospitalist/oncologist Time Spent With Patient Critical Care time: I spent a total of [] minutes of critical care time on this patient's care today; this time is exclusive of procedural time. Quality VTE Deep Vein Thrombosis/Pulmonary Embolism Present on Admission: No
--- NOTE | 2022-06-01 08:28 | PM.PN.1 ---
Subjective Subjective Date Patient Seen: 06/01/22 Time Patient Seen: 15:00 Interval history: Patient states she is currently in pain 06/22. Otherwise he states he has comes in terms with his cancer diagnosis. Exam Vital Signs (past 8 hours): - 06/01/22 02:00 Temperature 97.4 F L Pulse Rate 71 Respiratory Rate 16 Blood Pressure 166/92 H Pulse Oximetry 97 Oxygen Flow Rate 0 Oxygen Delivery Method Room Air Oxygen Flow Rate 0 Narrative Exam Narrative: GEN:? Middle-aged male, Alert and oriented x 3, slightly somnolent, NAD HEENT:NC, Face symmetric CHEST: Respiratory excursions symmetric, CTAB CV: RRR, no M/R/G ABD: Soft, NT/ND, BT present in all 4 quadrants, no organomegaly or masses EXTR: warm, well perfused, no C/C/E SKIN: warm and dry, no rash NEURO: Alert and oriented x 3 Objective Labs Result Diagrams: 05/31/22 05:50 06/01/22 05:45 Labs: Laboratory Results - last 24 hr 06/01/22 05:45 Sodium 135 L Potassium 3.5 Chloride 102 Carbon Dioxide 25 BUN 13 Creatinine 0.53 L Estimated GFR > 60 BUN/Creatinine Ratio 24.5 H Glucose 116 H Calcium 9.1 PFSH Medical History Chronic left shoulder pain Elevated alkaline phosphatase level Elevated PSA History of prostate cancer Hypertension Low back pain Obesity Pelvic somatic dysfunction Physical deconditioning Prostate cancer metastatic to bone Sacral region somatic dysfunction Shortness of breath Vision disorder Surgical History Anesthesia H/O right wrist surgery (~1996) H/O umbilical hernia repair History of hip surgery (~1985) History of prostatectomy Family History Mother Parkinson's disease Other No history of cancer Social History household members: family Smoking Status: Former smoker alcohol intake: current substance use type: does not use Assessment & Plan Assessment & Plan narrative: 1. Prostate cancer with diffuse osseous metastases involving L2 expansile lesion causing fracture and stenosis of the central canal -s/p L2 laminectomy on 05/[address] Dalia ortho -continue methadone 2.5 mg TID with oxycodone 10 mg q4 for pain control. -initiate a taper of dex. -Continue robaxin. -Patient now electing for hospice. HOT DIE PRESS FEEDER consult placed. 2. UTI, pansensitive Staph Simulans Final cultures revealed pansensitive Staph Simulans.? He was asymptomatic and received 3 days of IV Rocephin. 3. Hypokalemia Resolved.? Potassium is 3.5 today. 4. Hypertension Remains normotensive.? Continue amlodipine and metoprolol 5. Depression Continue bupropion Code status Full Prophylaxis Lovenox on hold for planned surgery.? We will start Lovenox once cleared by Ortho. Disposition Home with hospice once they are able to open. Time Spent With Patient Critical Care time: I spent a total of [] minutes of critical care time on this patient's care today; this time is exclusive of procedural time. Quality VTE Deep Vein Thrombosis/Pulmonary Embolism Present on Admission: No
[2022-06-01 08:40] VITALS: BP 154/91; PULSE 78; RESP 16; TEMP 36.2; O2SAT 98
[2022-06-01] MEDS: polyethylene glycoL 3350 17 GM POWD.PACK PO (08:49)
[2022-06-01] MEDS: ENOXAPARIN 40 MG/0.4 ML SYRINGE SUBCUT (08:49)
[2022-06-01] MEDS: LOSARTAN 50 MG TABLET 100 MG PO (08:50)
[2022-06-01] MEDS: SENNOSIDES 8.6 MG TABLET 17.2 MG PO ×2 (08:50→21:17)
[2022-06-01] MEDS: hydroCHLOROthiazide 25 MG TABLET PO (08:50)
[2022-06-01] MEDS: DOCUSATE 100 MG CAPSULE PO ×2 (08:50→21:17)
[2022-06-01] MEDS: METOPROLOL ER 50 MG TABLET PO (08:50)
[2022-06-01] MEDS: AMLODIPINE 5 MG TABLET PO (08:50)
[2022-06-01] MEDS: buPROPion XL 150 MG TAB PO (08:50)
[2022-06-01] MEDS: dexAMETHasone 4 MG TABLET PO (08:50)
[2022-06-01] MEDS: SPIRONOLACTONE 25 MG TABLET PO (08:50)
[2022-06-01] MEDS: METHADONE 5 MG TABLET 2.5 MG PO ×3 (08:54→21:16)
[2022-06-01] MEDS: POTASSIUM CHLORIDE 20 MEQ TAB 40 MEQ PO (11:01)
--- NOTE | 2022-06-01 12:06 | OT.IPNOTE ---
Attempted to see pt again for OT anais. Pt insistent of not wanting to get up for therapy and wanting to wait a few more days before trying to get up. Pt states to have a conversation with his son on going to hospice or skilled rehab. Discharge OT anais orders as pt not wanting to get up to do therapy at this time.
[2022-06-01 14:30] VITALS: BP 133/80; PULSE 74; RESP 16; TEMP 36.8; O2SAT 96
[2022-06-01] MEDS: OXYCODONE IR 5 MG TABLET 10 MG PO (14:37)
[2022-06-01] MEDS: ACETAMINOPHEN 325 MG TABLET 650 MG PO (14:39)
--- NOTE | 2022-06-01 15:36 | CM.DPC ---
DCP continued note Patient continues to decline PT and OT due to pain. Hospitalists has goal of care conversation with patient and patient is seeking hospice at home. Hospitalist to update son. PROGRAM DIRECTOR/AIR PERSONALITY submits Hospice orders and faxes referral to [facility]. Plan: DCP to f/u Hospice referral and f/u with availability. Wanda Mireles, DYNAMOTOR REPAIRER
[2022-06-01] MEDS: dexAMETHasone 4 MG TABLET 2 MG PO (17:39)
[2022-06-01] MEDS: methocarbamoL 500 MG TABLET 750 MG PO (18:38)
[2022-06-01 20:00] VITALS: BP 135/71; PULSE 75; RESP 18; TEMP 37.2; O2SAT 97
[2022-06-01] MEDS: TRAZODONE 50 MG TABLET PO (22:21)
[2022-06-02] VITALS (8 sets, daily range): BP systolic 89–141; BP diastolic 46–81; PULSE 71–91; RESP 12–18; TEMP 36.1–37.1; O2SAT 95–97
[2022-06-02] MEDS: OXYCODONE IR 5 MG TABLET 10 MG PO ×2 (04:02→08:33)
[2022-06-02] MEDS: MAG HYDROX/ALUM/SIMETH 30 ML UDC PO (04:48)
[2022-06-02] MEDS: ONDANSETRON 4 MG/2 ML INJ IV (04:48)
[2022-06-02] MEDS: HYDROMORPHONE 0.5 MG INJ IV ×2 (06:59→14:12)
--- NOTE | 2022-06-02 08:15 | P.PN_ITS ---
Subjective Subjective Date Patient Seen: 06/02/22 Time Patient Seen: 14:00 Interval history: And states he continues to be in pain. Denies any other complaints. Exam Vital Signs (past 8 hours): - 06/02/22 00:34 06/02/22 04:34 Temperature 97.8 F 98.7 F Pulse Rate 74 79 Respiratory Rate 16 16 Blood Pressure 141/81 H 116/63 Pulse Oximetry 96 95 Oxygen Flow Rate 0 Oxygen Delivery Method Room Air Oxygen Flow Rate 0 Narrative Exam Narrative: GEN:? Middle-aged male, Alert and oriented x 3, slightly somnolent, NAD HEENT:NC, Face symmetric CHEST: Respiratory excursions symmetric, CTAB CV: RRR, no M/R/G ABD: Soft, NT/ND, BT present in all 4 quadrants, no organomegaly or masses EXTR: warm, well perfused, no C/C/E SKIN: warm and dry, no rash NEURO: Alert and oriented x 3 Objective Labs Result Diagrams: 05/31/22 05:50 06/01/22 05:45 [facility] Medical History Chronic left shoulder pain Elevated alkaline phosphatase level Elevated PSA History of prostate cancer Hypertension Low back pain Obesity Pelvic somatic dysfunction Physical deconditioning Prostate cancer metastatic to bone Sacral region somatic dysfunction Shortness of breath Vision disorder Surgical History Anesthesia H/O right wrist surgery (~1996) H/O umbilical hernia repair History of hip surgery (~1985) History of prostatectomy Family History Mother Parkinson's disease Other No history of cancer Social History household members: family Smoking Status: Former smoker alcohol intake: current substance use type: does not use Assessment & Plan Assessment & Plan narrative: 1. Prostate cancer with diffuse osseous metastases involving L2 expansile lesion causing fracture and stenosis of the central canal -s/p L2 laminectomy on 05/[address] Gómez ortho -palliative care at [facility] who recommended sublingual morphine in place of oxycodone and increasing methadone to 5 mg t.i.d. based on current MME/day of 53 -continue taper of dex. -Continue robaxin. -Patient now electing for hospice. COMMUNITY SERVICE REPRESENTATIVE consult placed. 2. UTI, pansensitive Staph Simulans Final cultures revealed pansensitive Staph Simulans.? He was asymptomatic and received 3 days of IV Rocephin. 3. Hypokalemia Resolved.? Potassium is 3.5 today. 4. Hypertension Remains normotensive.? Continue amlodipine and metoprolol 5. Depression Continue bupropion Code status DNR Prophylaxis Lovenox Disposition Home with hospice once they are able to open. Time Spent With Patient Critical Care time: I spent a total of [] minutes of critical care time on this patient's care today; this time is exclusive of procedural time. Quality VTE Deep Vein Thrombosis/Pulmonary Embolism Present on Admission: No
[2022-06-02] MEDS: buPROPion XL 150 MG TAB PO (08:27)
[2022-06-02] MEDS: polyethylene glycoL 3350 17 GM POWD.PACK PO (08:27)
--- NOTE | 2022-06-02 08:27 | P.PN_ITS ---
Subjective Subjective Date Patient Seen: 06/02/22 Time Patient Seen: 08:28 Interval history: Patient is complaining of severe low back pain this morning as well as left thigh pain and weakness. Patient and his son elected yesterday to continue with hospice. He has refuse physical therapy and occupational therapy. Exam Vital Signs (past 8 hours): - 06/02/22 00:34 06/02/22 04:34 Temperature 97.8 F 98.7 F Pulse Rate 74 79 Respiratory Rate 16 16 Blood Pressure 141/81 H 116/63 Pulse Oximetry 96 95 Oxygen Flow Rate 0 Oxygen Delivery Method Room Air Oxygen Flow Rate 0 Narrative Exam Narrative: 76-year-old male, frail and ill appearing. Mild distress. Lumbar incision dressing is clean, dry, intact. Decubitus Band-Aids are clean, dry, intact. Bilateral lower extremity: Motor functions are grossly intact, sensation is grossly intact to light touch, calves are soft and nontender to palpation. Objective Labs Result Diagrams: 05/31/22 05:50 06/01/22 05:45 [facility] Medical History Chronic left shoulder pain Elevated alkaline phosphatase level Elevated PSA History of prostate cancer Hypertension Low back pain Obesity Pelvic somatic dysfunction Physical deconditioning Prostate cancer metastatic to bone Sacral region somatic dysfunction Shortness of breath Vision disorder Surgical History Anesthesia H/O right wrist surgery (~1996) H/O umbilical hernia repair History of hip surgery (~1985) History of prostatectomy Family History Mother Parkinson's disease Other No history of cancer Social History household members: family Smoking Status: Former smoker alcohol intake: current substance use type: does not use Assessment & Plan Post-op Postoperative Procedures: Procedures Operation Date: 05/30/22 15:45 Actual Procedure Side Surgeon p L2 Laminectomy Laura Gómez MD Postoperative day: 3 Postoperative status: marginal pain control Postoperative status narrative: -marginal pain control status post minimally L2 laminectomy for metastatic prostate cancer Postoperative plan narrative: -continue with hospice care. Limit bending, lifting, twisting x6 weeks -weight bearing as tolerated with front wheel walker -continue with multimodal pain management -okay to resume Lovenox, per Dr. Gómez Disposition based on primary team/hospitalist/oncologist -orthopedics to sign off at this time, please do not hesitate to re-consult with any further questions or concerns. Quality VTE Deep Vein Thrombosis/Pulmonary Embolism Present on Admission: No
[2022-06-02] MEDS: hydrOXYzine pamoate 25 MG CAPSULE PO (08:28)
[2022-06-02] MEDS: ACETAMINOPHEN 325 MG TABLET 650 MG PO (08:28)
[2022-06-02] MEDS: METOPROLOL ER 50 MG TABLET PO (08:29)
[2022-06-02] MEDS: METHADONE 5 MG TABLET 2.5 MG PO (08:29)
[2022-06-02] MEDS: AMLODIPINE 5 MG TABLET PO (08:29)
[2022-06-02] MEDS: LOSARTAN 50 MG TABLET 100 MG PO (08:30)
[2022-06-02] MEDS: SPIRONOLACTONE 25 MG TABLET PO (08:31)
[2022-06-02] MEDS: SENNOSIDES 8.6 MG TABLET 17.2 MG PO (08:31)
[2022-06-02] MEDS: hydroCHLOROthiazide 25 MG TABLET PO (08:32)
[2022-06-02] MEDS: ENOXAPARIN 40 MG/0.4 ML SYRINGE SUBCUT ×2 (08:32→09:15)
[2022-06-02] MEDS: DOCUSATE 100 MG CAPSULE PO (08:33)
[2022-06-02] MEDS: dexAMETHasone 4 MG TABLET 2 MG PO ×2 (08:33→18:25)
[2022-06-02] MEDS: methocarbamoL 500 MG TABLET 750 MG PO (08:50)
--- NOTE | 2022-06-02 09:20 | PC.RNWOUND ---
Patient resting in bed, condom cath appears intact and draining clear yellow urine to gravity, patient presently on right side with 30 degree tilt, reports comfort with this position at this time, left lateral posterior trunk allevyn dressings CDI, each is lifted and replaced to reveal small, superficial abrasions/ skin tear which all appear to be epithelializing.
--- NOTE | 2022-06-02 09:27 | CM.DPNOTE ---
Faxed referral to [facility] per Charmaine. Lorena Nelson CM Assist.
[2022-06-02] MEDS: METHADONE 5 MG TABLET PO (14:15)
[2022-06-02] MEDS: MORPHINE 10 MG/0.5 ML ORAL SYRINGE 15 MG SL (14:15)
--- NOTE | 2022-06-02 21:04 | PC.NURSE ---
Patient refusing most care including turns and medication. Flat affect and will sometimes not respond, instead just stare. Confirmed patient could understand my questions. Patient currently states they just want to sleep.
[2022-06-03] VITALS (7 sets, daily range): BP systolic 97–127; BP diastolic 61–71; PULSE 75–99; RESP 15–18; TEMP 36.2–36.6; O2SAT 95–97
[2022-06-03] MEDS: MORPHINE 10 MG/0.5 ML ORAL SYRINGE 15 MG SL ×2 (04:58→13:44)
[2022-06-03] MEDS: HYDROMORPHONE 0.5 MG INJ IV (05:10)
--- NOTE | 2022-06-03 08:21 | P.PN_ITS ---
Subjective Subjective Date Patient Seen: 06/03/22 Time Patient Seen: 15:00 Interval history: States he is still in pain. He was unwilling to work with physical therapy today stating ?I have not made up my mind yet?. Long discussion was held with the patient and son on speaker phone at the bedside about next steps of care. Exam Vital Signs (past 8 hours): - 06/03/22 05:15 Temperature 97.1 F L Pulse Rate 75 Respiratory Rate 18 Blood Pressure 127/70 Pulse Oximetry 97 Oxygen Flow Rate 0 Oxygen Delivery Method Room Air Oxygen Flow Rate 0 Narrative Exam Narrative: GEN:? Middle-aged male, Alert and oriented x 3, more awake today, NAD HEENT:NC, Face symmetric CHEST: Respiratory excursions symmetric, CTAB CV: RRR, no M/R/G ABD: Soft, NT/ND, BT present in all 4 quadrants, no organomegaly or masses EXTR: warm, well perfused, no C/C/E SKIN: warm and dry, no rash NEURO: Alert and oriented x 3 Objective Labs Result Diagrams: 05/31/22 05:50 06/01/22 05:45 PFS Medical History Chronic left shoulder pain Elevated alkaline phosphatase level Elevated PSA History of prostate cancer Hypertension Low back pain Obesity Pelvic somatic dysfunction Physical deconditioning Prostate cancer metastatic to bone Sacral region somatic dysfunction Shortness of breath Vision disorder Surgical History Anesthesia H/O right wrist surgery (~1996) H/O umbilical hernia repair History of hip surgery (~1985) History of prostatectomy Family History Mother Parkinson's disease Other No history of cancer Social History household members: family Smoking Status: Former smoker alcohol intake: current substance use type: does not use Assessment & Plan Assessment & Plan narrative: 1. Prostate cancer with diffuse osseous metastases involving L2 expansile lesion causing fracture and stenosis of the central canal -s/p L2 laminectomy on 05/[address] Gómez ortho -palliative care at [facility] who recommended sublingual morphine in place of oxycodone and increasing methadone to 5 mg t.i.d. based on current MME/day of 53 -continue taper of dex. -Continue robaxin. -increase morphine SL to 20mg, holding dilaudid due to somnolence -patient unwilling to work with physical therapy today stating he wants his son present, they will try again tomorrow 2. UTI, pansensitive Staph Simulans Final cultures revealed pansensitive Staph Simulans.? He was asymptomatic and received 3 days of IV Rocephin. 3. Hypokalemia Resolved.? Potassium is 3.5 today. 4. Hypertension Remains normotensive.? Continue amlodipine and metoprolol 5. Depression Continue bupropion Code status DNR Prophylaxis Lovenox Disposition Unclear, patient deciding on hospice vs SNF for rehab. Time Spent With Patient Critical Care time: I spent a total of [] minutes of critical care time on this patient's care today; this time is exclusive of procedural time. Quality VTE Deep Vein Thrombosis/Pulmonary Embolism Present on Admission: No
[2022-06-03] MEDS: buPROPion XL 150 MG TAB PO (10:13)
[2022-06-03] MEDS: hydroCHLOROthiazide 25 MG TABLET PO (10:14)
[2022-06-03] MEDS: polyethylene glycoL 3350 17 GM POWD.PACK PO (10:14)
[2022-06-03] MEDS: ENOXAPARIN 40 MG/0.4 ML SYRINGE SUBCUT (10:14)
[2022-06-03] MEDS: DOCUSATE 100 MG CAPSULE PO ×2 (10:14→20:18)
[2022-06-03] MEDS: GABAPENTIN 300 MG CAPSULE 900 MG PO ×3 (10:15→20:17)
[2022-06-03] MEDS: LOSARTAN 50 MG TABLET 100 MG PO (10:15)
[2022-06-03] MEDS: SPIRONOLACTONE 25 MG TABLET PO (10:16)
[2022-06-03] MEDS: METHADONE 5 MG TABLET PO ×2 (10:16→20:26)
[2022-06-03] MEDS: SENNOSIDES 8.6 MG TABLET 17.2 MG PO ×2 (10:16→20:17)
[2022-06-03] MEDS: dexAMETHasone 4 MG TABLET 2 MG PO ×2 (10:17→18:07)
[2022-06-03] MEDS: hydrOXYzine pamoate 25 MG CAPSULE PO (10:34)
--- NOTE | 2022-06-03 11:05 | DIET.CONS ---
Dietary Consultation Note Admission Date: 05/26/2022 21:47 Assessment: Tried to meet with pt. He was on the phone as asked RD to return later. Will try again this afternoon. Electronically Signed by: Lisa Epps 06/03/22 11:05 Clinical Dietitian [address] [id number]
--- NOTE | 2022-06-03 15:23 | DIET.CONS ---
Dietary Consultation Note Admission Date: 05/26/2022 21:47 Assessment: Tried to meet with pt but currently in with provider. Per discharge planning, some discussion on plan of care currently. Discussion on hospice. No recent PO documented. RN reports limited PO, nibbling but did consume one ensure chrissy. Will ask kitchen to send ONS BID. Ht: 170.18 cm Wt: 88.451 kg BMI: 30.5 UBW: Last BM: 06/01/22 (06/01/22 06:30) MNA: 8 Khoi Score: 11 Diet: 05/30/22 Dinner General (Regular) Diet Diet Modifications: Nutrition Percent Meal Consumed 0% 06/01/22 18:00 Labs: RBC 3.63 X10^6/uL (4.5-5.9) L 05/30/22 05:38 Hgb 10.7 g/dL (13.5-17.5) L 05/31/22 05:50 Hct 31.9 % (41-53) L 05/31/22 05:50 Creatinine 0.53 mg/dL (0.66-1.25) L 06/01/22 05:45 Lactate 1.2 mmol/L (0.7-2.1) 05/26/22 19:20 Electronically Signed by: Lisa Epps 06/03/22 15:23 Clinical Dietitian [address] [address]
--- NOTE | 2022-06-03 15:53 | PT-IP ANOTE ---
Received PT anais. Checked on pt and pt refusing PT. Pt was just evaluated 05/29 but has refused PT afterwards. Per MD note, pt now willing to do PT but pt continues refuse. educated pt on PT and consistency with participation. Pt stated that he has been talking to his son about it but at this time he does not know what he wants but stated that he does not want PT at this time and agreed to d/c PT order. Talked with hospitalist and informed regarding pt's refusal. Hospitalist called pt's son Lavell to inform that pt is refusing. Son asked if pt can still go to SNF and PT informed son that going to SNF for rehab purposes will not happen if the pt is refusing PT in the hospital. Son asked if pt can try to do what he can do when he feels like doing it for PT. Informed son regarding importance of consistent participation and carryover for functional goal and that PT does not do maintenance therapy. Son stated that pt is saying that he will do PT. Hospitalist and PT went in to pt's room with son on the phone to clarify pt's wants. pt continues to refuse. Left pt and hospitalist to talk with pt's son. Checked back with hospitalist and stated that now, pt is agreeing to do PT when son is around but son cannot come in today and will come in tomorrow at 9am. informed hospitalist that son should be ready to commit to coming in everyday if pt's condition to participate is when the son is around and also to carryout when pt goes to SNF. will f/u tomorrow.
[2022-06-03] MEDS: MORPHINE 10 MG/0.5 ML ORAL SYRINGE 20 MG SL (20:26)
[2022-06-04] VITALS (10 sets, daily range): BP systolic 78–126; BP diastolic 32–83; PULSE 64–93; RESP 10–18; TEMP 35.8–36.6; O2SAT 93–98
[2022-06-04] MEDS: NALOXONE 0.4 MG/ML VIAL 0.2 MG IV (01:44)
--- NOTE | 2022-06-04 03:03 | PC.NURSE ---
Patient give SL Morphine per order, RR decreased to 10, all other VS WNL. Narcan x1 given RR increased to 16. BRISEIDA Reynoso and coordinator notified.
[2022-06-04] MEDS: hydrOXYzine pamoate 25 MG CAPSULE PO (06:13)
[2022-06-04 06:31] LABS: Add Manual Diff / Slide Review NO; Basophils Absolute Auto 100 /uL (0-100); Basophils Percent Auto 0.6 % (0-2); Eosinophils Absolute Auto 100 /uL (0-450); Eosinophils Percent Auto 0.5 % (2-4); Hematocrit 35.9 % (41-53); Hemoglobin 12.2 g/dL (13.5-17.5); Lymphocytes Absolute Auto 1900 /uL (1100-4500); Lymphocytes Percent Auto 12.3 % (25-40); Mean Corpuscular Hemoglobin 30.2 PG (26-34); Mean Corpuscular Volume 88.8 fL (80-100); Monocytes Absolute Auto 1700 /uL (0-900); Monocytes Percent Auto 10.9 % (3-14); Neutrophils Absolute Auto 11800 /uL (1500-7000); Neutrophils Percent Auto 75.7 % (50-75); Platelet Count 437 X10^3/uL (150-400); Red Blood Cell Count 4.04 X10^6/uL (4.5-5.9); Red Cell Distribution Width 12.5 % (11.6-14.8); White Blood Cell Count 15.6 X10^3/uL (4.5-11.0)
[2022-06-04 06:35] LABS: BUN Creatinine Ratio 43.7 (6-22); Blood Urea Nitrogen 38 mg/dL (9-20); Calcium 9.1 mg/dL (8.4-10.2); Carbon Dioxide 27 mmol/L (22-32); Chloride 96 mmol/L (98-107); Estimated Glomerular Filt Rate > 60 mL/min (>60); Glucose 114 mg/dL (80-110); HEMOLYSIS < 15 (0-50); Potassium 3.5 mmol/L (3.4-5.1); Sodium 131 mmol/L (137-145)
[2022-06-04] MEDS: SODIUM CHLORIDE 0.9% 500 ML 1000 ML IV (08:14)
[2022-06-04] MEDS: METHADONE 5 MG TABLET PO ×3 (08:26→21:24)
[2022-06-04] MEDS: GABAPENTIN 300 MG CAPSULE 900 MG PO ×3 (08:26→21:24)
[2022-06-04] MEDS: buPROPion XL 150 MG TAB PO (08:26)
[2022-06-04] MEDS: ENOXAPARIN 40 MG/0.4 ML SYRINGE SUBCUT (08:26)
[2022-06-04] MEDS: dexAMETHasone 4 MG TABLET 2 MG PO ×2 (08:26→17:51)
--- NOTE | 2022-06-04 08:31 | PM.PN.1 ---
Subjective Subjective Date Patient Seen: 06/04/22 Time Patient Seen: 10:00 Interval history: Patient ready to work with PT today. Son is at the bedside. He has no complaints other than pain. Exam Vital Signs (past 8 hours): - 06/04/22 01:30 06/04/22 01:50 06/04/22 05:57 Temperature 97.5 F L Pulse Rate 64 69 87 Respiratory Rate 10 L 16 14 Blood Pressure 114/64 124/83 99/53 L Pulse Oximetry 94 98 93 06/04/22 08:27 Temperature Pulse Rate Respiratory Rate Blood Pressure 95/32 L Pulse Oximetry Oxygen Delivery Method Room Air Oxygen Flow Rate 0 Narrative Exam Narrative: GEN:? Middle-aged male, Alert and oriented x 3, more awake today, NAD. Obese HEENT:NC, Face symmetric CHEST: Respiratory excursions symmetric, CTAB CV: RRR, no M/R/G ABD: Soft, NT/ND, BT present in all 4 quadrants, no organomegaly or masses EXTR: warm, well perfused, no C/C/E SKIN: warm and dry, no rash NEURO: Alert and oriented x 3 Objective Labs Result Diagrams: 06/04/22 05:55 06/04/22 05:55 Labs: Laboratory Results - last 24 hr 06/04/22 06/04/22 05:55 05:55 WBC 15.6 H RBC 4.04 L Hgb 12.2 L Hct 35.9 L MCV 88.8 MCH 30.2 MCHC 34.0 RDW 12.5 Plt Count 437 H Neut % (Auto) 75.7 H Lymph % (Auto) 12.3 L [place] % (Auto) 10.9 Eos % (Auto) 0.5 L Baso % (Auto) 0.6 Neut # (Auto) 96979 H Lymph # (Auto) 1900 [place] # (Auto) 1700 H Eos # (Auto) 100 Baso # (Auto) 100 Sodium 131 L Potassium 3.5 Chloride 96 L Carbon Dioxide 27 BUN 38 H Creatinine 0.87 Estimated GFR > 60 BUN/Creatinine Ratio 43.7 H Glucose 114 H Calcium 9.1 PFSH Medical History Chronic left shoulder pain Elevated alkaline phosphatase level Elevated PSA History of prostate cancer Hypertension Low back pain Obesity Pelvic somatic dysfunction Physical deconditioning Prostate cancer metastatic to bone Sacral region somatic dysfunction Shortness of breath Vision disorder Surgical History Anesthesia H/O right wrist surgery (~1996) H/O umbilical hernia repair History of hip surgery (~1985) History of prostatectomy Family History Mother Parkinson's disease Other No history of cancer Social History household members: family Smoking Status: Former smoker alcohol intake: current substance use type: does not use Assessment & Plan Assessment & Plan narrative: 1. Prostate cancer with diffuse osseous metastases involving L2 expansile lesion causing fracture and stenosis of the central canal -s/p L2 laminectomy on 05/[address] Gómez ortho -palliative care at [facility] who recommended sublingual morphine in place of oxycodone and increasing methadone to 5 mg t.i.d. based on current MME/day of 53 -continue taper of dex. -Continue robaxin. -increase morphine SL to 20mg, holding dilaudid due to somnolence -patient to work with PT today, will need daily PT to qualify for SNF -BROACH GRINDER working on SNF referrals to see if he is accepted 2. UTI, pansensitive Staph Simulans Final cultures revealed pansensitive Staph Simulans.? He was asymptomatic and received 3 days of IV Rocephin. 3. Hypokalemia Resolved.? 4. Hypertension Remains normotensive.? Continue amlodipine and metoprolol 5. Depression Continue bupropion Code status DNR Prophylaxis Lovenox Disposition Patient attempting rehab to qualify for SNF. If he can't maintain daily PT, then hospice. Time Spent With Patient Critical Care time: I spent a total of [] minutes of critical care time on this patient's care today; this time is exclusive of procedural time. Quality VTE Deep Vein Thrombosis/Pulmonary Embolism Present on Admission: No
[2022-06-04] MEDS: ACETAMINOPHEN 325 MG TABLET 650 MG PO ×2 (10:06→17:50)
--- NOTE | 2022-06-04 10:48 | PT.IIE ---
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) Other malaise (05/26/22) Surgery Performed Operation Date: 05/30/22 15:45 Actual Procedures p L2 Laminectomy - Laura Gómez MD Surgical History (Last Reviewed 06/04/22 @ 08:32 by Randall Wheeler DO) Anesthesia H/O right wrist surgery (~1996) H/O umbilical hernia repair History of hip surgery (~1985) History of prostatectomy Medical History (Last Reviewed 06/04/22 @ 08:32 by Randall Wheeler DO) Chronic left shoulder pain Elevated alkaline phosphatase level Elevated PSA History of prostate cancer Hypertension Low back pain Obesity Pelvic somatic dysfunction Physical deconditioning Prostate cancer metastatic to bone Sacral region somatic dysfunction Shortness of breath Vision disorder Physical Therapy Inpatient Evaluation/Re-Eval M1 PT/OT-IP Prior Functional Status Start: 05/29/22 09:21 Freq: NEEDED Status: Active Protocol: Document 06/04/22 10:48 AB (Rec: 06/04/22 14:28 AB [email or web address]) Medical Review Prior Functional Status Medical History Reviewed Yes Communication Pt is able to make his needs known. Mobility and Gait per son: pt uses a 4WW for mobility indoors and outdoors for the last 3-4 months due to back pain but prior to that, does not use AD indoors but furniture cruises and uses 2 hiking poles for outdoor mobility and occasionally uses crutches/SPC. Social History Household Members family Living Arrangements Apartment/Condo Number of Floors (Floors) 3 or More Floors Number of Stairs To Enter/Railing? No stairs to enter and pt will stay on main level of the house Home Environment Standard Height Toilet,Tub/ Shower Home Equipment Four Wheel Walker,Straight Cane,Crutches,Shower Seat with Backrest Additional Social History Comment pt has his son at home that works from home M2 PT-IP Current Condition Start: 05/29/22 09:21 Freq: NEEDED Status: Active Protocol: Document 06/04/22 10:48 AB (Rec: 06/04/22 14:28 AB [email or web address]) Physical Therapy Current Condition Current Condition Evaluation Date 06/04/22 Treatment Diagnosis prostate CA with mets s/p L2 laminectomy; difficulty in walking Onset Date 05/26/22 M3 PT-IP Subjective Start: 05/29/22 09:21 Freq: NEEDED Status: Active Protocol: Document 06/04/22 10:48 AB (Rec: 06/04/22 14:28 AB [email or web address]) Subjective Physical Therapy Visit Type Type Initial Evaluation Visit Start Time 10:48 Visit Stop Time 11:53 Total Visit Minutes 65 Number of ENROLLMENT SERVICES VICE PRESIDENT Visits 0 Physical Therapy Visit Comments Patient Comments checked on pt at 9 am as per son's request but son was not yet in room with pt at that time. pt was refusing PT. Son arrive 920 am. Checked back on pt and son in room. pt agreed to do PT. M4 PT-IP Mobility and Gait Start: 05/29/22 09:21 Freq: NEEDED Status: Active Protocol: Document 06/04/22 10:48 AB (Rec: 06/04/22 14:28 AB [email or web address]) PT-Bed Mobility Assessment Supine to Sit Supine to Sit Total Assistance,2 Person Assistance,Head of Bed Elevated,Bedrails Sit to Supine Sit to Supine 2 Person Assistance Scooting Scooting to Edge of Bed Dependent Scooting Up and Down in Bed Dependent PT-Transfer Assessment Comments Mobility Comments educated on back precautions and log roll bed mobility. BP : 102/54. attempted log roll bed mobility but pt c/o increase back pain with increase guarding. elevated HOB up to assist with sitting on EOB. completed total A x 2 and max cues. initial max A for sitting balance on EOB. c /o 8/10 pain. encouraged pt to sit up on the EOB requiring mod to max A after repositioning. cued pt to sit up by himself without support and completed ~ 2 min SBA. pt requesting to lie back down and does not want to sit up on the chair today due to pain . refused to do standing. completed sit to supine total A x 2 and max cues. total A x 2 for positioning in bed. BP: 125/64. call light and table placed within reach. informed pt and son regarding rehab goals, consistency of participation and carryover of functional gains. also informed about rehab limitations due to medical complexities. Son understood. PT-Balance Assessment Sitting Balance and Reactions Static Sitting Balance Ability Fair Dynamic Sitting Balance Ability Poor M5 PT-IP Objective Assessments Start: 05/29/22 09:21 Freq: NEEDED Status: Active Protocol: Document 06/04/22 10:48 AB (Rec: 06/04/22 14:28 AB [id number]) Orientation Orientation/Cognition Level of Alertness Alert Orientation Name,Place,Situation Language Function Ability No Deficits Noted Safety Awareness Decreased Safety Awareness Memory Description Short Term Impaired Gross Range of Motion Lower Extremity ROM Assessment Within Functional Limits Strength Lower Extremity Strength Assessment Bilaterally Impaired Hip 3-/5 Knee 3/5 Muscle Tone Muscle Tone WNL Yes M6 PT-IP Treatment Start: 05/29/22 09:21 Freq: NEEDED Status: Active Protocol: Document 06/04/22 10:48 AB (Rec: 06/04/22 14:28 AB [email or web address]) Physical Therapy Treatment Education Education Provided Precautions,Safety M7 PT-IP Assessment and Plan Start: 05/29/22 09:21 Freq: NEEDED Status: Active Protocol: Document 06/04/22 10:48 AB (Rec: 06/04/22 14:28 AB [email or web address]) PT Summary Assessment and Plan Potential Rehabilitation Potential Fair Status of Condition at Evaluation Evolving Summary Impairments Pain,ROM,Strength,Balance, Coordination,Sensation,Tone, Cognition,Bed Mobility, Transfers,Gait,Activity Tolerance Assessment Summary pt requiring total A x 2 with mobility and will need 24/7 assist at this time. Pt with c/o increase pain limiting mobility and activity tolerance. Goals Bed Mobility Goal Moderate Assistance Transfer Goal Moderate Assistance,Front Wheeled Walker Gait Goal Moderate Assistance,Front Wheel Walker Gait Distance 25 Other Goals improve bed mobility, transfers using FWW CGA and ambulation using FWW 50 ft CGA Days to Meet Goals 10 Frequency of Treatment Frequency Of Treatment Once a Day Treatment Plan Physical Therapy Treatment Plan Bed Mobility Training,Transfer Training,Gait Training, Therapeutic Exercise,Balance Retraining,Post Op Education, Discharge Planning,Hot or Cold Pack,Neuromuscular Re-ed, Coordination Retraining,Manual Therapy Precautions Lumbar Precautions Log Roll,No Twisting,Limit Bending,Lifting Restriction of 10 lbs,Gait Belt above Incisional Area Recommendations To Nursing Amount of Assist Needed Total Assistance,Mechanical Lift Discharge Recommendations PT Discharge Recommendations Home with 24/7 Assist Available,SNF Rehab,Home vs SNF Transportation Needs at Discharge Stretcher/Ambulance
[2022-06-04] MEDS: OXYCODONE IR 10 MG TABLET PO ×3 (11:18→17:50)
--- NOTE | 2022-06-04 13:21 | CM.DPNOTE ---
Addendum entered by Jany Hein R.N. 06/04/22 14:13: Note: Also for [facility] for possible admission, will fax Rerral. WILBER BATES Original Note: Discharge Planning Note: Patient resting in bed with son Lavell in room. Discussed patient's and son's desire to go to [facility] so he can do more for himself. Hospice is out of the question at this point per son. He still wants his oncologist to inform them further. Patient is extremely limited in his ADL abilities and ambulation due to pain. Physical Therapy sat him on the side of the bed today only. OT ordered for their evaluation this afternoon. Reinforced education regarding SNF requirements and acceptances, Medicare coverages, etc with some verbalized understanding. Son asked about DPOA, provided form. Son states he will finish Medicaid application by tomorrow and then DCP can fax to [facility]. Called [facility] and their admissions person is not in til Monday. Patient has limited income and son is sole family. So, paying for assisted living not really an option at this point. Sent Referrals and left messages with [facility] and [facility]. P: Follow up with SNFs. Otilia Hein RN/DCP
--- NOTE | 2022-06-04 16:28 | OT.IPNOTE ---
Attempted to see pt for OT services. Checked with nursing at 1420 and nursing requested that OT return after pain medications. Returned at 1545 and pt and son present. Pt states he feels fatigued and just wants to sleep but is concerned that it will be charted as a refusal. Discussed at length the rehab system in the hospital and SNF that requires the pt to participate when therapy is there. Pt requests that he know ahead of time that therapy is going to come. Nursing reminded pt that he had notified pt that OT would return in about an hour. Pt voices that he is just tired and wants to sleep. Will hold today and continue to follow. Time spent face to face [phone].
[2022-06-05] VITALS (9 sets, daily range): BP systolic 94–128; BP diastolic 42–66; PULSE 70–92; RESP 16–18; TEMP 35.8–37.1; O2SAT 95–98
[2022-06-05] MEDS: OXYCODONE IR 10 MG TABLET PO ×3 (04:50→23:30)
--- NOTE | 2022-06-05 08:20 | PM.PN.1 ---
Subjective Subjective Date Patient Seen: 06/05/22 Time Patient Seen: 12:00 Interval history: Patient able to sit on edge of bed with PT today required max 3 assist. He refused to work with OT stating he was too tired. Patient currently has no complaints other than pain. Exam Vital Signs (past 8 hours): - 06/05/22 00:36 06/05/22 04:57 Temperature 97.3 F L 97.0 F L Pulse Rate 78 75 Respiratory Rate 18 18 Blood Pressure 112/56 L 120/52 L Pulse Oximetry 96 95 Oxygen Flow Rate 0 0 Oxygen Delivery Method Room Air Oxygen Flow Rate 0 Narrative Exam Narrative: GEN:? Middle-aged male, Alert and oriented x 3, more awake today, NAD. Obese HEENT:NC, Face symmetric CHEST: Respiratory excursions symmetric, CTAB CV: RRR, no M/R/G ABD: Soft, NT/ND, BT present in all 4 quadrants, no organomegaly or masses EXTR: warm, well perfused, no C/C/E SKIN: warm and dry, no rash NEURO: Alert and oriented x 3 Objective Labs Result Diagrams: 06/04/22 05:55 06/04/22 05:55 REPLACED BY [facility] Medical History Chronic left shoulder pain Elevated alkaline phosphatase level Elevated PSA History of prostate cancer Hypertension Low back pain Obesity Pelvic somatic dysfunction Physical deconditioning Prostate cancer metastatic to bone Sacral region somatic dysfunction Shortness of breath Vision disorder Surgical History Anesthesia H/O right wrist surgery (~1996) H/O umbilical hernia repair History of hip surgery (~1985) History of prostatectomy Family History Mother Parkinson's disease Other No history of cancer Social History household members: family Smoking Status: Former smoker alcohol intake: current substance use type: does not use Assessment & Plan Assessment & Plan narrative: 1. Prostate cancer with diffuse osseous metastases involving L2 expansile lesion causing fracture and stenosis of the central canal -s/p L2 laminectomy on 05/[address] Gómez ortho -palliative care at [facility] who recommended sublingual morphine in place of oxycodone and increasing methadone to 5 mg t.i.d. based on current MME/day of 53 -continue taper of dex. -Continue robaxin. -stop morphine, switch to oxycodone -patient attempting PT to get to SNF, will need daily PT to qualify for SNF -BANKING SERVICES CLERK working on SNF referrals to see if he is accepted, however appears unlikely -BANKING SERVICES CLERK spoke with son and goals of care discussion to happen with myself, patient, son, physical therapist, and social work today at 3:00 p.m. 2. UTI, pansensitive Staph Simulans Final cultures revealed pansensitive Staph Simulans.? He was asymptomatic and received 3 days of IV Rocephin. 3. Hypokalemia Resolved.? 4. Hypertension Remains normotensive.? Continue amlodipine and metoprolol 5. Depression Continue bupropion Code status DNR Prophylaxis Lovenox Disposition Patient attempting rehab to qualify for SNF. If he can't maintain daily PT, then hospice at home is recommended which patient is somwhat amenable to but son is hesitant and would like patient to keep working with PT. Time Spent With Patient Critical Care time: I spent a total of [] minutes of critical care time on this patient's care today; this time is exclusive of procedural time. Quality VTE Deep Vein Thrombosis/Pulmonary Embolism Present on Admission: No
[2022-06-05] MEDS: ENOXAPARIN 40 MG/0.4 ML SYRINGE SUBCUT (08:28)
[2022-06-05] MEDS: polyethylene glycoL 3350 17 GM POWD.PACK PO (08:28)
[2022-06-05] MEDS: DOCUSATE 100 MG CAPSULE PO ×2 (08:29→20:46)
[2022-06-05] MEDS: SPIRONOLACTONE 25 MG TABLET PO (08:29)
[2022-06-05] MEDS: dexAMETHasone 4 MG TABLET 2 MG PO (08:29)
[2022-06-05] MEDS: GABAPENTIN 300 MG CAPSULE 900 MG PO ×3 (08:29→20:46)
[2022-06-05] MEDS: buPROPion XL 150 MG TAB PO (08:29)
[2022-06-05] MEDS: AMLODIPINE 5 MG TABLET PO (08:30)
[2022-06-05] MEDS: hydroCHLOROthiazide 25 MG TABLET PO (08:30)
[2022-06-05] MEDS: METHADONE 5 MG TABLET PO ×3 (08:30→20:47)
[2022-06-05] MEDS: SENNOSIDES 8.6 MG TABLET 17.2 MG PO ×2 (08:30→20:46)
[2022-06-05] MEDS: METOPROLOL ER 50 MG TABLET PO (08:32)
[2022-06-05] MEDS: LOSARTAN 50 MG TABLET 100 MG PO (08:39)
--- NOTE | 2022-06-05 09:37 | PT.IPTN ---
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) Other malaise (05/26/22) Surgery Performed Operation Date: 05/30/22 15:45 Actual Procedures p L2 Laminectomy - Laura Gómez MD Physical Therapy Treatment Note M2 PT-IP Current Condition Start: 05/29/22 09:21 Freq: NEEDED Status: Active Protocol: Document 06/04/22 10:48 AB (Rec: 06/04/22 14:28 AB [id number]) Physical Therapy Current Condition Current Condition Evaluation Date 06/04/22 Treatment Diagnosis prostate CA with mets s/p L2 laminectomy; difficulty in walking Onset Date 05/26/22 M3 PT-IP Subjective Start: 05/29/22 09:21 Freq: NEEDED Status: Active Protocol: Document 06/05/22 09:56 NBM (Rec: 06/05/22 10:21 NBM [id number]) Subjective Physical Therapy Visit Type Type Treatment Note Visit Start Time 09:15 Visit Stop Time 09:37 Total Visit Minutes 22 Number of ROUTE DELIVERY SUPERVISOR Visits 1 Physical Therapy Visit Comments Patient Comments Pt apprehensive about pain but ultimately willing to work with PT. M4 PT-IP Mobility and Gait Start: 05/29/22 09:21 Freq: NEEDED Status: Active Protocol: Document 06/05/22 09:56 NBM (Rec: 06/05/22 10:21 NBM [id number]) PT-Bed Mobility Assessment Rolling Type of Rolling Log Rolling,Roll to Right Level of Assist Maximal Assistance Supine to Sit Supine to Sit Total Assistance,2 Person Assistance,Head of Bed Elevated,Bedrails Sit to Supine Sit to Supine 2 Person Assistance Scooting Scooting to Edge of Bed Dependent Scooting Up and Down in Bed Dependent PT-Transfer Assessment Sit to and From Stand Sit to and from Stand Maximum Assistance,2 Person Assistance,Use of Upper Extremities Comments Mobility Comments Pt lying in bed upon PT arrival, expressed apprehension with movement due to pain but ultimately agreeable to PT. Pt completed supine ankle pumps but PROM required to complete heel slides tiffanie. Pt requires max cues for hand placement and max A x 2 for log roll bed mobility w/ elevated HOB, and c/o of increase back pain. Sitting EOB requires max cues and total Ax2. Pt unable to scoot to EOB enough for weightbearing through LE even with max cues for weightbearing through UE and leaning forward, d/t core instability, weakness and c/o of pain. LAQ performed, seated marches attempted but unable to perform. Pt requesting to lie back down and does not want to sit up on the chair today d/t pain. Pt refused to do standing. completed sit to supine total A x 2 and max cues. total A x 2 with Trendelenberg for positioning in bed. Call light and table placed within reach. Pruitt cath sleeve came off during tx session and RN notified immediately following treatment. Gait Assessment Comments Gait Comments Unable at this time. Stair Climbing Assessment Comments Stair Climbing Comments Not assessed. Pt not able to progress to gait this date. PT-Balance Assessment Sitting Balance and Reactions Static Sitting Balance Ability Poor Dynamic Sitting Balance Ability Poor M5 PT-IP Objective Assessments Start: 05/29/22 09:21 Freq: NEEDED Status: Active Protocol: Document 06/04/22 10:48 AB (Rec: 06/04/22 14:28 AB [id number]) Orientation Orientation/Cognition Level of Alertness Alert Orientation Name,Place,Situation Language Function Ability No Deficits Noted Safety Awareness Decreased Safety Awareness Memory Description Short Term Impaired Gross Range of Motion Lower Extremity ROM Assessment Within Functional Limits Strength Lower Extremity Strength Assessment Bilaterally Impaired Hip 3-/5 Knee 3/5 Muscle Tone Muscle Tone WNL Yes M6 PT-IP Treatment Start: 05/29/22 09:21 Freq: NEEDED Status: Active Protocol: Document 06/05/22 09:56 NBM (Rec: 06/05/22 10:21 [facility] [id number]) Physical Therapy Treatment Exercises Exercises Ankle Pumps,Heel Slides,Seated Knee Flexion/Extension Education Education Provided Precautions,Safety M7 PT-IP Assessment and Plan Start: 05/29/22 09:21 Freq: NEEDED Status: Active Protocol: Document 06/05/22 09:56 NBM (Rec: 06/05/22 10:21 [facility] [id number]) PT Summary Assessment and Plan Potential Rehabilitation Potential Fair Status of Condition at Evaluation Evolving Summary Impairments Pain,ROM,Strength,Balance, Coordination,Sensation,Tone, Cognition,Bed Mobility, Transfers,Gait,Activity Tolerance Assessment Summary Pt requiring max to total A x 2 with mobility and will need 24/7 assist at this time. Pt with c/o increase pain limiting mobility and activity tolerance. Goals Bed Mobility Goal Moderate Assistance Transfer Goal Moderate Assistance,Front Wheeled Walker Gait Goal Moderate Assistance,Front Wheel Walker Gait Distance 25 Other Goals improve bed mobility, transfers using FWW CGA and ambulation using FWW 50 ft CGA Days to Meet Goals 10 Frequency of Treatment Frequency Of Treatment Once a Day Treatment Plan Physical Therapy Treatment Plan Bed Mobility Training,Transfer Training,Gait Training, Therapeutic Exercise,Balance Retraining,Post Op Education, Discharge Planning,Hot or Cold Pack,Neuromuscular Re-ed, Coordination Retraining,Manual Therapy Other Recommendations and Next Treatment bed mobility, reinforce spinal Focus precautions, sitting tolerance, standing tolerance as able Precautions Lumbar Precautions Log Roll,No Twisting,Limit Bending,Lifting Restriction of 10 lbs,Gait Belt above Incisional Area Recommendations To Nursing Amount of Assist Needed Total Assistance,Mechanical Lift Discharge Recommendations PT Discharge Recommendations Home with 24/ Assist Available,SNF Rehab,Home vs SNF Transportation Needs at Discharge Stretcher/Ambulance
--- NOTE | 2022-06-05 11:28 | CM.DPC ---
Addendum entered by Charmaine Rodriguez R.N. 06/05/22 15:58: BRIANNA, , PT, and Nurse Coordinator met with pt and pt son this afternoon bedside to discuss goals of care. MD explained the realistic prognosis of pt being able to discharge to a SNF. Pt and son verbalized understanding of pt progression. Pt aware that the longer he does not move with physical and occupational therapy, the longer recovery would be. Pt understands that his pain is not as controlled as he would like it to be. Hospice was brought up again as another option. MD provided his expertise on the reasoning behind the decision. At the end of the conversation, pt and pt son agreeable to the exploring the idea of hospice. BRIANNA and MD to work together to set up hospice and get pt discharged home this week. Pt and son verbalized thankfulness for the discussion. DCP to follow up with hospice tomorrow morning and to help with coordination. Charmaine Rodriguez RN/BRIANNA Addendum entered by Charmaine Rodriguez R.N. 06/05/22 11:48: BRIANNA spoke with pt this morning to encourage participation in therapies and to discuss the barrier we are experiencing in placing him with a SNF. Pt agrees to continue to work with therapies and he requests that therapy teams come by and let him know what time they would be by each day. BRIANNA explained the realistic expectations of his request. Pt understands that he will be working with therapies at least twice a day. Pt understands the barrier and is aware of the potential for insurance to deny. [facility] to continue to follow ADJ Original Note: BRIANNA spoke with Lela @ [facility]. Per Lela, pt needs to work with therapies in order to be considered for SNF. BRIANNA faxed [facility] referral to determine if [facility] would approve pt for a SNF. [facility] to continue to follow up on this case. Charmaine Rodriguez RN/BRIANNA
[2022-06-05] MEDS: ACETAMINOPHEN 325 MG TABLET 650 MG PO (14:25)
--- NOTE | 2022-06-05 15:52 | PT-IP ANOTE ---
310p-350p: Care Conference meeting with hospitalist, CM and Nursing team with pt and son Lavell explaining pt's physical therapy status at this time (Total Assist x 2, trendelenberg for bed positioning, activity limited by pain and weakness in LE, UE and core.)
[2022-06-05] MEDS: dexAMETHasone 1 MG TABLET PO (16:39)
[2022-06-05] MEDS: hydrOXYzine pamoate 25 MG CAPSULE PO (17:30)
--- NOTE | 2022-06-05 19:09 | PC.NURSE ---
pt's IV was leaking when RN went to flush earlier today, pt did not need any IV meds today and provider OK with no IV access, so IV was D/C'd. Pt has been taking oral pain meds today and vitals have improved. pt is tolerating pain and able to go longer than Q3 hours between [id number] RN educated pt on importance of not using IV morphine, and Dilaudid to try and manage pain with oral oxy and Vistaril so bps don't drop, pt agreeable, RN removed IV and pt tolerated well.
[2022-06-05] MEDS: TRAZODONE 50 MG TABLET PO (20:47)
[2022-06-06] VITALS (7 sets, daily range): BP systolic 98–117; BP diastolic 46–64; PULSE 68–76; RESP 16–18; TEMP 36.7–37.5; O2SAT 93–99
[2022-06-06] MEDS: OXYCODONE IR 10 MG TABLET PO ×2 (05:21→09:32)
[2022-06-06 05:47] LABS: Add Manual Diff / Slide Review NO; Basophils Absolute Auto 100 /uL (0-100); Basophils Percent Auto 0.7 % (0-2); Eosinophils Absolute Auto 100 /uL (0-450); Hematocrit 32.5 % (41-53); Hemoglobin 10.8 g/dL (13.5-17.5); Lymphocytes Absolute Auto 2600 /uL (1100-4500); Lymphocytes Percent Auto 18.4 % (25-40); Mean Corpuscular HGB Conc 33.4 % (30-36); Mean Corpuscular Hemoglobin 29.9 PG (26-34); Mean Corpuscular Volume 89.6 fL (80-100); Monocytes Absolute Auto 1700 /uL (0-900); Monocytes Percent Auto 12.2 % (3-14); Neutrophils Absolute Auto 9600 /uL (1500-7000); Neutrophils Percent Auto 67.7 % (50-75); Platelet Count 425 X10^3/uL (150-400); Red Blood Cell Count 3.63 X10^6/uL (4.5-5.9); Red Cell Distribution Width 12.8 % (11.6-14.8); White Blood Cell Count 14.3 X10^3/uL (4.5-11.0)
[2022-06-06 05:58] LABS: BUN Creatinine Ratio 37.5 (6-22); Blood Urea Nitrogen 24 mg/dL (9-20); Carbon Dioxide 31 mmol/L (22-32); Chloride 94 mmol/L (98-107); Estimated Glomerular Filt Rate > 60 mL/min (>60); Glucose 91 mg/dL (80-110); HEMOLYSIS < 15 (0-50); Potassium 3.6 mmol/L (3.4-5.1); Sodium 129 mmol/L (137-145)
[2022-06-06] MEDS: ACETAMINOPHEN 325 MG TABLET 650 MG PO (06:00)
[2022-06-06] MEDS: methocarbamoL 500 MG TABLET 750 MG PO (06:01)
--- NOTE | 2022-06-06 06:40 | PC.NURSE ---
Spoke to SHIP'S CAPTAIN Edgardo jarrell and requested for a hardin catheter to be place due to pt having pain with any type of movement. pt received oxycontin 10 mg twice along with methacarbamol 750 mg. pt c/o pain 10/10 with any type of movement, even when taking his oral medications. Pt more agreeable to turn alexeyight and appreciative of the care he is receiving at the hospital.
--- NOTE | 2022-06-06 08:17 | CM.DPC ---
Addendum entered by Charmaine Rodriguez R.N. 06/06/22 13:29: DCP spoke with pt son today to discuss the plan for discharge tomorrow. [facility] verbalized that BLS transport will be here @ 1330 to transfer pt back to home to be assessed by hospice. Lavell verbalized that he would be at the house waiting for the arrival of the pt. Hospice to deliver the equipment in the AM. DCP put transport paperwork in pt chart. DCP to continue to follow. Charmaine Rodriguez RN/BRIANNA Addendum entered by Charmaine Rodriguez R.N. 06/06/22 10:38: DCP spoke with Hospice and they can have the equipment delivered to the pt's house tomorrow 06/07. Hospice states they can have an electric lineman at the house between [phone] tomorrow 06/07. DCP setting up BLS transport for 1330 tomorrow. Pt, RN, and MD aware. DCP to contact the son after his appointment with Hospice. DCP to continue to follow. Charmaine Rodriguez RN/BRIANNA Original Note: DCP Cont: DCP spoke with [facility] to inform her of the new developments of pt care. [place] to contact the son and pt to do a brief assessment. Virginia states that she could get the equipment out to the home quickly and that their availability for in home assessment is open this week. [place] to contact DCP back following conversations with son and pt. DCP to continue to follow. Charmaine Rodriguez RN/WESTONP
[2022-06-06] MEDS: polyethylene glycoL 3350 17 GM POWD.PACK PO (08:19)
[2022-06-06] MEDS: dexAMETHasone 1 MG TABLET PO ×2 (08:19→16:25)
[2022-06-06] MEDS: hydroCHLOROthiazide 25 MG TABLET PO (08:20)
[2022-06-06] MEDS: METHADONE 5 MG TABLET PO (08:20)
[2022-06-06] MEDS: AMLODIPINE 5 MG TABLET PO (08:20)
[2022-06-06] MEDS: ENOXAPARIN 40 MG/0.4 ML SYRINGE SUBCUT (08:20)
[2022-06-06] MEDS: GABAPENTIN 300 MG CAPSULE 900 MG PO ×3 (08:20→21:41)
[2022-06-06] MEDS: LOSARTAN 50 MG TABLET 100 MG PO (08:20)
[2022-06-06] MEDS: SPIRONOLACTONE 25 MG TABLET PO (08:20)
[2022-06-06] MEDS: SENNOSIDES 8.6 MG TABLET 17.2 MG PO ×2 (08:20→21:40)
[2022-06-06] MEDS: buPROPion XL 150 MG TAB PO (08:21)
[2022-06-06] MEDS: DOCUSATE 100 MG CAPSULE PO ×2 (08:21→21:40)
[2022-06-06] MEDS: METOPROLOL ER 50 MG TABLET PO (08:40)
--- NOTE | 2022-06-06 09:06 | OT.IPNOTE ---
Discussed case with care management and Dr. Luke. Pt and son are now in agreement for hospice care with plans for pt to discharge home with his son and hospice support. Given comfort measures, therapy services to discharge pt from our services. Dr. Luke in agreement. Will discharge OT/PT orders.
--- NOTE | 2022-06-06 10:35 | DIET.CONS2 ---
Dietary Inpatient Consultation Note Admission Date: 05/26/2022 21:47 Pt with poorly managed pain secondary to metastatic cancer to bone, pts poor POs related to poorly managed pain, pt to d/c on hospice. Continue ONS for small frequent sips. Diet: 05/30/22 Dinner General (Regular) Diet Diet Modifications: Chocolate Ensure BID Nutrition Percent Meal Consumed 75% 06/06/22 09:14 Percent Meal Consumed refused dinner 06/05/22 18:00 Percent Meal Consumed 100% 06/04/22 12:59 Electronically Signed by: Kim Ma 06/06/22 10:35 Clinical Dietitian [address] [address]
--- NOTE | 2022-06-06 11:22 | CM.DPNOTE ---
Called [facility] for BLS transport for 06/07/22 for 1330 per Charmaine. Spoke to Juan Alberto. Lorena Nelson CM Assist.
[2022-06-06] MEDS: fentaNYL 50 MCG/PATCH TOP (11:52)
--- NOTE | 2022-06-06 14:11 | PM.PN.1 ---
Subjective Subjective Date Patient Seen: 06/06/22 Interval history: Continues to have complaints of pain today that is severe. Minimal help with oxycodone, will attempt other measures today given goals of care now changed to hospice and maximizing comfort. Exam Vital Signs (past 8 hours): - 06/06/22 08:20 06/06/22 08:40 06/06/22 07:00 Temperature Pulse Rate 75 75 Respiratory Rate Blood Pressure 117/51 L 117/51 L Pulse Oximetry Oxygen Delivery Method Room Air Oxygen Flow Rate 06/06/22 10:49 06/06/22 11:25 Temperature 99.3 F Pulse Rate 73 76 Respiratory Rate 18 Blood Pressure 98/53 L 102/46 L Pulse Oximetry 97 Oxygen Delivery Method Oxygen Flow Rate 0 Oxygen Delivery Method Room Air Oxygen Flow Rate 0 Narrative Exam Narrative: GEN:? Middle-aged male, Alert and oriented x 3, more awake today, NAD. Obese. Occasional grimace with movements in bed. HEENT:NC, Face symmetric CHEST: Respiratory excursions symmetric, CTAB CV: RRR, no M/R/G ABD: Soft, NT/ND, BT present in all 4 quadrants, no organomegaly or masses EXTR: warm, well perfused, no C/C/E SKIN: warm and dry, no rash NEURO: Alert and oriented x 3 Objective Labs Result Diagrams: 06/06/22 05:08 06/06/22 05:08 Labs: Laboratory Results - last 24 hr 06/06/22 06/06/22 05:08 05:08 WBC 14.3 H RBC 3.63 L Hgb 10.8 L Hct 32.5 L MCV 89.6 MCH 29.9 MCHC 33.4 RDW 12.8 Plt Count 425 H Neut % (Auto) 67.7 Lymph % (Auto) 18.4 L [place] % (Auto) 12.2 Eos % (Auto) 1.0 L Baso % (Auto) 0.7 Neut # (Auto) 9600 H Lymph # (Auto) 2600 [place] # (Auto) 1700 H Eos # (Auto) 100 Baso # (Auto) 100 Sodium 129 L Potassium 3.6 Chloride 94 L Carbon Dioxide 31 BUN 24 H Creatinine 0.64 L Estimated GFR > 60 BUN/Creatinine Ratio 37.5 H Glucose 91 Calcium 9.0 PFSH Medical History Chronic left shoulder pain Elevated alkaline phosphatase level Elevated PSA History of prostate cancer Hypertension Low back pain Obesity Pelvic somatic dysfunction Physical deconditioning Prostate cancer metastatic to bone Sacral region somatic dysfunction Shortness of breath Vision disorder Surgical History Anesthesia H/O right wrist surgery (~1996) H/O umbilical hernia repair History of hip surgery (~1985) History of prostatectomy Family History Mother Parkinson's disease Other No history of cancer Social History household members: family Smoking Status: Former smoker alcohol intake: current substance use type: does not use Assessment & Plan Assessment & Plan narrative: 1. Prostate cancer with diffuse osseous metastases involving L2 expansile lesion causing fracture and stenosis of the central canal -s/p L2 laminectomy on 05/[address] Dalia nj -change to fentanyl patch, okay to start at 50 mcg today given ongoing pain. change to prn morphine 30 mg q6 to see if effective. Dilaudid IV for breakthrough. -continue taper of dex. -Continue robaxin. -after extensive goals of care, plan now for discharge home on hospice, ideally tomorrow if pain is adequately controlled. 2. UTI, pansensitive Staph Simulans Final cultures revealed pansensitive Staph Simulans.? He was asymptomatic and received 3 days of IV Rocephin. 3. Hypokalemia Resolved.? 4. Hypertension Remains normotensive.? Continue amlodipine and metoprolol 5. Depression Continue bupropion Code status DNR Prophylaxis Lovenox Disposition home with hospice, ideally tomorrow. Time Spent With Patient Critical Care time: I spent a total of [] minutes of critical care time on this patient's care today; this time is exclusive of procedural time. Quality VTE Deep Vein Thrombosis/Pulmonary Embolism Present on Admission: No
[2022-06-06] MEDS: MORPHINE IR 15 MG TABLET 30 MG PO (16:25)
--- NOTE | 2022-06-06 17:08 | PC.NURSE ---
Pt is AxOx4, bedrest and cooperative. VSS, pt c/o back pain, and recieved PRN Oxy PO, Morphine PO with good effect.Pt also has Fentanyl patch on L chest. Pt refused to get turned due to pain. Pt just wants to lay down as he is right now. Pain is controlled well with his PRN pain med as well as fentanyl patch. Pt will go home tomorrow around 1330 [address] [facility]. stocklayer will do assessment around [id number] in his house. No other changes.
[2022-06-06] MEDS: TRAZODONE 50 MG TABLET PO (21:40)
[2022-06-07] MEDS: MORPHINE IR 15 MG TABLET 30 MG PO ×2 (04:42→11:17)
[2022-06-07 07:50] VITALS: BP 115/53; PULSE 75; RESP 15; TEMP 37.3; O2SAT 97
--- NOTE | 2022-06-07 08:31 | ONC.MSW ---
Late Entry: Visit 06/06/22 Oncology STEP DOWN SPECIALIST visit after rounds in acute care in. Met with pt to provide supportive counseling in regard to transitioning from active tx to hospice/comfort care. His main concern was how his son was coping, and not wanting to burden him with all of the coordination involved in his d/c home. This STEP DOWN SPECIALIST offered teaching re: what to expect with hospice and the support that they will have for his son, and that things will settle down once he's home and they settle into their new routine. He shared that he was still hopeful that maybe he will stabilize enough to still try chemotherapy. STEP DOWN SPECIALIST explained the disease progression that Dr. Baum had gone over with him and with the hospitalist, and that the extent of his mets is very advanced, that chemotherapy would most likely decrease his quality of life, and that Dr. Baum's best estimate for life expectancy for him was less than a year, even with chemo, if it's even effective. Pt expressed his primary goals are quality of life and symptom management, which STEP DOWN SPECIALIST reiterated would be well provided by hospice care. He expressed understanding, and went on to share his spiritual beliefs in life after , and his strong loreta that he is being supported by. STEP DOWN SPECIALIST wished him well, no further needs indicated for further Oncology intervention.
--- NOTE | 2022-06-07 08:32 | PM.DS.1 ---
History of Present Illness History of Present Illness Date Patient Seen: 06/07/22 Chief complaint: chronic back pain Narrative: Per Paige Garcia, [facility]-: Jassi Toribio is a 76-year-old male with a history of hypertension, obesity & prostate adenocarcinoma, GS 9, and underwent radical prostatectomy, in May of this year a nuclear scan demonstrated extensive osseous metastasis to bone.? Patient presented to the ED this evening complaining of increasing lower back pain, increasing lower extremity weakness. Patient reports that he is unable to ambulate or get to the restroom when he needs too,and so he is often wearing a brief for bowel movements but denies incontinence of urine or fecal.? He describes a burning pain in his right leg, sometimes both legs this is not new but has become more intense, he has bilateral lower extremity weakness that sounds has been slowly progressive.? Patient denies any skin breakdown or ulcers.? The patient reports that his pain has become so debilitating that he has been sleeping on the floor down stairs for the last 2 nights, unable to get up, or go up stairs to his bedroom. Patient reports that even with the slightest movement of his extremities he is in excruciating pain. This incapacitation on the kitchen floor after 48 hours led to calling the EMS for transport. Patient had his pain medications increased on Monday from hydrocodone to oxycodone, has yet to fill.? He is followed by Dr. Baum oncology and has PET scans and imaging scheduled for this coming Monday, Dr. Smith is his primary care physician.? Based on his escalating pain, disabling incapacity and weakness he is unsafe to return home. Upon admit patient is requesting that he remain hospitalized until his Monday imaging can be completed. In the ED he and his son requested home health, hospice or rehab consult.? Patient is a former smoker, occasional alcohol, uses THC intermittently.? Patient was found to be hypokalemic with a UTI in the ED with acute urinary retention. Dr. Ortega orthopedics was consulted regarding L1 compression fracture and mild central canal stenosis L2-L3. Dr. Ortega requested that the patient have an MRI of the lumbar with and without contrast tomorrow, he will consult regarding possibility of surgery. Upon admit patient denies chest pain, shortness of breath, abdominal pain, nausea, vomiting, diarrhea, chills, fever, headache, changes in vision, dizziness, recent illness or trauma outside of prostate cancer. In the emergency department the patient's son and POA and the patient discussed with Dr. Kaplan requesting a hospice consult. Upon admit to the floor patient is alert and orientated, and after an in-depth discussion the patient verbalized that he did not want cardiac resuscitation or intubation. But he does want facilitation of all other medical interventions up and too that point. The patient revealed to me that he has had hospice discussions with both his primary and Oncology prior to his admit this evening. And that it is his son who was requesting that the patient be a full code. As the patient is fully alert and orientated, I have changed his code status to DNR per his request. The patient further verbalized that pain control is his primary goal of his care. Patient to have palliative care/hospice consult tomorrow and requests that his son be involved in the discussion. Upon admit patient's vitals are stable temp 97.9?, BP 150/81 RR 20 O2 saturation 99% on room air. Patient's WBCs are normal but does have a left shift neutrophils 8100 mono 1000. HGB 12.2, HCT 34.8, patient has a potassium of 2.8, T CK 513, alk-phos 824. Patient's urinalysis was positive for nitrates blood, protein, bacteria, WBC, RBC culture is pending. Blood cultures x2 were also drawn in the ED patient's pelvic CT demonstrated of the bones lytic osseous metastatic disease is seen in the sacrum and pelvis.? The right hip is status post fixation without complication.? No fracture of the pelvis is identified.? In the right iliac wing medially adjacent to the sacroiliac joint there is an expansile lesion with cortical destruction measuring approximately 3 cm an area of sclerosis in the right sacrum is seen also consistent with expansile soft tissue mass with cortical destruction. Patient's lumbar CT demonstrated osseous metastatic disease to the lumbar spine, with compression fracture of L1 with 50% anterior height loss of indeterminate age, expansile metastatic lesion to L2 which causes at least moderate central canal stenosis, and multilevel disc disease, worst at L2-3 causing foraminal and central canal stenosis.? Patient is admitted for Observation for hypokalemia, UTI, low back pain exacerbation with increasing weakness likely secondary to metastatic disease. Dr. Ortega orthopedics requesting imaging and consult. Per Dr. Baum Oncology 05/09/22: The bone scan on 08/18/2020 showed multifocal osseous metastatic disease involving the calvarium, the left shoulder, multiple ribs, the thoracic and lumbosacral spine, the right sacrum, and the right iliac bone.? Two small foci of isotope abnormality are noted the intertrochanteric hips bilaterally.? The same day CT chest abdomen pelvis showed no acute abnormalities, but multiple scattered sclerotic foci throughout the imaged skeleton suspicious for osseous metastatic disease.? It also showed multiple small hepatic hypodensities too small to accurately characterize.? Although not meeting size criteria for pathology, there were numerous prominent retroperitoneal lymph nodes suspicious for possible metastatic disease.? Finally multiple sub 6 mm bilateral pulmonary nodules were noted. Patient started Lupron 22.5 mg every 3 months on 08/24/2020. On 09/16/2020, patient started Yonsa 500 mg once a day together with prednisone 5 mg bid On 06/08/2021, patient underwent CT of the chest abdomen and pelvis.? The scan showed stable lung nodules bilaterally, it showed worsening of osseous metastasis, multiple chronic compression fractures noted in thoracic and lumbar spine; it showed stable cystic mass in the right pelvis probably a postoperative seroma or lymphocele.? Same day bone scan showed extensive osseous metastasis.? There was mild worsening of disease since the last visit. Due to disease progression as described above, we stopped his Yonsa about in mid Jul 2021, and started him on Xtandi 160 mg once a day. Nuclear medicine bone scan, 06/08/2021: FINDINGS:? There are multiple foci of abnormal uptake involving the skull, sternum, scapulae, multiple ribs bilaterally, cervical, thoracic and lumbar spine, sacrum, bony pelvis bilaterally, consistent with osseous metastases.? Compared with the last exam, some lesions are less intense.? There are however, several new lesions identified involving the skull, cervical spine and lumbar spine, as well as ribs bilaterally, consistent with worsening of osseous metastatic disease. IMPRESSION:? Extensive osseous metastasis.? There is mild worsening of disease since the last exam. Discharge Providers Provider Date of admission: 05/26/22 21:47 Discharge Date: 06/07/22 Primary care physician: Art Smith DO Consults: 05/26/22 18:38 Consult to CRYPTOLOGIST - Rip Saw Operator Stat Comment: CRYPTOLOGIST Consult needed for:: Community Health Res Need 05/26/22 22:20 Consult to CRYPTOLOGIST - Rip Saw Operator Routine Comment: Pt & Family would like to discuss hospice 05/26/22 22:33 Consult to Hospice Referral Routine Comment: Consult to Physician Routine Comment: Consulting Provider: Laura Gómez Reason for consultation: L1 compression fx, L2-3 stenosis Has provider been notified: Yes 05/27/22 06:10 Consult to Wound Care Routine Comment: 4 blisters left back 2 opened whole back erythema Consulting Provider: [facility] 05/27/22 12:07 Consult to Occupational Therapy Evaluate & Treat Comment: Physician Instructions: Evaluate and treat Consult to Physical Therapy Evaluate & Treat Comment: Physician Instructions: Evaluate and Treat 05/28/22 16:28 Consult to Dietitian, Adult Routine Comment: Reason For Exam: low ambika 05/30/22 18:34 Consult to Occupational Therapy Evaluate & Treat Comment: Physician Instructions: Evaluate and treat Consult to Physical Therapy Evaluate & Treat Comment: Physician Instructions: Evaluate and Treat 05/31/22 05:48 Consult to Occupational Therapy Evaluate & Treat Comment: Physician Instructions: Evaluate and treat Consult to Physical Therapy Evaluate & Treat Comment: Physician Instructions: Evaluate and Treat 06/01/22 15:38 Consult to Hospice Referral Routine Comment: 06/02/22 17:57 Consult to Physical Therapy Evaluate & Treat Comment: assess mobility, pt now willing to try PT Physician Instructions: Evaluate and Treat 06/02/22 18:12 Consult to Dietitian, Adult Routine Comment: 11 Reason For Exam: low ambika score 06/04/22 13:09 Consult to Occupational Therapy Evaluate & Treat Comment: OT Eval for ADL management Physician Instructions: Evaluate and treat Discharge provider: Thong Luke DO Summary Hospital Course Discharge Diagnosis: Please see hospital course by problem list noted below Hospital Course: 1. Prostate cancer with diffuse osseous metastases involving L2 expansile lesion causing fracture and stenosis of the central canal -s/p L2 laminectomy on 05/[address] Gómez of orthopedic surgery -Pain control proved to be difficult and he had difficulty working with therapies. Ultimately was able to be controlled with multipronged approach consisting of fentanyl, gabapentin, lidocaine patch, muscle relaxants, morphine oral as needed. Further adjustments per hospice providers. -after extensive goals of care discussion patient wished for discharge home on hospice. -continue on decadron taper as noted in discharge instructions with hospice which was started at the recommendation of orthopedics. 2. UTI, pansensitive Staph Simulans Final cultures revealed pansensitive Staph Simulans.? He was asymptomatic and received 3 days of IV Rocephin during his stay. 3. Hypokalemia patient's potassium was repleted. 4. Hypertension Remains normotensive.? Continue amlodipine and metoprolol at home. Further discussion whether to continue with hospice is recommended. 5. Depression Continue bupropion Time Spent with Patient Time spent: Greater than 30 minutes Exam Vital Signs (past 8 hours): - 06/07/22 07:50 Temperature 99.1 F Pulse Rate 75 Respiratory Rate 15 Blood Pressure 115/53 L Pulse Oximetry 97 Oxygen Flow Rate 0 Oxygen Delivery Method Room Air Oxygen Flow Rate 0 Narrative Exam Narrative: GEN:? Middle-aged male, Alert and oriented x 3, slightly slowed today but appears much more comfortable. HEENT:NC, Face symmetric CHEST: Respiratory excursions symmetric, CTAB CV: RRR, no M/R/G ABD: Soft, NT/ND, BT present in all 4 quadrants, no organomegaly or masses EXTR: warm, well perfused, no C/C/E SKIN: warm and dry, no rash NEURO: Alert and oriented x 3 Objective Labs Result Diagrams: 06/06/22 05:08 06/06/22 05:08 [facility] Medical History Chronic left shoulder pain Elevated alkaline phosphatase level Elevated PSA History of prostate cancer Hypertension Low back pain Obesity Pelvic somatic dysfunction Physical deconditioning Prostate cancer metastatic to bone Sacral region somatic dysfunction Shortness of breath Vision disorder Surgical History Anesthesia H/O right wrist surgery (~1996) H/O umbilical hernia repair History of hip surgery (~1985) History of prostatectomy Family History Mother Parkinson's disease Other No history of cancer Social History household members: family Smoking Status: Former smoker alcohol intake: current substance use type: does not use Discharge Plan Discharge Plan Patient Disposition: Hospice - Home Nursing Discharge Comment: Fentynal patch was placed 06/06/22 at 11:52am. It is replaced every 3 days. Follow fentynal patch instruction information given to you. Continue dexamethasone taper at home. start with 1 mg daily for another week and then stop. Discharge orders & Medications Prescriptions: New acetaminophen 325 mg Tablet 650 mg PO Q6HR PRN (Reason: Pain, Mild (1-3)) 30 Days Qty: 60 0RF fentanyl 50 mcg/hr Patch 72 Hour 50 mcg topical Q72H 15 Days Qty: 5 0RF dexamethasone 1 mg Tablet 1 mg PO DAILY 30 Days Qty: 30 0RF morphine 15 mg Tablet 30 mg PO Q6HR PRN (Reason: Pain, Severe (7-10)) 7 Days Qty: 30 0RF Continued (DME) Rollator Walker See Rx Instructions .Route .MEDSUPPLY Qty: 1 0RF Rx Instructions: As directed gabapentin 300 mg capsule 900 mg PO TID Qty: 180 11RF Xtandi 40 mg Capsule 160 mg PO Q24H Qty: 120 11RF methocarbamol 500 mg tablet 500 mg PO BEDTIME PRN (Reason: muscle spasm) Qty: 14 0RF Cbd Gummies 1 gummy PO DAILY PRN (Reason: pain) amlodipine [Norvasc] 5 mg tablet 5 mg PO DAILY Rx Instructions: TAKE ONE TABLET BY MOUTH ONE TIME DAILY diclofenac sodium [Voltaren Arthritis Pain] 1 % gel 4 g topical QID PRN (Reason: pain) Rx Instructions: apply to single knee, ankle, foot; for foot includes sole/toes/top of foot lidocaine [Lidoderm] 5 % adhesive patch,medicated 1 patch topical DAILY PRN (Reason: Pain (Scale Score 1-3)) Rx Instructions: leave on most painful area for up to 12 hrs losartan 100 mg tablet 100 mg PO DAILY Rx Instructions: TAKE ONE TABLET BY MOUTH ONE TIME DAILY metoprolol succinate 50 mg tablet extended release 24 hr 50 mg PO DAILY Rx Instructions: TAKE ONE TABLET BY MOUTH ONE TIME DAILY spironolacton-hydrochlorothiaz 25-25 mg tablet 1 tab PO DAILY Rx Instructions: TAKE ONE TABLET BY MOUTH ONE TIME DAILY bupropion HCl [Wellbutrin XL] 150 mg tablet extended release 24 hr 150 mg PO DAILY Label Comments: TAKE ONE TABLET BY MOUTH EVERY MORNING Discontinued oxycodone-acetaminophen [Percocet] 7.5-325 mg tablet 1 tab PO Q8H PRN (Reason: pain) Qty: 10 0RF bupropion HCl [Wellbutrin XL] 150 mg tablet extended release 24 hr 150 mg PO DAILY Rx Instructions: TAKE ONE TABLET BY MOUTH EVERY MORNING hydrocodone-acetaminophen 10-325 mg tablet 1 tab PO CONT PRN (Reason: pain) Rx Instructions: Take 1 tablet by mouth every 8 hours as needed for pain Medication counseling provided by Pharmacist: Yes Follow up/Referrals: Laura Gómez MD [Physician] - (Postop visit 10-14 days after surgery) Art Smith DO [Primary Care Provider] - Diet/Activity/Treatments Diet: Diet as Tolerated Catheter comment: Clean around catheter with soap and water daily and as needed. Other treatments: Dressing/Wound care: -Keep dressing in place until postoperative follow-up office visit. Continue with your bowel regime. You have been taking Miralax daily and Senna 2 tablets twice daily. You can also have Ducolox 10mg or Milk of Magnesia as needed. -Okay to shower. Keep wound out of direct water stream. Can use PressNSeal plastic wrap to protect from shower stream. No soaking or submerging until all the scabs fall off (approximately 6 weeks). -Please call the office if dressing becomes wet, soiled, or saturated. Activities: -Limit bending, lifting, twisting x6 weeks. No deep bending (more than 90 degrees) or twisting at the waist. No lifting > 20 pounds. -Weight-bearing as tolerated. Use front wheeled walker, and progress to cane when safe. -Continue with home exercises as directed by your physical therapist. -Ice your incision as needed for pain/inflammation/swelling. Protect your skin with a folded pillowcase. -Incentive Spirometer (breathing device from hospital): 5-10xs every hour while awake for the first 1-2 weeks. Follow-up: -Follow-up with your surgeon in the office in 10-14 days after surgery. -Follow-up with your surgeon 6 weeks postoperatively. Call the office if you have chest pain, shortness of breath, significant swelling that will not resolve with elevating, fever over 101?, significantly worsening pain, or are concerned you might need to go to the Emergency Room. [facility]: [phone] Skin/Wound/Dressing Care Report to your healthcare provider any signs of infection, such as:: chills, fever, night sweats, unusual drainage and unusual redness Visit Report/Discharge Packet Instructions: How to Care for Your Pruitt Catheter -- Male, DI for Laminectomy, DI for Urinary Tract Infection (UTI), DI for Constipation, DI for Acute Pain -- Adult, How to Prevent Falls, DI for Taking Pain Medication Stand Alone Forms: Surgery Discharge Discharge Data Primary Care Provider: Art Smith VTE Deep Vein Thrombosis/Pulmonary Embolism Present on Admission: No
[2022-06-07] MEDS: SENNOSIDES 8.6 MG TABLET 17.2 MG PO (09:27)
[2022-06-07] MEDS: METOPROLOL ER 50 MG TABLET PO (09:27)
[2022-06-07] MEDS: GABAPENTIN 300 MG CAPSULE 900 MG PO (09:27)
[2022-06-07] MEDS: DOCUSATE 100 MG CAPSULE PO (09:27)
[2022-06-07] MEDS: LOSARTAN 50 MG TABLET 100 MG PO (09:27)
[2022-06-07] MEDS: ENOXAPARIN 40 MG/0.4 ML SYRINGE SUBCUT (09:27)
[2022-06-07] MEDS: hydroCHLOROthiazide 25 MG TABLET PO (09:27)
[2022-06-07] MEDS: AMLODIPINE 5 MG TABLET PO (09:27)
[2022-06-07] MEDS: SPIRONOLACTONE 25 MG TABLET PO (09:27)
[2022-06-07] MEDS: polyethylene glycoL 3350 17 GM POWD.PACK PO (09:28)
[2022-06-07] MEDS: buPROPion XL 150 MG TAB PO (09:28)
[2022-06-07] MEDS: dexAMETHasone 1 MG TABLET PO (09:30)
--- NOTE | 2022-06-07 13:28 | CM.DPC ---
DCP Cont: Pt is discharging today via BLS ambulance. Pt to go back home on hospice and medical bed present in the home. EMS arrived and is transporting pt to the home. Charmaine Rodriguez RN/DCP
--- NOTE | 2022-06-07 18:33 | PC.NURSE ---
Discharge: Pt ready to d/c to home today. Speaking about different aspects of his life. 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 he has been battling cancer since 2016. Hard to give up now. Given time to verb feelings. hospice has been set up and he has his electric bed. Son is living with him. Back dressing was changed to cover site. [place] intact, no redness seen. There was some concerns about how the afshin were going to be removed and how he would do a follow up since he is immobile for now. [facility] Pinky [facility] and she agreed it would be difficult if not impossible in 2 weeks to get pt to this appointment for staple removal. She will set up having afshin removed by hospice in 2 weeks instead. The information was shared with the son who was relieved to find out it would be handled by hospice. Pt is taking diet. He reports no pain at rest but when moved he does call out. He knows medication can be increased but declined. He rates his pain as 5/10 but on a FLACC he is 7/10 most of the time. He reports he doesn't like how the medication makes him feel and he gets sleepy. Son Lavell was called several time today for d/c teaching. Pt has wounds as well as incision. Hospice will care for those. We discussed how to place fentynal patch and what was involved for hardin cath care. The printed instructions were sent with the patient for the son to review. The son is aware pt has scripts for turkey picker from the pharmacy. His questions were answered. Pt d/c to home at 1340 via [facility] transport, the transport crew were given report as well.
== END 2022-06-07 13:40 | disposition hospice, home (50) | DRG 519 ==
LOC: ED 21:47 → AC 05-27 05:12
PROVIDERS: Family Medicine; Orthopaedic Surgery Orthopaedic Surgery of the Spine; Student in an Organized Health Care Education/Training Program; Admitting Provider Nurse Practitioner Family; Emergency Provider Emergency Medicine; Family Provider Family Medicine; PCP Family Medicine; Referring Provider Emergency Medicine; Visit Provider Nurse Practitioner Family
PROC: 00NY0ZZ Release Lumbar Spinal Cord, Open Approach (ICD-10-PCS; principal; 2022-05-30 15:45)
DX: M84.58XA Pathological fracture in neoplastic disease, other specified site, initial encounter for fracture (principal); C79.51 Secondary malignant neoplasm of bone; N39.0 Urinary tract infection, site not specified; G83.4 Cauda equina syndrome; C61 Malignant neoplasm of prostate; G89.3 Neoplasm related pain (acute) (chronic); E87.6 Hypokalemia; L89.899 Pressure ulcer of other site, unspecified stage; T83.091A Other mechanical complication of indwelling urethral catheter, initial encounter; Z66 Do not resuscitate; I10 Essential (primary) hypertension; F32.A Depression, unspecified; B95.7 Other staphylococcus as the cause of diseases classified elsewhere; M48.061 Spinal stenosis, lumbar region without neurogenic claudication; Z20.822 Contact with and (suspected) exposure to COVID-19; Z87.891 Personal history of nicotine dependence
CPT/HCPCS: 00630; 36415; 51798; 72100; 72131; 72158; 72192; 72220; 73502; 76000; 80048; 80053; 81001; 82550; 83605; 83690; 83735; 85014; 85018; 85025; 85610; 87040; 87077; 87086; 87150; 87186; 87635; 93005; 93010; 96365; 96372; 96375; 97163; 97530; 99283; 99285; C9803; J0171; J0690; J0696; J0744; J1170; J1650; J1885; J2250; J2310; J2405; J2704; J3010